=== PATIENT | male | born 1955 | race Caucasian/White ===

== ENCOUNTER → 2018-01-03 | Outpatient (CLI) | payer OTHER ==
[2018-01-02 10:35] VITALS: BMI 33.2
[2018-01-03 12:14] VITALS: BP 128/71; PULSE 76; RESP 16
--- NOTE | 2018-01-03 16:23 | P.PAINCN ---
History of Present Illness - Reason for Consult Consult date: 01/03/18 - History of Present Illness This is a 62 years old male with a chronic history of severe low back pain with radiation to lower extremity bilaterally, more severe on the dorsal left side, patient had lumbar fusion surgery at L4 5 and L5-S1 done in 2010, and he did well until recently when he started having severe low back pain with radiation to the hip area bilaterally more severe towards the left side and towards the left and groin the pain is very intense , and interfere with the quality of life intensity of the pain 8/10 and increases with any activity to a 10 over 10 , is getting prescription for his pain medication from his spinal primary care and he denies any side effects of the medication but he reported the current medication is not helping to control his pain, he denies any fever or night sweats. Denies any change in the bowel movement or urination Past Medical History Past Medical History: COPD, GERD/Reflux, Hyperlipidemia, Sleep Apnea/CPAP/BIPAP Additional Past Medical History / Comment(s): Mustafa Parkinson White Syndrome, arthritis left hip ,chronic back pain,"disc in back pinching on nerves above prior spinal fusion",steroids November 2017,hx 3rd degree kelley 1970s History of Any Multi-Drug Resistant Organisms: None Reported Additional Past Surgical History / Comment(s): deviated septum repair,spinal fusion,"skin grafts to reena arms rt side above hips" Past Anesthesia/Blood Transfusion Reactions: No Reported Reaction Smoking Status: Current every day smoker - Past Family History Mother Family Medical History: No Reported History Medications and Allergies Home Medications Medication Instructions Recorded Confirmed Type Atorvastatin Calcium [Lipitor] 40 mg PO DAILY 01/02/18 01/03/18 History Cholecalciferol (Vitamin D3) 2,000 unit PO DAILY 01/02/18 01/03/18 History [Vitamin D3] Cyclobenzaprine [Flexeril] 10 mg PO BID PRN 01/02/18 01/03/18 History Hydrocodone/Acetaminophen [[place] 1 tab PO Q6HR PRN 01/02/18 01/03/18 History 7.5-325] Metoprolol Succinate (ER) [Toprol 25 mg PO DAILY 01/02/18 01/03/18 History Xl] Omeprazole 20 mg PO DAILY 01/02/18 01/03/18 History Tamsulosin HCl [Flomax] 0.4 mg PO BID 01/02/18 01/03/18 History lamoTRIgine [LaMICtal] 100 mg PO BID 01/02/18 01/03/18 History risperiDONE [RisperDAL] 1 mg PO DAILY 01/02/18 01/03/18 History Allergies Allergy/AdvReac Type Severity Reaction Status Date / Time No Known Allergies Allergy Verified 01/03/18 11:57 Physical Exam Vitals: Vital Signs Pulse Resp BP 01/03/18 12:01 76 16 128/71 Social history : smoker , NO ETOH , NO Illegal drugs use . Review of Systems : 1- Constitutional : no chills , no fever , no night sweats , 2- Ears : no ear discharge , no change in hearing 3-Nose, Mouth ,Throat ; no bleeding gums, no sore throat , no epistaxis , 4-Cardiovascular : Denies chest pain, , no orthopnea , no palpitation 5-Respiratory : Denies cough , no dyspnea , no hemoptysis 6-Gastrointestinal :, no change in bowel habits , no coffee- ground emesis . 7-Genitourinary : No hematuria , no discharge , no incontinence, 8-Musculoskeletal : No gait dysfunction , report low back pain , 9- Neurological : no ataxia , no tremor , no sezure , 10-Psychatric , no suicidal ideation no hallucination 11- Endocrine : no cold intolerence , no polyuria , no polydypsia , 12-Hematologic : no easy bleeding , no easy brusing , 13-Allergic / immunology : no angioedema , no wheezing ,no allergic rhinitis 14-Integumentary : no brttle nails , no change hair / nails , no foot/leg ulcers . Physical Examinations : 1-Constitutional : Cooperative , not in acute distress . 2-HEENT : nech ; supple , no Lymphadenopathy , no Thyromegaly , :eyes , no icterus, no photophobia . ENT : , normal oropharynx , no Thrush 3- Respiratory : Chest clear to auscultations Bilaterally , no wheezing . 4- Cardiovascular : regular rate and rhythem , S1 , S2 , no S3 , no S4. 5- Gastrointestinal: abdomen soft no tenderness , no organomegally . 6- Genitourinary : Defferred . 7-Integumentary : No cellulitis , no ulcers , normal skin turgor , no cyanotic . 8- neurologic : Cranial nerve II to XII intact , no focal neurological deffecit 9-psychatric : alert , oriented X 3 , appropriate affect , intact judgment and insight . 10-Lymphatic : no Lymphadenopathy. 11- musculoskeltal: abnormal gait Lumber spine moter stegnth lower extremities ,thigh and legs 5/5 Right side , 5/5 Left side deep tendon reflexes : normal Knee Jerk , normal ankle Jerk positive lumber facet Loading Test Range of motion of the lumbar spine Flexion 30 degrees, extension 10 degrees strait leg raising test , positive at degree Fabere test positive RT and positive LT . Sever tenderness over the Sacroiliac joint on the R and L sides Results Comments: Computed tomography scan of the lumbar spine done 11/24/2017 L2-3 lumbar facet arthropathy with ligamentum flavum thickening and spinal canal stenosis L3 4 facet arthropathy and postsurgical changes and spinal stenosis L4 5 postsurgical changes and foraminal stenosis Assessment and Plan Plan: Assessment and plan= chronic low back pain secondary to postlaminectomy pain syndrome, lumbar spinal stenosis, and lumbar facet arthropathy Patient will be good candidate to have caudal epidural steroid injection with lysis of epidural adhesions, and if patient continued to have pain after that, regardless of the injection and we will do diagnostic medial branch block and possible radiofrequency of the medial branch if he had a positive result, currently getting prescription refills from his primary care, he denies any side effects and he should continue the same management , Time with Patient: Greater than 30 PQRS Measure Charge Sheet Measure #130: Documentation of Current Meds in Medical Chart: Patient's medications documented in chart Measure #226: Tobacco Use: Screen & Cessation Intervention: Pt screened for tobacco use AND intervention given Measure #111: Pneumonia Vaccination: Pneumococcal vaccine NOT administered or previously given Measure #47: Advance Care Plan: Advance care planning discussed & documented, pt chose/unable to give Measure #412: Opioid Treatment Agreement: No documentation of signed opioid treatment agreement Measure #408: Opioid Therapy Follow-up Evaluation: Patient had NO f/u eval minimum every 3 months during opioid therapy Measure #317: Preventitive Care & Scrn High Bld Press & F/U: Normal blood pressure, f/u not required Measure #128: Body Mass Index (BMI) Screening & Follow-up: BMI documented ABOVE normal parameters - f/u documented Measure #131: Pain Assessment & Follow-up: Pain positive & plan documented, Follow-up scheduled Measure #431: Unhealthy Alcohol Use Preventative Care & Scrn: Patient not identified as an unhealthy alcohol user PQRS Narrative: Smoking Status Current every day smoker Do You Want the Pneumonia No Vaccine AT THIS TIME? Blood Pressure 128/71 Pain Intensity [Bilateral 7 Lower Back] Scale Used Numeric (1 - 10) Hx Alcohol Use (MH) Yes: 2 q night Home Medications: Ambulatory Orders Atorvastatin Calcium [Lipitor] 40 mg PO DAILY 01/02/18 Cholecalciferol (Vitamin D3) [Vitamin D3] 2,000 unit PO DAILY 01/02/18 Cyclobenzaprine [Flexeril] 10 mg PO BID PRN 01/02/18 Hydrocodone/Acetaminophen [[place] 7.5-325] 1 tab PO Q6HR PRN 01/02/18 Metoprolol Succinate (ER) [Toprol Xl] 25 mg PO DAILY 01/02/18 Omeprazole 20 mg PO DAILY 01/02/18 Tamsulosin HCl [Flomax] 0.4 mg PO BID 01/02/18 lamoTRIgine [LaMICtal] 100 mg PO BID 01/02/18 risperiDONE [RisperDAL] 1 mg PO DAILY 01/02/18
== END | disposition home or self-care (01) ==
LOC: PNWHC3 11:21
PROVIDERS: ATTEND Specialist
DX: G89.29 Other chronic pain (principal); M54.5 Low back pain; M48.061 Spinal stenosis, lumbar region without neurogenic claudication; M96.1 Postlaminectomy syndrome, not elsewhere classified; M46.86 Other specified inflammatory spondylopathies, lumbar region; F17.200 Nicotine dependence, unspecified, uncomplicated; K21.9 Gastro-esophageal reflux disease without esophagitis; E78.5 Hyperlipidemia, unspecified; G47.30 Sleep apnea, unspecified; Z99.89 Dependence on other enabling machines and devices; Z87.828 Personal history of other (healed) physical injury and trauma; Z98.1 Arthrodesis status; Z79.891 Long term (current) use of opiate analgesic
CPT/HCPCS: 99211

== ENCOUNTER 2018-01-24 07:38 | Day surgery (SDC) | payer OTHER ==
[2018-01-18 08:27] VITALS: BMI 33.2
[~2018-01-24 07:38] MED LIST: LACTATED RINGERS 1,000 ML IV SCH
[2018-01-24 08:48] VITALS: TEMP 97.8
[2018-01-24] MEDS ORDERED: LIDOCAINE 1% 20 ML VIAL (10MG/ML) FOR IV START INTRADERMA ONE (09:02)
--- NOTE | 2018-01-24 09:39 | P.GSHP ---
History of Present Illness H&P Date: 01/24/18 62-year-old male presenting for caudal epidural with lysis of adhesions. Patient has a history of a lumbar fusion with residual left leg weakness and radicular pain in the left leg along the L4 and L5 distribution. Patient is on no blood thinners, does not complain of any bowel or bladder incontinence. ROS: Negative except as mentioned in HPI Vitals: Reviewed and stable Physical exam Gen: Alert and oriented 3 no acute distress Respiratory: Nonlabored, no wheezing Cardio: Regular rate and rhythm, no peripheral edema Muscular skeletal: Tender to palpation lumbar spine Straight leg raise positive on the left at 45 Surgical incision scar intact Assessment/plan: 1. Lumbar post laminotomy syndrome 2. Lumbar radiculopathy Plan: 1. Caudal epidural with lysis of adhesions 2. Return to clinic in 4 weeks Past Medical History Past Medical History: COPD, GERD/Reflux, Hyperlipidemia, Sleep Apnea/CPAP/BIPAP Additional Past Medical History / Comment(s): Mustafa Parkinson White Syndrome, arthritis left hip ,chronic back pain,"disc in back pinching on nerves above prior spinal fusion",steroids November 2017,hx 3rd degree kelley 1970s History of Any Multi-Drug Resistant Organisms: None Reported Additional Past Surgical History / Comment(s): deviated septum repair,spinal fusion,"skin grafts to reena arms rt side above hips" Past Anesthesia/Blood Transfusion Reactions: No Reported Reaction Smoking Status: Current every day smoker - Past Family History Mother Family Medical History: No Reported History Medications and Allergies Home Medications Medication Instructions Recorded Confirmed Type Atorvastatin Calcium [Lipitor] 40 mg PO DAILY 01/02/18 01/18/18 History Cholecalciferol (Vitamin D3) 2,000 unit PO DAILY 01/02/18 01/18/18 History [Vitamin D3] Cyclobenzaprine [Flexeril] 10 mg PO BID PRN 01/02/18 01/18/18 History Hydrocodone/Acetaminophen [[place] 1 tab PO Q6HR PRN 01/02/18 01/18/18 History 7.5-325] Metoprolol Succinate (ER) [Toprol 25 mg PO DAILY 01/02/18 01/18/18 History Xl] Omeprazole 20 mg PO DAILY 01/02/18 01/18/18 History Tamsulosin HCl [Flomax] 0.4 mg PO BID 01/02/18 01/18/18 History lamoTRIgine [LaMICtal] 100 mg PO BID 01/02/18 01/18/18 History risperiDONE [RisperDAL] 1 mg PO DAILY 01/02/18 01/18/18 History Allergies Allergy/AdvReac Type Severity Reaction Status Date / Time No Known Allergies Allergy Verified 01/24/18 08:44 Surgical - Exam Vital Signs Temp Pulse Resp BP Pulse Ox 97.8 F 77 16 119/72 98 01/24/18 08:46 01/24/18 08:46 01/24/18 08:46 01/24/18 08:46 01/24/18 08:46
--- NOTE | 2018-01-24 10:08 | P.PCN ---
Date of Procedure: 01/24/18 Description of Procedure: PREOP DIAGNOSIS: Lumbar postlaminectomy syndrome POSTOP DIAGNOSIS: Lumbar postlaminectomy syndrome PROCEDURE: Caudal epidural steroid injection with epidurolysis and epidurogram under fluoroscopic guidance ANESTHESIA: Local with 1% lidocaine 3 ml ; IV conscious sedation with Versed 2mg and fentanyl 100 g PROCEDURE INDICATION: The patient with post-laminectomy syndrome with low back pain and radiculopathy radiating left leg, with left leg weakness along the L4 and L5 nerve roots, here for a caudal epidural steroid injection with epidurolysis. PROCEDURE DESCRIPTION: The patient was seen and identified in the preoperative area. Risks, benefits, complications, and alternatives were discussed with the patient. The patient agreed to proceed with the procedure and signed the consent. IV was started, and vital signs were stable. Patient was taken to the OR and time out was completed. The patient was placed in the prone position on procedure table and a pillow was placed under the abdomen to reduce lumbar lordosis. The lumbosacral area was prepped and draped in the usual sterile fashion. Vital signs were closely monitored during the procedure. lateral view and the anterior-posterior plates of the sacrum were identified with infiltration of the area overlying the sacral hiatus with 1% lidocaine .A 17 gauge RK epidural needle was used to advance through the sacral hiatus into the caudal epidural space. Omnipaque 180 dye. 2cc was injected and the position of the needle was verified to be in the midline. A Racz catheter was introduced into the epidural space and was advanced towards the L5-S1 interspace under direct fluoroscopic guidance. Multiple passes were made with the catheter for lysis of epidural adhesions. Kenalog 80 mg with 0.5 ML 0.5% ropivacaine and 5 ml of preservative free normal saline was injected slowly. Additional spread was seen to L4 under fluoroscopy. The needle and the catheter were withdrawn intact. EPIDUROGRAM: Omnipaque 180 mg dye 2 ml was injected with spread of the dye into the caudal epidural space and with spread cutoff at L4-L5 prior to epidurolysis. Unable to pass catheter beyond superior endplate of L5 vertebral body on the left. Post epidurolysis dye for ml was injected and spread was seen to the upper limits of L4-L5. Very little dye was seen spreading above the L4 endplate. COMPLICATIONS: None. DISPOSITION / PLANS: The patient was placed in a supine position and transferred to the recovery area in a stable condition for observation and was discharged from the recovery room after meeting discharge criteria. Home discharge instructions given to the patient by the staff. The patient was reexamined prior to discharge. The patient will schedule a follow up in the clinic in 2-4 weeks.
[2018-01-24 10:15] VITALS: RESP 18
--- NOTE | 2018-01-24 10:16 | FL ---
EXAMINATION TYPE: FL guided pain mgmt statistic DATE OF EXAM: 01/24/2018 CLINICAL HISTORY: Low back pain. TECHNIQUE: Fluoroscopy. COMPARISON: None. FINDINGS: Fluoroscopic guidance was provided during pain relief procedure performed by Dr. Gurvinder eubanks of 1 minute 55 seconds of fluoroscopic time was utilized during the procedure and two spot images are acquired. Images acquired shows needle localization at level of lumbosacral junction, postsurgi nolvia change L4-S1 level is noted. IMPRESSION: As Above.
[2018-01-24 10:22] VITALS: BP 132/86; PULSE 66
== END 2018-01-24 10:42 | disposition home or self-care (01) ==
LOC: ORPAIN 07:38
PROVIDERS: ATTEND Anesthesiology
DX: G96.12 Meningeal adhesions (cerebral) (spinal) (principal); G89.29 Other chronic pain; M96.1 Postlaminectomy syndrome, not elsewhere classified; Z98.1 Arthrodesis status; J44.9 Chronic obstructive pulmonary disease, unspecified; K21.9 Gastro-esophageal reflux disease without esophagitis; E78.5 Hyperlipidemia, unspecified; G47.30 Sleep apnea, unspecified; Z99.89 Dependence on other enabling machines and devices; I45.6 Pre-excitation syndrome; M16.12 Unilateral primary osteoarthritis, left hip; F17.200 Nicotine dependence, unspecified, uncomplicated; Z79.899 Other long term (current) drug therapy
CPT/HCPCS: 62264; J2250; J3301; J3010; Q9966; C1894; 62323; 99152

== ENCOUNTER → 2018-02-19 | Outpatient (CLI) | payer OTHER ==
[2018-02-19 13:23] VITALS: BP 155/73; PULSE 86; RESP 16; TEMP 97.8
--- NOTE | 2018-02-19 13:55 | P.PAINPG ---
Subjective Progress Note Date: 02/19/18 This is follow-up visit for this patient with a history of severe and chronic low back pain secondary to lumbar postlaminectomy pain syndrome, lumbar facet arthropathy, We have done an interventional pain procedure caudal Epidural steroid injections with lysis of epidural adhesionsx1 , he had significant improvement in his low back pain, and is complaining of left hip and groin pain The patient currently on [facility] [facility] prescription for his primary care Patient denies any side effect of the medication , patient denies any excessive drowsiness or sleepiness, patient denies any suicidal ideation, Patient reported that the current medication is helping to control the pain and improve the activity of daily livings, Patient denies any motor or sensory deficit, denies any change in the bowel movement or urination, patient denies any fever or night sweats. Objective - Vital Signs Vital signs: Vital Signs Temp 97.8 F 02/19/18 13:20 Pulse 86 02/19/18 13:20 Resp 16 02/19/18 13:20 BP 155/73 02/19/18 13:20 Pulse Ox 98 02/19/18 13:20 Intake & Output 02/18/18 02/19/18 02/19/18 18:59 06:59 18:59 Weight 111.13 kg - Exam Physical Examinations : 1-Constitutiona : Cooperative , not in acute distress . 2-HEENT : nech ; supple , no Lymphadenopathy , normal thyroid size . eyes : no ptosis , no icterus , no photophobia . ENT : normal of hearing , normal oropharynx , no Thrush . 3- Respiratory : Chest clear to auscultations Bilaterally , no wheezing , no Rhonchi . 4- Cardiovascular : regular rate and rhythem , S1 , S2 , no S3 , no S4. 5- Gastrointestinal : abdomen soft no tenderness , bowel sounds , no organomegally . 6- Genitourinary : Defferred . 7- neurologic : Cranial nerve II to XII intact , no focal neurological deffecit . 8-psychatric : alert , oriented X 3 , appropriate affect , intact judgment and insight . 9-Lymphatic : no Lymphadenopathy . 10- musculoskeltal : Lumber spine moter stegnth lower extremities ,thigh and legs 5/5 Right side , 5/5 Left side deep tendon reflexes : normal Knee Jerk , normal ankle Jerk positive lumber facet Loading Test Range of motion of the lumbar spine Flexion 30 degrees, extension 10 degrees strait leg raising test , positive at 60 degree Fabere test positive RT and positive LT . moderate tenderness over the Sacroiliac joint on the L sides left Hip abduction associated with severe pain Assessment and Plan Plan: Assessment and plan= chronic low back pain secondary to lumbar postlaminectomy pain syndrome , lumbar spondylosis with lumbar facet arthropathy . Left hip arthralgia Patient had a good result after caudal epidural steroid injection with lysis of epidural adhesions, he could benefit from repeat the injection If patient continued to have pain after a lumbar epidural steroid injection and we will consider doing left hip steroid injection Time with Patient: Less than 30 PQRS Measure Charge Sheet Measure #130: Documentation of Current Meds in Medical Chart: Patient's medications documented in chart Measure #226: Tobacco Use: Screen & Cessation Intervention: Pt screened for tobacco use AND intervention given Measure #111: Pneumonia Vaccination: Pneumococcal vaccine administered or previously received Measure #47: Advance Care Plan: Advance care planning discussed & documented, pt chose/unable to give Measure #412: Opioid Treatment Agreement: No documentation of signed opioid treatment agreement Measure #408: Opioid Therapy Follow-up Evaluation: Patient had NO f/u eval minimum every 3 months during opioid therapy Measure #317: Preventitive Care & Scrn High Bld Press & F/U: Pre-hypertensive or hypertensive BP documented, pt will f/u with PCP Measure #128: Body Mass Index (BMI) Screening & Follow-up: BMI documented ABOVE normal parameters - f/u documented Measure #131: Pain Assessment & Follow-up: Pain positive & plan documented, Follow-up scheduled Measure #431: Unhealthy Alcohol Use Preventative Care & Scrn: Patient not identified as an unhealthy alcohol user PQRS Narrative: Smoking Status Current every day smoker Do You Want the Pneumonia Vaccine Up to Date Vaccine AT THIS TIME? Blood Pressure 155/73 Pain Intensity [Lower 5 Posterior Back] Scale Used Numeric (1 - 10) Hx Alcohol Use (MH) Yes: 2 q night Home Medications: Ambulatory Orders Atorvastatin Calcium [Lipitor] 40 mg PO DAILY 01/02/18 Cholecalciferol (Vitamin D3) [Vitamin D3] 2,000 unit PO DAILY 01/02/18 Cyclobenzaprine [Flexeril] 10 mg PO BID PRN 01/02/18 Hydrocodone/Acetaminophen [[place] 7.5-325] 1 tab PO Q6HR PRN 01/02/18 Metoprolol Succinate (ER) [Toprol Xl] 25 mg PO DAILY 01/02/18 Omeprazole 20 mg PO DAILY 01/02/18 Tamsulosin HCl [Flomax] 0.4 mg PO BID 01/02/18 lamoTRIgine [LaMICtal] 100 mg PO BID 01/02/18 risperiDONE [RisperDAL] 1 mg PO DAILY 01/02/18 Controlled Substance Measures - Controlled Substance Measures Is patient prescribed a controlled substance at discharge?: No When asked, does pt state using other controlled substances?: No If prescribed controlled substance>3 days was MAPS reviewed?: No If Rx opioid, was Start Talking consent form obtained?: No If opioid is for acute pain is fill amount 7 days or less?: No Was information provided regarding opioid addiction?: No
== END | disposition home or self-care (01) ==
LOC: PNWHC3 12:49
PROVIDERS: ATTEND Specialist
DX: G89.29 Other chronic pain (principal); M54.5 Low back pain; M96.1 Postlaminectomy syndrome, not elsewhere classified; M47.816 Spondylosis without myelopathy or radiculopathy, lumbar region; M46.86 Other specified inflammatory spondylopathies, lumbar region; F17.200 Nicotine dependence, unspecified, uncomplicated; Z79.891 Long term (current) use of opiate analgesic
CPT/HCPCS: 99211

== ENCOUNTER 2018-03-07 09:04 | Day surgery (SDC) | payer OTHER ==
[2018-03-01 14:18] VITALS: BMI 30.5
[2018-03-07 11:11] VITALS: TEMP 98.3
[2018-03-07] MEDS ORDERED: LIDOCAINE 1% 20 ML VIAL (10MG/ML) FOR IV START INTRADERMA ONE (11:13)
--- NOTE | 2018-03-07 11:37 | P.PCN ---
Date of Procedure: 03/07/18 Procedure(s) Performed: PREOPERATIVE DIAGNOSIS: Lumbar post laminectomy syndrome. POSTOPERATIVE DIAGNOSIS: Lumbar post laminectomy syndrome. PROCEDURE: 1. Caudal epidural steroid injection under fluoroscopic guidance. 2. Caudal epidurogra ANESTHESIA: Local with 1% lidocaine 5ml for subcutaneous infiltrations ,and IV versed 2mg ,and fentanyl 100 mcg EBL: None. PROCEDURE INDICATION: The patient with neuropathic pain radiating distally returns for caudal epidural steroid injection. PROCEDURE DESCRIPTION: The patient was seen and identified in the preoperative area. Risks, benefits, complications, and alternatives were discussed with the patient. The patient agreed to proceed with the procedure and signed the consent. IV was started, and vital signs were stable. Patient was taken to the OR and time out was completed. The patient was placed in the prone position on procedure table and a pillow was placed under the abdomen to reduce lumbar lordosis. The lumbosacral area was prepped and draped in the usual sterile fashion. Critical pause was taken. Vital signs were closely monitored during the procedure. Using lateral fluoroscopy the anterior-posterior plates of the sacrum were identified and the skin and deeper tissues corresponding into sacrococcygeal ligament were anesthetized using approximately 3 mL of 1% lidocaine. Then under fluoroscopy, a 3-1/2-inch 20-gauge Tuohy epidural needle was guided through the sacrococcygeal ligament, and into the epidural space. After negative aspiration , a 2 mL of omnipaque-180 contrast dye was injected with excellent epidurogram. Again after negative aspiration for CSF, blood, and with no paresthesias, Depo-Medrol 80mg, 2ml of 1% preservative free Lidocaine with 6 ml of preservative free normal saline(total of 10ml)solution was injected with washout of epidurogram. Needle was withdrawn intact. Skin was cleansed, and bandage was applied. COMPLICATIONS: None DISPOSITION / PLANS: The patient was placed in a supine position and transferred to the recovery area in a stable condition for observation and was discharged from the recovery room after meeting discharge criteria. Home discharge instructions given to the patient by the staff. The patient was reexamined prior to discharge. The patient will schedule a follow up in the clinic in 2-4 weeks.
[2018-03-07] MEDS ORDERED: IV FLUID CONTINUATION 1,000 ML IV ONE ×2 (11:53)
--- NOTE | 2018-03-07 11:53 | FL ---
EXAMINATION TYPE: FL guided pain mgmt statistic DATE OF EXAM: 03/07/2018 CLINICAL HISTORY: Low back and sacral pain. TECHNIQUE: Fluoroscopy. COMPARISON: None. FINDINGS: Fluoroscopic guidance was provided during pain relief procedure performed by Dr. Fong . A total of 3 seconds of fluoroscopic time was utilized during the procedure and two spot images ar e acquired. Images acquired shows needle localization at level of sacrum from posterior inferior bonny caldwell. IMPRESSION: As Above.
[2018-03-07 11:56] VITALS: PULSE 69
[2018-03-07 12:25] VITALS: BP 124/75; RESP 20
== END 2018-03-07 12:31 | disposition home or self-care (01) ==
LOC: ORPAIN 09:04
PROVIDERS: ATTEND Specialist
DX: M96.1 Postlaminectomy syndrome, not elsewhere classified (principal); I10 Essential (primary) hypertension; E78.5 Hyperlipidemia, unspecified
CPT/HCPCS: 62323; J2250; J1030; J3010; Q9966

== ENCOUNTER → 2018-03-21 | Day surgery (SDC) | payer OTHER ==
[2018-03-19 10:19] VITALS: BMI 33.2
[~2018-03-21] MED LIST changes: +IV FLUID CONTINUATION 1,000 ML IV ONE; +LIDOCAINE 1% 20 ML VIAL (10MG/ML) FOR IV START INTRADERMA ONE
[2018-03-21 07:22] VITALS: RESP 18; TEMP 97.9
--- NOTE | 2018-03-21 07:42 | P.PCN ---
Date of Procedure: 03/21/18 Surgeon: Martina David Pathology: none sent Condition: stable Disposition: PACU Description of Procedure: PREOPERATIVE DIAGNOSIS: Lumbar post laminectomy syndrome. POSTOPERATIVE DIAGNOSIS: Lumbar post laminectomy syndrome. PROCEDURE: 1. Caudal epidural steroid injection under fluoroscopic guidance. 2. Caudal epidurogra ANESTHESIA: Local with 1% lidocaine 5ml for subcutaneous infiltrations ,and IV moderate conscious sedation with versed 2mg ,and fentanyl 100 mcg EBL: None. PROCEDURE INDICATION: The patient with neuropathic pain radiating distally returns for caudal epidural steroid injection. PROCEDURE DESCRIPTION: The patient was seen and identified in the preoperative area. Risks, benefits, complications, and alternatives were discussed with the patient. The patient agreed to proceed with the procedure and signed the consent. IV was started, and vital signs were stable. Patient was taken to the OR and time out was completed. The patient was placed in the prone position on procedure table and a pillow was placed under the abdomen to reduce lumbar lordosis. The lumbosacral area was prepped and draped in the usual sterile fashion. Critical pause was taken. Vital signs were closely monitored during the procedure. Using lateral fluoroscopy the anterior-posterior plates of the sacrum were identified and the skin and deeper tissues corresponding into sacrococcygeal ligament were anesthetized using approximately 3 mL of 1% lidocaine. Then under fluoroscopy, a 3-1/2-inch 20-gauge Tuohy epidural needle was guided through the sacrococcygeal ligament, and into the epidural space. After negative aspiration , a 2 mL of omnipaque-180 contrast dye was injected with excellent epidurogram. Again after negative aspiration for CSF, blood, and with no paresthesias, Depo-Medrol 40mg, 2ml of 1% preservative free Lidocaine with 6 ml of preservative free normal saline(total of 10ml)solution was injected with washout of epidurogram. Needle was withdrawn intact. Skin was cleansed, and bandage was applied. COMPLICATIONS: None DISPOSITION / PLANS: The patient was placed in a supine position and transferred to the recovery area in a stable condition for observation and was discharged from the recovery room after meeting discharge criteria. Home discharge instructions given to the patient by the staff. The patient was reexamined prior to discharge. The patient will schedule a follow up in the clinic in 2-4 weeks.
--- NOTE | 2018-03-21 07:54 | FL ---
Fluoroscopy INDICATION: Pain FINDINGS: Fluoroscopy time: 13 seconds. Images obtained: 2. IMPRESSIONS: 1. Documentation of fluoroscopy.
[2018-03-21 07:55] VITALS: PULSE 69
[2018-03-21 08:15] VITALS: BP 130/73
== END ==
LOC: ORPAIN 06:07
PROVIDERS: ATTEND Anesthesiology
DX: M96.1 Postlaminectomy syndrome, not elsewhere classified (principal); E66.9 Obesity, unspecified; Z68.33 Body mass index [BMI] 33.0-33.9, adult
CPT/HCPCS: 62323; J2250; J1030; J3010; Q9966

== ENCOUNTER 2018-10-08 12:39 | Inpatient (IN) | payer OTHER ==
[2018-10-08] MEDS ORDERED: ALBUTEROL NEBULIZED 2.5 MG/3 ML INHALATION STA (12:52)
[2018-10-08] MEDS ORDERED: IPRATROPIUM 0.5 MG/2.5 ML NEBU INHALATION STA (12:52)
[2018-10-08] MEDS ORDERED: SODIUM CHLORIDE 0.9% 1,000 ML IV STA (12:52)
[2018-10-08 13:22] LABS: Basophils % (A) 0 %; Eosinophils # (A) 0.2 k/uL (0-0.7); Eosinophils % (A) 3 %; HCT 36.1 % (39.0-53.0); HGB 11.9 gm/dL (13.0-17.5); Lymphocytes # (A) 1.2 k/uL (1.0-4.8); Lymphocytes % (A) 18 %; MCH 32.1 pg (25.0-35.0); MCV 97.4 fL (80.0-100.0); Mean Platelet Volume 8.5; Monocytes # (A) 0.4 k/uL (0-1.0); Monocytes % (A) 5 %; Neutrophils # (A) 4.7 k/uL (1.3-7.7); Neutrophils % (A) 72 %; Platelet Count 199 k/uL (150-450); RBC 3.71 m/uL (4.30-5.90); RDW 13.5 % (11.5-15.5); WBC 6.6 k/uL (3.8-10.6)
[2018-10-08 13:37] LABS: ALT 12 U/L (21-72); AST 17 U/L (17-59); Alkaline Phosphatase 55 U/L (38-126); Anion Gap 9 mmol/L; Blood Urea Nitrogen 10 mg/dL (9-20); Calcium 9.5 mg/dL (8.4-10.2); Carbon Dioxide 23 mmol/L (22-30); Chloride 106 mmol/L (98-107); Glucose 122 mg/dL (74-99); Magnesium 1.7 mg/dL (1.6-2.3); Potassium 3.9 mmol/L (3.5-5.1); Sodium 138 mmol/L (137-145); Total Bilirubin 0.7 mg/dL (0.2-1.3); Total Protein 6.5 g/dL (6.3-8.2)
[2018-10-08 13:42] LABS: INR 0.9 (<1.2); Partial Thromboplastin Time 26.1 sec (22.0-30.0); Prothrombin Time 9.6 sec (9.0-12.0)
--- NOTE | 2018-10-08 13:54 | XR ---
EXAMINATION TYPE: XR chest 2V DATE OF EXAM: 10/08/2018 COMPARISON: 03/01/2011 HISTORY: Shortness of breath TECHNIQUE: Frontal and lateral views of the chest are obtained. FINDINGS: Scattered senescent parenchymal changes noted. Hyperinflation compatible with COPD. No evidence for infiltrate. No evidence for atelectasis. Right-sided pleural effusion and pleural par enchymal opacity. Heart size is stable. Mediastinal structures are stable and grossly unremarkable. No evidence for hilar prominence. Degenerative changes dorsal spine. IMPRESSION: 1. Right-sided pleural effusion and pleural parenchymal opacity.
--- NOTE | 2018-10-08 13:54 | ED ---
SOB HPI - General Chief Complaint: Shortness of Breath Stated Complaint: Sob/abn ekg Time Seen by Provider: 10/08/18 12:52 Source: patient, RN notes reviewed, old records reviewed Mode of arrival: ambulatory Limitations: no limitations - History of Present Illness Initial Comments: This is a 63-year-old male the ER for evaluation. Patient sent in by family doctor for abnormal EKG chest pain shortness of breath. Patient has history of COPD WPW and high cholesterol. No recent cardiac evaluation. No fevers, does have cough and congestion. No travel history or sick contacts MD Complaint: shortness of breath, cough -: days(s) Radiation: other (No current pain) Severity: mild Severity scale (1-10): 3 Quality: aching Consistency: constant Improves With: nothing Worsens With: nothing Known History Of: COPD Context: recent URI Associated Symptoms: chest pain, cough Treatments Prior to Arrival: none - Related Data Home Medications Medication Instructions Recorded Confirmed Atorvastatin Calcium [Lipitor] 40 mg PO DAILY 01/02/18 10/08/18 Cyclobenzaprine [Flexeril] 10 mg PO BID PRN 01/02/18 10/08/18 Hydrocodone/Acetaminophen [[place] 1 tab PO Q6HR PRN 01/02/18 10/08/18 7.5-325] Metoprolol Succinate (ER) [Toprol 25 mg PO DAILY 01/02/18 10/08/18 Xl] Omeprazole 20 mg PO DAILY 01/02/18 10/08/18 Tamsulosin HCl [Flomax] 0.8 mg PO DAILY 01/02/18 10/08/18 lamoTRIgine [LaMICtal] 100 mg PO BID 01/02/18 10/08/18 risperiDONE [RisperDAL] 1 mg PO DAILY 01/02/18 10/08/18 Albuterol Inhaler [Ventolin Hfa 2 puff INHALATION RT-Q6H PRN 10/08/18 10/08/18 Inhaler] Budesonide/Formoterol Fumarate 2 puff INHALATION RT-BID 10/08/18 10/08/18 [Symbicort 160-4.5 Mcg Inhaler] Fenofibrate Nanocrystallized 145 mg PO DAILY 10/08/18 10/08/18 [Fenofibrate] Naproxen Sodium 550 mg PO Q12H 10/08/18 10/08/18 Allergies Allergy/AdvReac Type Severity Reaction Status Date / Time No Known Allergies Allergy Verified 10/08/18 14:01 Review of Systems ROS Statement: Those systems with pertinent positive or pertinent negative responses have been documented in the HPI. ROS Other: All systems not noted in ROS Statement are negative. Past Medical History Past Medical History: COPD, GERD/Reflux, Hyperlipidemia, Sleep Apnea/CPAP/BIPAP Additional Past Medical History / Comment(s): Mustafa Parkinson White Sy ndrome,arthritis left hip ,chronic back pain,"disc in back pinching on nerves above prior spinal fusion",steroids November 2017,hx 3rd degree kelley 1970s History of Any Multi-Drug Resistant Organisms: None Reported Additional Past Surgical History / Comment(s): deviated septum repair,spinal fusion,"skin grafts to reena arms rt side above hips", PA[facility] Past Anesthesia/Blood Transfusion Reactions: No Reported Reaction Past Psychological History: Anxiety Smoking Status: Current every day smoker Past Alcohol Use History: Daily Past Drug Use History: Marijuana - Past Family History Mother Family Medical History: No Reported History General Exam Limitations: no limitations General appearance: alert, in no apparent distress Head exam: Present: atraumatic, normocephalic, normal inspection Eye exam: Present: normal appearance, PERRL, EOMI. Absent: scleral icterus, conjunctival injection, periorbital swelling ENT exam: Present: normal exam, mucous membranes moist Neck exam: Present: normal inspection. Absent: tenderness, meningismus, lymphadenopathy Respiratory exam: Present: respiratory distress, wheezes, decreased breath sounds, prolonged expiratory. Absent: rales, rhonchi, stridor Cardiovascular Exam: Present: regular rate, normal rhythm, normal heart sounds. Absent: systolic murmur, diastolic murmur, rubs, gallop, clicks GI/Abdominal exam: Present: soft, normal bowel sounds. Absent: distended, tenderness, guarding, rebound, rigid Extremities exam: Present: normal inspection, full ROM, normal capillary refill. Absent: tenderness, pedal edema, joint swelling, calf tenderness Back exam: Present: normal inspection Neurological exam: Present: alert, oriented X3, CN II-XII intact Psychiatric exam: Present: normal affect, normal mood Skin exam: Present: warm, dry, intact, normal color. Absent: rash Course Vital Signs 10/08/18 10/08/18 10/08/18 12:44 13:12 13:23 Temperature 98.5 F Pulse Rate 70 66 69 Respiratory 20 18 Rate Blood Pressure 122/58 137/89 O2 Sat by Pulse 99 100 Oximetry 10/08/18 10/08/18 10/08/18 13:40 13:56 15:02 Temperature Pulse Rate 68 79 73 Respiratory 18 18 Rate Blood Pressure 115/68 116/73 O2 Sat by Pulse 100 100 Oximetry - Reevaluation(s) Reevaluation #1: 10/08/18 15:37 Medical record reviewed including outpatient x-ray and EKG Reevaluation #2: 10/08/18 15:37 Patient is no acute distress no chest pain Medical Decision Making - Medical Decision Making 60 female the ER with shortness of breath mainly worse at night, patient does have findings of pneumonia pleural effusion as well as new diagnosis of PE. Patient will be admitted for high-dose heparin breathing treatments and IV antibiotics - Lab Data Result diagrams: 10/08/18 13:05 10/08/18 13:05 Lab Results 10/08/18 10/08/18 10/08/18 Range/Units 13:05 13:05 13:05 WBC 6.6 (3.8-10.6) k/uL RBC 3.71 L (4.30-5.90) m/uL Hgb 11.9 L (13.0-17.5) gm/dL Hct 36.1 L (39.0-53.0) % MCV 97.4 (80.0-100.0) fL MCH 32.1 (25.0-35.0) pg MCHC 33.0 (31.0-37.0) g/dL RDW 13.5 (11.5-15.5) % Plt Count 199 (150-450) k/uL Neutrophils % 72 % Lymphocytes % 18 % Monocytes % 5 % Eosinophils % 3 % Basophils % 0 % Neutrophils # 4.7 (1.3-7.7) k/uL Lymphocytes # 1.2 (1.0-4.8) k/uL Monocytes # 0.4 (0-1.0) k/uL Eosinophils # 0.2 (0-0.7) k/uL Basophils # 0.0 (0-0.2) k/uL PT 9.6 (9.0-12.0) sec INR 0.9 (<1.2) APTT 26.1 (22.0-30.0) sec D-Dimer 0.69 H (<0.60) mg/L FEU Sodium 138 (137-145) mmol/L Potassium 3.9 (3.5-5.1) mmol/L Chloride 106 (98-107) mmol/L Carbon Dioxide 23 (22-30) mmol/L Anion Gap 9 mmol/L BUN 10 (9-20) mg/dL Creatinine 0.80 (0.66-1.25) mg/dL Est GFR (CKD-EPI)AfAm >90 (>60 ml/min/1.73 sqM) Est GFR (CKD-EPI)NonAf >90 (>60 ml/min/1.73 sqM) Glucose 122 H (74-99) mg/dL Calcium 9.5 (8.4-10.2) mg/dL Magnesium 1.7 (1.6-2.3) mg/dL Total Bilirubin 0.7 (0.2-1.3) mg/dL AST 17 (17-59) U/L ALT 12 L (21-72) U/L Alkaline Phosphatase 55 (38-126) U/L Troponin I (0.000-0.034) ng/mL NT-Pro-B Natriuret Pep pg/mL Total Protein 6.5 (6.3-8.2) g/dL Albumin 4.0 (3.5-5.0) g/dL 10/08/18 10/08/18 Range/Units 13:05 13:05 WBC (3.8-10.6) k/uL RBC (4.30-5.90) m/uL Hgb (13.0-17.5) gm/dL Hct (39.0-53.0) % MCV (80.0-100.0) fL MCH (25.0-35.0) pg MCHC (31.0-37.0) g/dL RDW (11.5-15.5) % Plt Count (150-450) k/uL Neutrophils % % Lymphocytes % % Monocytes % % Eosinophils % % Basophils % % Neutrophils # (1.3-7.7) k/uL Lymphocytes # (1.0-4.8) k/uL Monocytes # (0-1.0) k/uL Eosinophils # (0-0.7) k/uL Basophils # (0-0.2) k/uL PT (9.0-12.0) sec INR (<1.2) APTT (22.0-30.0) sec D-Dimer (<0.60) mg/L FEU Sodium (137-145) mmol/L Potassium (3.5-5.1) mmol/L Chloride (98-107) mmol/L Carbon Dioxide (22-30) mmol/L Anion Gap mmol/L BUN (9-20) mg/dL Creatinine (0.66-1.25) mg/dL Est GFR (CKD-EPI)AfAm (>60 ml/min/1.73 sqM) Est GFR (CKD-EPI)NonAf (>60 ml/min/1.73 sqM) Glucose (74-99) mg/dL Calcium (8.4-10.2) mg/dL Magnesium (1.6-2.3) mg/dL Total Bilirubin (0.2-1.3) mg/dL AST (17-59) U/L ALT (21-72) U/L Alkaline Phosphatase (38-126) U/L Troponin I <0.012 (0.000-0.034) ng/mL NT-Pro-B Natriuret Pep 1690 pg/mL Total Protein (6.3-8.2) g/dL Albumin (3.5-5.0) g/dL - EKG Data -: EKG Interpreted by Me (EKG shows sinus rhythm rate of 72, UT 134, QRS 100, QTc 477) - Radiology Data Radiology results: report reviewed (Chest x-ray shows pleural effusion CTA chest show positive PE), image reviewed Critical Care Time Critical Care Time: Yes Total Critical Care Time: 31 Disposition Clinical Impression: Acute exacerbation of chronic obstructive airways disease, Community acquired pneumonia, Acute pulmonary embolism Disposition: HOME SELF-CARE Condition: Fair Is patient prescribed a controlled substance at d/c from ED?: No Referrals: Bandar Steiner MD [Primary Care Provider] - 1-2 days
[2018-10-08 14:02] LABS: D-Dimer 0.69 mg/L FEU (<0.60)
--- NOTE | 2018-10-08 15:15 | CT ---
EXAMINATION TYPE: CT angio chest DATE OF EXAM: 10/08/2018 COMPARISON: None HISTORY: 63-year-old male pain and Shortness of breath TECHNIQUE: Contiguous axial scanning of the chest performed with IV Contrast, patient injected with 1 00 mL of Isovue 370. Coronal/sagittal MIP reconstructions performed. CT DLP: 617 mGycm Automated exposure control for dose reduction was used. FINDINGS: Heart upper limits of normal in size without pericardial effusion. Extensive coronary vessel calcific ations are present. No flattening of the interventricular septum reflux of contrast into the hepatic veins. Aorta normal caliber with a line configuration to the aortic arch. Scattered nonenlarged mediastinal lymph nodes are present. Prominent right hilar lymph node measuring 1.6 cm short axis. There is mild centrilobular emphysema with prominent bibasilar atelectasis. There is trace right pleu ral effusion also demonstrated with more focal patchy right basilar density. Large caliber to the main right and the pulmonary arteries that 3.1 and 2.9 cm, respectively, suggest ing underlying pulmonary arterial hypertension. Other satisfactory opacification of the pulmonary artery system, there is mild respiratory motion art ifacts causing some limitation in assessment. Anterior segmental right upper lobe branch pulmonary embolus, refer to axial image 72. Segmental and more distal arterial branches of the left lower lobe are very limited due to motion. Radius seems to be occlusion of the left brachiocephalic vein. The left-sided injection seems to find its way to the central circulation via extensive left chest wall collaterals entering the SVC via th e azygos vein and collaterals dumping into the right brachiocephalic vein. Tiny hernia. Visualized upper abdomen shows no gross abnormality. Bones: Bridging anterior endplate spondylosis Left lower lobe branches are very limited in assessment . IMPRESSION: 1. SOME RESPIRATORY MOTION CAUSING LIMITATION. EXAM IS POSITIVE FOR RIGHT UPPER LOBE SEGMENTAL BRANCH PULMONARY EMBOLUS. LIMITED ASSESSMENT ESPECIALLY OF THE LEFT LOWER LOBE SEGMENTAL AND MORE DISTAL AR TERIAL BRANCHES. 2. TRACE RIGHT EFFUSION WITH PATCHY RIGHT BASILAR OPACITY WHICH MAY REPRESENT PNEUMONIA. THREE-MONTH FOLLOW-UP RECOMMENDED TO ENSURE CLEARANCE SOME MORE NODULAR AREAS OF DENSITY ARE ALSO PRESENT. PRO MINENT 1.6 CM RIGHT HILAR LYMPH NODE IS PROBABLY REACTIVE AND SHOULD ALSO BE REASSESSED ON THE FOLLOW -UP. 3. PULMONARY ARTERIAL HYPERTENSION. 4. THERE SEEMS TO BE OCCLUSION OF THE LEFT BRACHIOCEPHALIC VEIN. THE LEFT-SIDED CONTRAST INJECTION EN TERS THE CENTRAL CIRCULATION VIA PROMINENT LEFT-SIDED CHEST WALL COLLATERALS. Critical findings relayed to Dr. Alexander in the ER at 3:12 PM.
[2018-10-08] MEDS ORDERED: NITROGLYCERIN SL TABS 0.4 MG TAB SUBLINGUAL PRN (15:20)
[2018-10-08] MEDS ORDERED: PNEUMONIA PROTOCOL UTILIZED 1 EACH MISC PO PRN (15:20)
[2018-10-08] MEDS ORDERED: ASPIRIN 81 MG PO STA (15:30)
[2018-10-08] MEDS ORDERED: AZITHROMYCIN 500 MG in SODIUM CHLORIDE 0.9% 250 ML IVPB STA (15:30)
[2018-10-08] MEDS ORDERED: HEPARIN SODIUM,PORCINE 10,000 UNIT/ML 1 ML VIAL IV ONE (15:50)
[2018-10-08] MEDS ORDERED: HEPARIN SODIUM,PORCINE 5,000 UNIT/ML 1 ML VIAL IV PRN (15:50)
[2018-10-08] MEDS: SODIUM CHLORIDE 0.9% 1,000 ML IV SCH (15:58)
[2018-10-08 16:12] VITALS: BMI 34.7
[2018-10-08] MEDS: HEPARIN SOD,PORK IN 0.45% NACL 25,000 UNIT in 0.45% NACL 1 250ML.BAG IV SCH (16:22)
[2018-10-08] MEDS: IPRATROPIUM-ALBUTEROL 3 ML NEB INHALATION SCH ×2 (16:29→20:16)
[2018-10-08] MEDS ORDERED: METOPROLOL TARTRATE 25 MG TAB PO STA (17:43)
[2018-10-08] MEDS ORDERED: CYCLOBENZAPRINE 10 MG TAB PO PRN (18:00)
[2018-10-08] MEDS: HYDROcodone/APAP 7.5-325MG 1 EACH TAB PO PRN (18:22)
[2018-10-08] MEDS: SYMBICORT 160-4.5 MCG INHALER INHALATION SCH (20:17)
[2018-10-08] MEDS: lamoTRIgine 100 MG TAB PO SCH (20:51)
[2018-10-09] MEDS: HEPARIN SOD,PORK IN 0.45% NACL 25,000 UNIT in 0.45% NACL 1 250ML.BAG IV SCH ×2 (04:39→17:21)
[2018-10-09] MEDS: SODIUM CHLORIDE 0.9% 1,000 ML IV SCH (04:39)
[2018-10-09] MEDS: PANTOPRAZOLE 40 MG TABLET PO SCH (06:18)
[2018-10-09 06:29] LABS: Cholesterol 102 mg/dL (<200); HDL Cholesterol 65 mg/dL (40-60); LDL Cholesterol,Calculated 18 mg/dL (0-99); Triglycerides 94 mg/dL (<150)
--- NOTE | 2018-10-09 07:05 | ECHOF ---
Referral Reason:pe MEASUREMENTS -------- HEIGHT: 182.9 cm WEIGHT: 116.1 kg BP: 116/73 RVIDd: 3.7 cm (< 3.3) IVSd: 1.5 cm (0.6 - 1.1) LVIDd: 4.8 cm (3.9 - 5.3) LVPWd: 1.4 cm (0.6 - 1.1) IVSs: 1.7 cm LVIDs: 3.7 cm LVPWs: 1.5 cm LA Diam: 4.4 cm (2.7 - 3.8) LAESV Index (A-L): 45.14 ml/m Ao Diam: 3.6 cm (2.0 - 3.7) AV Cusp: 2.6 cm (1.5 - 2.6) MV EXCURSION: 12.148 mm (> 18.000) MV EF SLOPE: 103 mm/s (70 - 150) EPSS: 1.0 cm MV E Omar: 1.26 m/s MV DecT: 148 ms MV A Omar: 0.53 m/s MV E/A Ratio: 2.37 RAP: 5.00 mmHg RVSP: 41.31 mmHg FINDINGS -------- Resting tachycardia (HR>100bpm). This was a technically difficult study with suboptimal views. The left ventricular size is normal. There is moderate concentric left ventricular hypertrophy. O verall left ventricular systolic function is normal with, an EF between 55 - 60 %. The right ventricle is mildly enlarged. LA is severely dilated >40 ml/m2 The right atrium is normal in size. 5.0mg OF Lumason UTLIZED: 2 OR MORE WALL SEGMENTS NOT VISUALIZED. Lipomatous hypertrophy of atrial septum. There is mild aortic valve sclerosis. Mild mitral annular calcification present. Fccp-ka-atjwoygy mitral regurgitation is present. Mild tricuspid regurgitation present. There is mild pulmonary hypertension. The right ventricular systolic pressure, as measured by Doppler, is 41.31mmHg. The pulmonic valve was not well visualized. The aortic root size is normal. Normal inferior vena cava with normal inspiratory collapse consistent with estimated right atrial pre ssure of 5 mmHg. There is no pericardial effusion. CONCLUSIONS -------- 1. Resting tachycardia (HR>100bpm). 2. This was a technically difficult study with suboptimal views. 3. The left ventricular size is normal. 4. There is moderate concentric left ventricular hypertrophy. 5. Overall left ventricular systolic function is normal with, an EF between 55 - 60 %. 6. The right ventricle is mildly enlarged. 7. LA is severely dilated >40 ml/m2 8. The right atrium is normal in size. 9. 5.0mg OF Lumason UTLIZED: 2 OR MORE WALL SEGMENTS NOT VISUALIZED. 10. Lipomatous hypertrophy of atrial septum. 11. There is mild aortic valve sclerosis. 12. Mild mitral annular calcification present. 13. Btta-me-julentod mitral regurgitation is present. 14. Mild tricuspid regurgitation present. 15. There is mild pulmonary hypertension. 16. The right ventricular systolic pressure, as measured by Doppler, is 41.31mmHg. 17. The pulmonic valve was not well visualized. 18. The aortic root size is normal. 19. Normal inferior vena cava with normal inspiratory collapse consistent with estimated right atrial pressure of 5 mmHg. 20. There is no pericardial effusion. COMPRESSION MOLDING MACHINE TENDER: Dafne Norwood RDCS
[2018-10-09] MEDS: ATORVASTATIN 40 MG TAB PO SCH (08:09)
[2018-10-09] MEDS: TAMSULOSIN 0.4 MG CAP.ER.24H PO SCH (08:09)
[2018-10-09] MEDS: ASPIRIN 325 MG TAB PO SCH (08:09)
[2018-10-09] MEDS: lamoTRIgine 100 MG TAB PO SCH ×2 (08:09→20:12)
[2018-10-09] MEDS: risperiDONE 1 MG TAB PO SCH (08:09)
[2018-10-09] MEDS: METOPROLOL SUCCINATE (ER) 25 MG TAB.ER.24H PO SCH (08:09)
[2018-10-09] MEDS: FENOFIBRATE 160 MG TAB PO SCH (08:10)
[2018-10-09 08:11] LABS: Basophils % (A) 0 %; Eosinophils # (A) 0.2 k/uL (0-0.7); Eosinophils % (A) 2 %; HCT 34.6 % (39.0-53.0); HGB 11.2 gm/dL (13.0-17.5); Lymphocytes # (A) 0.9 k/uL (1.0-4.8); Lymphocytes % (A) 10 %; MCH 31.4 pg (25.0-35.0); MCHC 32.3 g/dL (31.0-37.0); MCV 97.3 fL (80.0-100.0); Mean Platelet Volume 9.2; Monocytes # (A) 0.3 k/uL (0-1.0); Monocytes % (A) 4 %; Neutrophils # (A) 7.1 k/uL (1.3-7.7); Neutrophils % (A) 82 %; Platelet Count 187 k/uL (150-450); RBC 3.56 m/uL (4.30-5.90); WBC 8.6 k/uL (3.8-10.6)
[2018-10-09] MEDS: HYDROcodone/APAP 7.5-325MG 1 EACH TAB PO PRN ×2 (08:12→18:15)
--- NOTE | 2018-10-09 08:31 | XR ---
EXAMINATION TYPE: XR chest 2V DATE OF EXAM: 10/09/2018 COMPARISON: 10/08/2018 HISTORY: Pneumonia or a follow-up exam. Shortness of breath. TECHNIQUE: Frontal and lateral views of the chest are obtained. FINDINGS: There is redemonstration of a small layering right pleural effusion and increasing conflue nce of the right basilar opacity. New left-sided subsegmental atelectasis is seen. Pulmonary hyperinf lation suggests underlying COPD. Mild multilevel degenerative changes of the spine. Cardia mediastina l silhouette is mildly enlarged. IMPRESSION: Persistent small right pleural effusion and increasing right basilar airspace disease in keeping with this patient's history of pneumonia. New left basilar subsegmental atelectasis.
[2018-10-09] MEDS: IPRATROPIUM-ALBUTEROL 3 ML NEB INHALATION SCH ×4 (08:33→19:25)
[2018-10-09] MEDS: SYMBICORT 160-4.5 MCG INHALER INHALATION SCH ×2 (08:33→19:25)
[2018-10-09] MEDS ORDERED: AZITHROMYCIN 500 MG TAB PO SCH (09:00)
--- NOTE | 2018-10-09 11:41 | CONS ---
MILES Cody is a 63-year-old gentleman with history of COPD, hypertension, and dyslipidemia who presented to hospital complaining of sudden worsening of his baseline shortness of breath. It came on at rest associated with mild to moderate respiratory distress. There were no clear-cut relieving or exacerbating factors. There was no associated chest pain. He came to the ER, had a CT scan of the chest that was positive for pulmonary embolism and is admitted to hospital with the same. At the time of my evaluation this morning, he appears comfortable at rest and is free of significant symptoms. EKG showed sinus rhythm with PACs. An echocardiogram showed normal LV systolic function. Chest x-ray showed possible infiltrative pneumonia. PAST MEDICAL HISTORY: Significant for hypertension, dyslipidemia, COPD. CURRENT MEDICATIONS: Include Flomax, Lamictal, Risperdal, omeprazole, Toprol, [place], fenofibrate, Flexeril, Symbicort, Lipitor. ALLERGIES: There are no known drug allergies. FAMILY HISTORY: Negative for premature coronary artery disease. SOCIAL HISTORY: Significant for smoking. There is no history of EtOH abuse or drug abuse. REVIEW OF SYSTEMS: HEENT: Unremarkable. CARDIAC: As described above. RESPIRATORY: As described above. GI: Negative. GENITOURINARY: Negative. ALLERGY/IMMUNOLOGY: Negative. SKIN: Negative. MUSCULOSKELETAL: Significant for arthritis. PSYCHOSOCIAL: Negative. DERM: Negative. CONSTITUTIONAL: Negative. ONCOLOGICAL: Negative. Rest of the system review is not relevant. PHYSICAL EXAM: Patient is comfortable at rest. Vital signs are stable. There is no jugular venous distention. Carotid upstroke is normal. There is no bruit. Chest exam reveals good air entry bilaterally. Heart exam reveals first and second heart sounds. No gallop. No murmur. No rub. Abdomen is soft, nontender. Exam of extremities did not reveal any edema. Peripheral pulses are felt. ASSESSMENT: 1. Shortness of breath secondary to pulmonary embolism. 2. COPD. 3. History of WPW syndrome. PLAN: 1. Patient is on IV heparin. Will switch him to Xarelto, if he is covered, probably home over the next 48 hours. 2. He has history of WPW syndrome, but does not have any palpitations. He has always been on beta blockers, which he is going to continue. MMODL / IJN: [id number] /
[2018-10-09] MEDS ORDERED: FUROSEMIDE 10 MG/ML 4 ML VIAL IV STA (14:19)
--- NOTE | 2018-10-09 14:27 | P.CNPUL ---
History of Present Illness Consult date: 10/09/18 Requesting physician: Luis Antonio Woo Reason for consult: dyspnea, pulmonary embolism Chief complaint: Acute dyspnea, pulmonary embolism, chest tightness History of present illness: This is 63-year-old white male patient of Dr. Steiner with history of COPD, GERD/reflux, hyperlipidemia, sleep apnea on CPAP, Lwyfk-Xpzazfvdn-Oxzxr syndrome, chronic back pain, anxiety, current every day smoker, who has been experiencing chest tightness, and shortness of breath over the course of a few weeks. Recently the shortness of breath and the chest tightness have increased, and patient is also having some wheezing. No hemoptysis. His cough is dry, at times she is able to bring up some small amount of clear phlegm. Denies any fever or chills, denies any recent illness. No nausea, vomiting. No headaches. Chest x-ray is completed and showed right-sided pleural effusion and pleural parenchymal opacity. Lab work was negative for any leukocytosis, white blood cell count was 6.6, hemoglobin of 11.9, d-dimer was mildly elevated to 0.69, electrolytes and renal profile were within normal limits, troponins were negative 3, BNP was 1690. CT angios chest was completed and showed right upper lobe segmental branch pulmonary, trace right pleural effusion with patchy right basilar opacity likely representing atelectasis, less likely pulmonary infiltrate. Patient was started on heparin drip per weight-based protocol. Echocardiogram was completed, and showed EF between 55 and 60%, to moderate declan ral regurgitation, mild pulmonary hypertension with right-sided pressures of 41 mmHg, and normal IVC with normal inspiratory collapse. EKG showed normal sinus rhythm with PACs. The skull exam reveals diffuse wheezing consistent with acute exacerbation of COPD Review of Systems All systems: negative Constitutional: Denies chills, Denies fever Eyes: denies blurred vision, denies pain Ears, nose, mouth and throat: Denies headache, Denies sore throat Cardiovascular: Denies chest pain, Denies shortness of breath Respiratory: Reports congestion, Reports cough with sputum, Reports dyspnea, Reports wheezing, Denies cough Gastrointestinal: Denies abdominal pain, Denies diarrhea, Denies nausea, Denies vomiting Musculoskeletal: Denies myalgias Integumentary: Denies pruritus, Denies rash Neurological: Denies numbness, Denies weakness Psychiatric: Denies anxiety, Denies depression Endocrine: Denies fatigue, Denies weight change Past Medical History Past Medical History: Asthma, COPD, GERD/Reflux, Hyperlipidemia, Sleep Apnea/CPAP/BIPAP Additional Past Medical History / Comment(s): Mustafa Parkinson White Syndrome, b ronchitis, DDD, spinal stenosis, chronic low back pain with L leg involvement- pain and numbness, 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 History of Any Multi-Drug Resistant Organisms: None Reported Past Surgical History: Back Surgery Additional Past Surgical History / Comment(s): deviated septum repair, spinal fusion, "skin grafts to reena arms and above bilateral hips", pain clinic procedures, colonoscopy. Past Anesthesia/Blood Transfusion Reactions: No Reported Reaction Smoking Status: Current every day smoker - Past Family History Mother Family Medical History: Diabetes Mellitus, Hypertension Father History Unknown: Yes Additional Family Medical History / Comment(s): Father left when pt was 2 yrs old. Medications and Allergies Home Medications Medication Instructions Recorded Confirmed Type Atorvastatin Calcium [Lipitor] 40 mg PO DAILY 01/02/18 10/08/18 History Cyclobenzaprine [Flexeril] 10 mg PO BID PRN 01/02/18 10/08/18 History Hydrocodone/Acetaminophen [[place] 1 tab PO Q6HR PRN 01/02/18 10/08/18 History 7.5-325] Metoprolol Succinate (ER) [Toprol 25 mg PO DAILY 01/02/18 10/08/18 History Xl] Omeprazole 20 mg PO DAILY 01/02/18 10/08/18 History Tamsulosin HCl [Flomax] 0.8 mg PO DAILY 01/02/18 10/08/18 History lamoTRIgine [LaMICtal] 100 mg PO BID 01/02/18 10/08/18 History risperiDONE [RisperDAL] 1 mg PO DAILY 01/02/18 10/08/18 History Albuterol Inhaler [Ventolin Hfa 2 puff INHALATION RT-Q6H PRN 10/08/18 10/08/18 History Inhaler] Budesonide/Formoterol Fumarate 2 puff INHALATION RT-BID 10/08/18 10/08/18 History [Symbicort 160-4.5 Mcg Inhaler] Fenofibrate Nanocrystallized 145 mg PO DAILY 10/08/18 10/08/18 History [Fenofibrate] Naproxen Sodium 550 mg PO Q12H 10/08/18 10/08/18 History Allergies Allergy/AdvReac Type Severity Reaction Status Date / Time No Known Allergies Allergy Verified 10/08/18 14:01 Physical Exam Vitals: Vital Signs Temp Pulse Pulse Resp BP BP Pulse Ox 10/09/18 12:15 72 10/09/18 12:03 76 10/09/18 11:01 98.1 F 72 18 113/69 96 10/09/18 08:48 72 10/09/18 08:34 72 10/09/18 08:00 98.1 F 81 18 114/67 97 10/09/18 04:01 18 95 10/09/18 04:00 97.5 F L 72 18 127/68 88 L 10/08/18 23:55 67 18 10/08/18 23:53 98.4 F 67 18 97/50 96 10/08/18 20:38 70 10/08/18 20:17 70 97 10/08/18 20:00 98.7 F 64 18 129/69 98 10/08/18 17:53 124 H 10/08/18 17:15 98.6 F 124 H 20 133/79 98 10/08/18 16:36 76 10/08/18 16:29 80 18 141/76 97 10/08/18 15:02 73 18 116/73 100 Intake and Output 10/08/18 10/09/18 10/09/18 22:59 06:59 14:59 Intake Total 1522 434.431 480 Output Total 200 475 500 Balance 1322 -40.569 -20 Intake: IV 300 160 Azithromycin 500 mg In 250 Sodium Chloride 0.9% 250 ml @ 250 mls/hr IVPB ONCE STA Rx#:[id number] cefTRIAXone 1 gm In 50 160 Sodium Chloride 0.9% 50 ml @ 100 mls/hr IVPB ONCE STA Rx#:[id number] Amount of Fluid Infused ( 1000 ml) Intake, IV Titration 274.431 Amount Heparin Sod,Pork in 0.45% 274.431 NaCl 25,000 unit In 0.45 % NaCl 1 250ml.bag @ 18 UNITS/KG/HR 20.902 mls/hr IV .[id number] KIRILL Rx#: [id number] Oral 222 480 Output: Urine 200 475 500 Other: Voiding Method Urinal Urinal Weight 114.4 kg GENERAL EXAM: Alert, pleasant, 63-year-old white male comfortable in no apparent distress. HEAD: Normocephalic/atraumatic. EYES: Normal reaction of pupils, equal size. Conjunctiva pink, sclera white. NOSE: Clear with pink turbinates. THROAT: No erythema or exudates. NECK: No masses, no JVD, no thyroid enlargement, no adenopathy. CHEST: No chest wall deformity. Symmetrical expansion. LUNGS: Equal air entry with diffuse wheezes CVS: Regular rate and rhythm, normal S1 and S2, no gallops, no murmurs, no rubs ABDOMEN: Soft, nontender. No hepatosplenomegaly, normal bowel sounds, no guarding or rigidity. EXTREMITIES: No clubbing, no edema, no cyanosis, 2+ pulses and upper and lower extremities. MUSCULOSKELETAL: Muscle strength and tone normal. SPINE: No scoliosis or deformity SKIN: No rashes CENTRAL NERVOUS SYSTEM: Alert and oriented -3. No focal deficits, tone is normal in all 4 extremities. PSYCHIATRIC: Alert and oriented -3. Appropriate affect. Intact judgment and insight. Results - Laboratory Findings CBC and BMP: 10/09/18 05:52 10/08/18 13:05 PT/INR, D-dimer PT 9.6 sec (9.0-12.0) 10/08/18 13:05 INR 0.9 (<1.2) 10/08/18 13:05 D-Dimer 0.69 mg/L FEU (<0.60) H 10/08/18 13:05 Abnormal lab findings: Abnormal Labs 10/08/18 10/08/18 10/08/18 13:05 13:05 13:05 RBC 3.71 L Hgb 11.9 L Hct 36.1 L Lymphocytes # APTT D-Dimer 0.69 H Glucose 122 H ALT 12 L HDL Cholesterol 10/08/18 10/09/18 10/09/18 22:11 05:52 05:52 RBC 3.56 L Hgb 11.2 L Hct 34.6 L Lymphocytes # 0.9 L APTT 87.1 H D-Dimer Glucose ALT HDL Cholesterol 65 H 10/09/18 10/09/18 05:52 12:09 RBC Hgb Hct Lymphocytes # APTT 44.2 H 61.6 H D-Dimer Glucose ALT HDL Cholesterol - Diagnostic Findings Chest x-ray: report reviewed, image reviewed CT scan - chest: report reviewed, image reviewed Additional studies: EKG reviewed, echocardiogram results reviewed Assessment and Plan Plan: Assessment: #1. Acute dyspnea, multifactorial, related to acute exacerbation of COPD, and acute community acquired pneumonia in the right lower lobe #2. Acute pulmonary embolism in the right upper lobe branch #3. Chronic obstructive pulmonary disease, not on oxygen at baseline #4. Chronic nicotine dependence, patient has smoked for 35 years pack a day #5. Hypertension, dyslipidemia #6. History of WPW syndrome #7. GERD/reflux #8. Obstructive sleep apnea #9. Chronic pain syndrome #10. Anxiety Plan: We'll continue with current antibiotic coverage, Rocephin and Zithromax, continue with IV steroids, nebulized bronchodilators. He has been approved for Xarelto, anticipate switching him over to oral anticoagulation. Continue monitoring fever pattern, obtain sputum for culture. We will continue to follow and make further recommendations I performed a history & physical examination of the patient and discussed their management with my nurse practitioner, Jane Crook. I reviewed the nurse practitioner's note and agree with the documented findings and plan of care. Lung sounds are positive for diffuse wheezes throughout the lung barrow. The findings and the impression was discussed with the patient. I attest to the documentation by the nurse practitioner. Time with Patient: Greater than 30
--- NOTE | 2018-10-09 15:29 | HP ---
HISTORY AND PHYSICAL DATE OF ADMISSION: 10/09/2018 DATE OF SERVICE: 10/09/2018 PRESENTING COMPLAINT: Chest tightness. HISTORY OF PRESENTING COMPLAINT: This is a pleasant 63-year-old patient of Dr. Bandar Steiner. Chronic stable medical conditions include COPD, GERD, hyperlipidemia, obstructive sleep apnea, does not use a CPAP, WPW syndrome and spinal stenosis. The patient for about 2 weeks has been noticing increasing chest tightness, and he finds also finally lays down he gets more short of breath and has to wake up and walk around with some time before the breathing gets better. He has not noticed any edema, no cough, swelling. No sputum production. No fever. No chills. Orthopnea symptoms being there for about 2 weeks. Patient presented to the ER. CT scan did show a pulmonary embolism. The patient is started on IV heparin and admitted for the same. Cardiology was also consulted. The patient denies any prior ischemic heart disease. REVIEW OF SYSTEM: CONSTITUTIONAL: Tired. HEENT: None. RESPIRATORY: As above. Occasionally wheezing. CARDIOVASCULAR: As above. GASTROINTESTINAL: Heartburn. GENITOURINARY: None. MUSCULOSKELETAL: Arthritic pain in joints, especially lower back. DERMATOLOGICAL: None. HEMATOLOGIC: None. LYMPHATIC: None. PSYCHIATRY: None. NEUROLOGICAL: None. PAST MEDICAL HISTORY: COPD, GERD, hyperlipidemia, obstructive sleep apnea, does not use CPAP, WPW syndrome, DJD, spinal stenosis, chronic low back pain with left leg involvement pain and numbness, third-degree kelley. PAST SURGICAL HISTORY: Back surgery, DNS repair, spinal fusion, skin graft bilateral arms and bilateral hips, pain clinic procedures. PSYCH HISTORY: Anxiety. SOCIAL HISTORY: . Drinks 2 beers a day. Smokes 1/2 a pack a day, close to 28 years. Patient has [employer] marijuana card, uses occasionally. FAMILY HISTORY: Diabetes, hypertension. Father left when he was 2 years old. HOME MEDICATIONS: 1. Risperdal 1 mg p.o. daily. 2. Lamictal 100 mg p.o. b.i.d. 3. Flomax 0.8 mg p.o. daily. 4. Omeprazole 20 mg p.o. daily. 5. Naproxen 550 mg p.o. q.12. 6. Toprol-XL 25 mg a day. 7. [place] 7.5 one tablet q.6 p.r.n. 8. Tricor 145 mg a day. 9. Flexeril 10 mg b.i.d. p.r.n. 10.Symbicort 160/4.5 two puffs b.i.d. 11.Lipitor 40 mg p.o. daily. 12.Ventolin HFA 2 puffs q.6 p.r.n. ALLERGIES: None. PHYSICAL EXAMINATION: Vital signs on presentation, temperature 98.5, pulse 72, respiration 20, blood pressure 122/58, pulse 99% on room air. GENERAL APPEARANCE: Well built, BMI 34.2. Sitting up a bit, tired-appearing. EYES: Pupils equal, conjunctivae are normal. HEENT: External appearance of nose normal, oral cavity normal. NECK: JVD raised. Mass not palpable. RESPIRATORY: Effort increased. LUNGS: Diminished breath sounds. CARDIOVASCULAR: First and second sounds are normal. No edema. ABDOMEN: Soft, nontender. Liver and spleen not palpable. LYMPHATICS: No lymph node palpable. PSYCHIATRY: Alert and oriented x3. Mood and affect normal. NEUROLOGICAL: Pupils equal. Cranial nerves grossly intact. Power and sensation grossly intact. INVESTIGATIONS: White count 6.6, hemoglobin 11.9, potassium 3.9, BUN and creatinine is normal. Troponin negative. ProBNP 1690, LDL 18. EKG tracing personally reviewed by me, shows normal sinus rhythm. Chest x-ray film personally reviewed by me shows cardiomegaly, venous prominence, fluid in the fissure. Chest CTA shows mild centrilobular emphysema, trace right pleural effusion, large caliber to the main right pulmonary artery, anterior segment right upper lobe branch pulmonary embolism. ASSESSMENT: 1. Acute pulmonary embolism. 2. Acute congestive heart failure from diastolic dysfunction, ejection fraction 55%- 60% from diastolic dysfunction. 3. Hypertensive heart disease. 4. Chronic obstructive pulmonary disease in a current smoker. 5. Gastroesophageal reflux disease. 6. Hyperlipidemia. 7. Obstructive sleep apnea, does not use CPAP machine. 8. Obesity; body mass index of 34.2. 9. Chronic spinal stenosis. 10.WPW syndrome. 11.IV heparin monitoring. PLAN: Patient is on IV heparin. Will start the patient on Xarelto 50 mg twice a day starting this evening. Patient has good coverage, checked with lock up worker. Will give one dose of IV Solu-Medrol and put the patient on prednisone for the COPD and bronchodilators. Will also give the patient a dose of IV Lasix and repeat a BNP tomorrow morning. Care was discussed with the patient. Questions were answered. Cardiology, Dr. Reis was consulted. Smoking cessation counseling: This was done with the patient. More than 3 minutes was spent on this aspect of the case. The patient will be given a nicotine patch. MMANATOLYL / IJN: [id number] /
[2018-10-09] MEDS ORDERED: methylPREDNISolone SOD SUCCI 125 MG/2 ML VIAL IV SCH (16:00)
[2018-10-09] MEDS: NICOTINE 14MG/24HR PATCH TRANSDERM SCH (16:14)
[2018-10-09] MEDS: RIVAROXABAN 15 MG TAB PO SCH (16:14)
[2018-10-09] MEDS ORDERED: DEXTROSE 5% IN WATER 250 ML with AMIODARONE 300 MG IV ONE (19:32)
[2018-10-09] MEDS: predniSONE 20 MG TAB PO SCH (20:12)
[2018-10-09] MEDS ORDERED: AMIODARONE 360 MG in DEXTROSE 5% IN WATER 200 ML IV ONE ×2 (21:30)
[2018-10-10] MEDS: SODIUM CHLORIDE 0.9% 1,000 ML IV SCH (01:52)
[2018-10-10] MEDS: AMIODARONE 300 MG in DEXTROSE 5% IN WATER 250 ML IV SCH ×4 (03:35→17:14)
[2018-10-10] MEDS: PANTOPRAZOLE 40 MG TABLET PO SCH (06:17)
[2018-10-10] MEDS: RIVAROXABAN 15 MG TAB PO SCH ×2 (06:17→17:19)
[2018-10-10 07:11] LABS: Basophils % (A) 0 %; Eosinophils % (A) 0 %; HCT 35.9 % (39.0-53.0); HGB 11.2 gm/dL (13.0-17.5); Lymphocytes # (A) 0.4 k/uL (1.0-4.8); Lymphocytes % (A) 8 %; MCH 30.8 pg (25.0-35.0); MCHC 31.2 g/dL (31.0-37.0); MCV 98.9 fL (80.0-100.0); Mean Platelet Volume 8.6; Monocytes # (A) 0.1 k/uL (0-1.0); Monocytes % (A) 3 %; Neutrophils # (A) 4.5 k/uL (1.3-7.7); Neutrophils % (A) 88 %; Platelet Count 195 k/uL (150-450); RBC 3.63 m/uL (4.30-5.90); RDW 13.4 % (11.5-15.5); WBC 5.1 k/uL (3.8-10.6)
[2018-10-10 07:22] LABS: Anion Gap 8 mmol/L; Blood Urea Nitrogen 10 mg/dL (9-20); Calcium 9.6 mg/dL (8.4-10.2); Carbon Dioxide 26 mmol/L (22-30); Chloride 105 mmol/L (98-107); Glucose 159 mg/dL (74-99); Potassium 4.2 mmol/L (3.5-5.1); Sodium 139 mmol/L (137-145)
[2018-10-10] MEDS: risperiDONE 1 MG TAB PO SCH (07:53)
[2018-10-10] MEDS: lamoTRIgine 100 MG TAB PO SCH ×2 (07:54→19:58)
[2018-10-10] MEDS: METOPROLOL SUCCINATE (ER) 25 MG TAB.ER.24H PO SCH (07:54)
[2018-10-10] MEDS: HYDROcodone/APAP 7.5-325MG 1 EACH TAB PO PRN ×2 (07:54→17:19)
[2018-10-10] MEDS: FENOFIBRATE 160 MG TAB PO SCH (07:55)
[2018-10-10] MEDS: ATORVASTATIN 40 MG TAB PO SCH (07:55)
[2018-10-10] MEDS: TAMSULOSIN 0.4 MG CAP.ER.24H PO SCH (07:55)
[2018-10-10] MEDS: ASPIRIN 325 MG TAB PO SCH (07:55)
[2018-10-10] MEDS: NICOTINE 14MG/24HR PATCH TRANSDERM SCH (07:56)
[2018-10-10] MEDS: SYMBICORT 160-4.5 MCG INHALER INHALATION SCH ×2 (08:32→20:45)
[2018-10-10] MEDS: IPRATROPIUM-ALBUTEROL 3 ML NEB INHALATION SCH ×4 (08:32→20:45)
--- NOTE | 2018-10-10 13:04 | P.PN ---
Subjective Progress Note Date: 10/10/18 This is a 63-year-old gentleman with known history of COPD, hypertension, hyperlipidemia, who presented to the hospital mainly with symptoms of shortness of breath. He had a CAT scan in the emergency room which was positive for pulmonary embolism and he was admitted with the same. Last evening patient went into atrial fibrillation with a rapid ventricular response, this was new for the patient. He denies ever having any arrhythmia prior. The patient already had been initiated on Xarelto for PE protocol. He was also started on an amiodarone drip last evening. The time of my examination this morning, patient's breathing is overall stable. He continues to be in atrial fibrillation his heart rate is in the 120 to 130 range. An echocardiogram with Doppler study was performed which revealed an ejection fraction of 55-60%. Mild to moderate mitral regurgitation, RVSP 41. No pericardial effusion. Blood pressure 114/74, heart rate 120, 95% on room air. White blood cell count 5.1, hemoglobin 11.2, platelet count 195. Sodium 139, potassium 4.2, BUN 10 and creatinine 0.6. BNP level 3340. Objective - Vital Signs Vital signs: Vital Signs Temp 97.7 F 10/10/18 07:59 Pulse 76 10/10/18 12:08 Resp 16 10/10/18 12:00 BP 114/74 10/10/18 12:00 Pulse Ox 95 10/10/18 12:00 Intake & Output 10/09/18 10/10/18 10/10/18 18:59 06:59 18:59 Intake Total 720 220 Output Total 500 1375 Balance 220 -1375 220 Weight 112.4 kg Intake: Oral 720 220 Output: Urine 500 1375 Other: Voiding Method Urinal Urinal # Voids 1 - Exam PHYSICAL EXAMINATION: GENERAL: 63-year-old gentleman in no acute distress at the time of my examination HEENT: Head is atraumatic, normocephalic. Pupils equal, round. Sclera anicteric. Conjunctiva are clear. Mucous membranes of the mouth are moist. Neck is supple. There is no elevated jugular venous pressure. No carotid bruit is heard. HEART EXAMINATION: Heart S1 and S2 irregularly irregular a systolic murmur is heard CHEST EXAMINATION: Lungs are clear to auscultation and precussion. No chest wall tenderness is noted on palpation or with deep breathing. ABDOMEN: Soft, nontender. Bowel sounds are heard. No organomegaly noted. EXTREMITIES: 2+ peripheral pulses with no evidence of peripheral edema and no calf tenderness noted. NEUROLOGIC patient is awake, alert and oriented 3 . . - Labs CBC & Chem 7: 10/10/18 06:30 10/10/18 06:30 Labs: Abnormal Lab Results - Last 24 Hours (Table) 10/10/18 10/10/18 Range/Units 06:30 06:30 RBC 3.63 L (4.30-5.90) m/uL Hgb 11.2 L (13.0-17.5) gm/dL Hct 35.9 L (39.0-53.0) % Lymphocytes # 0.4 L (1.0-4.8) k/uL Glucose 159 H (74-99) mg/dL Microbiology - Last 24 Hours (Table) 10/09/18 12:17 Gram Stain - Preliminary Sputum 10/08/18 15:40 Blood Culture - Preliminary Blood No Growth after 24 hours Assessment and Plan Plan: Assessment and plan #1 acute dyspnea, evidence of acute pulmonary embolism in the right upper lobe branch. #2 exacerbation of COPD and acute community-acquired pneumonia #3 chronic nicotine dependence #4 hypertension #5 history of WPW #6 GERD #7 obstructive sleep apnea Plan Patient has been initiated on IV amiodarone and we will also increase his dose of beta berlin for more optimal heart rate control. He is currently on Xarelto for PE protocol. We will obtain a bilateral venous duplex study to rule out the possibility of DVT. Further recommendations to follow.
--- NOTE | 2018-10-10 14:35 | US ---
EXAMINATION TYPE: US venous doppler duplex LE BI DATE OF EXAM: 10/10/2018 1:33 PM COMPARISON: None CLINICAL HISTORY: 63-year-old male r/o DVT. PE; pneumonia SIDE PERFORMED: Bilateral TECHNIQUE: The lower extremity deep venous system is examined utilizing real time linear array sonog fred with graded compression, doppler sonography and color-flow sonography. FINDINGS: VESSELS IMAGED: Common Femoral Vein Deep Femoral Vein Greater Saphenous Vein * Femoral Vein Popliteal Vein Small Saphenous Vein * Proximal Calf Veins Posterior tibial veins (* superficial vessels) Right Leg: Negative for DVT Left Leg: Negative for DVT IMPRESSION: No evidence for DVT within the bilateral lower extremities.
--- NOTE | 2018-10-10 14:49 | P.PN ---
Subjective Progress Note Date: 10/10/18 Principal diagnosis: Acute dyspnea, pulmonary embolism, chest tightness This is 63-year-old white male patient of Dr. Steiner with history of COPD, GERD/reflux, hyperlipidemia, sleep apnea on CPAP, Ujzvl-Npycstssx-Qppcm syndrome, chronic back pain, anxiety, current every day smoker, who has been experiencing chest tightness, and shortness of breath over the course of a few weeks. Recently the shortness of breath and the chest tightness have increased, and patient is also having some wheezing. No hemoptysis. His cough is dry, at times she is able to bring up some small amount of clear phlegm. Denies any fever or chills, denies any recent illness. No nausea, vomiting. No headaches. Chest x-ray is completed and showed right-sided pleural effusion and pleural parenchymal opacity. Lab work was negative for any leukocytosis, white blood cell count was 6.6, hemoglobin of 11.9, d-dimer was mildly elevated to 0.69, electrolytes and renal profile were within normal limits, troponins were negative 3, BNP was 1690. CT angios chest was completed and showed right upper lobe segmental branch pulmonary, trace right pleural effusion with patchy right basilar opacity likely representing atelectasis, less likely pulmonary infiltrate. Patient was started on heparin drip per weight-based protocol. Echocardiogram was completed, and showed EF between 55 and 60%, to moderate mitral regurgitation, mild pulmonary hypertension with right-sided pressures of 41 mmHg, and normal IVC with normal inspiratory collapse. EKG showed normal sinus rhythm with PACs. The skull exam reveals diffuse wheezing consistent with acute exacerbation of COPD On 10/10/2018 patient seen in follow-up on selective care unit, apparently patient went into A. fib RVR last night, was started on amiodarone drip which is currently infusing at a rate of 0.5 mg per hour. He has been started on oral Xarelto, heparin drip has been discontinued, on today's exam patient remains in A. fib with a rate of 113-114 BPM, no complaints of chest discomfort, he is on room air, with a pulse ox of 95%, hemodynamically patient is stable, lung sounds are diminished, with bibasilar crackles. His labs have been reviewed, showed white blood cell count of 5.1, hemoglobin of 11.2, electrolytes and renal prof ile were within normal limits, proBNP came back elevated at 3340, troponins were negative 3. Ultrasounds of the lower extremities were negative for DVT. Objective - Vital Signs Vital signs: Vital Signs Temp 97.7 F 10/10/18 07:59 Pulse 76 10/10/18 12:08 Resp 16 10/10/18 12:00 BP 114/74 10/10/18 12:00 Pulse Ox 95 10/10/18 12:00 Intake & Output 10/09/18 10/10/18 10/10/18 18:59 06:59 18:59 Intake Total 720 580 Output Total 500 1375 Balance 220 -1375 580 Weight 112.4 kg Intake: Oral 720 580 Output: Urine 500 1375 Other: Voiding Method Urinal Urinal # Voids 1 3 - Exam GENERAL EXAM: Alert, pleasant, 63-year-old white male comfortable in no apparent distress. HEAD: Normocephalic/atraumatic. EYES: Normal reaction of pupils, equal size. Conjunctiva pink, sclera white. NOSE: Clear with pink turbinates. THROAT: No erythema or exudates. NECK: No masses, no JVD, no thyroid enlargement, no adenopathy. CHEST: No chest wall deformity. Symmetrical expansion. LUNGS: Equal air entry with diffuse wheezes CVS: Irregular rate and rhythm, normal S1 and S2, no gallops, no murmurs, no rubs ABDOMEN: Soft, nontender. No hepatosplenomegaly, normal bowel sounds, no guarding or rigidity. EXTREMITIES: No clubbing, no edema, no cyanosis, 2+ pulses and upper and lower extremities. MUSCULOSKELETAL: Muscle strength and tone normal. SPINE: No scoliosis or deformity SKIN: No rashes CENTRAL NERVOUS SYSTEM: Alert and oriented -3. No focal deficits, tone is normal in all 4 extremities. PSYCHIATRIC: Alert and oriented -3. Appropriate affect. Intact judgment and insight. - Labs CBC & Chem 7: 10/10/18 06:30 10/10/18 06:30 Labs: Abnormal Lab Results - Last 24 Hours (Table) 10/10/18 10/10/18 Range/Units 06:30 06:30 RBC 3.63 L (4.30-5.90) m/uL Hgb 11.2 L (13.0-17.5) gm/dL Hct 35.9 L (39.0-53.0) % Lymphocytes # 0.4 L (1.0-4.8) k/uL Glucose 159 H (74-99) mg/dL Microbiology - Last 24 Hours (Table) 10/09/18 12:17 Gram Stain - Preliminary Sputum 10/08/18 15:40 Blood Culture - Preliminary Blood No Growth after 24 hours Assessment and Plan Plan: Assessment: #1. Acute dyspnea, multifactorial, related to acute exacerbation of COPD, and acute community acquired pneumonia in the right lower lobe #2. Acute pulmonary embolism in the right upper lobe branch #3. Chronic obstructive pulmonary disease, not on oxygen at baseline #4. Chronic nicotine dependence, patient has smoked for 35 years pack a day #5. Hypertension, dyslipidemia #6. History of WPW syndrome #7. GERD/reflux #8. Obstructive sleep apnea #9. Chronic pain syndrome #10. Anxiety #11. New-onset A. fib RVR #12. Elevated proBNP suggesting exacerbation of congestive heart failure, an echocardiogram showed preserved left ventricular systolic function, with an EF of 55-60% Plan: Continue current antibiotic coverage, will await the results of the final cultures, blood culture showed no growth so far, no fever or chills, patient has been switched to oral anticoagulation, remains on amiodarone drip for new onset A. fib RVR. No complaints of chest pain. We'll continue to follow I performed a history & physical examination of the patient and discussed their management with my nurse practitioner, Jane Crook. I reviewed the nurse pra ctitioner's note and agree with the documented findings and plan of care. Lung sounds are positive for diffuse wheezes throughout the lung barrow. The findings and the impression was discussed with the patient. I attest to the documentation by the nurse practitioner. Time with Patient: Less than 30
[2018-10-10] MEDS: predniSONE 20 MG TAB PO SCH (19:58)
--- NOTE | 2018-10-10 22:50 | PN ---
PROGRESS NOTE DATE OF SERVICE: October 10, 2018 PRESENTING COMPLAINT: Short of breath. INTERVAL HISTORY: Patient presented with acute pulmonary embolism, congestive heart failure exacerbation and also has got a uncontrolled atrial fibrillation. The patient is put on amiodarone by Cardiology. Feels a bit tired. Sitting up. REVIEW OF SYSTEMS: Done for constitutional, cardiovascular, GI, pulmonary; relevant findings as above. CURRENT MEDICATIONS: Reviewed that include DuoNeb, Xarelto Toprol-XL. PHYSICAL EXAMINATION: VITAL SIGNS: Temperature 97.7, pulse 121, respirations 16, blood pressure 127/79, pulse ox 92 percent on room air. GENERAL APPEARANCE: Sitting up, awake, tired. EYES: Pupils equal. Conjunctivae normal. NECK: JVD not raised. Mass not palpable. RESPIRATORY: Effort increased. LUNGS: Diminished breath sounds. CARDIOVASCULAR: Heart sounds irregular. No edema. ABDOMEN: Soft, nontender. Liver and spleen not palpable. PSYCHIATRY: Alert and oriented x3. Mood and affect normal. INVESTIGATIONS: White count 5.1, hemoglobin 11.2 potassium 4.2. BUN and creatinine is normal. ProBNP 3340. ASSESSMENT: 1. Acute pulmonary embolism, now on Xarelto. 2. Acute congestive heart failure exacerbation from diastolic dysfunction. Ejection fraction 55-60 percent from diastolic dysfunction from underlying hypertensive heart disease. 3. Chronic obstructive pulmonary disease in a current smoker. 4. Gastroesophageal reflux disease. 5. Hyperlipidemia. 6. Obstructive sleep apnea does not use CPAP machine. 7. Obesity; BMI 34.2. 8. Chronic spinal stenosis. 9. syndrome. 10.Atrial fibrillation, rate controlled. PLAN: Continue current medication and treatment plan. Care was discussed with the patient. Follow with Pulmonary and Cardiology. MMODL / IJN: [id number] /
[2018-10-11] MEDS: SODIUM CHLORIDE 0.9% 1,000 ML IV SCH (01:16)
[2018-10-11] MEDS: PANTOPRAZOLE 40 MG TABLET PO SCH (06:36)
[2018-10-11] MEDS: RIVAROXABAN 15 MG TAB PO SCH ×2 (06:36→16:55)
[2018-10-11] MEDS: SYMBICORT 160-4.5 MCG INHALER INHALATION SCH ×2 (07:31→19:11)
[2018-10-11] MEDS: IPRATROPIUM-ALBUTEROL 3 ML NEB INHALATION SCH ×4 (07:31→19:11)
[2018-10-11] MEDS: HYDROcodone/APAP 7.5-325MG 1 EACH TAB PO PRN ×2 (07:58→20:38)
[2018-10-11] MEDS: lamoTRIgine 100 MG TAB PO SCH ×2 (07:59→20:38)
[2018-10-11] MEDS: METOPROLOL SUCCINATE (ER) 25 MG TAB.ER.24H PO SCH (07:59)
[2018-10-11] MEDS: FENOFIBRATE 160 MG TAB PO SCH (07:59)
[2018-10-11] MEDS: risperiDONE 1 MG TAB PO SCH (07:59)
[2018-10-11] MEDS: TAMSULOSIN 0.4 MG CAP.ER.24H PO SCH (07:59)
[2018-10-11] MEDS: ATORVASTATIN 40 MG TAB PO SCH (07:59)
[2018-10-11] MEDS: ASPIRIN 325 MG TAB PO SCH (07:59)
[2018-10-11] MEDS: NICOTINE 14MG/24HR PATCH TRANSDERM SCH (08:00)
[2018-10-11 08:45] LABS: Basophils % (A) 0 %; Eosinophils % (A) 0 %; HCT 35.9 % (39.0-53.0); HGB 11.9 gm/dL (13.0-17.5); Lymphocytes # (A) 0.5 k/uL (1.0-4.8); Lymphocytes % (A) 7 %; MCH 32.3 pg (25.0-35.0); MCHC 33.3 g/dL (31.0-37.0); MCV 97.2 fL (80.0-100.0); Mean Platelet Volume 8.7; Monocytes # (A) 0.2 k/uL (0-1.0); Monocytes % (A) 2 %; Neutrophils # (A) 6.9 k/uL (1.3-7.7); Neutrophils % (A) 90 %; Platelet Count 240 k/uL (150-450); RBC 3.69 m/uL (4.30-5.90); RDW 13.9 % (11.5-15.5); WBC 7.7 k/uL (3.8-10.6)
[2018-10-11 08:58] LABS: Anion Gap 8 mmol/L; Blood Urea Nitrogen 13 mg/dL (9-20); Calcium 9.9 mg/dL (8.4-10.2); Carbon Dioxide 24 mmol/L (22-30); Chloride 107 mmol/L (98-107); Glucose 132 mg/dL (74-99); Potassium 4.6 mmol/L (3.5-5.1); Sodium 139 mmol/L (137-145)
[2018-10-11] MEDS: AMIODARONE 200 MG TAB PO SCH ×2 (13:34→20:37)
[2018-10-11] MEDS: DILTIAZEM ORAL 30 MG TAB PO SCH ×2 (13:34→20:38)
--- NOTE | 2018-10-11 13:56 | PN ---
PROGRESS NOTE Escobar is a 63-year-old gentleman who is admitted to hospital with pulmonary embolism and developed atrial fibrillation. He is currently on amiodarone and Toprol. This morning, he still remains in AFib with poorly controlled ventricular rate. He is on Xarelto. On exam, heart rate is elevated. Blood pressure is 122/80, respiratory rate is 18. Chest exam reveals good air entry bilaterally. Heart exam reveals first and second heart sounds. No gallop. Abdomen is soft. Exam of extremities did not reveal any edema. Peripheral pulses are felt. ASSESSMENT: 1. Atrial fibrillation with poorly controlled ventricular rate. 2. Pulmonary embolism. PLAN: I will add Cardizem for better rate control. MMODL / IJN: [id number] /
--- NOTE | 2018-10-11 14:16 | P.PN ---
Subjective Progress Note Date: 10/11/18 Principal diagnosis: Acute dyspnea, pulmonary embolism, chest tightness This is 63-year-old white male patient of Dr. Steiner with history of COPD, GERD/reflux, hyperlipidemia, sleep apnea on CPAP, Kpeqa-Wvwxvirmn-Amyyg syndrome, chronic back pain, anxiety, current every day smoker, who has been experiencing chest tightness, and shortness of breath over the course of a few weeks. Recently the shortness of breath and the chest tightness have increased, and patient is also having some wheezing. No hemoptysis. His cough is dry, at times she is able to bring up some small amount of clear phlegm. Denies any fever or chills, denies any recent illness. No nausea, vomiting. No headaches. Chest x-ray is completed and showed right-sided pleural effusion and pleural parenchymal opacity. Lab work was negative for any leukocytosis, white blood cell count was 6.6, hemoglobin of 11.9, d-dimer was mildly elevated to 0.69, electrolytes and renal profile were within normal limits, troponins were negative 3, BNP was 1690. CT angios chest was completed and showed right upper lobe segmental branch pulmonary, trace right pleural effusion with patchy right basilar opacity likely representing atelectasis, less likely pulmonary infiltrate. Patient was started on heparin drip per weight-based protocol. Echocardiogram was completed, and showed EF between 55 and 60%, to moderate mitral regurgitation, mild pulmonary hypertension with right-sided pressures of 41 mmHg, and normal IVC with normal inspiratory collapse. EKG showed normal sinus rhythm with PACs. The skull exam reveals diffuse wheezing consistent with acute exacerbation of COPD On 10/10/2018 patient seen in follow-up on selective care unit, apparently patient went into A. fib RVR last night, was started on amiodarone drip which is currently infusing at a rate of 0.5 mg per hour. He has been started on oral Xarelto, heparin drip has been discontinued, on today's exam patient remains in A. fib with a rate of 113-114 BPM, no complaints of chest discomfort, he is on room air, with a pulse ox of 95%, hemodynamically patient is stable, lung sounds are diminished, with bibasilar crackles. His labs have been reviewed, showed white blood cell count of 5.1, hemoglobin of 11.2, electrolytes and renal prof ile were within normal limits, proBNP came back elevated at 3340, troponins were negative 3. Ultrasounds of the lower extremities were negative for DVT. On 10/11/2018 patient seen in follow-up on selective care unit. He sitting up in the chair, in no acute distress, he remains in A. fib, in the rate is still tachycardic, amiodarone drip has been discontinued, and patient has been transitioned to oral amiodarone, and oral Cardizem was added for rate control, patient is also on oral Toprol. He denies any dyspnea, denies any chest pain, he is on room air and his pulse ox the 100%, no fever or chills. No cough or congestion, his today's labs have been reviewed, and a relatively unremarkable. Sputum blood culture showed no growth. Patient has been transitioned to oral anticoagulation in the form of Xarelto Objective - Vital Signs Vital signs: Vital Signs Temp 98.2 F 10/11/18 08:00 Pulse 112 H 10/11/18 12:00 Resp 16 10/11/18 11:55 BP 122/84 10/11/18 11:55 Pulse Ox 100 10/11/18 11:55 Intake & Output 10/10/18 10/11/18 10/11/18 18:59 06:59 18:59 Intake Total 1060 720 Balance 1060 720 Weight 111.8 kg Intake: Oral 1060 720 Other: Voiding Method Urinal Urinal Urinal # Voids 3 2 - Exam GENERAL EXAM: Alert, pleasant, 63-year-old white male comfortable in no apparent distress. HEAD: Normocephalic/atraumatic. EYES: Normal reaction of pupils, equal size. Conjunctiva pink, sclera white. NOSE: Clear with pink turbinates. THROAT: No erythema or exudates. NECK: No masses, no JVD, no thyroid enlargement, no adenopathy. CHEST: No chest wall deformity. Symmetrical expansion. LUNGS: Equal air entry with minimal wheezes CVS: Irregular rate and rhythm, normal S1 and S2, no gallops, no murmurs, no rubs ABDOMEN: Soft, nontender. No hepatosplenomegaly, normal bowel sounds, no guarding or rigidity. EXTREMITIES: No clubbing, no edema, no cyanosis, 2+ pulses and upper and lower extremities. MUSCULOSKELETAL: Muscle strength and tone normal. SPINE: No scoliosis or deformity SKIN: No rashes CENTRAL NERVOUS SYSTEM: Alert and oriented -3. No focal deficits, tone is normal in all 4 extremities. PSYCHIATRIC: Alert and oriented -3. Appropriate affect. Intact judgment and insight. - Labs CBC & Chem 7: 10/11/18 07:55 10/11/18 07:55 Labs: Abnormal Lab Results - Last 24 Hours (Table) 10/11/18 10/11/18 Range/Units 07:55 07:55 RBC 3.69 L (4.30-5.90) m/uL Hgb 11.9 L (13.0-17.5) gm/dL Hct 35.9 L (39.0-53.0) % Lymphocytes # 0.5 L (1.0-4.8) k/uL Creatinine 0.65 L (0.66-1.25) mg/dL Glucose 132 H (74-99) mg/dL Microbiology - Last 24 Hours (Table) 10/09/18 12:17 Gram Stain - Final Sputum Sputum Culture - Final 10/08/18 15:40 Blood Culture - Preliminary Blood No Growth after 48 hours Assessment and Plan Plan: Assessment: #1. Acute dyspnea, multifactorial, related to acute exacerbation of COPD, and acute community acquired pneumonia in the right lower lobe #2. Acute pulmonary embolism in the right upper lobe branch #3. Chronic obstructive pulmonary disease, not on oxygen at baseline #4. Chronic nicotine dependence, patient has smoked for 35 years pack a day #5. Hypertension, dyslipidemia #6. History of WPW syndrome #7. GERD/reflux #8. Obstructive sleep apnea #9. Chronic pain syndrome #10. Anxiety #11. New-onset A. fib RVR #12. Elevated proBNP suggesting exacerbation of congestive heart failure, an echocardiogram showed preserved left ventricular systolic function, with an EF of 55-60% Plan: Continue current medical treatment, patient is on oral anticoagulation, cardiology is managing the rate control, patient remains in A. fib, he denies any worsening dyspnea, he is maintaining good oxygenation on room air, denies any chest pain. Patient is stable for discharge home today if he is cleared by cardiology I performed a history & physical examination of the patient and discussed their management with my nurse practitioner, Jane Crook. I reviewed the nurse practitioner's note and agree with the documented findings and plan of care. Lung sounds are positive for diffuse wheezes throughout the lung barrow. The findings and the impression was discussed with the patient. I attest to the documentation by the nurse practitioner. Time with Patient: Less than 30
[2018-10-11] MEDS: predniSONE 20 MG TAB PO SCH (20:38)
[2018-10-12] MEDS: PANTOPRAZOLE 40 MG TABLET PO SCH (06:35)
[2018-10-12] MEDS: RIVAROXABAN 15 MG TAB PO SCH ×2 (06:35→15:43)
[2018-10-12] MEDS: SYMBICORT 160-4.5 MCG INHALER INHALATION SCH (07:09)
[2018-10-12] MEDS: IPRATROPIUM-ALBUTEROL 3 ML NEB INHALATION SCH ×3 (07:09→15:09)
[2018-10-12 07:13] LABS: Anion Gap 8 mmol/L; Blood Urea Nitrogen 15 mg/dL (9-20); Carbon Dioxide 26 mmol/L (22-30); Chloride 106 mmol/L (98-107); Glucose 124 mg/dL (74-99); Potassium 4.9 mmol/L (3.5-5.1); Sodium 140 mmol/L (137-145)
--- NOTE | 2018-10-12 07:19 | PN ---
PROGRESS NOTE DATE OF SERVICE: October 11, 2018. PRESENTING COMPLAINT: Short of breath. INTERVAL HISTORY: Patient presented with acute pulmonary embolism, congestive heart failure exacerbation and uncontrolled atrial fibrillation. The patient was switched from IV amiodarone to p.o. amiodarone. Cardiology is further adjusting his oral medications. Heart rate is still running a bit on the higher side. Overall feeling better. REVIEW OF SYSTEMS: Done for constitutional, cardiovascular, GI, pulmonary, relevant findings as above. CURRENT MEDICATIONS: Reviewed that include Xarelto, Toprol-XL 25 mg and Cardizem 30 mg t.i.d. EXAMINATION: Temperature 98.2, pulse 130, respiration 16, blood pressure 133/76, pulse ox good. GENERAL APPEARANCE: Sitting up on a chair, awake. EYES: Pupils equal. Conjunctivae normal. NECK: JVD not raised. Mass not palpable. RESPIRATORY: Effort increased. LUNGS: Decreased breath sounds. CARDIOVASCULAR: Heart sounds irregular. No edema. ABDOMEN: Soft, nontender. Liver and spleen not palpable. PSYCHIATRY: Alert and oriented x3. Mood and affect normal. INVESTIGATIONS: White count 7.7, hemoglobin 11.9, potassium 4.6. ASSESSMENT: 1. Acute pulmonary embolism on Xarelto. 2. Acute congestive heart failure exacerbation from diastolic dysfunction, EF 55-60 percent from diastolic dysfunction and underlying hypertensive heart disease. 3. Chronic obstructive pulmonary disease in a current smoker. 4. Gastroesophageal reflux disease. 5. Hyperlipidemia. 6. Obstructive sleep apnea does not use CPAP machine. 7. Obesity; BMI 34.2. 8. Chronic spinal stenosis. 9. Persistent atrial fibrillation, rate uncontrolled. PLAN: Continue current medication and treatment plan. Cardizem has been added today. Lets see how he does with that. Care was discussed with the patient. MMODL / IJN: [id number] /
[2018-10-12 07:48] LABS: Basophils % (A) 0 %; Eosinophils % (A) 0 %; HCT 36.8 % (39.0-53.0); HGB 11.8 gm/dL (13.0-17.5); Lymphocytes # (A) 0.6 k/uL (1.0-4.8); Lymphocytes % (A) 11 %; MCHC 32.1 g/dL (31.0-37.0); MCV 96.6 fL (80.0-100.0); Mean Platelet Volume 8.9; Monocytes # (A) 0.2 k/uL (0-1.0); Monocytes % (A) 3 %; Neutrophils # (A) 4.9 k/uL (1.3-7.7); Neutrophils % (A) 84 %; Platelet Count 256 k/uL (150-450); RDW 13.6 % (11.5-15.5); WBC 5.8 k/uL (3.8-10.6)
[2018-10-12] MEDS: FENOFIBRATE 160 MG TAB PO SCH (08:50)
[2018-10-12] MEDS: lamoTRIgine 100 MG TAB PO SCH (08:50)
[2018-10-12] MEDS: TAMSULOSIN 0.4 MG CAP.ER.24H PO SCH (08:50)
[2018-10-12] MEDS: METOPROLOL SUCCINATE (ER) 25 MG TAB.ER.24H PO SCH (08:51)
[2018-10-12] MEDS: HYDROcodone/APAP 7.5-325MG 1 EACH TAB PO PRN (08:51)
[2018-10-12] MEDS: ASPIRIN 325 MG TAB PO SCH (08:51)
[2018-10-12] MEDS: DILTIAZEM ORAL 30 MG TAB PO SCH ×2 (08:51→15:42)
[2018-10-12] MEDS: risperiDONE 1 MG TAB PO SCH (08:52)
[2018-10-12] MEDS: SODIUM CHLORIDE 0.9% 1,000 ML IV SCH (08:52)
[2018-10-12] MEDS: AMIODARONE 200 MG TAB PO SCH (08:52)
[2018-10-12] MEDS: ATORVASTATIN 40 MG TAB PO SCH (08:52)
[2018-10-12] MEDS: NICOTINE 14MG/24HR PATCH TRANSDERM SCH (08:53)
--- NOTE | 2018-10-12 12:52 | P.PN ---
Subjective Progress Note Date: 10/12/18 This is a 63-year-old gentleman with known history of COPD, hypertension, hyperlipidemia, who presented to the hospital mainly with symptoms of shortness of breath. He had a CAT scan in the emergency room which was positive for pulmonary embolism and he was admitted with the same. Last evening patient went into atrial fibrillation with a rapid ventricular response, this was new for the patient. He denies ever having any arrhythmia prior. The patient already had been initiated on Xarelto for PE protocol. He was also started on an amiodarone drip last evening. The time of my examination this morning, patient's breathing is overall stable. He continues to be in atrial fibrillation his heart rate is in the 120 to 130 range. An echocardiogram with Doppler study was performed which revealed an ejection fraction of 55-60%. Mild to moderate mitral regurgitation, RVSP 41. No pericardial effusion. Blood pressure 114/74, heart rate 120, 95% on room air. White blood cell count 5.1, hemoglobin 11.2, platelet count 195. Sodium 139, potassium 4.2, BUN 10 and creatinine 0.6. BNP level 3340. 10/12/2018 Patient seen and examined this morning, doing well, denies any shortness of breath, no chest discomfort. He may be able to be discharged home today. Further workup as an outpatient regarding possible coagulopathy issues. We will make him a follow-up appointment to see Dr. Damon post discharge. Objective - Vital Signs Vital signs: Vital Signs Temp 97.9 F 10/12/18 04:54 Pulse 108 H 10/12/18 11:01 Resp 18 10/12/18 04:54 BP 118/61 10/12/18 04:54 Pulse Ox 95 10/12/18 04:54 Intake & Output 10/11/18 10/12/18 10/12/18 18:59 06:59 18:59 Intake Total 1320 240 360 Balance 1320 240 360 Weight 111 kg Intake: Oral 1320 240 360 Other: Voiding Method Urinal # Voids 3 1 # Bowel Movements 2 - Exam PHYSICAL EXAMINATION: GENERAL: 63-year-old gentleman in no acute distress at the time of my examination HEENT: Head is atraumatic, normocephalic. Pupils equal, round. Sclera anicteric. Conjunctiva are clear. Mucous membranes of the mouth are moist. Neck is supple. There is no elevated jugular venous pressure. No carotid bruit is heard. HEART EXAMINATION: Heart S1 and S2 irregularly irregular a systolic murmur is heard CHEST EXAMINATION: Lungs are clear to auscultation and precussion. No chest wall tenderness is noted on palpation or with deep breathing. ABDOMEN: Soft, nontender. Bowel sounds are heard. No organomegaly noted. EXTREMITIES: 2+ peripheral pulses with no evidence of peripheral edema and no calf tenderness noted. NEUROLOGIC patient is awake, alert and oriented 3 . . - Labs CBC & Chem 7: 10/12/18 06:26 10/12/18 06:26 Labs: Abnormal Lab Results - Last 24 Hours (Table) 10/12/18 10/12/18 Range/Units 06:26 06:26 RBC 3.80 L (4.30-5.90) m/uL Hgb 11.8 L (13.0-17.5) gm/dL Hct 36.8 L (39.0-53.0) % Lymphocytes # 0.6 L (1.0-4.8) k/uL Glucose 124 H (74-99) mg/dL Microbiology - Last 24 Hours (Table) 10/08/18 15:40 Blood Culture - Preliminary Blood No Growth after 72 hours 10/09/18 12:17 Gram Stain - Final Sputum Sputum Culture - Final Assessment and Plan Plan: Assessment and plan #1 acute dyspnea, evidence of acute pulmonary embolism in the right upper lobe branch. #2 exacerbation of COPD and acute community-acquired pneumonia #3 chronic nicotine dependence #4 hypertension #5 history of WPW #6 GERD #7 obstructive sleep apnea #8 paroxysmal atrial fibrillation Plan patient may be able to be discharged from cardiology's perspective. We'll decrease amiodarone to 200 mg 3 times a day, discontinue the aspirin, continue anticoagulation with xarelto.follow-up appointment with Dr. Damon in the office post discharge. Coagulopathy workup as an outpatient. DNP note has been reviewed, I agree with a documented findings and plan of care. Patient was seen and examined.
--- NOTE | 2018-10-12 12:55 | P.PN ---
Subjective Progress Note Date: 10/12/18 Principal diagnosis: Acute dyspnea, pulmonary embolism, chest tightness This is 63-year-old white male patient of Dr. Steiner with history of COPD, GERD/reflux, hyperlipidemia, sleep apnea on CPAP, Rrfuy-Zesjxnmme-Myorr syndrome, chronic back pain, anxiety, current every day smoker, who has been experiencing chest tightness, and shortness of breath over the course of a few weeks. Recently the shortness of breath and the chest tightness have increased, and patient is also having some wheezing. No hemoptysis. His cough is dry, at times she is able to bring up some small amount of clear phlegm. Denies any fever or chills, denies any recent illness. No nausea, vomiting. No headaches. Chest x-ray is completed and showed right-sided pleural effusion and pleural parenchymal opacity. Lab work was negative for any leukocytosis, white blood cell count was 6.6, hemoglobin of 11.9, d-dimer was mildly elevated to 0.69, electrolytes and renal profile were within normal limits, troponins were negative 3, BNP was 1690. CT angios chest was completed and showed right upper lobe segmental branch pulmonary, trace right pleural effusion with patchy right basilar opacity likely representing atelectasis, less likely pulmonary infiltrate. Patient was started on heparin drip per weight-based protocol. Echocardiogram was completed, and showed EF between 55 and 60%, to moderate mitral regurgitation, mild pulmonary hypertension with right-sided pressures of 41 mmHg, and normal IVC with normal inspiratory collapse. EKG showed normal sinus rhythm with PACs. The skull exam reveals diffuse wheezing consistent with acute exacerbation of COPD On 10/10/2018 patient seen in follow-up on selective care unit, apparently patient went into A. fib RVR last night, was started on amiodarone drip which is currently infusing at a rate of 0.5 mg per hour. He has been started on oral Xarelto, heparin drip has been discontinued, on today's exam patient remains in A. fib with a rate of 113-114 BPM, no complaints of chest discomfort, he is on room air, with a pulse ox of 95%, hemodynamically patient is stable, lung sounds are diminished, with bibasilar crackles. His labs have been reviewed, showed white blood cell count of 5.1, hemoglobin of 11.2, electrolytes and renal pro file were within normal limits, proBNP came back elevated at 3340, troponins were negative 3. Ultrasounds of the lower extremities were negative for DVT. On 10/11/2018 patient seen in follow-up on selective care unit. He sitting up in the chair, in no acute distress, he remains in A. fib, in the rate is still tachycardic, amiodarone drip has been discontinued, and patient has been transitioned to oral amiodarone, and oral Cardizem was added for rate control, patient is also on oral Toprol. He denies any dyspnea, denies any chest pain, he is on room air and his pulse ox the 100%, no fever or chills. No cough or congestion, his today's labs have been reviewed, and a relatively unremarkable. Sputum blood culture showed no growth. Patient has been transitioned to oral anticoagulation in the form of Xarelto The patient is seen today 10/12/2017 in follow-up on the selective care unit. He is currently sitting up in a chair at the bedside. Awake and alert in no acute distress. No worsening shortness of breath, cough or congestion. No chest pain or palpitations. He is maintaining O2 saturation in the mid 90s on room air. Sputum and blood cultures reveal no growth. White count 5.8. Hemoglobin 11.8. Creatinine 0.69. Remains on amiodarone 400 mg twice a day. Transitioned to Xarelto. NicoDerm patch in place. Objective - Vital Signs Vital signs: Vital Signs Temp 97.9 F 10/12/18 04:54 Pulse 108 H 10/12/18 11:01 Resp 18 10/12/18 04:54 BP 118/61 10/12/18 04:54 Pulse Ox 95 10/12/18 04:54 Intake & Output 10/11/18 10/12/18 10/12/18 18:59 06:59 18:59 Intake Total 1320 240 360 Balance 1320 240 360 Weight 111 kg Intake: Oral 1320 240 360 Other: Voiding Method Urinal # Voids 3 1 # Bowel Movements 2 - Exam GENERAL EXAM: Alert, pleasant, 63-year-old male comfortable in no apparent distress. On room air. HEAD: Normocephalic/atraumatic. EYES: Normal reaction of pupils, equal size. Conjunctiva pink, sclera white. NOSE: Clear with pink turbinates. THROAT: No erythema or exudates. NECK: No masses, no JVD, no thyroid enlargement, no adenopathy. CHEST: No chest wall deformity. Symmetrical expansion. LUNGS: Equal air entry with minimal wheezes CVS: Irregular rate and rhythm, normal S1 and S2, no gallops, no murmurs, no rubs ABDOMEN: Soft, nontender. No hepatosplenomegaly, normal bowel sounds, no guarding or rigidity. EXTREMITIES: No clubbing, no edema, no cyanosis, 2+ pulses and upper and lower extremities. MUSCULOSKELETAL: Muscle strength and tone normal. SPINE: No scoliosis or deformity SKIN: No rashes CENTRAL NERVOUS SYSTEM: No focal deficits, tone is normal in all 4 extremities. PSYCHIATRIC: Alert and oriented -3. Appropriate affect. Intact judgment and insight. - Labs CBC & Chem 7: 10/12/18 06:26 10/12/18 06:26 Labs: Abnormal Lab Results - Last 24 Hours (Table) 10/12/18 10/12/18 Range/Units 06:26 06:26 RBC 3.80 L (4.30-5.90) m/uL Hgb 11.8 L (13.0-17.5) gm/dL Hct 36.8 L (39.0-53.0) % Lymphocytes # 0.6 L (1.0-4.8) k/uL Glucose 124 H (74-99) mg/dL Microbiology - Last 24 Hours (Table) 10/08/18 15:40 Blood Culture - Preliminary Blood No Growth after 72 hours 10/09/18 12:17 Gram Stain - Final Sputum Sputum Culture - Final Assessment and Plan Assessment: Assessment: #1. Acute dyspnea, multifactorial, related to acute exacerbation of COPD, and acute community acquired pneumonia in the right lower lobe #2. Acute pulmonary embolism in the right upper lobe branch #3. Chronic obstructive pulmonary disease, not on oxygen at baseline #4. Chronic nicotine dependence, patient has smoked for 35 years pack a day #5. Hypertension, dyslipidemia #6. History of WPW syndrome #7. GERD/reflux #8. Obstructive sleep apnea #9. Chronic pain syndrome #10. Anxiety #11. New-onset A. fib RVR #12. Elevated proBNP suggesting exacerbation of congestive heart failure, an e chocardiogram showed preserved left ventricular systolic function, with an EF of 55-60% Plan: The patient is seen and evaluated by Dr. Villeda. He is stable from the pulmonary standpoint and could be discharged home. He is educated regarding the importance of complete smoking cessation. Continue Symbicort and albuterol. Continue prednisone taper. He could follow-up in our office in 1-2 weeks' time. He is encouraged to call sooner with any recurrence of symptoms or other questions or concerns. I, the cosigning physician, performed a history & physical examination of the patient. Lungs sounds are clear. Maintaining good O2 saturations in the 90s on room air. I discussed the assessment and plan of care with my nurse practitioner, Chayo Dick. I attest to the above note as dictated by her.
[2018-10-12 13:24] VITALS: TEMP 97.5
[2018-10-12 13:38] VITALS: BP 120/87; RESP 18
[2018-10-12 15:19] VITALS: PULSE 112
--- NOTE | 2018-10-13 00:03 | DS ---
DISCHARGE SUMMARY DATE OF ADMISSION: 10/09/2018 DATE OF DISCHARGE: 10/12/2018. FINAL DIAGNOSES: 1. Acute pulmonary embolism. 2. Acute congestive heart failure exacerbation from diastolic dysfunction. Ejection fraction 55-60 percent and from underlying hypertensive heart disease. 3. Chronic obstructive pulmonary disease in a current smoker. 4. Gastroesophageal reflux disease. 5. Hyperlipidemia. 6. Obstructive sleep apnea, does not use CPAP. 7. Obesity; BMI 34.2. 8. Chronic spinal stenosis. 9. Persistent atrial fibrillation, POA, uncontrolled. 10.Hypertensive heart disease. HOSPITAL COURSE: This patient was short of breath, found to have acute pulmonary embolism, started on IV heparin and then switched over to Xarelto. Also found to have CHF exacerbation. EF came back 50-60 percent. Patient also had atrial fibrillation. Medications were adjusted by Cardiology. The patient is doing much better today. Heart rate is hovering around 120, okay by Cardiology. CONSULTATION: Dr. Villeda from Pulmonary, Dr. Reis from Cardiology, 2D echocardiogram showed EF of 50- 60 percent. Venous Dopplers were negative for PE. PHYSICAL EXAMINATION: Temperature 97.5, heart rate 110, respirations 19, blood pressure 114/65, pulse 97% on room air. Lungs decreased breath sounds. CARDIOVASCULAR: Heart sounds irregular. INVESTIGATIONS: Hemoglobin 11.8 and potassium 4.9. DISCHARGE MEDICATIONS: 1. Lipitor 40 mg p.o. daily. 2. Flexeril 10 mg p.o. t.i.d. p.r.n. 3. [place] 7.5 one tablet q.6 p.r.n. 4. Toprol-XL 25 mg p.o. daily. 5. Omeprazole 20 mg p.o. daily. 6. Flomax 0.8 mg p.o. daily. 7. Lamictal 100 mg p.o. b.i.d. 8. Risperdal 1 mg p.o. daily. 9. Ventolin 2 puffs q.6 p.r.n. 10.Symbicort 160/4.5, 2 puffs b.i.d. 11.Tricor 145 mg p.o. daily. 12.Cordarone 4 mg taper. 13.Aspirin 81 mg p.o. daily. 14.Cardizem 30 mg p.o. q.i.d. 15.Atrovent HFA 2 puffs q.i.d. 16.Nicotine patch 14. 17.Xarelto 50 mg b.i.d. for 21 days, then 20 mg a day. 18.Prednisone taper. FOLLOW DR: Dr. Mckeon in 1 week, follow up with Dr. Villeda in 1 week. Follow up with Dr. Steiner on 10/15/2018. Copy to Dr. Steiner. MMANATOLYL / IJN: [id number] /
== END 2018-10-12 16:20 | disposition home or self-care (01) | DRG 175 ==
LOC: EC 12:39 → 3SCARD 15:20 → INTOOBSV 15:20 → OBSVTOIN 10-09 08:57
PROVIDERS: ADMIT Hospitalist; ATTEND Hospitalist
DX: I26.99 Other pulmonary embolism without acute cor pulmonale (principal); I50.33 Acute on chronic diastolic (congestive) heart failure; J18.9 Pneumonia, unspecified organism; I48.1 Persistent atrial fibrillation; J44.0 Chronic obstructive pulmonary disease with (acute) lower respiratory infection; J44.1 Chronic obstructive pulmonary disease with (acute) exacerbation; E66.9 Obesity, unspecified; E78.00 Pure hypercholesterolemia, unspecified; E78.5 Hyperlipidemia, unspecified; F17.210 Nicotine dependence, cigarettes, uncomplicated; F41.9 Anxiety disorder, unspecified; G47.33 Obstructive sleep apnea (adult) (pediatric); G89.4 Chronic pain syndrome; I11.0 Hypertensive heart disease with heart failure; I27.20 Pulmonary hypertension, unspecified; I34.0 Nonrheumatic mitral (valve) insufficiency; I45.6 Pre-excitation syndrome; I48.0 Paroxysmal atrial fibrillation; K21.9 Gastro-esophageal reflux disease without esophagitis; M16.12 Unilateral primary osteoarthritis, left hip; M48.00 Spinal stenosis, site unspecified; Z68.34 Body mass index [BMI] 34.0-34.9, adult; Z79.51 Long term (current) use of inhaled steroids; Z79.899 Other long term (current) drug therapy; Z82.49 Family history of ischemic heart disease and other diseases of the circulatory system; Z83.3 Family history of diabetes mellitus; Z98.1 Arthrodesis status; I49.1 Atrial premature depolarization
CPT/HCPCS: 36415; 71046; 71275; 80048; 80053; 80061; 83735; 83880; 84484; 85025; 85379; 85610; 85730; 87040; 87070; 87205; 93005; 93306; 93970; 94640; 94644; 96361; 96365; 96368; 96374; 99291

== ENCOUNTER → 2018-12-12 | Outpatient (CLI) | payer OTHER | END | disposition home or self-care (01) | LOC: LABWHC1 09:52 | PROVIDERS: ATTEND Internal Medicine Cardiovascular Disease | DX: I48.0 Paroxysmal atrial fibrillation (principal) | CPT/HCPCS: 36415; 84443; 84450; 84460 ==

== ENCOUNTER → 2019-02-14 | Outpatient (CLI) | payer OTHER ==
[2019-02-14 08:42] LABS: Basophils # (A) 0.1 k/uL (0-0.2); Basophils % (A) 1 %; Eosinophils # (A) 0.2 k/uL (0-0.7); Eosinophils % (A) 3 %; HCT 40.9 % (39.0-53.0); HGB 13.2 gm/dL (13.0-17.5); Lymphocytes # (A) 1.4 k/uL (1.0-4.8); Lymphocytes % (A) 24 %; MCH 33.7 pg (25.0-35.0); MCHC 32.3 g/dL (31.0-37.0); MCV 104.3 fL (80.0-100.0); Macrocytosis Slight; Mean Platelet Volume 8.5; Monocytes # (A) 0.4 k/uL (0-1.0); Monocytes % (A) 6 %; Neutrophils # (A) 3.6 k/uL (1.3-7.7); Neutrophils % (A) 64 %; Platelet Count 213 k/uL (150-450); RBC 3.92 m/uL (4.30-5.90); RDW 13.3 % (11.5-15.5); WBC 5.7 k/uL (3.8-10.6)
[2019-02-14 09:16] LABS: ALT 11 U/L (21-72); AST 18 U/L (17-59); African American GFR (CKD) >90 (>60 ml/min/1.73 sqM); Alkaline Phosphatase 42 U/L (38-126); Anion Gap 8 mmol/L; Blood Urea Nitrogen 9 mg/dL (9-20); Calcium 9.6 mg/dL (8.4-10.2); Carbon Dioxide 29 mmol/L (22-30); Chloride 105 mmol/L (98-107); Cholesterol 137 mg/dL (<200); Glucose 102 mg/dL (74-99); HDL Cholesterol 94 mg/dL (40-60); LDL Cholesterol,Calculated 21 mg/dL (0-99); Potassium 4.1 mmol/L (3.5-5.1); Sodium 142 mmol/L (137-145); Total Bilirubin 0.4 mg/dL (0.2-1.3); Total Protein 6.5 g/dL (6.3-8.2); Triglycerides 108 mg/dL (<150)
== END | disposition home or self-care (01) ==
LOC: LAB 08:07
PROVIDERS: ATTEND Internal Medicine
DX: Z13.6 Encounter for screening for cardiovascular disorders (principal); R42 Dizziness and giddiness; E55.9 Vitamin D deficiency, unspecified; Z12.5 Encounter for screening for malignant neoplasm of prostate
CPT/HCPCS: 80053; 80061; 82306; 84153; 85025

== ENCOUNTER → 2020-01-15 | Outpatient (CLI) | payer BC ==
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
== END | disposition home or self-care (01) ==
LOC: SLEEP 11:31
PROVIDERS: ATTEND Internal Medicine
DX: G47.33 Obstructive sleep apnea (adult) (pediatric) (principal); J44.9 Chronic obstructive pulmonary disease, unspecified; I48.91 Unspecified atrial fibrillation; E78.5 Hyperlipidemia, unspecified; F41.9 Anxiety disorder, unspecified; Z86.711 Personal history of pulmonary embolism; Z98.890 Other specified postprocedural states; R41.3 Other amnesia; Z87.898 Personal history of other specified conditions
CPT/HCPCS: 99211

== ENCOUNTER 2020-03-05 11:09 | Observation (INO) | payer BC ==
[2020-03-05] MEDS ORDERED: ASPIRIN 81 MG PO STA (11:35)
[2020-03-05] MEDS ORDERED: NITROGLYCERIN OINT 1 INCH/GM PACKET TOPICAL STA (11:35)
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
[2020-03-05 11:48] LABS: Basophils # (A) 0.1 k/uL (0-0.2); Basophils % (A) 1 %; Eosinophils # (A) 0.2 k/uL (0-0.7); Eosinophils % (A) 3 %; HCT 40.4 % (39.0-53.0); HGB 12.7 gm/dL (13.0-17.5); Lymphocytes # (A) 1.3 k/uL (1.0-4.8); Lymphocytes % (A) 14 %; MCH 32.9 pg (25.0-35.0); MCHC 31.5 g/dL (31.0-37.0); MCV 104.2 fL (80.0-100.0); Macrocytosis Slight; Mean Platelet Volume 8.3; Monocytes # (A) 0.5 k/uL (0-1.0); Monocytes % (A) 5 %; Neutrophils # (A) 6.7 k/uL (1.3-7.7); Neutrophils % (A) 75 %; Platelet Count 265 k/uL (150-450); RBC 3.88 m/uL (4.30-5.90); RDW 13.5 % (11.5-15.5); WBC 8.9 k/uL (3.8-10.6)
[2020-03-05 12:00] LABS: ALT 39 U/L (4-49); AST 95 U/L (17-59); African American GFR (CKD) >90 (>60 ml/min/1.73 sqM); Alkaline Phosphatase 166 U/L (38-126); Anion Gap 10 mmol/L; Blood Urea Nitrogen 3 mg/dL (9-20); Calcium 8.3 mg/dL (8.4-10.2); Carbon Dioxide 25 mmol/L (22-30); Chloride 102 mmol/L (98-107); Glucose 138 mg/dL (74-99); Magnesium 1.7 mg/dL (1.6-2.3); Non-African American GFR(CKD) >90 (>60 ml/min/1.73 sqM); Potassium 4.3 mmol/L (3.5-5.1); Sodium 137 mmol/L (137-145); Total Bilirubin 0.4 mg/dL (0.2-1.3); Total Protein 5.8 g/dL (6.3-8.2)
--- NOTE | 2020-03-05 12:12 | XR ---
EXAMINATION TYPE: XR chest 2V DATE OF EXAM: 03/05/2020 COMPARISON: Chest CT December 10, 2018. Two-view chest x-ray October 09, 2018. HISTORY: Chest pain and shortness of breath. TECHNIQUE: Frontal and lateral views of the chest are obtained. FINDINGS: There is chronic parenchymal changes bilaterally without suspicious new focal air space op acity, pleural effusion, or pneumothorax seen. The cardiac silhouette size remains enlarged. Bridgin g osteophytes in the thoracic spine are redemonstrated. IMPRESSION: Chronic changes and cardiomegaly without acute pulmonary process.
[2020-03-05 12:19] LABS: Partial Thromboplastin Time 29.6 sec (22.0-30.0); Prothrombin Time 10.3 sec (9.0-12.0)
[2020-03-05] MEDS ORDERED: DILTIAZEM 125 MG in SODIUM CHLORIDE 0.9% 100 ML IV SCH (12:30)
[2020-03-05] MEDS ORDERED: NITROGLYCERIN SL TABS 0.4 MG TAB SUBLINGUAL PRN (12:37)
[2020-03-05] MEDS ORDERED: CYCLOBENZAPRINE 10 MG TAB PO PRN (12:45)
[2020-03-05] MEDS: IPRATROPIUM-ALBUTEROL 3 ML NEB INHALATION SCH ×4 (13:26→20:29)
[2020-03-05] MEDS: HYDROcodone/APAP 7.5-325MG 1 EACH TAB PO PRN ×2 (14:17→20:54)
[2020-03-05] MEDS: RIVAROXABAN 15 MG TAB PO SCH (18:10)
[2020-03-05] MEDS: NITROGLYCERIN OINT 1 INCH/GM PACKET TOPICAL SCH (18:11)
[2020-03-05] MEDS ORDERED: LACTULOSE 20 GM/30 ML CUP PO PRN (19:01)
[2020-03-05] MEDS ORDERED: MAGNESIUM HYDROXIDE 2,400 MG/10 ML CUP PO PRN (19:01)
[2020-03-05] MEDS ORDERED: ONDANSETRON 4 MG/2 ML VIAL IVP PRN (19:01)
[2020-03-05] MEDS ORDERED: TEMAZEPAM 15 MG CAP PO PRN (19:01)
[2020-03-05] MEDS ORDERED: ALPRAZolam 0.25 MG TAB PO PRN (19:01)
[2020-03-05] MEDS ORDERED: CALCIUM CARBONATE 500 MG CHEWABLE PO PRN (19:01)
[2020-03-05] MEDS ORDERED: MAG HYDROX/AL HYDROX/SIMETH 30 ML CUP PO PRN (19:01)
[2020-03-05] MEDS ORDERED: NALOXONE 0.4 MG/ML 1 ML VIAL IV PRN (19:01)
[2020-03-05] MEDS ORDERED: MELATONIN 3 MG TABLET PO PRN (19:01)
[2020-03-05] MEDS ORDERED: ACETAMINOPHEN TAB 325 MG TAB PO PRN (19:01)
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
[2020-03-05] MEDS ORDERED: BUDESONIDE 1 MG/2 ML NEBU INHALATION SCH (20:00)
[2020-03-05 20:10] VITALS: RESP 18
[2020-03-05] MEDS: SYMBICORT 160-4.5 MCG INHALER INHALATION SCH (20:30)
[2020-03-05 20:42] LABS: Glucose,Whole Blood 121 mg/dL (75-99)
[2020-03-05] MEDS: INSULIN ASPART (NovoLOG) 100 UNIT/ML VIAL SQ SCH (20:47)
[2020-03-05] MEDS: methylPREDNISolone SOD SUCCI 40 MG/ML 1 ML VIAL IV SCH (20:48)
[2020-03-05] MEDS: lamoTRIgine 100 MG TAB PO SCH (20:48)
[2020-03-06] MEDS: NITROGLYCERIN OINT 1 INCH/GM PACKET TOPICAL SCH ×2 (00:03→05:15)
[2020-03-06] MEDS: methylPREDNISolone SOD SUCCI 40 MG/ML 1 ML VIAL IV SCH ×2 (05:15→12:27)
[2020-03-06 06:29] LABS: Glucose,Whole Blood 167 mg/dL (75-99)
[2020-03-06] MEDS: PANTOPRAZOLE 40 MG TABLET PO SCH (06:45)
[2020-03-06] MEDS: RIVAROXABAN 15 MG TAB PO SCH (06:45)
[2020-03-06] MEDS: risperiDONE 1 MG TAB PO SCH (08:04)
[2020-03-06] MEDS: ASPIRIN 81 MG PO SCH (08:04)
[2020-03-06] MEDS: INSULIN ASPART (NovoLOG) 100 UNIT/ML VIAL SQ SCH ×4 (08:05→20:35)
[2020-03-06] MEDS: ATORVASTATIN 40 MG TAB PO SCH (08:05)
[2020-03-06] MEDS: lamoTRIgine 100 MG TAB PO SCH ×2 (08:05→20:35)
[2020-03-06] MEDS: METOPROLOL SUCCINATE (ER) 25 MG TAB.ER.24H PO SCH (08:05)
[2020-03-06] MEDS: HYDROcodone/APAP 7.5-325MG 1 EACH TAB PO PRN ×3 (08:05→20:35)
[2020-03-06] MEDS: FENOFIBRATE 160 MG TAB PO SCH (08:05)
[2020-03-06] MEDS: IPRATROPIUM-ALBUTEROL 3 ML NEB INHALATION SCH ×4 (08:08→19:27)
[2020-03-06] MEDS: SYMBICORT 160-4.5 MCG INHALER INHALATION SCH ×2 (08:08→19:27)
[2020-03-06 08:35] LABS: African American GFR (CKD) >90 (>60 ml/min/1.73 sqM); Anion Gap 5 mmol/L; Blood Urea Nitrogen 4 mg/dL (9-20); Calcium 8.5 mg/dL (8.4-10.2); Carbon Dioxide 26 mmol/L (22-30); Chloride 105 mmol/L (98-107); Cholesterol 104 mg/dL (<200); Glucose 164 mg/dL (74-99); HDL Cholesterol 76 mg/dL (40-60); LDL Cholesterol,Calculated 15 mg/dL (0-99); Non-African American GFR(CKD) >90 (>60 ml/min/1.73 sqM); Potassium 4.6 mmol/L (3.5-5.1); Sodium 136 mmol/L (137-145); Triglycerides 65 mg/dL (<150)
[2020-03-06] MEDS ORDERED: AMIODARONE 200 MG TAB PO SCH (09:00)
[2020-03-06] MEDS ORDERED: ASPIRIN 325 MG TAB PO SCH (09:00)
[2020-03-06 11:42] LABS: Glucose,Whole Blood 187 mg/dL (75-99)
--- NOTE | 2020-03-06 11:54 | P.CRDCN ---
History of Present Illness History of present illness: HISTORY OF PRESENTING ILLNESS This is a pleasant 64-year-old male past medical history significant for paroxysmal atrial fibrillation on long-term anticoagulation, history of Cgdip-Kokbxwcyi-Iscbw syndrome, COPD, obstructive sleep apnea, gout, former nicotine dependence and daily alcohol intake. He follows in the office with after tomorrow. We have been asked to see in consultation for chest pain. He went to the office yesterday for routine scheduled echocardiogram and was found to be in A. fib with rapid ventricular rates fluctuating between 90 and 150. He was sent to the emergency department for further evaluation. EKG on arrival revealed A. fib with heart rate of [address] abnormalities noted. The patient was also complaining of a tight sensation in his chest. He was initiated on IV Cardizem infusion. This morning he was found to have converted spontaneously to sinus mechanism. He is seen and examined sitting up on the edge of the bed in no acute distress. He states since converting to sinus mechanism his chest discomfort has resolved. He denies shortness of breath, dizziness or palpitations. Chest x-ray is negative for an acute cardiopulmonary process. Laboratory data reviewed, WBC 8.9, hemoglobin 12.7, platelets 265, sodium 137, potassium 4.3, creatinine 0.54, magnesium 1.7, cardiac enzymes negative 3, NT proBNP 343. Lipid panel reveals an LDL of 15 and HDL 76. Current daily cardiac medications include amiodarone although the dose is unclear, Toprol 25 mg twice a day, Xarelto 20 mg daily, atorvastatin 40 mg daily and aspirin 81 mg daily. Most recent echocardiogram obtained in 2019 reveals preserved LV systolic function with ejection fraction 55-60%, mild to moderate MR, mild TR and mild pulmonary hypertension with an RVSP of 41 mmHg. REVIEW OF SYSTEMS At the time of my exam: CONSTITUTIONAL: Denies fever or chills. CARDIOVASCULAR: Denies chest pain, shortness of breath, orthopnea, PND or palpitations. RESPIRATORY: Denies cough. GASTROINTESTINAL: Denies abdominal pain, diarrhea, constipation, nausea or vomiting. MUSCULOSKELETAL: Denies myalgias. NEUROLOGIC: Denies numbness, tingling or weakness. ENDOCRINE: Denies fatigue, weight change, polydipsia or polyurina. GENITOURINARY: Denies burning, hematuria or urgency with micturation. HEMATOLOGIC: Denies history of anemia or bleeding. PHYSICAL EXAMINATION Blood pressure 123/64 heart rate 80 afebrile and maintaining oxygen saturation on room air. CONSTITUTIONAL: No apparent distress. HEENT: Head is normocephalic. Pupils are equal, round. Sclerae anicteric. Mucous membranes of the mouth are moist. No JVD. No carotid bruit. CHEST EXAMINATION: Lungs are clear to auscultation. No chest wall tenderness is noted on palpation or with deep breathing. HEART EXAMINATION: Regular rate and rhythm. S1, S2 heard. Systolic ejection murmur at the left sternal border, no gallops or rub. ABDOMEN: Soft, nontender. Positive bowel sounds. EXTREMITIES: 2+ peripheral pulses, 1+ bilateral lower extremity pitting edema and no calf tenderness. NEUROLOGIC EXAMINATION: Patient is awake, alert and oriented x3. ASSESSMENT Paroxysmal atrial fibrillation with rapid ventricular rates on admission converted to sinus mechanism this morning Chest pain, an acute coronary event has been ruled out COPD History of Parkinson White Hypertension Dyslipidemia Daily alcohol intake PLAN An acute coronary event has been ruled out. Chest discomfort associated with being in A. fib. Atypical for angina. Discontinue Cardizem infusion. Resume Toprol, Xarelto and amiodarone as previously ordered. Obtain 2-D echocardiogram and Doppler study to assess cardiac structure and fun ction. Initiate small dose of oral Lasix secondary to lower extremity edema. Thank you kindly for this consultation. Nurse Practitioner note has been reviewed, I agree with a documented findings and plan of care. Patient was seen and examined. Past Medical History Past Medical History: Asthma, COPD, GERD/Reflux, Hyperlipidemia, Sleep Apnea/CPAP/BIPAP Additional Past Medical History / Comment(s): Mustafa Parkinson White Syndrome, bronchitis, DDD, spinal stenosis, chronic low back pain with L leg involvement- pain and numbness, 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 History of Any Multi-Drug Resistant Organisms: None Reported Past Surgical History: Back Surgery Additional Past Surgical History / Comment(s): deviated septum repair, spinal fusion, "skin grafts to reena arms and above bilateral hips", pain clinic procedures, colonoscopy. Past Anesthesia/Blood Transfusion Reactions: No Reported Reaction Past Psychological History: Anxiety Additional Psychological History / Comment(s): Pt resides with his spouse. He uses no assistive device. He drives. Smoking Status: Former smoker Past Alcohol Use History: Daily Additional Past Alcohol Use History / Comment(s): started smoking at age 35, 0.5ppd. Pt drinks 2 beers a day. Past Drug Use History: Marijuana Additional Drug Use History / Comment(s): Has [place] Marijuana card-uses occasionally - Past Family History Mother Family Medical History: Diabetes Mellitus, Hypertension Father History Unknown: Yes Additional Family Medical History / Comment(s): Father left when pt was 2 yrs old. Medications and Allergies Home Medications Medication Instructions Recorded Confirmed Type Atorvastatin Calcium [Lipitor] 40 mg PO HS 01/02/18 03/05/20 History Cyclobenzaprine [Flexeril] 10 mg PO BID PRN 01/02/18 03/05/20 History Hydrocodone/Acetaminophen [[place] 1 tab PO 5XD PRN 01/02/18 03/05/20 History 7.5-325] Metoprolol Succinate (ER) [Toprol 25 mg PO BID 01/02/18 03/05/20 History XL] lamoTRIgine [LaMICtal] 100 mg PO BID 01/02/18 03/05/20 History risperiDONE [RisperDAL] 1 mg PO HS 01/02/18 03/05/20 History Budesonide/Formoterol Fumarate 2 puff INHALATION RT-BID 10/08/18 03/05/20 History [Symbicort 160-4.5 Mcg Inhaler] Aspirin 81 mg PO DAILY #1 chewable 10/12/18 03/05/20 Rx Albuterol Inhaler [Ventolin Hfa 1 - 2 puff INHALATION RT-QID PRN 03/05/20 03/05/20 History Inhaler] Amiodarone [Cordarone] See Taper PO DIRECTED 03/05/20 03/05/20 History Rivaroxaban [Xarelto] 20 mg PO DAILY 03/05/20 03/05/20 History Allergies Allergy/AdvReac Type Severity Reaction Status Date / Time No Known Allergies Allergy Verified 03/05/20 13:45 Physical Exam Vitals: Vital Signs Temp Pulse Pulse Resp BP BP Pulse Ox 03/06/20 07:48 97.5 F L 81 18 123/64 96 03/06/20 04:12 98.6 F 77 18 125/73 98 03/06/20 02:50 98.0 F 75 18 94/55 97 03/05/20 20:40 82 03/05/20 20:30 77 97 03/05/20 20:07 98.2 F 76 18 114/67 97 03/05/20 17:50 97.6 F 129 H 16 124/86 97 03/05/20 17:06 98.6 F 128 H 18 100/88 97 03/05/20 16:20 128 H 18 100/88 03/05/20 15:50 126 H 18 114/78 03/05/20 15:40 130 H 03/05/20 14:30 126 H 18 117/84 03/05/20 14:10 133 H 18 111/67 03/05/20 13:36 129 H 18 115/66 97 03/05/20 13:35 133 H 03/05/20 13:28 124 H 03/05/20 13:22 122 H 18 108/79 96 03/05/20 12:57 124 H 18 104/71 98 03/05/20 12:45 98.6 F 125 H 18 104/73 97 03/05/20 11:23 125 H 03/05/20 11:14 98.3 F 121 H 18 124/78 98 Intake and Output 03/05/20 03/06/20 03/06/20 22:59 06:59 14:59 Intake Total 360 340 Output Total 300 550 Balance 60 -210 Intake: Oral 360 340 Output: Urine 300 550 Other: # Voids 1 Weight 115.666 kg 115.4 kg Results 03/05/20 11:39 03/06/20 07:33 Cardiac Enzymes 03/05/20 03/05/20 03/05/20 Range/Units 11:39 11:39 14:05 AST 95 H (17-59) U/L Troponin I <0.012 <0.012 (0.000-0.034) ng/mL 03/05/20 Range/Units 17:51 AST (17-59) U/L Troponin I <0.012 (0.000-0.034) ng/mL Coagulation 03/05/20 Range/Units 11:39 PT 10.3 (9.0-12.0) sec APTT 29.6 (22.0-30.0) sec CBC 03/05/20 Range/Units 11:39 WBC 8.9 (3.8-10.6) k/uL RBC 3.88 L (4.30-5.90) m/uL Hgb 12.7 L (13.0-17.5) gm/dL Hct 40.4 (39.0-53.0) % Plt Count 265 (150-450) k/uL Comprehensive Metabolic Panel 03/05/20 Range/Units 11:39 Sodium 137 (137-145) mmol/L Potassium 4.3 (3.5-5.1) mmol/L Chloride 102 (98-107) mmol/L Carbon Dioxide 25 (22-30) mmol/L BUN 3 L (9-20) mg/dL Creatinine 0.54 L (0.66-1.25) mg/dL Glucose 138 H (74-99) mg/dL Calcium 8.3 L (8.4-10.2) mg/dL AST 95 H (17-59) U/L ALT 39 (4-49) U/L Alkaline Phosphatase 166 H (38-126) U/L Total Protein 5.8 L (6.3-8.2) g/dL Albumin 3.0 L (3.5-5.0) g/dL Current Medications Generic Name Dose Route Start Last Admin Trade Name Freq PRN Reason Stop Dose Admin Acetaminophen 650 mg 03/05/20 19:01 Acetaminophen Tab 325 Mg Tab PO Q6HR PRN Mild Pain or Fever > 100.5 Hydrocodone Bitart/Acetaminophen 1 each 03/05/20 12:45 03/05/20 20:54 Hydrocodone/Apap 7.5-325mg 1 Each Tab PO 1 each Q6HR PRN Administration Pain Al Hydroxide/Mg Hydroxide 15 ml 03/05/20 19:01 Mag Hydrox/Al Hydrox/Simeth 30 Ml Cup PO Q6HR PRN Indigestion Albuterol/Ipratropium 3 ml 03/05/20 12:49 03/05/20 20:29 Ipratropium-Albuterol 3 Ml Neb INHALATION 3 ml RT-QID [facility] Administration Alprazolam 0.25 mg 03/05/20 19:01 Alprazolam 0.25 Mg Tab PO Q6HR PRN Anxiety Amiodarone HCl 200 mg 03/06/20 09:00 Amiodarone 200 Mg Tab PO DAILY [facility] Aspirin 81 mg 03/06/20 09:00 Aspirin 81 Mg PO DAILY [facility] Atorvastatin Calcium 40 mg 03/06/20 09:00 Atorvastatin 40 Mg Tab PO DAILY [facility] Budesonide/Formoterol Fumarate 2 puff 03/05/20 20:00 03/05/20 20:30 Symbicort 160-4.5 Mcg Inhaler INHALATION 2 puff RT-BID [facility] Administration Calcium Carbonate/Glycine 1,000 mg 03/05/20 19:01 Calcium Carbonate 500 Mg Chewable PO Q4HR PRN Dyspepsia Cyclobenzaprine HCl 10 mg 03/05/20 12:45 Cyclobenzaprine 10 Mg Tab PO BID PRN Pain Fenofibrate 160 mg 03/06/20 09:00 Fenofibrate 160 Mg Tab PO DAILY [facility] Diltiazem HCl 125 mg/ Sodium 125 mls @ 5 mls/hr 03/05/20 12:30 03/05/20 14:27 Chloride IV 7.5 mg/hr .Q24H [facility] 7.5 mls/hr Infusion 5 MG/HR Insulin Aspart 0 unit 03/05/20 21:00 03/05/20 20:47 Insulin Aspart (Novolog) 100 Unit/Ml Vial SQ Not Given ACHS [facility] Protocol Lactulose 20 gm 03/05/20 19:01 Lactulose 20 Gm/30 Ml Cup PO DAILY PRN Constipation Lamotrigine 100 mg 03/05/20 21:00 03/05/20 20:48 Lamotrigine 100 Mg Tab PO 100 mg BID [facility] Administration Magnesium Hydroxide 2,400 mg 03/05/20 19:01 Magnesium Hydroxide 2,400 Mg/10 Ml Cup PO DAILY PRN Constipation Melatonin 3 mg 03/05/20 19:01 Melatonin 3 Mg Tablet PO HS PRN Insomnia Methylprednisolone Sodium Succinate 40 mg 03/05/20 20:00 03/06/20 05:15 Methylprednisolone Sod Succi 40 Mg/Ml 1 Ml Vial IV 40 mg Q8H [facility] Administration Metoprolol Succinate 25 mg 03/06/20 09:00 Metoprolol Succinate (Er) 25 Mg Tab.Er.24h PO DAILY [facility] Naloxone HCl 0.2 mg 03/05/20 19:01 Naloxone 0.4 Mg/Ml 1 Ml Vial IV Q2M PRN Opioid Reversal Nitroglycerin 0.4 mg 03/05/20 12:37 Nitroglycerin Sl Tabs 0.4 Mg Tab SUBLINGUAL Q5M PRN Chest Pain Ondansetron HCl 4 mg 03/05/20 19:01 Ondansetron 4 Mg/2 Ml Vial IVP Q8HR PRN Nausea And Vomiting Pantoprazole Sodium 40 mg 03/06/20 07:30 03/06/20 06:45 Pantoprazole 40 Mg Tablet PO 40 mg AC-BRKFST [facility] Administration Risperidone 1 mg 03/06/20 09:00 Risperidone 1 Mg Tab PO DAILY [facility] Rivaroxaban 20 mg 03/06/20 07:55 Rivaroxaban 20 Mg Tab PO 03/06/20 07:56 ONCE STA Sodium Chloride 10 ml 03/05/20 21:00 03/05/20 20:45 Sodium Chloride 0.9% Flush 10 Ml Syringe IV Not Given BID [facility] Temazepam 15 mg 03/05/20 19:01 Temazepam 15 Mg Cap PO HS PRN Insomnia Intake and Output 03/05/20 03/06/20 03/06/20 22:59 06:59 14:59 Intake Total 360 340 Output Total 300 550 Balance 60 -210 Intake: Oral 360 340 Output: Urine 300 550 Other: # Voids 1 Weight 115.666 kg 115.4 kg 03/05/20 11:39 03/05/20 11:39
[2020-03-06] MEDS ORDERED: AMIODARONE 200 MG TAB PO STA (11:57)
[2020-03-06] MEDS: FUROSEMIDE 20 MG TAB PO SCH (15:10)
[2020-03-06] MEDS: predniSONE 20 MG TAB PO SCH (15:10)
[2020-03-06 16:45] LABS: Glucose,Whole Blood 167 mg/dL (75-99)
--- NOTE | 2020-03-06 20:01 | P.PN ---
Progress Note - Text Progress Note Date: 03/06/20 Chief Complaint: Not feeling well History of presenting complaint: This is a pleasant [address] Bandar Steiner. Chronic stable medical conditions include pulmonary embolism in 2019, CHF with diastolic dysfunction, COPD, GERD, hyperlipidemia, spinal stenosis, proximal atrial fibrillation. Patient for quite some diet has not been feeling well. Has not been very good but keeping his appointments according the the bedside. Has been feeling dizzy and lightheaded specialist and standing up and rundown. Patient been Dr. Dr. Damon's office was found to be in atrial fibrillation rate uncontrolled in the 120s. He was admitted to the hospital for the same. Patient stopped smoking a year ago. Some wheezing shortness of breath also present. Ex-smoker. Patient's at the bedside. Admitted with atrial fibrillation rapid ventricular rate, COPD exacerbation. Today-patient is converted to sinus rhythm. Breathing is improved. Feeling better. Oral intake getting better. Review of systems: Was done for constitutional, cardiovascular, GI, pulmonary. relevant finding as above Active Medications Acetaminophen (Acetaminophen Tab 325 Mg Tab) 650 mg PO Q6HR PRN PRN Reason: Mild Pain or Fever > 100.5 Hydrocodone Bitart/Acetaminophen (Hydrocodone/Apap 7.5-325mg 1 Each Tab) 1 each PO Q6HR PRN PRN Reason: Pain Last Admin: 03/06/20 15:10 Dose: 1 each Documented by: Al Hydroxide/Mg Hydroxide (Mag Hydrox/Al Hydrox/Simeth 30 Ml Cup) 15 ml PO Q6HR PRN PRN Reason: Indigestion Albuterol/Ipratropium (Ipratropium-Albuterol 3 Ml Neb) 3 ml INHALATION RT-QID [facility] Last Admin: 03/06/20 19:27 Dose: 3 ml Documented by: Alprazolam (Alprazolam 0.25 Mg Tab) 0.25 mg PO Q6HR PRN PRN Reason: Anxiety Amiodarone HCl (Amiodarone 200 Mg Tab) 400 mg PO BID [facility] Aspirin (Aspirin 81 Mg) 81 mg PO DAILY [facility] Last Admin: 03/06/20 08:04 Dose: 81 mg Documented by: Atorvastatin Calcium (Atorvastatin 40 Mg Tab) 40 mg PO DAILY [facility] Last Admin: 03/06/20 08:05 Dose: 40 mg Documented by: Budesonide/Formoterol Fumarate (Symbicort 160-4.5 Mcg Inhaler) 2 puff INHALATION RT-BID [facility] Last Admin: 03/06/20 19:27 Dose: 2 puff Documented by: Calcium Carbonate/Glycine (Calcium Carbonate 500 Mg Chewable) 1,000 mg PO Q4HR PRN PRN Reason: Dyspepsia Cyclobenzaprine HCl (Cyclobenzaprine 10 Mg Tab) 10 mg PO BID PRN PRN Reason: Pain Fenofibrate (Fenofibrate 160 Mg Tab) 160 mg PO DAILY [facility] Last Admin: 03/06/20 08:05 Dose: 160 mg Documented by: Furosemide (Furosemide 20 Mg Tab) 20 mg PO DAILY [facility] Last Admin: 03/06/20 15:10 Dose: 20 mg Documented by: Insulin Aspart (Insulin Aspart (Novolog) 100 Unit/Ml Vial) 0 unit SQ ACHS [facility]; Protocol Last Admin: 03/06/20 16:56 Dose: 3 unit Documented by: Lactulose (Lactulose 20 Gm/30 Ml Cup) 20 gm PO DAILY PRN PRN Reason: Constipation Lamotrigine (Lamotrigine 100 Mg Tab) 100 mg PO BID [facility] Last Admin: 03/06/20 08:05 Dose: 100 mg Documented by: Magnesium Hydroxide (Magnesium Hydroxide 2,400 Mg/10 Ml Cup) 2,400 mg PO DAILY PRN PRN Reason: Constipation Melatonin (Melatonin 3 Mg Tablet) 3 mg PO HS PRN PRN Reason: Insomnia Metoprolol Succinate (Metoprolol Succinate (Er) 25 Mg Tab.Er.24h) 25 mg PO DAILY [facility] Last Admin: 03/06/20 08:05 Dose: 25 mg Documented by: Naloxone HCl (Naloxone 0.4 Mg/Ml 1 Ml Vial) 0.2 mg IV Q2M PRN PRN Reason: Opioid Reversal Nitroglycerin (Nitroglycerin Sl Tabs 0.4 Mg Tab) 0.4 mg SUBLINGUAL Q5M PRN PRN Reason: Chest Pain Ondansetron HCl (Ondansetron 4 Mg/2 Ml Vial) 4 mg IVP Q8HR PRN PRN Reason: Nausea And Vomiting Pantoprazole Sodium (Pantoprazole 40 Mg Tablet) 40 mg PO AC-BRKFST [facility] Last Admin: 03/06/20 06:45 Dose: 40 mg Documented by: Prednisone (Prednisone 20 Mg Tab) 40 mg PO DAILY [facility] Last Admin: 03/06/20 15:10 Dose: 40 mg Documented by: Risperidone (Risperidone 1 Mg Tab) 1 mg PO DAILY [facility] Last Admin: 03/06/20 08:04 Dose: 1 mg Documented by: Rivaroxaban (Rivaroxaban 20 Mg Tab) 20 mg PO HS [facility] Sodium Chloride (Sodium Chloride 0.9% Flush 10 Ml Syringe) 10 ml IV BID [facility] Last Admin: 03/06/20 09:44 Dose: 10 ml Documented by: Temazepam (Temazepam 15 Mg Cap) 15 mg PO HS PRN PRN Reason: Insomnia Physical examination: VITAL SIGNS: 98.1, 83, 18, 115/69, 96% room air GENERAL: Propped up in bed, feeling better EYES: Pupils equal. Conjunctiva normal. NECK: JVD not raised; masses not palpable. HEART: Heart sounds regular; no edema. LUNGS: Respiratory rate increased, improved air entry. ABDOMEN: Soft, nontender, liver spleen not palpable, no masses palpable. PSYCH: Alert and oriented x3; mood and affect anxiousl. MUSCULAR skeletal: Evidence of OA INVESTIGATIONS, reviewed in the clinical context: Potassium 4.6 creatinine 0.53 Accu-Cheks 187, 167 LDL 15 Admitting testing White count 8.9 hemoglobin 12.7 platelets 265 potassium 4.3 bun 3 creatinine 0.5 AST 95 ALT 39 Troponin I 3 negative albumin 3 Atrial flutter fibrillation with some ST segment changes Chest x-ray film personally reviewed by me-cardiomegaly with possibly chronic changes Assessment: -Persistent atrial fibrillation with a rapid ventricular rate, symptomatic-now reverted to sinus rhythm -Acute COPD exacerbation in an [id number] -Chronic pulmonary embolism in 2019 -Chronic congestive heart failure from diastolic dysfunction EF 55-60% -GERD -Hyperlipidemia -Chronic spinal stenosis -Obesity BMI 34.6 Plan: Cardinal drip was discontinued. Patient on amiodarone. We'll switched to by mouth prednisone. Toprol-XL started. 25 mg. Patient encouraged to ambulate.. If doing well that home tomorrow.
[2020-03-06 20:28] LABS: Glucose,Whole Blood 168 mg/dL (75-99)
[2020-03-06] MEDS: AMIODARONE 200 MG TAB PO SCH (20:34)
[2020-03-07 06:21] LABS: Glucose,Whole Blood 148 mg/dL (75-99)
[2020-03-07] MEDS: INSULIN ASPART (NovoLOG) 100 UNIT/ML VIAL SQ SCH (06:52)
[2020-03-07] MEDS: PANTOPRAZOLE 40 MG TABLET PO SCH (06:54)
[2020-03-07] MEDS: predniSONE 20 MG TAB PO SCH (07:29)
[2020-03-07] MEDS: AMIODARONE 200 MG TAB PO SCH (07:29)
[2020-03-07] MEDS: HYDROcodone/APAP 7.5-325MG 1 EACH TAB PO PRN (07:30)
[2020-03-07] MEDS: lamoTRIgine 100 MG TAB PO SCH (07:30)
[2020-03-07] MEDS: ASPIRIN 81 MG PO SCH (07:30)
[2020-03-07] MEDS: ATORVASTATIN 40 MG TAB PO SCH (07:30)
[2020-03-07] MEDS: FUROSEMIDE 20 MG TAB PO SCH (07:30)
[2020-03-07] MEDS: METOPROLOL SUCCINATE (ER) 25 MG TAB.ER.24H PO SCH (07:30)
[2020-03-07] MEDS: FENOFIBRATE 160 MG TAB PO SCH (07:30)
[2020-03-07] MEDS: risperiDONE 1 MG TAB PO SCH (07:30)
[2020-03-07 08:26] VITALS: BP 112/64; TEMP 97.9
[2020-03-07] MEDS: IPRATROPIUM-ALBUTEROL 3 ML NEB INHALATION SCH ×2 (08:55→11:44)
[2020-03-07] MEDS: SYMBICORT 160-4.5 MCG INHALER INHALATION SCH (08:55)
--- NOTE | 2020-03-07 11:49 | P.PN ---
Subjective This is a pleasant 64-year-old male past medical history significant for paroxysmal atrial fibrillation on long-term anticoagulation, history of Aotfq-Jmikytxlb-Ltvbk syndrome, COPD, obstructive sleep apnea, gout, former nicotine dependence and daily alcohol intake. He follows in the office with Dr. Reis. He is seen and examined laying flat resting comfortably in bed in no acute distress. He has no symptoms of chest discomfort, shortness of breath, dizziness or palpitations. He continues to maintain sinus mechanism. Blood pressure 112/64 heart rate 84 afebrile maintaining oxygen saturation on room air. PHYSICAL EXAMINATION CONSTITUTIONAL: No apparent distress. HEENT: Head is normocephalic. Pupils are equal, round. Sclerae anicteric. Mucous membranes of the mouth are moist. No JVD. No carotid bruit. CHEST EXAMINATION: Lungs are clear to auscultation. No chest wall tenderness is noted on palpation or with deep breathing. HEART EXAMINATION: Regular rate and rhythm. S1, S2 heard. Systolic ejection murmur at the left sternal border, no gallops or rub. EXTREMITIES: 2+ peripheral pulses, 1+ bilateral lower extremity pitting edema and no calf tenderness. ASSESSMENT Paroxysmal atrial fibrillation with rapid ventricular rates on admission converted to sinus mechanism this morning Chest pain, an acute coronary event has been ruled out COPD History of Parkinson White Hypertension Dyslipidemia Daily alcohol intake PLAN Stable for discharge from cardiac perspective on current medical regimen. Amiodarone taper discussed with the patient. Follow-up the office with Dr. Reis. Nurse Practitioner note has been reviewed, I agree with a documented findings and plan of care. Patient was seen and examined. Objective - Vital Signs Vital signs: Vital Signs Temp 97.9 F 03/07/20 08:25 Pulse 84 03/07/20 09:10 Resp 18 03/07/20 08:25 BP 112/64 03/07/20 08:25 Pulse Ox 96 03/07/20 08:25 Intake & Output 03/06/20 03/07/20 03/07/20 18:59 06:59 18:59 Intake Total 698 500 Balance 698 500 Weight 115 kg Intake: Oral 698 500 Other: # Voids 2 1 2 - Labs CBC & Chem 7: 03/05/20 11:39 03/06/20 07:33 Labs: Abnormal Lab Results - Last 24 Hours (Table) 03/06/20 03/06/2003/06/20 Range/Units 11:41 16:43 20:27 POC Glucose (mg/dL) 187 H 167 H 168 H (75-99) mg/dL 03/07/20 Range/Units 06:06 POC Glucose (mg/dL) 148 H (75-99) mg/dL
[2020-03-07 11:59] VITALS: PULSE 90
[2020-03-07 12:31] LABS: Glucose,Whole Blood 133 mg/dL (75-99)
--- NOTE | 2020-03-07 20:50 | P.DS ---
Providers Date of admission: 03/05/20 12:44 Expected date of discharge: 03/07/20 Attending physician: Luis Antonio Woo Consults: 03/05/20 12:37 Consult Physician Urgent Consulting Provider: Jalil Reis Consult Reason/Comments: cp Do you want consulting provider notified?: Yes Primary care physician: [facility] Course: Chief Complaint: Not feeling well History of presenting complaint: This is a pleasant [address] Bandar Steiner. Chronic stable medical conditions include pulmonary embolism in 2019, CHF with diastolic dysfunction, COPD, GERD, hyperlipidemia, spinal stenosis, proximal atrial fibrillation. Patient for quite some time has not been feeling well. Has not been very good about keeping his appointments according the the bedside. Has been feeling dizzy and lightheaded especially with standing up . Patient been Dr. Dr. Damon's office was found to be in atrial fibrillation rate uncontrolled in the 120s. He was admitted to the hospital for the same. Patient stopped smoking a year ago. Some wheezing shortness of breath also present. Ex-smoker. Patient's at the bedside. Admitted with atrial fibrillation rapid ventricular rate, COPD exacerbation. Currently she sinus rhythm. Today-remains sinus rhythm. Breathing well. Up and about. Care was discussed the patient. Questions answered. Consultation: Dr. Haile Reis from cardiology Physical examination: VITAL SIGNS: 97.9, 85, 18, 112/64, 96% room air GENERAL: Sitting at the edge of the bed, comfortable EYES: Pupils equal. Conjunctiva normal. NECK: JVD not raised; masses not palpable. HEART: Heart sounds regular; no edema. LUNGS: Respiratory rate normal, improved air entry. ABDOMEN: Soft, nontender, liver spleen not palpable, no masses palpable. PSYCH: Alert and oriented x3; mood and affect anxiousl. MUSCULAR skeletal: Evidence of OA INVESTIGATIONS, reviewed in the clinical context: Potassium 4.6 creatinine 0.53 Accu-Cheks 187, 167 LDL 15 Admitting testing White count 8.9 hemoglobin 12.7 platelets 265 potassium 4.3 bun 3 creatinine 0.5 AST 95 ALT 39 Troponin I 3 negative albumin 3 Atrial flutter fibrillation with some ST segment changes Chest x-ray film personally reviewed by me-cardiomegaly with possibly chronic changes Assessment: -Paroxysmal atrial fibrillation with a rapid ventricular rate, symptomatic-now reverted to sinus rhythm POA -Acute COPD exacerbation in an [id number] -Chronic pulmonary embolism in 2019 -Chronic congestive heart failure from diastolic dysfunction EF 55-60% -GERD -Hyperlipidemia -Chronic spinal stenosis -Obesity BMI 34.6 Disposition: Home Patient Condition at Discharge: Stable Plan - Discharge Summary Discharge Rx Participant: No New Discharge Prescriptions: New Amiodarone [Cordarone] 400 mg PO BID #60 tab Furosemide [Lasix] 20 mg PO DAILY #30 tab Fenofibrate [Lofibra] 160 mg PO DAILY #30 tab Continue Metoprolol Succinate (ER) [Toprol XL] 25 mg PO BID Atorvastatin Calcium [Lipitor] 40 mg PO HS risperiDONE [RisperDAL] 1 mg PO HS Cyclobenzaprine [Flexeril] 10 mg PO BID PRN PRN Reason: Pain lamoTRIgine [LaMICtal] 100 mg PO BID Hydrocodone/Acetaminophen [[place] 7.5-325] 1 tab PO 5XD PRN PRN Reason: Pain Budesonide/Formoterol Fumarate [Symbicort 160-4.5 Mcg Inhaler] 2 puff INHALATION RT-BID Aspirin 81 mg PO DAILY #1 chewable Rivaroxaban [Xarelto] 20 mg PO DAILY Albuterol Inhaler [Ventolin Hfa Inhaler] 1 - 2 puff INHALATION RT-QID PRN PRN Reason: Shortness Of Breath Discontinued Amiodarone [Cordarone] See Taper PO DIRECTED Discharge Medication List Atorvastatin Calcium [Lipitor] 40 mg PO HS 01/02/18 [History] Cyclobenzaprine [Flexeril] 10 mg PO BID PRN 01/02/18 [History] Hydrocodone/Acetaminophen [[place] 7.5-325] 1 tab PO 5XD PRN 01/02/18 [History] Metoprolol Succinate (ER) [Toprol XL] 25 mg PO BID 01/02/18 [History] lamoTRIgine [LaMICtal] 100 mg PO BID 01/02/18 [History] risperiDONE [RisperDAL] 1 mg PO HS 01/02/18 [History] Budesonide/Formoterol Fumarate [Symbicort 160-4.5 Mcg Inhaler] 2 puff INHALATION RT-BID 10/08/18 [History] Aspirin 81 mg PO DAILY #1 chewable 10/12/18 [Rx] Albuterol Inhaler [Ventolin Hfa Inhaler] 1 - 2 puff INHALATION RT-QID PRN 03/05/20 [History] Rivaroxaban [Xarelto] 20 mg PO DAILY 03/05/20 [History] Amiodarone [Cordarone] 400 mg PO BID #60 tab 03/06/20 [Rx] Fenofibrate [Lofibra] 160 mg PO DAILY #30 tab 03/06/20 [Rx] Furosemide [Lasix] 20 mg PO DAILY #30 tab 03/06/20 [Rx] Follow up Appointment(s)/Referral(s): Bandar Steiner MD [Primary Care Provider] - 1-2 days (please call sunday to make f/u appt) Jalil Reis MD [STAFF PHYSICIAN] - 1 Week (please call sunday to make f/u appt) Patient Instructions/Handouts: A-fib (Atrial Fibrillation) (DC) Activity/Diet/Wound Care/Special Instructions: Amiodarone Taper 400 mg BID x3 days; then 200 mg BID x7 days; then 200 mg daily thereafter. Discharge Disposition: HOME SELF-CARE
[2020-03-07] MEDS ORDERED: RIVAROXABAN 20 MG TAB PO SCH (21:00)
== END 2020-03-07 13:18 | disposition home or self-care (01) ==
LOC: EC 11:09 → 3NCARDOBS 12:44 → 3SCARD 15:25
PROVIDERS: ADMIT Hospitalist; ATTEND Hospitalist
DX: I48.19 Other persistent atrial fibrillation (principal); J44.1 Chronic obstructive pulmonary disease with (acute) exacerbation; R07.89 Other chest pain; I11.0 Hypertensive heart disease with heart failure; I50.32 Chronic diastolic (congestive) heart failure; I08.1 Rheumatic disorders of both mitral and tricuspid valves; I27.20 Pulmonary hypertension, unspecified; E78.5 Hyperlipidemia, unspecified; K21.9 Gastro-esophageal reflux disease without esophagitis; F41.9 Anxiety disorder, unspecified; G47.33 Obstructive sleep apnea (adult) (pediatric); Z99.89 Dependence on other enabling machines and devices; M48.00 Spinal stenosis, site unspecified; I45.6 Pre-excitation syndrome; Z68.34 Body mass index [BMI] 34.0-34.9, adult; E66.9 Obesity, unspecified; R60.0 Localized edema; Z79.01 Long term (current) use of anticoagulants; Z79.51 Long term (current) use of inhaled steroids; Z79.82 Long term (current) use of aspirin; Z79.891 Long term (current) use of opiate analgesic; Z79.899 Other long term (current) drug therapy; Z98.1 Arthrodesis status; Z87.891 Personal history of nicotine dependence; Z86.711 Personal history of pulmonary embolism; Z87.828 Personal history of other (healed) physical injury and trauma; Z83.3 Family history of diabetes mellitus; Z82.49 Family history of ischemic heart disease and other diseases of the circulatory system
CPT/HCPCS: 96376 ×2; 96366 ×2; 96375; 93005 ×2; 96365; 99291; 36415; 94640 ×5; 83880; 80061; 80053; 80048; 83735; 84484; 85025; 85610; 85730; 71046; G0378 ×4; J2920 ×2; J7512 ×2

== ENCOUNTER → 2020-04-13 | Outpatient (CLI) | payer BC ==
--- NOTE | 2020-04-13 11:43 | CT ---
EXAMINATION TYPE: CT chest w con DATE OF EXAM: 04/13/2020 COMPARISON: CT chest 12/10/2018, chest x-ray 03/05/2020 HISTORY: Hemoptysis CT DLP: 760.8 mGycm Automated exposure control for dose reduction was used. CONTRAST: CT scan of the chest is performed with IV Contrast, patient injected with 100 mL of Isovue 300. FINDINGS: LUNGS: The abnormal density at the posterior right lung base is again seen and likely represents scar ring, rounded atelectasis, there is some local pleural thickening as on prior, additional scarring in pleural thickening present at the right lung base There is no pleural effusion or pneumothorax seen. The tracheobronchial tree is patent. MEDIASTINUM: There are no greater than 1 cm hilar or mediastinal lymph nodes. No pericardial effusi on is seen. There are coronary artery calcifications. AORTA: Root of the aorta is 4.3 cm OTHER: Small hiatal hernia suspected. IMPRESSION: Stable basilar scarring, pleural thickening, probable rounded atelectasis. Coronary ricardo ry disease. Root of aorta is aneurysmal at 4.3 cm.
== END | disposition home or self-care (01) ==
LOC: RADCTMAIN 08:08
PROVIDERS: ATTEND Internal Medicine
DX: I25.10 Atherosclerotic heart disease of native coronary artery without angina pectoris (principal); I71.2 Thoracic aortic aneurysm, without rupture; R19.8 Other specified symptoms and signs involving the digestive system and abdomen
CPT/HCPCS: 71260; Q9967

== ENCOUNTER → 2020-05-21 | Outpatient (CLI) | payer MEDICARE ==
[2020-05-22 01:34] LABS: Chol/HDL Ratio 1.31; LDL Cholesterol,Calculated 9.8 mg/dL (0.0-131.0); Uric Acid 9.4 mg/dL (3.7-8.7); VLDL Calculation 20.2 mg/dL (5.00-40.00)
[2020-05-22 02:05] LABS: Prostate Specific Antigen 0.3 ng/mL (0.0-4.5)
== END | disposition home or self-care (01) ==
LOC: LABWHC1 13:15
PROVIDERS: ATTEND Internal Medicine
DX: E78.5 Hyperlipidemia, unspecified (principal); E79.0 Hyperuricemia without signs of inflammatory arthritis and tophaceous disease; Z12.5 Encounter for screening for malignant neoplasm of prostate; E55.9 Vitamin D deficiency, unspecified; R41.3 Other amnesia
CPT/HCPCS: 36415; 80061; 82306; 82607; 84153; 84443; 84550

== ENCOUNTER 2020-06-08 10:51 | Day surgery (SDC) | payer MEDICARE ==
[2020-06-07 09:52] VITALS: BMI 33.9
[~2020-06-08 10:51] MED LIST changes: +ALBUTEROL NEB (CONC) 2.5 MG/0.5 ML INHALATION ONE; +ATROPINE SULFATE 0.4 MG/ML 1 ML VIAL IM ONE; -IV FLUID CONTINUATION 1,000 ML IV ONE; +LIDOCAINE 1% (10MG/ML) FOR IV START INTRADERMA PRN; -LIDOCAINE 1% 20 ML VIAL (10MG/ML) FOR IV START INTRADERMA ONE; +LIDOCAINE 2% (PF) 20 MG/ML 5 ML VIAL INHALATION ONE; +LIDOCAINE VISCOUS 300 MG/15 ML CUP MUCOUS MEM ONE; +SODIUM CHLORIDE 0.9% 1,000 ML IV SCH
[2020-06-08] MEDS ORDERED: ONDANSETRON 4 MG/2 ML VIAL ONE (11:24)
[2020-06-08 11:37] VITALS: RESP 16
[2020-06-08] MEDS ORDERED: SUCCINYLCHOLINE CHLORIDE VIAL 200 MG/10 ML VIAL IV ONE (12:59)
[2020-06-08] MEDS ORDERED: PROPOFOL 10 MG/ML 20 ML VIAL IV ONE (12:59)
[2020-06-08 13:59] VITALS: TEMP 97.7
[2020-06-08 14:56] VITALS: BP 122/69; PULSE 63
[2020-06-08 15:15] LABS: Appearance,BF Clear; Color,BF Colorless; Nucleated Cells, Body Fluid 23 /uL; RBC, Body Fluid 11 /uL
[2020-06-08 16:39] LABS: Mononuclear WBC,Body Fluid 88 %; Polynuclear WBC,Body Fluid 12 %; Total Cells Counted,Body Fluid 100
--- NOTE | 2020-06-08 21:16 | PCN ---
PROCEDURE NOTE PULMONARY/CRITICAL CARE PROCEDURE NOTE: PROCEDURE PERFORMED: Bronchoscopy, airway examination, BAL therapeutic lavage. PREOPERATIVE DIAGNOSIS: Hemoptysis. POSTOP DIAGNOSIS: Hemoptysis. Procedure took place in room #1. There was informed consent and universal timeout. Dawood Levine CRNA, and Dr. Cottrell provided general anesthesia. OPERATORS: Dr. Villeda and Jane Crook. DESCRIPTION OF PROCEDURE: After the patient was adequately sedated and anesthetized, the bronchoscope was inserted through the bronchoscope. Adapter connected to the endotracheal tube. The bronchoscope passed easily through the endotracheal tube. The tip of the endotracheal tube was above the tracheal ascencion. There was a 3rd inspection of both lungs. The right upper lobe and its 3 segments, right middle lobe and its 2 segments, right lower lobe and its 5 segments, the left upper lobe proper and its 2 segments, the lingula and its 2 segments and the left lower lobe and its 4 segments were all found to be normal. There was no evidence of any bleeding whatsoever. The mucosa was very mildly erythematous. There was no hyperemia. There was no vascular engorgement. There was no dominant mass or tumor. We did position the bronchoscope into the right middle lobe. We did a BAL. Thirty mL of cloudy fluid was recovered. It will be sent for analysis. There was no immediate complication. The patient tolerated the procedure well and will be recovered. I will talk to the patient's . KYA / YOVANIN: [id number] /
== END 2020-06-08 15:00 | disposition home or self-care (01) ==
LOC: ORWHC2ENDO 10:51
PROVIDERS: ATTEND Internal Medicine Critical Care Medicine
DX: J98.4 Other disorders of lung (principal); R04.2 Hemoptysis; E78.5 Hyperlipidemia, unspecified; I45.6 Pre-excitation syndrome; J44.9 Chronic obstructive pulmonary disease, unspecified; G47.33 Obstructive sleep apnea (adult) (pediatric); M51.9 Unspecified thoracic, thoracolumbar and lumbosacral intervertebral disc disorder; R41.3 Other amnesia; K21.9 Gastro-esophageal reflux disease without esophagitis; Z98.811 Dental restoration status; Z87.09 Personal history of other diseases of the respiratory system; Z79.899 Other long term (current) drug therapy; Z79.01 Long term (current) use of anticoagulants; Z79.891 Long term (current) use of opiate analgesic; Z79.82 Long term (current) use of aspirin; Z79.51 Long term (current) use of inhaled steroids
CPT/HCPCS: 31624; 87798 ×3; 87496; 87498; 87529; 88108; 88305; 89050; 84132; 87252; 87502; 87634; 87070; 87205; 87116; 87102; 87206; J0330; J0461; J2405; J2704

== ENCOUNTER → 2020-07-26 | Outpatient (CLI) | payer MEDICARE ==
[2020-07-26 09:22] VITALS: BP 122/79; PULSE 98; RESP 18; TEMP 97.8
--- NOTE | 2020-07-26 10:02 | P.PN ---
Subjective Progress Note Date: 07/26/20 This is a 64-year-old gentleman with history of chronic axial lower back pain with numbness in the left thigh. Patient had one back surgery previously with lumbar fusion. He used to get caudal epidural steroid injection which helped his pain after the third injection in the series and lasted for about 6 months however his insurance changed and he had difficulty scheduling for follow-up with our clinic since 2018. His pain is on both sides of his spine and goes to the hips. The patient takes Xarelto for history of DVT and atrial fibrillation. Patient denies new-onset weakness, bowel/bladder incontinence, or any other signs or symptoms of cauda equina syndrome. There are no signs of acute intoxication, and no indications of medication diversion or overuse. In addition to above, 13-point review of systems is also negative for chest pain, shortness of breath, changes in vision, changes in hearing, new onset weakness, abdominal pain, diarrhea, extreme fatigue, malaise, fever, skin changes, homicidal or suicidal ideation, or bowel or bladder incontinence. Vital Signs: Reviewed in EMR Gen: AAOx3, NAD HEENT: PERRLA,hearing grossly normal Pulm: resp unlabored Neck: supple, trachea midline Neuro exam of the lower extremities: Straight leg raising test: Negative bilaterally Gage's test: Positive bilaterally but more painful on the right side Range of motion of the lumbar spine: Decreased Facet loading test: Tenderness in the paravertebral musculature: Positive around the sacroiliac joints bilaterally Neuro: CN II-XII grossly intact, Normal muscle strength in the lower extremities bilaterally Decreased but symmetrical knee reflexes and absent ankle because bilaterally Imaging: Reviewed in EMR/chart Assessment: Bilateral sacroiliitis Postlaminectomy pain syndrome Lumbar spondylosis without myelopathy Plan: 1. Explanation: Opioid and psychological risk scores were reviewed. Diagnoses, prognoses, and multiple treatment options including but not limited to physical therapy, interventional therapies, adjuvant medical therapies, narcotic medication therapies, and surgery were discussed with the patient and all questions were answered to the patient's satisfaction. 2. Opioid agreement: Signed with the patient and the patient is warned not to use opioids while driving or before driving and not to combine opioids with benzodiazepines or alcohol. 3. Counseling: The patient was counseled extensively on SMOKING CESSATION, BODY MASS INDEX, EXERCISE. Specifically, the patient was instructed regarding the importance of smoking cessation, obesity, and exercise in the context of both chronic pain and overall health. 4. Procedures: Schedule for bilateral sacroiliac joint steroid injection under fluoroscopic guidance. In the future the patient also may benefit from getting caudal epidural steroid injection with lysis of adhesions. 5. Consultations: None 6. Investigations: None 7. Medications: None 8. Disposition: Return to the above-mentioned procedure as soon as possible 9. Maps were reviewed and were appropriate. Objective - Vital Signs Vital signs: Vital Signs Temp 97.8 F 07/26/20 09:19 Pulse 98 07/26/20 09:19 Resp 18 07/26/20 09:19 BP 122/79 07/26/20 09:19 Pulse Ox 96 07/26/20 09:19
== END | disposition home or self-care (01) ==
LOC: PNWHC3 09:01
PROVIDERS: ATTEND Anesthesiology
DX: M46.1 Sacroiliitis, not elsewhere classified (principal); M96.1 Postlaminectomy syndrome, not elsewhere classified; M47.816 Spondylosis without myelopathy or radiculopathy, lumbar region
CPT/HCPCS: 99211

== ENCOUNTER → 2020-08-12 | Outpatient (CLI) | payer MEDICARE ==
--- NOTE | 2020-08-12 15:43 | CT ---
EXAMINATION TYPE: CT sinus wo con DATE OF EXAM: 08/12/2020 COMPARISON: NONE HISTORY: Chronic sinusitis and dizziness. CT DLP: 597 mGycm. Automated Exposure Control for Dose Reduction was Utilized. Rqak-nu-lysphgtb diffuse cerebral atrophy seen and visualized brain parenchyma. TECHNIQUE: CT scan of the sinuses is performed without contrast, axial images are obtained, coronal r eformatted images are also reviewed. FINDINGS: Mild to moderate lobulated mucosal thickening involving the inferior maxillary sinuses bila terally. Pzcq-km-etmoaadh mucosal thickening involving the anterior left sphenoid sinus. Moderate muc osal thickening involving the ethmoid sinuses bilaterally. Mild to moderate mucosal thickening involv ing the inferior frontal sinuses. No suspicious opacification or air-fluid levels. The ostiomeatal c omplex is occluded bilaterally on the coronal images due to antral mucosal thickening. Nasal septum s lightly deviated to right of midline anteriorly inferiorly. Visualized portion of mastoid air cells show no abnormal opacification. The globes are intact bilate rally. Ifyp-zm-ozjekven diffuse cerebral atrophy seen of the visualized brain parenchyma. IMPRESSION: Moderate chronic paranasal sinus disease as detailed above.
== END | disposition home or self-care (01) ==
LOC: RADCTMAIN 15:03
PROVIDERS: ATTEND Otolaryngology
DX: J32.8 Other chronic sinusitis (principal)
CPT/HCPCS: 70486

== ENCOUNTER → 2021-03-30 | Outpatient (CLI) | payer MEDICARE ==
--- NOTE | 2021-03-30 14:25 | US ---
EXAMINATION TYPE: US thyroid st tissue head/neck DATE OF EXAM: 03/30/2021 COMPARISON: NONE CLINICAL HISTORY: R13.10 dysphagia, unspecified. Patient states having a hard time swallowing. GLAND SIZE: Right Lobe: 4.5 x1.9 x 2.2 cm Overall Parenchyma: homogenous Left Lobe: 3.3 x 1.6 x 1.9 cm Overall Parenchyma: homogeneous Isthmus Thickness: 0.5 cm NODULES RIGHT: # of nodules measured on right: 0 LEFT: # of nodules measured on left: 0 ISTHMUS: # of nodules measured in the isthmus: 0 Bilateral neck scanned, no evidence of lymphadenopathy. No evidence of sizable mass or lesion in reena ateral neck. IMPRESSION: No solid or cystic thyroid nodules 2017 ACR TI-RADS LEVEL: TR-RADS 1 - BENIGN: No FNA *Highest TI-RADS level nodule reported
== END | disposition home or self-care (01) ==
LOC: RADUSWWP 12:02
PROVIDERS: ATTEND Family Medicine
DX: R13.10 Dysphagia, unspecified (principal)
CPT/HCPCS: 76536

== ENCOUNTER → 2021-05-20 | Outpatient (CLI) | payer MEDICARE ==
[~2021-05-20] MED LIST changes: -ALBUTEROL NEB (CONC) 2.5 MG/0.5 ML INHALATION ONE; -ATROPINE SULFATE 0.4 MG/ML 1 ML VIAL IM ONE; -LACTATED RINGERS 1,000 ML IV SCH; -LIDOCAINE 1% (10MG/ML) FOR IV START INTRADERMA PRN; -LIDOCAINE 2% (PF) 20 MG/ML 5 ML VIAL INHALATION ONE; -LIDOCAINE VISCOUS 300 MG/15 ML CUP MUCOUS MEM ONE; -SODIUM CHLORIDE 0.9% 1,000 ML IV SCH; +SODIUM CHLORIDE 0.9% 50 ML IVPB NR; +SODIUM CHLORIDE 0.9% 500 ML 500 ML in EMPTY BAG 1 BAG IV PRN; +SOTROVIMAB (EUA) 500 MG in SODIUM CHLORIDE 0.9% 100 ML IVPB NR
[2021-05-20 14:10] VITALS: RESP 16; TEMP 97.8
[2021-05-20 14:12] VITALS: BP 107/60; PULSE 52
== END ==
LOC: PROCWHC3 12:39
PROVIDERS: ATTEND Family Medicine
DX: U07.1 COVID-19 (principal); E66.9 Obesity, unspecified; F17.200 Nicotine dependence, unspecified, uncomplicated; Z68.29 Body mass index [BMI] 29.0-29.9, adult
CPT/HCPCS: 96360; Q0247; M0247

== ENCOUNTER → 2021-08-19 | Outpatient (CLI) | payer MEDICARE ==
[2021-08-19 18:56] LABS: HCT 37.4 % (39.6-50.0); HGB 12.3 g/dL (13.0-17.0); MCH 35.5 pg (27.0-32.0); MCHC 32.9 g/dL (32.0-37.0); MCV 108.1 fL (80.0-97.0); Mean Platelet Volume 12.4 fL (9.5-12.2); NRBC Per 100 WBC 0 /100 WBCS (0.0-0.0); Platelet Count 247 X 10*3/uL (140-440); RBC 3.46 X 10*6/uL (4.40-5.60); RDW 12.6 % (11.5-14.5); WBC 6.82 X 10*3/uL (4.50-10.00)
[2021-08-19 19:31] LABS: African American GFR (CKD) 106.4 (60.0-200.0); Anion Gap 14.8 mmol/L (10.00-18.00); Blood Urea Nitrogen 9.1 mg/dL (9.0-27.0); Carbon Dioxide 25.7 mmol/L (20.0-27.5); Non-African American GFR(CKD) 91.8 (60.0-200.0); Potassium 4.1 mmol/L (3.5-5.5)
[2021-08-20 13:47] LABS: Coronavirus SARS CoV-2 Not Detected (Not Detected)
== END | disposition home or self-care (01) ==
LOC: LABPAT 13:27
PROVIDERS: ATTEND Internal Medicine Cardiovascular Disease
DX: Z01.812 Encounter for preprocedural laboratory examination (principal); Z20.822 Contact with and (suspected) exposure to COVID-19; I48.11 Longstanding persistent atrial fibrillation
CPT/HCPCS: 80051; 82565; 84520; 85027; U0003; U0005

== ENCOUNTER 2021-08-22 05:40 | Day surgery (SDC) | payer MEDICARE ==
[2021-08-19 09:07] VITALS: BMI 30.5
[2021-08-22] MEDS ORDERED: SODIUM CHLORIDE 0.9% 1,000 ML IV SCH ×2 (06:02→11:45)
[2021-08-22] MEDS ORDERED: LACTATED RINGERS 1,000 ML IV SCH (06:02)
[2021-08-22] MEDS ORDERED: SODIUM CHLORIDE 0.9% 500 ML 500 ML IV ONE ×2 (06:12→08:30)
[2021-08-22 06:58] LABS: African American GFR (CKD) >90 (>60 ml/min/1.73 sqM); Anion Gap 7 mmol/L; Blood Urea Nitrogen 11 mg/dL (9-20); Calcium 8.5 mg/dL (8.4-10.2); Carbon Dioxide 28 mmol/L (22-30); Chloride 98 mmol/L (98-107); Glucose 99 mg/dL (74-99); Non-African American GFR(CKD) 85 (>60 ml/min/1.73 sqM); Sodium 133 mmol/L (137-145)
[2021-08-22 07:00] LABS: Potassium 3.9 mmol/L (3.5-5.1)
[2021-08-22] MEDS ORDERED: LIDOCAINE 1% INJ 10MG/ML (20 ML MDV) ONE (07:20)
[2021-08-22] MEDS ORDERED: PROPOFOL 10 MG/ML 20 ML VIAL IV ONE (07:20)
[2021-08-22] MEDS: BENZOCAINE SPRAY 1 CAN MUCOUS MEM ONE ×2 (07:30→07:41)
[2021-08-22 08:05] VITALS: TEMP 98
--- NOTE | 2021-08-22 11:56 | ECHOT ---
TRANSESOPHAGEAL ECHOCARDIOGRAM TRANSESOPHAGEAL ECHOCARDIOGRAM: INDICATION: Persistent atrial fibrillation. After obtaining informed consent, transesophageal echocardiogram was performed in left lateral position using an Omniplane probe. Local and IV sedation were obtained by the customer relations consultant. Two-D, color Doppler and spectral analysis were performed. FINDINGS: 1. There is no thrombus within the left atrial appendage, left atrium, right atrium, right ventricle or left ventricle. 2. Left atrium appears enlarged. 3. Left ventricle has normal size and systolic function. 4. Mitral valve shows moderate mitral regurgitation. 5. There is mild tricuspid regurgitation. 6. The aortic valve is a 3-leaflet valve. There is no evidence of aortic stenosis or regurgitation. 7. Aortic root measures within normal limits. 8. There is no evidence of gibo-vz-iqyot shunt by color-flow Doppler or gbdmc-hx-cdhf shunt by agitated saline contrast study. 9. Aorta shows mild atherosclerotic changes. CONCLUSIONS: 1. No intracardiac thrombus. 2. Moderate mitral regurgitation. PLAN: Patient will undergo cardioversion. CARDIOVERSION NOTE: After obtaining informed consent, the patient was converted to normal sinus rhythm. Patient was sedated by the customer relations consultant, was adequately anticoagulated with Xarelto, and we ensured that there is no intracardiac thrombus. He converted to normal sinus rhythm following 3 shocks of 120, 150 and 200 joules of synchronized DC current. Patient will be discharged home on amiodarone and Xarelto. KYA / JONA: [id number] /
[2021-08-22 17:50] VITALS: BP 105/58; PULSE 62; RESP 16
== END 2021-08-22 10:21 | disposition home or self-care (01) ==
LOC: CATHCVL 05:40
PROVIDERS: ATTEND Internal Medicine Cardiovascular Disease
DX: I48.19 Other persistent atrial fibrillation (principal); I34.0 Nonrheumatic mitral (valve) insufficiency; J44.9 Chronic obstructive pulmonary disease, unspecified; E78.2 Mixed hyperlipidemia; Z87.891 Personal history of nicotine dependence; Z86.711 Personal history of pulmonary embolism; Z79.01 Long term (current) use of anticoagulants; Z79.899 Other long term (current) drug therapy; Z79.82 Long term (current) use of aspirin; Z79.51 Long term (current) use of inhaled steroids; Z82.49 Family history of ischemic heart disease and other diseases of the circulatory system
CPT/HCPCS: 93312; 93320; 93325; 92960; 80048; J2001; J2704

== ENCOUNTER → 2021-12-29 | Outpatient (CLI) | payer MEDICARE ==
[2021-12-29 18:26] LABS: HCT 37.1 % (39.6-50.0); HGB 12.4 g/dL (13.0-17.0); MCH 34.5 pg (27.0-32.0); MCHC 33.4 g/dL (32.0-37.0); MCV 103.3 fL (80.0-97.0); Mean Platelet Volume 12.2 fL (9.5-12.2); NRBC Per 100 WBC 0 /100 WBCS (0.0-0.0); Platelet Count 192 X 10*3/uL (140-440); RBC 3.59 X 10*6/uL (4.40-5.60); RDW 13.2 % (11.5-14.5); WBC 4.14 X 10*3/uL (4.50-10.00)
[2021-12-29 18:32] LABS: Blood Urea Nitrogen 5.9 mg/dL (9.0-27.0); Non-African American GFR(CKD) 93.1 (60.0-200.0); Potassium 4.3 mmol/L (3.5-5.5)
[2021-12-29 18:33] LABS: African American GFR (CKD) 107.9 (60.0-200.0)
== END | disposition home or self-care (01) ==
LOC: LABPAT 13:53
PROVIDERS: ATTEND Internal Medicine Clinical Cardiac Electrophysiology
DX: Z01.812 Encounter for preprocedural laboratory examination (principal); I48.11 Longstanding persistent atrial fibrillation
CPT/HCPCS: 80051; 82565; 84520; 85027

== ENCOUNTER 2022-01-09 09:05 | Inpatient (IN) | payer MEDICARE ==
[~2022-01-09 09:05] MED LIST changes: +LACTATED RINGERS 1,000 ML IV SCH; +SODIUM CHLORIDE 0.9% 1,000 ML IV SCH; -SODIUM CHLORIDE 0.9% 50 ML IVPB NR; -SODIUM CHLORIDE 0.9% 500 ML 500 ML in EMPTY BAG 1 BAG IV PRN; -SOTROVIMAB (EUA) 500 MG in SODIUM CHLORIDE 0.9% 100 ML IVPB NR
[2022-01-09] MEDS ORDERED: SODIUM CHLORIDE 0.9% 1,000 ML IV ONE (09:53)
[2022-01-09] MEDS ORDERED: MIDAZOLAM 2 MG/2 ML VIAL ONE (11:58)
[2022-01-09] MEDS ORDERED: PHENYLEPHRINE-0.9% NACL SYG 1,000 MCG/10 ML SYRINGE ONE ×2 (11:58→16:28)
[2022-01-09] MEDS ORDERED: ROCURONIUM 10 MG/ML (5 ML VIAL) IV ONE (11:58)
[2022-01-09] MEDS ORDERED: PROPOFOL 10 MG/ML 20 ML VIAL IV ONE (11:58)
[2022-01-09] MEDS ORDERED: CALCIUM CHLORIDE 100 MG/ML 10 ML SYRINGE ONE ×2 (11:58→16:28)
[2022-01-09] MEDS ORDERED: ePHEDrine 50 MG/ML 1 ML VIAL ONE ×2 (11:58→16:28)
[2022-01-09] MEDS ORDERED: SUCCINYLCHOLINE CHLORIDE 200 MG/10 ML VIAL IV ONE (11:58)
[2022-01-09] MEDS ORDERED: SODIUM BICARB 8.4% 50 ML SYR (1 MEQ/ML) ONE ×3 (11:58→16:28)
[2022-01-09] MEDS ORDERED: ALBUMIN HUMAN 5% (25gm) 500 ML VIAL IVPB ONE (11:58)
[2022-01-09] MEDS ORDERED: fentaNYL (PF) 50 MCG/ML 2 ML AMP ONE (11:58)
[2022-01-09] MEDS ORDERED: HEPARIN SODIUM,PORCINE 10,000 UNIT/ML 1 ML VIAL ONE (11:58)
[2022-01-09] MEDS ORDERED: HEPARIN SOD,PORK IN 0.45% NACL 25,000 UNIT in 0.45% NACL 1 250ML.BAG IV ONE (12:10)
[2022-01-09] MEDS ORDERED: LIDOCAINE 1% INJ 10MG/ML (5 ML VIAL-PF) SQ ONE (12:36)
[2022-01-09] MEDS ORDERED: PROTAMINE SULFATE 10 MG/ML 5 ML VIAL IV ONE ×4 (14:15→16:28)
[2022-01-09] MEDS ORDERED: IOPAMIDOL-370 100ML BTL INJ ONE (14:30)
[2022-01-09] MEDS ORDERED: Kcentra PER PHARMACY 1 EACH MISC MISCELLANE PRN (14:43)
[2022-01-09] MEDS ORDERED: HUMAN PROTHROMBIN COMPLX IV STA ×2 (14:48→16:49)
[2022-01-09] MEDS ORDERED: HUMAN PROTHROMBIN COMPLX 500 UNIT/16 ML VIAL IV ONE ×2 (14:48→16:50)
[2022-01-09] MEDS ORDERED: NOREPINEPHRINE 4 MG in SODIUM CHLORIDE 0.9% 250 ML IV SCH (15:29)
[2022-01-09] MEDS ORDERED: CLEVIDIPINE BUTYRATE 25 MG in EMPTY BAG 1 BAG IV SCH (15:29)
[2022-01-09] MEDS ORDERED: CALCIUM CHLORIDE 100 MG/ML 10 ML SYRINGE IVP ONE (15:29)
[2022-01-09] MEDS ORDERED: PHENYLEPHRINE 40 MG in SODIUM CHLORIDE 0.9% 250 ML IV ONE (15:29)
[2022-01-09] MEDS ORDERED: TRANEXAMIC ACID 2,000 MG in SODIUM CHLORIDE 0.9% 80 ML IV ONE ×2 (15:29→16:15)
[2022-01-09] MEDS ORDERED: HEPARIN SODIUM 1,000 UN/ML (10ML VL) IV ONE (15:29)
[2022-01-09] MEDS ORDERED: ALBUMIN HUMAN 25% 50 ML in EMPTY BAG 1 BAG IVPB ONE (15:29)
[2022-01-09] MEDS ORDERED: NITROGLYCERIN-D5W PMX 25 MG/250 ML BTL IV ONE (15:29)
[2022-01-09] MEDS ORDERED: MAGNESIUM SULFATE 16.24 MEQ in EMPTY SYRINGE 1 SYR IV ONE (15:29)
[2022-01-09] MEDS ORDERED: ceFAZolin 1,000 MG in SODIUM CHLORIDE 0.9% IRRIGATIO 1,000 ML IRRIGATION ONE (15:29)
[2022-01-09] MEDS ORDERED: HEPARIN SODIUM,PORCINE 5,000 UNIT in SODIUM CHLORIDE 0.9% 500 ML 500 ML IV ONE (15:29)
[2022-01-09] MEDS ORDERED: PROTAMINE SULFATE 10 MG/ML 25 ML VIAL IV ONE (15:29)
[2022-01-09] MEDS ORDERED: MANNITOL 25% 12.5 GM/50 ML VIAL IV ONE ×2 (15:29)
[2022-01-09] MEDS ORDERED: PHENYLEPHRINE 10 MG/ML VIAL IV ONE (15:29)
[2022-01-09] MEDS ORDERED: PROTAMINE SULFATE 250 MG in EMPTY BAG 1 BAG IV ONE (15:29)
[2022-01-09] MEDS ORDERED: NITROGLYCERIN-D5W PMX 50 MG in DEXTROSE/WATER 1 250ML.BAG IV SCH (15:29)
[2022-01-09] MEDS ORDERED: ALBUMIN HUMAN 5% 500 ML in EMPTY BAG 1 BAG IVPB ONE (15:29)
[2022-01-09] MEDS ORDERED: SODIUM BICARB 8.4% 50 ML SYR (1 MEQ/ML) IV ONE (15:29)
[2022-01-09] MEDS ORDERED: CHLORHEXIDINE GLUCONATE 15 ML CUP MUCOUS MEM ONE (15:29)
[2022-01-09] MEDS ORDERED: CARDIOPLEGIC SOLN (K+ 16 MEQ/L 1,000 ML with SOD BICARB SYR 8.4% (1 MEQ/ML) 20 ML, LIDO... PERFUSION NR ×3 (15:30)
--- NOTE | 2022-01-09 15:59 | P.GSCN ---
History of Present Illness Consult date: 01/09/22 Reason for Consult: Hemorrhage post afib ablation, need for sternotomy, chest exploration Requesting physician: Alejandro Conrad History of present illness: This is a 66-year-old patient consented tomorrow. He is experiencing paroxysmal atrial fibrillation and is symptomatic with dizziness, shortness of breath, fatigue, and occasional chest discomfort. He was recommended to undergo atrial fibrillation ablation today. During the ablation patient was noted to have low CO2, effusion was noted, blood pressure dropped. Patient coded, CPR was initiated and maintained for approximately 1 minute with return of ROSC. P ericardial drain was placed emergently by Dr. Conrad. Emergent consult was called to take patient to the operating room. Dr. Beebe was notified, open- heart team pH and on the way in. So far estimated blood loss approximately 2500 mL, packed red blood cells/platelets/FFP/cryoprecipitate ordered and infusing. Review of Systems Review of systems unavailable at this time Past Medical History Past Medical History: Atrial Fibrillation, Asthma, COPD, GERD/Reflux, Hyperlipidemia, Memory Impairment, Sleep Apnea/CPAP/BIPAP Additional Past Medical History / Comment(s): SEE DR. CONRAD'S H & P. JUDY ON 08/22/21. DDD, spinal stenosis, chronic low back pain with L leg involvement-pain and numbness History of Any Multi-Drug Resistant Organisms: None Reported Past Surgical History: Back Surgery Additional Past Surgical History / Comment(s): Deviated septum repair, spinal fusion, "skin grafts to bilateral arms and above bilateral hips", pain clinic procedures Past Anesthesia/Blood Transfusion Reactions: No Reported Reaction Past Psychological History: Anxiety Additional Psychological History / Comment(s): Pt resides with his spouse. He uses no assistive device. He drives. Smoking Status: Former smoker Past Alcohol Use History: Daily Additional Past Alcohol Use History / Comment(s): Quit smoking 10-08-2018. Started smoking at age 35, 0.5ppd. Pt drinks 2 beers a day. Past Drug Use History: Marijuana Additional Drug Use History / Comment(s): Has [employer] Marijuana card-uses occasionally. - Past Family History Mother Family Medical History: Diabetes Mellitus, Hypertension Father History Unknown: Yes Additional Family Medical History / Comment(s): Father left when pt was 2 yrs old. Medications and Allergies Home Medications Medication Instructions Recorded Confirmed Type Atorvastatin Calcium [Lipitor] 40 mg PO QAM 01/02/18 01/09/22 History Hydrocodone/Acetaminophen [[place] 1 tab PO DIRECTED PRN 01/02/18 01/09/22 History 7.5-325] Metoprolol Succinate (ER) [Toprol 25 mg PO HS 01/02/18 01/09/22 History XL] lamoTRIgine [LaMICtal] 100 mg PO QAM 01/02/18 01/09/22 History risperiDONE [RisperDAL] 1 mg PO QAM 01/02/18 01/09/22 History Budesonide/Formoterol Fumarate 2 puff INHALATION RT-BID 10/08/18 01/09/22 History [Symbicort 160-4.5 Mcg Inhaler] Albuterol Inhaler [Ventolin Hfa 1 - 2 puff INHALATION RT-QID PRN 03/05/20 01/09/22 History Inhaler] Rivaroxaban [Xarelto] 20 mg PO HS 03/05/20 01/09/22 History allopurinoL [Zyloprim] 100 mg PO BID 04/21/20 01/09/22 History Cholecalciferol [Vitamin D3 (25 2,000 unit PO QAM 06/07/20 01/09/22 History Mcg = 1000 Iu)] Omeprazole 20 mg PO QAM 06/07/20 01/09/22 History Aspirin 81 mg PO HS 07/19/20 01/09/22 History Furosemide [Lasix] 20 mg PO QAM 07/19/20 01/09/22 History lamoTRIgine [LaMICtal] 50 mg PO HS 07/19/20 01/09/22 History dilTIAZem HCL [Cardizem LA] 180 mg PO DAILY 01/06/22 01/09/22 History Allergies Allergy/AdvReac Type Severity Reaction Status Date / Time varenicline [From Chantix] AdvReac IRRITABLE/A Verified 01/06/22 11:46 NGER Surgical - Exam Vital Signs Temp Pulse Resp BP Pulse Ox 98.2 F 103 H 16 123/68 97 01/09/22 09:48 01/09/22 09:48 01/09/22 09:48 01/09/22 09:48 01/09/22 09:48 CONSTITUTIONAL: Currently intubated, positioned at bedside, pericardial drain in place RESPIRATORY: Lungs sounds clear to auscultation bilaterally. Respirations even, nonlabored. Currently on room air with oxygen saturation 100%. Strong cough. No chest wall deformities. No clubbing or cyanosis present CARDIOVASCULAR: S1, S2 present. Irregular rate and rhythm, atrial fibrillation on telemetry. present. GASTROINTESTINAL: Abdomen soft, nontender, nondistended without masses or organomegaly noted. GENITOURINARY: Deferred INTEGUMENTARY: Skin is warm and dry NEUROLOGIC: Currently intubated Assessment and Plan Assessment: 1. Cardiac arrest with CPR for 1 minute, with ROSC 2. Acute blood loss with active massive transfusion 3. Atrial fibrillation status post attempted ablation 4. 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 History of COPD, hyperlipidemia, sleep apnea 6. Previous tobacco dependence 7. Daily EtOH use, occasional marijuana use Plan: The patient was seen in the [facility] Switch [facility]r suite. Chart/diagnostics reviewed. The case was discussed in detail with Dr. Beebe. Will continue to drain pericardial space, transfuse blood products. If bleeding does not stop will take patient to the operating room for sternotomy and chest exploration. Discussed with patient's . Prognosis guarded. More recommendations to follow. Thank you for this consult.
[2022-01-09 16:16] LABS: Basophils % (A) 0 %; Eosinophils # (A) 0.1 k/uL (0-0.7); Eosinophils % (A) 1 %; HCT 40.3 % (39.0-53.0); HGB 12.9 gm/dL (13.0-17.5); Hypochromasia Slight; Lymphocytes # (A) 1.7 k/uL (1.0-4.8); Lymphocytes % (A) 25 %; MCH 32.9 pg (25.0-35.0); MCV 102.9 fL (80.0-100.0); Macrocytosis Slight; Mean Platelet Volume 8.9; Monocytes # (A) 0.2 k/uL (0-1.0); Monocytes % (A) 3 %; Neutrophils # (A) 4.7 k/uL (1.3-7.7); Neutrophils % (A) 70 %; Platelet Count 115 k/uL (150-450); RBC 3.91 m/uL (4.30-5.90); RDW 15.2 % (11.5-15.5); WBC 6.8 k/uL (3.8-10.6)
[2022-01-09 16:28] LABS: ALT 7 U/L (4-49); AST 27 U/L (17-59); African American GFR (CKD) >90 (>60 ml/min/1.73 sqM); Alkaline Phosphatase 38 U/L (38-126); Anion Gap 9 mmol/L; Blood Urea Nitrogen 4 mg/dL (9-20); Carbon Dioxide 17 mmol/L (22-30); Chloride 111 mmol/L (98-107); Glucose 315 mg/dL (74-99); Non-African American GFR(CKD) >90 (>60 ml/min/1.73 sqM); Potassium 4.5 mmol/L (3.5-5.1); Sodium 137 mmol/L (137-145); Total Bilirubin 0.3 mg/dL (0.2-1.3); Total Protein 3.9 g/dL (6.3-8.2)
[2022-01-09] MEDS ORDERED: POTASSIUM CHLORIDE OPEN HEART 20 MEQ/50 ML BAG IVPB ONE (16:28)
[2022-01-09] MEDS ORDERED: VECURONIUM 10 MG VIAL IV ONE (16:28)
[2022-01-09] MEDS ORDERED: SODIUM CHLORIDE 0.9% IRRIG 1,000 ML BTL IRRIGATION ONE (16:28)
[2022-01-09] MEDS ORDERED: fentaNYL (PF) 50 MCG/ML 50 ML VIAL ONE (16:28)
[2022-01-09 16:37] LABS: ABG Base Excess -9.7 mmol/L; ABG Glucose Whole Blood 258 mg/dL (75-99); ABG HCO3 16 mmol/L (21-25); ABG Hematocrit 36 % (34.0-46.0); ABG Ionized Calcium 3.9 mg/dL (4.5-5.3); ABG Oxygen Saturation 99.8 % (94-97); ABG PCO2 36 mmHg (35-45); ABG PH 7.27 (7.35-7.45); ABG Potassium Whole Blood 3.5 mmol/L (3.4-4.5); ABG Sodium Whole Blood 139 mmol/L (135-146); ABG TCO2 18 mmol/L (19-24)
[2022-01-09 16:42] LABS: Calcium 6.1 mg/dL (8.4-10.2)
[2022-01-09 17:53] LABS: ABG Base Excess -7.8 mmol/L; ABG Glucose Whole Blood 245 mg/dL (75-99); ABG HCO3 19 mmol/L (21-25); ABG Hematocrit 46 % (34.0-46.0); ABG Ionized Calcium 3.6 mg/dL (4.5-5.3); ABG Oxygen Saturation 99.7 % (94-97); ABG PCO2 43 mmHg (35-45); ABG PH 7.26 (7.35-7.45); ABG Potassium Whole Blood 4.2 mmol/L (3.4-4.5); ABG Sodium Whole Blood 140 mmol/L (135-146); ABG TCO2 20 mmol/L (19-24)
--- NOTE | 2022-01-09 18:27 | P.EPPROC ---
- EP Procedure Note Electrophysiology Procedure Note: PROCEDURE A. fib ablation/pulmonary vein isolation cryoablation DIAGNOSIS Persistent Atrial fibrillation, symptomatic, refractory to therapy RESULT No left atrial appendage mass seen on intracardiac echo Severely dilated left atrium greater than 6 cm with a very large left atrial appendage Very thick upper interatrial septum, echo- refractile tissue, ? Amyloidosis Successful A. fib ablation/pulmonary vein isolation of 4 veins using cryo- ablation Complete entrance block in all 4 veins confirmed including left upper, left lower, right lower, right middle Pericardial tamponade during attempted right superior pulmonary vein catheter placement Successful pericardiocentesis but persistent bleeding, therefore Patient taken to the OR by Dr. Beebe No evidence for phrenic nerve injury Esophageal deflection YES PROCEDURE DETAILS Patient was brought to the EP lab in a fasting state after obtaining written informed consent. Procedure performed under general anesthesia Esophagus was intubated. Esophageal temperature monitoring with circa catheter. Esophageal deflection with an endoscope to avoid hypothermia of the esophagus. After initial muscle relaxant use, muscle relaxants were not given thereafter in order to assess phrenic nerve during procedure. Patient prepped and draped as per protocol Cryo ablation-set up with standard preparation of the cryoablation tools done. Femoral Venous access obtained on the right and left groins and sheaths placed Diagnostic catheters for the high right atrium, phrenic nerve stimulation and pacing, His bundle, coronary sinus placed Intracardiac echo catheter placed. Long sheath placed in the right atrium Left and right transseptal catheterization performed under intracardiac echo guidance. Intravenous heparin with aCT above 300 Later, catheter positioning and balloon positioning in the left atrium and pulmonary veins, under intracardiac echo guidance Diagnostic EP study with coronary sinus pacing and recording Transseptal catheterization performed RA pressure 15/6/11 LA pressure 37/6/16 Transseptal catheterization performed with standard sheath. The cryoablation sheath was then placed with an over the wire exchange without any acute complications. The cryoablation balloon was placed in the office of each pulmonary vein and all 4 pulmonary veins were isolated. IV dye was injected to confirm occlusion. Goal: achieve complete occlusion of the pulmonary vein, achieve -30 degrees C at 30 seconds and achieve -40 degrees C at 60 seconds and a time to effect of less than 60 seconds. If not, the balloon was repositioned to obtain this result After completion of Cryoblation with durations from 180-240 seconds, entrance block was confirmed with the Attain circular catheter in a roving fashion around the antrum of the pulmonary veins Phrenic nerve pacing was performed from the SVC, right innominate vein area and diaphragm voltage was monitored. Diaphragmatic contractions were also monitored manually for strength of contraction. Placement of the achieve catheter in the right superior pulmonary vein and as t he balloon sheath was advanced into the vein, the sheath, catheter in the achieve To swallow to the left atrium Was Repositioned but It Slipped into the Right Atrium Intracardiac Echo Revealed Pericardial Effusion Immediate Urgent pericardiocentesis Performed and Hemopericardium Drained Patient Taken to the OR on Account of Persistent Bleeding into the Pericardium Right femoral artery line placed for hemodynamic monitoring Heparin reversed, Xarelto reversed with Kcentra, packed cells, albumin, platelets and FFP and cryoprecipitate given PROCEDURES PERFORMED Diagnostic EP study CS pacing and recording Left and right transseptal catheterization Catheter the mapping of the tachycardia Intracardiac echocardiography Pulmonary vein isolation with transseptal and comprehensive EPS, [id number] Femoral arterial hemodynamic monitoring Pericardiocentesis
[2022-01-09 18:48] LABS: ABG Base Excess -2.9 mmol/L; ABG Glucose Whole Blood 190 mg/dL (75-99); ABG HCO3 24 mmol/L (21-25); ABG Hematocrit 40 % (34.0-46.0); ABG Ionized Calcium 4.5 mg/dL (4.5-5.3); ABG Oxygen Saturation 99.8 % (94-97); ABG PCO2 50 mmHg (35-45); ABG PH 7.29 (7.35-7.45); ABG PO2 326 mmHg (83-108); ABG Potassium Whole Blood 4.4 mmol/L (3.4-4.5); ABG Sodium Whole Blood 143 mmol/L (135-146); ABG TCO2 26 mmol/L (19-24)
[2022-01-09] MEDS ORDERED: Magnesium Replacement Protocol 1 EACH MISC MISCELLANE PRN (18:54)
[2022-01-09] MEDS ORDERED: Potassium Replacement Protocol 1 EACH MISC MISCELLANE PRN (18:54)
[2022-01-09] MEDS ORDERED: ONDANSETRON 4 MG/2 ML VIAL IVP PRN (18:54)
[2022-01-09] MEDS ORDERED: IPRATROPIUM-ALBUTEROL 3 ML NEB INHALATION PRN (18:54)
[2022-01-09] MEDS: LACTATED RINGERS 1,000 ML IV SCH (19:00)
[2022-01-09 19:03] LABS: ABG PO2 >420 mmHg (83-108)
[2022-01-09 19:04] LABS: ABG PO2 >420 mmHg (83-108)
[2022-01-09 19:04] LABS: ABG Lactic Acid Whole Blood 3.5 mmol/L (0.5-1.6)
[2022-01-09 19:05] LABS: ABG Lactic Acid Whole Blood 3.2 mmol/L (0.5-1.6)
[2022-01-09 19:05] LABS: ABG Lactic Acid Whole Blood 2.9 mmol/L (0.5-1.6)
--- NOTE | 2022-01-09 19:07 | P.OP ---
Date of Procedure: 01/09/22 Preoperative Diagnosis: Iatrogenic right atrial perforation with exsanguinating hemorrhage, atrial fibrillation Postoperative Diagnosis: Same Procedure(s) Performed: Sternal exploration with control of right atrial hemorrhage and repair of perforation. Application of 45 mm AtriCure clip the base of left atrial appendage. Ligation of left innominate vein. Implants: 45 mm AtriCure clip Anesthesia: GETA Surgeon: Artie Beebe Sales Representative Uniforms #1: [place] Estimated Blood Loss (ml): 7,000 IV fluids (ml): 10,000 Urine output (ml): 500 Pathology: none sent Condition: critical Disposition: ICU Indications for Procedure: 66-year-old male who was undergoing a elective left and right sided atrial ablation developed acute And not and cardiac arrest during the procedure. Pericardial drain was placed in the cath lab nurse and aspirated and the patient was resuscitated. Ongoing drainage from the pericardial drain was evident and cardiac surgery was consulted urgently. Cardiac surgical call team was called in and the OR was set up and the patient was brought directly to the operating room. Operative Findings: There was diffuse coagulopathic hemorrhage from patient being on Ellik was. Pericardium contained a large amount of fresh blood. Perforation was identified in the roof of the right atrium beneath the aorta adjacent to the pulmonary artery and the left atrial roof. During retraction for exposure, there was a tear in the innominate vein which was ligated and oversewn. Description of Procedure: Patient was brought emergently to the operating room. Ongoing pericardial drainage was occurring. The patient at draining more than 4 L from the pericardial drain. He received multiple units of blood transfusion as well as KCentra. As soon as the OR was available the patient was brought directly to the operating room from the cath lab nurse and placed on the operating table. Gen. anesthesia was induced and the patient was intubated. The anterior chest was sterilely prepped and draped. Midline sternotomy was performed. Diffuse bleeding was noted. Once the sternum was divided sternal retractor was placed. Pericardium was opened in the midline and the heart was exposed. There was ongoing bleeding. The hole in the right atrium was identified behind the aortic root adjacent to the pulmonary artery and the roof of the left atrium. Direct pressure was applied with a tonsil sponge. We placed circumferential pericardial sutures in order to obtain better exposure. In opening the sternal retractor somewhat more additional bleeding developed in the region of the innominate vein. The innominate vein had torn from the retraction. It was ligated distally and controlled proximally with pledgeted 5-0 Prolene suture. Continuous compression of the right atrial perforation had been performed with the tonsil sponge. Once we resuscitated the patient from the acute blood loss from the great vein tear, we addressed the perforation in the right atrium. This was repaired with multiple pledgeted 3-0 Prolene sutures. Once good hemostasis was obtained, tacocel patches were placed on both the innominate vein tear and the sutured repaired right atrium. Good hemostasis was now noted. Tube mediastinal chest tubes were placed. Some fibrillar packing was placed under the aorta. Good hemostasis was again noted. The chest was irrigated with antibiotic solution. 45 mm AtriCure was placed at the base of the left atrial appendage. Pericardium was tacked shut loosely and the sternum closed with 8 sternal wires. Fascia was closed with 0 Ethibond, subcutaneous and subcuticular layers with layers of Vicryl suture. Dry sterile dressings were applied and the patient was transferred to ICU in stable hemodynamic condition. Total blood loss was 7000 mL. There was in addition to the 4000 mL loss prior to arriving in the operating room. The patient received 3500 mL of Cell Saver as well as 4 units of packed red blood cells, 2 units of fresh frozen plasma and 1 dose of KCentra.
[2022-01-09 19:19] LABS: Glucose,Whole Blood 177 mg/dL (70-110)
[2022-01-09 19:40] LABS: Anisocytosis Slight; Basophils % (A) 0 %; Eosinophils % (A) 0 %; HCT 40.7 % (39.0-53.0); HGB 13.9 gm/dL (13.0-17.5); Lymphocytes # (A) 1.1 k/uL (1.0-4.8); Lymphocytes % (A) 11 %; MCH 32.8 pg (25.0-35.0); MCHC 34.1 g/dL (31.0-37.0); Macrocytosis Slight; Mean Platelet Volume 9.5; Monocytes # (A) 0.6 k/uL (0-1.0); Monocytes % (A) 6 %; Neutrophils # (A) 8.8 k/uL (1.3-7.7); Neutrophils % (A) 82 %; RBC 4.23 m/uL (4.30-5.90); RDW 17.4 % (11.5-15.5); WBC 10.7 k/uL (3.8-10.6)
[2022-01-09 19:45] LABS: MCV 96.4 fL (80.0-100.0)
[2022-01-09 19:54] LABS: ALT 15 U/L (4-49); AST 65 U/L (17-59); African American GFR (CKD) >90 (>60 ml/min/1.73 sqM); Albumin 1.6 g/dL (3.5-5.0); Alkaline Phosphatase 35 U/L (38-126); Anion Gap 4 mmol/L; Blood Urea Nitrogen 6 mg/dL (9-20); Calcium 7.4 mg/dL (8.4-10.2); Carbon Dioxide 24 mmol/L (22-30); Chloride 113 mmol/L (98-107); Glucose 182 mg/dL (74-99); Magnesium 1.1 mg/dL (1.6-2.3); Non-African American GFR(CKD) >90 (>60 ml/min/1.73 sqM); Potassium 4.3 mmol/L (3.5-5.1); Sodium 141 mmol/L (137-145); Total Bilirubin 1.2 mg/dL (0.2-1.3); Total Protein 3.1 g/dL (6.3-8.2)
[2022-01-09 19:56] LABS: Platelet Count 78 k/uL (150-450)
[2022-01-09 19:58] LABS: Crenated RBC Present; Poikilocytosis (M) Present
[2022-01-09 19:59] LABS: INR 1.2 (<1.2); Partial Thromboplastin Time 31.7 sec (22.0-30.0); Prothrombin Time 12.9 sec (9.0-12.0)
[2022-01-09 20:09] LABS: ABG Base Excess -2.4 mmol/L; ABG HCO3 24 mmol/L (21-25); ABG Oxygen Saturation 99.6 % (94-97); ABG PCO2 46 mmHg (35-45); ABG PH 7.32 (7.35-7.45); ABG PO2 278 mmHg (83-108); ABG TCO2 25 mmol/L (19-24); Allen Test Performed? Yes
--- NOTE | 2022-01-09 20:12 | P.ANPRN ---
Procedure Note - Anesthesia - Invasive Line Right Arterial Line Time Out Performed: Yes Date of Procedure: 01/09/22 Time of Procedure: 15:10 Location of Patient: EP Preparation: Sterile Prep, Sterile Dressing Arterial Line Location: Brachial Ultrasound Used: Yes Purpose - Visualization and Identification of Vasculature: Yes Needle Guage: 20 Image Stored and Saved: Yes Narrative: Central line placement per sterile protocol utilized. Performed as an emergency procedure. The right brachial artery palpated and appeared to have a intact collateral circulation. Front of the wrist was cleaned with ChloraPrep. It was draped and 2 mL of 1% lidocaine was infiltrated and ability into the front of the wrist. A 20-gauge two and half inch long Arrow arterial catheter was inserted and a bright red blood/back was noticed. It was connected to the pressure monitoring line and the flashback was confirmed. The line was sutured into the skin. Tegaderm dressing was applied. Patient tolerated the procedure very well with no apparent complications. Right Central Line Time Out Performed: Yes Date of Procedure: 01/09/22 Time of Procedure: 15:43 Location of Patient: EP Preparation: Sterile Prep, Sterile Dressing Ultrasound Used: Yes Purpose - Visualization and Identification of Vasculature: Yes Image Stored and Saved: No Narrative: Central line placement per sterile protocol utilized. Performed as an emergency procedure Central line placement per sterile protocol utilized. Right Internal jugular vein cannulated under aseptic precautions. 3cc 1% lidocaine infiltrated initially after cleaning with iodine based prep and draping. Ultrasound used to locate the vein and selginger technique used. 9Fr introduced sheath inserted and after the finding the needle with banquet pilot needle/catheter. The line is dressed with biopatch and tegaderm. Patient tolerated the procedure well. C - JUDY Intraop Pre Bypass JUDY Intraop - Anesthesia Indication: Hemodynamically significant pericardial effusion, cardiac tamponade Date of Procedure: 01/09/22 Pre-operative Diagnosis: Pericardial tamponade due to right atrial tear Post-operative Diagnosis: Repair of a right atrial tear Surgeon: Artie Beebe Left Ventricle: Review of 55-60%. There is a circumferential pericardial effusion of 1-2 cm. No regional wall motion abnormalities Ejection Fraction: Normal Regional Wall Motion Abnormalities: None Left Ventricle Hypertrophy: No R. Ventricle Function: Normal Anatomy: Trileaflet Aortic Stenosis: None Aortic Regurgitation: None Mitral Stenosis: None Mitral Regurgitation: Mild Tricuspid Stenosis: None Tricuspid Regurgitation: Trace L. Atrial Dilation: Yes Aortic Dissection: No Aortic Calcification: None Plural Effusion: None - JUDY Intraop Post Bypass JUDY Intraop Post Bypass Procedure Performed: Right atrial tear repair and ligation of the left atrial appendage Left Ventricle: Pericardial effusion not seen now. Left atrial appendage is seen ligated Ejection Fraction: Normal R. Ventricle Function: Normal Aortic Valve: Unchanged Mitral Valve: Unchanged Tricuspid: Unchanged Pulmonic: Unchanged Aortic Dissection: No
[2022-01-09] MEDS: IPRATROPIUM-ALBUTEROL 3 ML NEB INHALATION SCH ×2 (20:23→23:04)
[2022-01-09] MEDS: SYMBICORT 160-4.5 MCG INHALER INHALATION SCH (20:23)
--- NOTE | 2022-01-09 20:40 | XR ---
EXAMINATION TYPE: XR chest 1V portable DATE OF EXAM: 01/09/2022 8:31 PM COMPARISON: Chest radiographs from 03/05/2020 TECHNIQUE: XR chest 1V portable Frontal view of the chest. CLINICAL INDICATION:Male, 66 years old with history of Post Operative Cardiac Surgery; FINDINGS: Lungs/Pleura: There is no evidence of pleural effusion, focal consolidation, or pneumothorax. Mild b asilar atelectasis present. Pulmonary vascularity: Unremarkable. Heart/mediastinum: Cardiomediastinal silhouette is unremarkable. Left atrial appendage occlusion rojelio ce is present. Musculoskeletal: No acute osseous pathology. Lines/Tubes: Endotracheal tube with distal tip 5.1 cm above the ascencion Nasogastric tube with its distal tip and side-port projecting under the diaphragm. Drainage tubes with tips projecting over the mediastinum. IMPRESSION: Findings and tubes as described above, no evidence for pneumothorax.
[2022-01-09] MEDS ORDERED: METOPROLOL SUCCINATE (ER) 25 MG TAB.ER.24H PO SCH (21:00)
[2022-01-09] MEDS ORDERED: INSULIN REGULAR 100 UNIT in SODIUM CHLORIDE 0.9% 100 ML IV SCH (21:15)
[2022-01-09 21:34] LABS: Glucose,Whole Blood 226 mg/dL (70-110)
[2022-01-09] MEDS: ASPIRIN 81 MG PO SCH (21:43)
[2022-01-09] MEDS: MAGNESIUM SULFATE-D5W PMX 1 GM in DEXTROSE/WATER 1 100ML.BAG IVPB SCH ×2 (21:44→22:39)
[2022-01-09] MEDS: METOPROLOL TARTRATE 25 MG TAB PO SCH (21:54)
[2022-01-09] MEDS: allopurinoL 100 MG TAB PO SCH (21:54)
[2022-01-09] MEDS: lamoTRIgine 25 MG TAB PO SCH (21:54)
--- NOTE | 2022-01-09 22:01 | XR ---
EXAMINATION TYPE: XR chest 1V portable DATE OF EXAM: 01/09/2022 9:53 PM COMPARISON: Chest radiographs from TECHNIQUE: XR chest 1V portable Frontal view of the chest. CLINICAL INDICATION:Male, 66 years old with history of placement, advanced ET tube, pulled back on NG tube; FINDINGS: Lungs/Pleura: There is no evidence of pleural effusion, focal consolidation, or pneumothorax. Mild b asilar atelectasis present. Pulmonary vascularity: Unremarkable. Heart/mediastinum: Cardiomediastinal silhouette is unremarkable. Left atrial appendage occlusion rojelio ce is present. Musculoskeletal: No acute osseous pathology. Lines/Tubes: Endotracheal tube with distal tip 5.1 cm above the ascencion Nasogastric tube with its distal tip and side-port projecting under the diaphragm. Drainage tubes with tips projecting over the mediastinum. IMPRESSION: Nasogastric and endotracheal tubes in appropriate position.
[2022-01-09 22:46] LABS: Glucose,Whole Blood 207 mg/dL (70-110)
[2022-01-09] MEDS: ACETAMINOPHEN IV (For NPO) 1,000 MG in EMPTY BAG 1 BAG IVPB SCH (23:12)
[2022-01-10 00:10] LABS: Glucose,Whole Blood 161 mg/dL (70-110)
[2022-01-10] MEDS: MAGNESIUM SULFATE-D5W PMX 1 GM in DEXTROSE/WATER 1 100ML.BAG IVPB SCH ×3 (00:24→09:31)
[2022-01-10 00:28] LABS: Anisocytosis Slight; Basophils % (A) 0 %; Eosinophils # (A) 0.1 k/uL (0-0.7); Eosinophils % (A) 1 %; HCT 46.6 % (39.0-53.0); Lymphocytes # (A) 0.8 k/uL (1.0-4.8); Lymphocytes % (A) 5 %; MCH 30.4 pg (25.0-35.0); MCHC 32.1 g/dL (31.0-37.0); MCV 94.6 fL (80.0-100.0); Monocytes # (A) 0.7 k/uL (0-1.0); Monocytes % (A) 4 %; Neutrophils # (A) 13.2 k/uL (1.3-7.7); Neutrophils % (A) 90 %; RBC 4.92 m/uL (4.30-5.90); RDW 17.6 % (11.5-15.5); WBC 14.8 k/uL (3.8-10.6)
[2022-01-10 00:31] LABS: Platelet Count 92 k/uL (150-450)
[2022-01-10] MEDS: amLODIPine 5 MG TAB PO SCH ×2 (00:40→20:59)
[2022-01-10] MEDS: SODIUM CHLORIDE 0.9% 250 ML IV SCH ×4 (00:45→03:05)
[2022-01-10 01:09] LABS: Glucose,Whole Blood 134 mg/dL (70-110)
[2022-01-10 02:05] LABS: Glucose,Whole Blood 128 mg/dL (70-110)
[2022-01-10 02:27] LABS: Anisocytosis Slight; Basophils % (A) 0 %; Eosinophils # (A) 0.1 k/uL (0-0.7); Eosinophils % (A) 0 %; HCT 42.9 % (39.0-53.0); Lymphocytes # (A) 0.5 k/uL (1.0-4.8); Lymphocytes % (A) 4 %; MCH 30.8 pg (25.0-35.0); MCHC 32.6 g/dL (31.0-37.0); MCV 94.4 fL (80.0-100.0); Macrocytosis Slight; Mean Platelet Volume 10.4; Monocytes # (A) 1.2 k/uL (0-1.0); Monocytes % (A) 8 %; Neutrophils # (A) 12.4 k/uL (1.3-7.7); Neutrophils % (A) 87 %; RBC 4.55 m/uL (4.30-5.90); RDW 17.8 % (11.5-15.5); WBC 14.3 k/uL (3.8-10.6)
[2022-01-10 02:29] LABS: Platelet Count 90 k/uL (150-450)
[2022-01-10 03:13] LABS: Glucose,Whole Blood 106 mg/dL (70-110)
[2022-01-10] MEDS ORDERED: SODIUM CHLORIDE 0.9% 500 ML 500 ML IV ONE (03:41)
[2022-01-10 04:19] LABS: Glucose,Whole Blood 130 mg/dL (70-110)
[2022-01-10] MEDS ORDERED: ALBUMIN HUMAN 5% 500 ML in EMPTY BAG 1 BAG IVPB ONE ×5 (05:00)
[2022-01-10] MEDS ORDERED: ALBUMIN HUMAN 25% 50 ML in EMPTY BAG 1 BAG IVPB ONE (05:00)
[2022-01-10 05:14] LABS: Glucose,Whole Blood 151 mg/dL (70-110)
[2022-01-10 05:27] LABS: Anisocytosis Slight; Basophils % (A) 0 %; Eosinophils # (A) 0.1 k/uL (0-0.7); Eosinophils % (A) 0 %; HCT 38.8 % (39.0-53.0); Lymphocytes # (A) 0.5 k/uL (1.0-4.8); Lymphocytes % (A) 4 %; MCH 31.6 pg (25.0-35.0); MCHC 33.4 g/dL (31.0-37.0); MCV 94.6 fL (80.0-100.0); Macrocytosis Slight; Mean Platelet Volume 10.8; Monocytes # (A) 0.6 k/uL (0-1.0); Monocytes % (A) 5 %; Neutrophils # (A) 10.5 k/uL (1.3-7.7); Neutrophils % (A) 89 %; RBC 4.11 m/uL (4.30-5.90); RDW 17.8 % (11.5-15.5); WBC 11.7 k/uL (3.8-10.6)
[2022-01-10 05:36] LABS: Platelet Count 84 k/uL (150-450)
[2022-01-10 05:38] LABS: Ionized Calcium 5.1 mg/dL (4.5-5.3)
[2022-01-10] MEDS: ACETAMINOPHEN IV (For NPO) 1,000 MG in EMPTY BAG 1 BAG IVPB SCH (05:42)
[2022-01-10 05:45] LABS: ALT 13 U/L (4-49); AST 50 U/L (17-59); African American GFR (CKD) >90 (>60 ml/min/1.73 sqM); Albumin 1.7 g/dL (3.5-5.0); Alkaline Phosphatase 39 U/L (38-126); Anion Gap 3 mmol/L; Blood Urea Nitrogen 10 mg/dL (9-20); Calcium 7.5 mg/dL (8.4-10.2); Carbon Dioxide 21 mmol/L (22-30); Chloride 115 mmol/L (98-107); Glucose 145 mg/dL (74-99); Magnesium 1.6 mg/dL (1.6-2.3); Non-African American GFR(CKD) >90 (>60 ml/min/1.73 sqM); Potassium 3.6 mmol/L (3.5-5.1); Sodium 139 mmol/L (137-145); Total Bilirubin 0.6 mg/dL (0.2-1.3); Total Protein 3.4 g/dL (6.3-8.2)
[2022-01-10 06:11] LABS: Glucose,Whole Blood 160 mg/dL (70-110)
[2022-01-10 06:17] LABS: ABG Base Excess -4.4 mmol/L; ABG HCO3 20 mmol/L (21-25); ABG Oxygen Saturation 99.1 % (94-97); ABG PCO2 33 mmHg (35-45); ABG PO2 130 mmHg (83-108); ABG TCO2 21 mmol/L (19-24)
[2022-01-10 06:20] LABS: Allen Test Performed? No
[2022-01-10] MEDS ORDERED: Potassium Replacement Protocol 1 EACH MISC MISCELLANE PRN (06:45)
[2022-01-10] MEDS: DEXMEDETOMIDINE/0.9% NACL(PMX) 400 MCG in EMPTY BAG 1 BAG IV SCH (06:46)
[2022-01-10] MEDS: IPRATROPIUM-ALBUTEROL 3 ML NEB INHALATION SCH ×4 (06:59→20:49)
[2022-01-10] MEDS: SYMBICORT 160-4.5 MCG INHALER INHALATION SCH ×2 (06:59→21:07)
[2022-01-10 07:05] LABS: Glucose,Whole Blood 142 mg/dL (70-110)
--- NOTE | 2022-01-10 07:08 | XR ---
EXAMINATION TYPE: XR chest 1V portable DATE OF EXAM: 01/10/2022 COMPARISON: 01/09/2022 HISTORY: Shortness of breath TECHNIQUE: Single frontal view of the chest is obtained. FINDINGS: ET, NG tube and mediastinal drains stable. Postsurgical changes seen with hypertrophic odalis nge of the spine. Bilateral infiltrate and small effusion. Biapical pleural thickening. Mild intersti tial prominence. IMPRESSION: Bilateral infiltrate and small effusion. Suspect a small less than 5% left apical pneumo thorax
[2022-01-10] MEDS: POTASSIUM CHLORIDE 10 MEQ in WATER FOR INJECTION 1 100ML.BAG IVPB SCH ×2 (07:13→09:29)
--- NOTE | 2022-01-10 08:44 | P.PN ---
Subjective Progress Note Date: 01/10/22 Principal diagnosis: Atrial fibrillation, iatrogenic right atrial perforation with exsanguinating hemorrhage. Previous medical history of symptomatic atrial fibrillation, previous tobacco dependence with COPD, hyperlipidemia, obstructive sleep apnea with home CPAP use, daily beer drinker, occasional marijuana use POD #1 sternal exploration with control of right atrial hemorrhage and repair of perforation, application of 45 mm AtriCure clip at the base of the left atrial appendage, ligation of the left innominate vein The patient was seen and examined this morning in the intensive care unit lying in bed. Was recently extubated. Currently in sinus rhythm to sinus tach with heart rate in the high 90s to low 100s. Blood pressure stable on no inotropes or pressors. Patient has received a total of 10 units packed red blood cells, 3 units FFP, 2 packs of platelets, and 2 doses cryoprecipitate. Lab work and x- ray reviewed this morning. Mediastinal chest tube remains in place, 145 mL serosanguineous drainage overnight, 400 mL since return from our last evening. No other new concerns. Objective - Vital Signs Vital signs: Vital Signs Temp 97.5 F L 01/10/22 04:00 Pulse 105 H 01/10/22 07:12 Resp 15 01/10/22 07:00 BP 134/84 01/10/22 07:00 Pulse Ox 100 01/10/22 07:00 FiO2 50 01/10/22 07:00 Intake & Output 01/09/22 01/10/22 01/10/22 18:59 06:59 18:59 Intake Total 5028 2792.605 139.042 Output Total 6515 760 90 Balance -1487 2032.605 49.042 Weight 99.9 kg 106.5 kg Intake: IV 876 2373 133 0.9 NS 330 30 ACETAMINOPHEN IV (For NPO 200 ) 1,000 mg In Empty Bag 1 bag @ 400 mls/hr IVPB Q6HR [facility] Rx#:[id number] Lactated Ringers 1,000 ml 660 100 @ 100 mls/hr IV .Q10H [facility] Rx#:[id number] Magnesium Sulfate-D5w Pmx 300 1 gm In Dextrose/Water 1 100ml.bag @ 100 mls/hr IVPB Q1H [facility] Rx#: [id number] Sodium Chloride 0.9% 250 250 ml @ 999 mls/hr IV .Q16M [facility] Rx#:[id number] Sodium Chloride 0.9% 500 500 ml 500 ml @ 999 mls/hr IV .Q31M [facility] Rx#:[id number] ceFAZolin 2 gm In Sodium 100 Chloride 0.9% 50 ml @ 100 mls/hr IVPB ONCE [facility] Rx# :[id number] pressure bag 33 3 Intake, IV Titration 90.605 6.042 Amount Dexmedetomidine/0.9% NaCl 3.239 (Pmx) 400 mcg In Empty Bag 1 bag @ 0.2 MCG/KG/HR 5.325 mls/hr IV .[id number] [facility] Rx#:[id number] Insulin Regular 100 unit 19.476 2.803 In Sodium Chloride 0.9% 100 ml @ Per Protocol IV .Q0M [facility] Rx#:[id number] propofoL 1,000 mg In 71.129 Empty Bag 1 bag @ Titrate IV .Q0M [facility] Rx#: [id number] Blood Product 4152 329 Ffp 24 Cpd Unit 294 [id number] Ffp 24 Pher Acda Unit 209 [id number] Ffp 24 Pher Acda Cnt1 218 Unit [id number] Platelet Pheresis Pas 329 Psoralen Unit [id number] Platelet Pheresis Pas 274 Psoralen Unit [id number] Pooled Cryoprecipitate 89 Unit [id number] Pooled Cryoprecipitate 94 Unit [id number] Rc As-1 Unit 310 [id number] Rc As-1 Unit 310 [id number] Rc As-1 Unit 310 [id number] Rc As-1 Unit 310 [id number] Rc As-1 Unit 310 [id number] Rc As-1 Unit 310 [id number] Rc Pheresis 2 As3 Unit 281 [id number] Rc Pheresis 2 As3 Unit 278 [id number] Rc Pheresis As-3 Unit 280 [id number] Rc Pheresis As-3 Unit 275 [id number] Output: Chest Tube Drainage 270 30 Chest Tube Mediastinal 270 30 Urine 300 490 60 Estimated Blood Loss 6215 Other: Voiding Method Indwelling Catheter ABP, PAP, CO, CI - Last Documented Arterial Blood Pressure 135/85 - Exam CONSTITUTIONAL: Appears comfortable, cooperative, no acute distress RESPIRATORY: Lungs sounds diminished bilaterally. Respirations even, nonlabored. Currently on 2 L nasal cannula with oxygen saturation 100%. Strong cough. CARDIOVASCULAR: S1, S2 present. Regular rate and rhythm, sinus rhythm to sinus tach on telemetry. Sternum stable. Palpable peripheral pulses bilaterally. Trace generalized edema present, periorbital edema present. No calf pain or tenderness noted. Antiembolism stockings, SCDs present. GASTROINTESTINAL: Abdomen soft, nontender, nondistended. Hypoactive bowel sounds present 4 quadrants. GENITOURINARY: Jaimes present draining clear, yellow urine. Output overnight 15-30 mL per hour INTEGUMENTARY: Skin is warm and dry. Anterior chest incision well approximated and covered with dry intact dressing NEUROLOGIC: Cranial nerves II through XII intact MUSKULOSKELETAL: Able to move all extremities, strength equal bilaterally PSYCHIATRIC: Alert and oriented to person place and time, appropriate affect, intact judgment and insight INVASIVE LINES AND TUBES: Mediastinal chest tubes present and connected to wall suction, no air leaks present, 145 mL serosanguineous drainage overnight, 400 mL since surgery. Right internal jugular Cordis, right femoral arterial line, bilateral femoral sheaths all present - Allied health notes Allied health notes reviewed: nursing - Labs CBC & Chem 7: 01/10/22 05:10 01/10/22 05:10 Labs: Abnormal Lab Results - Last 24 Hours (Table) 01/09/22 01/09/22 01/09/22 Range/Units 15:02 15:27 16:03 WBC (3.8-10.6) k/uL RBC 3.91 L (4.30-5.90) m/uL Hgb 12.9 L (13.0-17.5) gm/dL Hct (39.0-53.0) % MCV 102.9 H (80.0-100.0) fL RDW (11.5-15.5) % Plt Count 115 L (150-450) k/uL Neutrophils # (1.3-7.7) k/uL Lymphocytes # (1.0-4.8) k/uL Monocytes # (0-1.0) k/uL PT (9.0-12.0) sec INR (<1.2) APTT (22.0-30.0) sec ABG pH (7.35-7.45) ABG pCO2 (35-45) mmHg ABG pO2 (83-108) mmHg ABG HCO3 (21-25) mmol/L ABG Total CO2 (19-24) mmol/L ABG O2 Saturation (94-97) % ABG Ionized Calcium (4.5-5.3) mg/dL ABG Glucose (75-99) mg/dL ABG Lactic Acid (0.5-1.6) mmol/L Hemoglobin (13.0-17.5) gm/dL Chloride (98-107) mmol/L Carbon Dioxide (22-30) mmol/L BUN (9-20) mg/dL Creatinine (0.66-1.25) mg/dL Glucose (74-99) mg/dL POC Glucose (mg/dL) (70-110) mg/dL Calcium (8.4-10.2) mg/dL Magnesium (1.6-2.3) mg/dL AST (17-59) U/L Alkaline Phosphatase (38-126) U/L Total Protein (6.3-8.2) g/dL Albumin (3.5-5.0) g/dL Arterial Blood Glucose (75-99) mg/dL Crossmatch See Detail See Detail 01/09/22 01/09/22 01/09/22 Range/Units 16:03 16:39 17:55 WBC (3.8-10.6) k/uL RBC (4.30-5.90) m/uL Hgb (13.0-17.5) gm/dL Hct (39.0-53.0) % MCV (80.0-100.0) fL RDW (11.5-15.5) % Plt Count (150-450) k/uL Neutrophils # (1.3-7.7) k/uL Lymphocytes # (1.0-4.8) k/uL Monocytes # (0-1.0) k/uL PT (9.0-12.0) sec INR (<1.2) APTT (22.0-30.0) sec ABG pH 7.27 L 7.26 L (7.35-7.45) ABG pCO2 (35-45) mmHg ABG pO2 >420 H >420 H (83-108) mmHg ABG HCO3 16 L 19 L (21-25) mmol/L ABG Total CO2 18 L (19-24) mmol/L ABG O2 Saturation 99.8 H 99.7 H (94-97) % ABG Ionized Calcium 3.9 L 3.6 L (4.5-5.3) mg/dL ABG Glucose 258 H 245 H (75-99) mg/dL ABG Lactic Acid 3.5 H* 3.2 H* (0.5-1.6) mmol/L Hemoglobin 11.6 L (13.0-17.5) gm/dL Chloride 111 H (98-107) mmol/L Carbon Dioxide 17 L (22-30) mmol/L BUN 4 L (9-20) mg/dL Creatinine 0.49 L (0.66-1.25) mg/dL Glucose 315 H (74-99) mg/dL POC Glucose (mg/dL) (70-110) mg/dL Calcium 6.1 L* (8.4-10.2) mg/dL Magnesium (1.6-2.3) mg/dL AST (17-59) U/L Alkaline Phosphatase (38-126) U/L Total Protein 3.9 L (6.3-8.2) g/dL Albumin 2.0 L (3.5-5.0) g/dL Arterial Blood Glucose 258 H 245 H (75-99) mg/dL Crossmatch 01/09/22 01/09/22 01/09/22 Range/Units 18:50 18:54 19:16 WBC (3.8-10.6) k/uL RBC (4.30-5.90) m/uL Hgb (13.0-17.5) gm/dL Hct (39.0-53.0) % MCV (80.0-100.0) fL RDW (11.5-15.5) % Plt Count (150-450) k/uL Neutrophils # (1.3-7.7) k/uL Lymphocytes # (1.0-4.8) k/uL Monocytes # (0-1.0) k/uL PT (9.0-12.0) sec INR (<1.2) APTT (22.0-30.0) sec ABG pH 7.29 L (7.35-7.45) ABG pCO2 50 H (35-45) mmHg ABG pO2 326 H (83-108) mmHg ABG HCO3 (21-25) mmol/L ABG Total CO2 26 H (19-24) mmol/L ABG O2 Saturation 99.8 H (94-97) % ABG Ionized Calcium (4.5-5.3) mg/dL ABG Glucose 190 H (75-99) mg/dL ABG Lactic Acid 2.9 H* (0.5-1.6) mmol/L Hemoglobin (13.0-17.5) gm/dL Chloride 113 H (98-107) mmol/L Carbon Dioxide (22-30) mmol/L BUN 6 L (9-20) mg/dL Creatinine 0.48 L (0.66-1.25) mg/dL Glucose 182 H (74-99) mg/dL POC Glucose (mg/dL) 177 H (70-110) mg/dL Calcium 7.4 L (8.4-10.2) mg/dL Magnesium 1.1 L (1.6-2.3) mg/dL AST 65 H (17-59) U/L Alkaline Phosphatase 35 L (38-126) U/L Total Protein 3.1 L (6.3-8.2) g/dL Albumin 1.6 L (3.5-5.0) g/dL Arterial Blood Glucose 190 H (75-99) mg/dL Crossmatch 01/09/22 01/09/22 01/09/22 Range/Units 19:31 19:31 20:04 WBC 10.7 H (3.8-10.6) k/uL RBC 4.23 L (4.30-5.90) m/uL Hgb (13.0-17.5) gm/dL Hct (39.0-53.0) % MCV (80.0-100.0) fL RDW 17.4 H (11.5-15.5) % Plt Count 78 L (150-450) k/uL Neutrophils # 8.8 H (1.3-7.7) k/uL Lymphocytes # (1.0-4.8) k/uL Monocytes # (0-1.0) k/uL PT 12.9 H (9.0-12.0) sec INR 1.2 H (<1.2) APTT 31.7 H (22.0-30.0) sec ABG pH 7.32 L (7.35-7.45) ABG pCO2 46 H (35-45) mmHg ABG pO2 278 H (83-108) mmHg ABG HCO3 (21-25) mmol/L ABG Total CO2 25 H (19-24) mmol/L ABG O2 Saturation 99.6 H (94-97) % ABG Ionized Calcium (4.5-5.3) mg/dL ABG Glucose (75-99) mg/dL ABG Lactic Acid (0.5-1.6) mmol/L Hemoglobin (13.0-17.5) gm/dL Chloride (98-107) mmol/L Carbon Dioxide (22-30) mmol/L BUN (9-20) mg/dL Creatinine (0.66-1.25) mg/dL Glucose (74-99) mg/dL POC Glucose (mg/dL) (70-110) mg/dL Calcium (8.4-10.2) mg/dL Magnesium (1.6-2.3) mg/dL AST (17-59) U/L Alkaline Phosphatase (38-126) U/L Total Protein (6.3-8.2) g/dL Albumin (3.5-5.0) g/dL Arterial Blood Glucose (75-99) mg/dL Crossmatch 01/09/22 01/09/22 01/10/22 Range/Units 21:32 22:44 00:05 WBC 14.8 H (3.8-10.6) k/uL RBC (4.30-5.90) m/uL Hgb (13.0-17.5) gm/dL Hct (39.0-53.0) % MCV (80.0-100.0) fL RDW 17.6 H (11.5-15.5) % Plt Count 92 L (150-450) k/uL Neutrophils # 13.2 H (1.3-7.7) k/uL Lymphocytes # 0.8 L (1.0-4.8) k/uL Monocytes # (0-1.0) k/uL PT (9.0-12.0) sec INR (<1.2) APTT (22.0-30.0) sec ABG pH (7.35-7.45) ABG pCO2 (35-45) mmHg ABG pO2 (83-108) mmHg ABG HCO3 (21-25) mmol/L ABG Total CO2 (19-24) mmol/L ABG O2 Saturation (94-97) % ABG Ionized Calcium (4.5-5.3) mg/dL ABG Glucose (75-99) mg/dL ABG Lactic Acid (0.5-1.6) mmol/L Hemoglobin (13.0-17.5) gm/dL Chloride (98-107) mmol/L Carbon Dioxide (22-30) mmol/L BUN (9-20) mg/dL Creatinine (0.66-1.25) mg/dL Glucose (74-99) mg/dL POC Glucose (mg/dL) 226 H 207 H (70-110) mg/dL Calcium (8.4-10.2) mg/dL Magnesium (1.6-2.3) mg/dL AST (17-59) U/L Alkaline Phosphatase (38-126) U/L Total Protein (6.3-8.2) g/dL Albumin (3.5-5.0) g/dL Arterial Blood Glucose (75-99) mg/dL Crossmatch 01/10/22 01/10/22 01/10/22 Range/Units 00:08 01:08 02:03 WBC (3.8-10.6) k/uL RBC (4.30-5.90) m/uL Hgb (13.0-17.5) gm/dL Hct (39.0-53.0) % MCV (80.0-100.0) fL RDW (11.5-15.5) % Plt Count (150-450) k/uL Neutrophils # (1.3-7.7) k/uL Lymphocytes # (1.0-4.8) k/uL Monocytes # (0-1.0) k/uL PT (9.0-12.0) sec INR (<1.2) APTT (22.0-30.0) sec ABG pH (7.35-7.45) ABG pCO2 (35-45) mmHg ABG pO2 (83-108) mmHg ABG HCO3 (21-25) mmol/L ABG Total CO2 (19-24) mmol/L ABG O2 Saturation (94-97) % ABG Ionized Calcium (4.5-5.3) mg/dL ABG Glucose (75-99) mg/dL ABG Lactic Acid (0.5-1.6) mmol/L Hemoglobin (13.0-17.5) gm/dL Chloride (98-107) mmol/L Carbon Dioxide (22-30) mmol/L BUN (9-20) mg/dL Creatinine (0.66-1.25) mg/dL Glucose (74-99) mg/dL POC Glucose (mg/dL) 161 H 134 H 128 H (70-110) mg/dL Calcium (8.4-10.2) mg/dL Magnesium (1.6-2.3) mg/dL AST (17-59) U/L Alkaline Phosphatase (38-126) U/L Total Protein (6.3-8.2) g/dL Albumin (3.5-5.0) g/dL Arterial Blood Glucose (75-99) mg/dL Crossmatch 01/10/22 01/10/22 01/10/22 Range/Units 02:05 04:17 05:10 WBC 14.3 H 11.7 H (3.8-10.6) k/uL RBC 4.11 L (4.30-5.90) m/uL Hgb (13.0-17.5) gm/dL Hct 38.8 L (39.0-53.0) % MCV (80.0-100.0) fL RDW 17.8 H 17.8 H (11.5-15.5) % Plt Count 90 L 84 L (150-450) k/uL Neutrophils # 12.4 H 10.5 H (1.3-7.7) k/uL Lymphocytes # 0.5 L 0.5 L (1.0-4.8) k/uL Monocytes # 1.2 H (0-1.0) k/uL PT (9.0-12.0) sec INR (<1.2) APTT (22.0-30.0) sec ABG pH (7.35-7.45) ABG pCO2 (35-45) mmHg ABG pO2 (83-108) mmHg ABG HCO3 (21-25) mmol/L ABG Total CO2 (19-24) mmol/L ABG O2 Saturation (94-97) % ABG Ionized Calcium (4.5-5.3) mg/dL ABG Glucose (75-99) mg/dL ABG Lactic Acid (0.5-1.6) mmol/L Hemoglobin (13.0-17.5) gm/dL Chloride (98-107) mmol/L Carbon Dioxide (22-30) mmol/L BUN (9-20) mg/dL Creatinine (0.66-1.25) mg/dL Glucose (74-99) mg/dL POC Glucose (mg/dL) 130 H (70-110) mg/dL Calcium (8.4-10.2) mg/dL Magnesium (1.6-2.3) mg/dL AST (17-59) U/L Alkaline Phosphatase (38-126) U/L Total Protein (6.3-8.2) g/dL Albumin (3.5-5.0) g/dL Arterial Blood Glucose (75-99) mg/dL Crossmatch 01/10/22 01/10/22 01/10/22 Range/Units 05:10 05:13 06:02 WBC (3.8-10.6) k/uL RBC (4.30-5.90) m/uL Hgb (13.0-17.5) gm/dL Hct (39.0-53.0) % MCV (80.0-100.0) fL RDW (11.5-15.5) % Plt Count (150-450) k/uL Neutrophils # (1.3-7.7) k/uL Lymphocytes # (1.0-4.8) k/uL Monocytes # (0-1.0) k/uL PT (9.0-12.0) sec INR (<1.2) APTT (22.0-30.0) sec ABG pH (7.35-7.45) ABG pCO2 33 L (35-45) mmHg ABG pO2 130 H (83-108) mmHg ABG HCO3 20 L (21-25) mmol/L ABG Total CO2 (19-24) mmol/L ABG O2 Saturation 99.1 H (94-97) % ABG Ionized Calcium (4.5-5.3) mg/dL ABG Glucose (75-99) mg/dL ABG Lactic Acid (0.5-1.6) mmol/L Hemoglobin (13.0-17.5) gm/dL Chloride 115 H (98-107) mmol/L Carbon Dioxide 21 L (22-30) mmol/L BUN (9-20) mg/dL Creatinine (0.66-1.25) mg/dL Glucose 145 H (74-99) mg/dL POC Glucose (mg/dL) 151 H (70-110) mg/dL Calcium 7.5 L (8.4-10.2) mg/dL Magnesium (1.6-2.3) mg/dL AST (17-59) U/L Alkaline Phosphatase (38-126) U/L Total Protein 3.4 L (6.3-8.2) g/dL Albumin 1.7 L (3.5-5.0) g/dL Arterial Blood Glucose (75-99) mg/dL Crossmatch 01/10/22 01/10/22 Range/Units 06:10 07:03 WBC (3.8-10.6) k/uL RBC (4.30-5.90) m/uL Hgb (13.0-17.5) gm/dL Hct (39.0-53.0) % MCV (80.0-100.0) fL RDW (11.5-15.5) % Plt Count (150-450) k/uL Neutrophils # (1.3-7.7) k/uL Lymphocytes # (1.0-4.8) k/uL Monocytes # (0-1.0) k/uL PT (9.0-12.0) sec INR (<1.2) APTT (22.0-30.0) sec ABG pH (7.35-7.45) ABG pCO2 (35-45) mmHg ABG pO2 (83-108) mmHg ABG HCO3 (21-25) mmol/L ABG Total CO2 (19-24) mmol/L ABG O2 Saturation (94-97) % ABG Ionized Calcium (4.5-5.3) mg/dL ABG Glucose (75-99) mg/dL ABG Lactic Acid (0.5-1.6) mmol/L Hemoglobin (13.0-17.5) gm/dL Chloride (98-107) mmol/L Carbon Dioxide (22-30) mmol/L BUN (9-20) mg/dL Creatinine (0.66-1.25) mg/dL Glucose (74-99) mg/dL POC Glucose (mg/dL) 160 H 142 H (70-110) mg/dL Calcium (8.4-10.2) mg/dL Magnesium (1.6-2.3) mg/dL AST (17-59) U/L Alkaline Phosphatase (38-126) U/L Total Protein (6.3-8.2) g/dL Albumin (3.5-5.0) g/dL Arterial Blood Glucose (75-99) mg/dL Crossmatch - Imaging and Cardiology Chest x-ray: report reviewed, image reviewed Assessment and Plan Assessment: 1. Iatrogenic right atrial perforation with exsanguinating hemorrhage, status post sternal exploration with control of right atrial hemorrhage and repair of perforation 2. Cardiac arrest with CPR for 1 minute, with ROSC 3. Atrial fibrillation status post attempted ablation, status post application of 45 mm AtriCure clip at the base of the left atrial appendage 4. 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 History of COPD, hyperlipidemia, sleep apnea 6. Previous tobacco dependence 7. Daily EtOH use, occasional marijuana use Plan: 1. Will continue mediastinal chest tubes for another 24 hours. Monitor d rainage 2. Wean O2 as tolerated. Encourage incentive spirometry is 10 times every hour while awake 3. Heart hugger to be placed on patient, he should wear it for approximately 1 month. Sternal precautions: avoid lifting/point/pushing anything heavier than 10 pounds for 3 months 4. Increase activity as tolerated, out of bed when able. PT/OT consulted to teach patient how to get in and out of bed, chair with sternal precautions 5. No oral anticoagulation until chest tubes removed 6. Will monitor daily labs and x-rays 7. Medical management of other comorbidities per primary care service 8. More recommendations to follow
[2022-01-10 08:59] LABS: Glucose,Whole Blood 146 mg/dL (70-110)
[2022-01-10] MEDS ORDERED: DILTIAZEM CD 180 MG CAP.ER.24H PO SCH (09:00)
[2022-01-10] MEDS ORDERED: MAGNESIUM HYDROXIDE 2,400 MG/10 ML CUP PO PRN (09:00)
[2022-01-10] MEDS ORDERED: bisacodyL 10 MG SUPP RECTAL PRN (09:00)
[2022-01-10] MEDS: ATORVASTATIN 40 MG TAB PO SCH (09:53)
[2022-01-10] MEDS: PANTOPRAZOLE 40 MG TABLET PO SCH (09:53)
[2022-01-10 09:54] LABS: Glucose,Whole Blood 119 mg/dL (70-110)
[2022-01-10] MEDS: allopurinoL 100 MG TAB PO SCH ×2 (09:55→20:57)
[2022-01-10] MEDS: lamoTRIgine 100 MG TAB PO SCH (09:56)
[2022-01-10] MEDS: METOPROLOL TARTRATE 25 MG TAB PO SCH ×2 (09:56→20:57)
[2022-01-10] MEDS: risperiDONE 1 MG TAB PO SCH (10:07)
[2022-01-10] MEDS: LACTATED RINGERS 1,000 ML IV SCH ×2 (10:10→22:30)
[2022-01-10 11:06] LABS: Glucose,Whole Blood 146 mg/dL (70-110)
[2022-01-10] MEDS: HYDROcodone/APAP 5-325MG 1 EACH TAB PO PRN ×3 (11:12→20:57)
--- NOTE | 2022-01-10 11:25 | CONS ---
CONSULTATION DATE OF SERVICE: 01/09/22 I met with this patient for 45 minutes during this consultation. I have seen, examined, and agree with the midlevel's findings. MMESME / YOVANIN: [id number] / -01
[2022-01-10] MEDS ORDERED: HYDROcodone/APAP 5-325MG 1 EACH TAB PO PRN (12:00)
--- NOTE | 2022-01-10 12:02 | P.CNPUL ---
History of Present Illness Consult date: 01/10/22 Requesting physician: Artie Beebe Reason for consult: other (ICU management and ventilator management) Chief complaint: Status post sternal exploration and control of right atrial hemorrhage History of present illness: This is a 66-year-old white male who underwent elective left and the right sided atrial ablation yesterday by Dr. Crocker. Patient developed acute cardiac arrest during the procedure, pericardial drain was placed in the general laborer, patient was resuscitated, he continued to have ongoing drainage from the pericardial drain, stat cardiothoracic surgery consultation was done, patient was taken to the OR, underwent sternal exploration, control of right atrial hemorrhage and repair of perforation. Ligation of left innominate vein. Postoperatively, patient was sent to the ICU on mechanical ventilation, I was notified about the patient as soon as he arrived to the ICU. I reviewed his chest x-ray, and recommended adjustment of his endotracheal tube, his ventilator settings where adjusted overnight, and early this morning the patient was awakened, sedation was discontinued, placed on Precedex for agitation, and I recommended extubation early this morning. Patient is now extubated, on nasal cannula, not in distress. The patient himself is a poor historian, he doesn't remember what happened over the last 24 hours. Patient is in sinus rhythm, blood pressure is stable, he is not requiring any inotropes or any pressors. Apparently he received a total of 10 units of packed RBCs yesterday, and 3 units of fresh frozen plasma, 2 units of platelets, and 2 doses of cryoprecipitate. Chest x-ray today showed minimal atelectasis, his mediastinal chest tube remains in place, he had 145 mL of serosanguineous drainage overnight. Review of Systems Unable to get an adequate review of systems, patient is a bit sleepy, he is on Precedex, he was just on propofol earlier. Past Medical History Past Medical History: Atrial Fibrillation, Asthma, COPD, GERD/Reflux, Hyperlipidemia, Memory Impairment, Sleep Apnea/CPAP/BIPAP Additional Past Medical History / Comment(s): SEE DR[facility] ON 08/22/21. DDD, spinal stenosis, chronic low back pain with L leg involvement-pain and numbness History of Any Multi-Drug Resistant Organisms: None Reported Past Surgical History: Back Surgery Additional Past Surgical History / Comment(s): Deviated septum repair, spinal fusion, "skin grafts to bilateral arms and above bilateral hips", pain clinic procedures Past Anesthesia/Blood Transfusion Reactions: No Reported Reaction Past Psychological History: Anxiety Additional Psychological History / Comment(s): Pt resides with his spouse. He uses no assistive device. He drives. Smoking Status: Former smoker Past Alcohol Use History: Daily Additional Past Alcohol Use History / Comment(s): Quit smoking 10-08-2018. Started smoking at age 35, 0.5ppd. Pt drinks 2 beers a day. Past Drug Use History: Marijuana Additional Drug Use History / Comment(s): Has [employer]-uses occasionally. - Past Family History Mother Family Medical History: Diabetes Mellitus, Hypertension Father History Unknown: Yes Additional Family Medical History / Comment(s): Father left when pt was 2 yrs old. Medications and Allergies Home Medications Medication Instructions Recorded Confirmed Type Atorvastatin Calcium [Lipitor] 40 mg PO QAM 01/02/18 01/09/22 History Hydrocodone/Acetaminophen [[place] 1 tab PO DIRECTED PRN 01/02/18 01/09/22 History 7.5-325] Metoprolol Succinate (ER) [Toprol 25 mg PO HS 01/02/18 01/09/22 History XL] lamoTRIgine [LaMICtal] 100 mg PO QAM 01/02/18 01/09/22 History risperiDONE [RisperDAL] 1 mg PO QAM 01/02/18 01/09/22 History Budesonide/Formoterol Fumarate 2 puff INHALATION RT-BID 10/08/18 01/09/22 History [Symbicort 160-4.5 Mcg Inhaler] Albuterol Inhaler [Ventolin Hfa 1 - 2 puff INHALATION RT-QID PRN 03/05/20 01/09/22 History Inhaler] Rivaroxaban [Xarelto] 20 mg PO HS 03/05/20 01/09/22 History allopurinoL [Zyloprim] 100 mg PO BID 04/21/20 01/09/22 History Cholecalciferol [Vitamin D3 (25 2,000 unit PO QAM 06/07/20 01/09/22 History Mcg = 1000 Iu)] Omeprazole 20 mg PO QAM 06/07/20 01/09/22 History Aspirin 81 mg PO HS 07/19/20 01/09/22 History Furosemide [Lasix] 20 mg PO QAM 07/19/20 01/09/22 History lamoTRIgine [LaMICtal] 50 mg PO HS 07/19/20 01/09/22 History dilTIAZem HCL [Cardizem LA] 180 mg PO DAILY 01/06/22 01/09/22 History Allergies Allergy/AdvReac Type Severity Reaction Status Date / Time varenicline [From Chantix] AdvReac IRRITABLE/A Verified 01/06/22 11:46 NGER Physical Exam Vitals: Vital Signs Temp Pulse Resp BP Pulse Ox FiO2 01/10/22 11:25 95 01/10/22 11:17 94 01/10/22 10:30 86 19 108/74 97 01/10/22 10:00 92 15 115/72 98 01/10/22 09:30 89 12 104/69 99 01/10/22 09:00 93 11 L 103/73 99 01/10/22 08:30 94 11 L 110/73 98 01/10/22 08:00 98.8 F 92 10 L 138/91 97 01/10/22 07:30 98 12 131/82 99 01/10/22 07:12 105 H 01/10/22 07:00 105 H 15 134/84 100 50 01/10/22 06:59 104 H 01/10/22 06:30 100 19 122/81 100 01/10/22 06:00 96 15 122/81 100 01/10/22 05:30 93 12 115/82 99 01/10/22 05:00 96 17 123/88 95 01/10/22 04:30 94 19 90/65 95 01/10/22 04:00 97.5 F L 84 15 97/73 99 50 01/10/22 03:30 92 18 101/87 100 01/10/22 03:16 95 01/10/22 03:04 95 01/10/22 03:00 98 16 107/79 100 50 01/10/22 02:30 100 20 94/66 97 01/10/22 02:00 94 20 87/63 100 01/10/22 01:30 92 19 93/82 100 01/10/22 01:00 98 20 100/76 99 01/10/22 00:45 113 H 39 H 86/70 100 01/10/22 00:30 111 H 24 89/74 100 01/10/22 00:15 113 H 26 H 102/79 100 01/10/22 00:00 97.9 F 118 H 27 H 113/90 100 50 01/09/22 23:45 98.0 F 112 H 25 H 95/73 99 01/09/22 23:30 106 H 33 H 96/75 95 01/09/22 23:27 101 H 01/09/22 23:15 114 H 14 85/66 100 01/09/22 23:14 113 H 01/09/22 23:08 50 01/09/22 23:00 118 H 27 H 109/80 99 50 01/09/22 22:45 116 H 31 H 110/85 99 01/09/22 22:30 115 H 19 98/80 100 01/09/22 22:15 105 H 27 H 84/61 98 01/09/22 22:00 113 H 22 98 01/09/22 21:45 114 H 17 98 01/09/22 21:30 113 H 12 98 01/09/22 21:15 114 H 19 98 01/09/22 21:00 111 H 23 98 01/09/22 20:45 96.1 F L 114 H 21 98 50 01/09/22 20:39 50 01/09/22 20:35 112 H 01/09/22 20:30 108 H 20 100 60 01/09/22 20:28 60 01/09/22 20:25 108 H 01/09/22 20:15 109 H 12 100 01/09/22 20:00 93 12 100 100 01/09/22 19:45 83 12 100 01/09/22 19:30 86 12 100 100 01/09/22 19:25 100 Intake and Output 01/09/22 01/10/22 01/10/22 22:59 06:59 14:59 Intake Total 4823.267 2122.338 625.325 Output Total 6930 345 250 Balance -2106.733 1777.338 375.325 Intake: IV 335 2039 616 0.9 NS 90 240 60 ACETAMINOPHEN IV (For NPO 200 ) 1,000 mg In Empty Bag 1 bag @ 400 mls/hr IVPB Q6HR [facility] Rx#:[id number] Lactated Ringers 1,000 ml 135 525 300 @ 100 mls/hr IV .Q10H [facility] Rx#:[id number] Magnesium Sulfate-D5w Pmx 100 200 100 1 gm In Dextrose/Water 1 100ml.bag @ 100 mls/hr IVPB Q1H [facility] Rx#: [id number] Potassium Chloride 10 meq 100 In Water For Injection 1 100ml.bag @ 100 mls/hr IVPB Q1H [facility] Rx#: [id number] Sodium Chloride 0.9% 250 250 ml @ 999 mls/hr IV .Q16M [facility] Rx#:[id number] Sodium Chloride 0.9% 500 500 ml 500 ml @ 999 mls/hr IV .Q31M [facility] Rx#:[id number] ceFAZolin 2 gm In Sodium 100 50 Chloride 0.9% 50 ml @ 100 mls/hr IVPB ONCE [facility] Rx# :[id number] pressure bag 9 24 6 Intake, IV Titration 7.267 83.338 9.325 Amount Dexmedetomidine/0.9% NaCl 3.239 (Pmx) 400 mcg In Empty Bag 1 bag @ 0.2 MCG/KG/HR 5.325 mls/hr IV .[id number] [facility] Rx#:[id number] Insulin Regular 100 unit 6.767 12.709 6.086 In Sodium Chloride 0.9% 100 ml @ Per Protocol IV .Q0M [facility] Rx#:[id number] propofoL 1,000 mg In 0.5 70.629 Empty Bag 1 bag @ Titrate IV .Q0M [facility] Rx#: [id number] Blood Product 4481 Ffp 24 Cpd Unit 294 [id number] Ffp 24 Pher Acda Unit 209 [id number] Ffp 24 Pher Acda Cnt1 218 Unit [id number] Platelet Pheresis Pas 329 Psoralen Unit [id number] Platelet Pheresis Pas 274 Psoralen Unit [id number] Pooled Cryoprecipitate 89 Unit [id number] Pooled Cryoprecipitate 94 Unit [id number] Rc As-1 Unit 310 [id number] Rc As-1 Unit 310 [id number] Rc As-1 Unit 310 [id number] Rc As-1 Unit 310 [id number] Rc As-1 Unit 310 [id number] Rc As-1 Unit 310 [id number] Rc Pheresis 2 As3 Unit 281 [id number] Rc Pheresis 2 As3 Unit 278 [id number] Rc Pheresis As-3 Unit 280 [id number] Rc Pheresis As-3 Unit 275 [id number] Output: Chest Tube Drainage 125 145 90 Chest Tube Mediastinal 125 145 90 Urine 590 200 160 Estimated Blood Loss 6215 Other: Voiding Method Indwelling Catheter Indwelling Catheter Indwelling Catheter Weight 106.5 kg ABP, PAP, CO, CI - Last 8 Hours Arterial Blood Pressure 115/66 Arterial Blood Pressure 148/87 Arterial Blood Pressure 135/85 Arterial Blood Pressure 130/82 Arterial Blood Pressure 122/78 Arterial Blood Pressure 120/82 Arterial Blood Pressure 131/78 Arterial Blood Pressure 95/68 Arterial Blood Pressure 96/70 CONSTITUTIONAL: Revealed a 66-year-old white male on nasal cannula, in no distress, sleepy, and slow HEAD: Evidence of facial edema noted. Periorbital edema is noted. Right IJ central line is noted RESPIRATORY: Symmetrical chest expansion, diminished process at the bases no crackles or rhonchi or wheezes. CARDIOVASCULAR: Distant S1 and S2, no S3 gallop. No murmur. GASTROINTESTINAL: Soft nontender no megaly no rebound no guarding. INTEGUMENTARY: Skin is warm, no rashes. NEUROLOGIC: Patient is a bit sleepy, arousable, follows simple instructions, no gross focal neurologic deficit. MUSKULOSKELETAL: No deformities and no limitation in range of motion. PSYCHIATRIC: Arousable, oriented 3, but rather slow Results - Laboratory Findings CBC and BMP: 01/10/22 05:10 01/10/22 05:10 ABG ABG pH 7.40 (7.35-7.45) 01/10/22 06:02 ABG pCO2 33 mmHg (35-45) L 01/10/22 06:02 ABG pO2 130 mmHg (83-108) H 01/10/22 06:02 ABG O2 Saturation 99.1 % (94-97) H 01/10/22 06:02 PT/INR, D-dimer PT 12.9 sec (9.0-12.0) H 01/09/22 19:31 INR 1.2 (<1.2) H 01/09/22 19:31 Abnormal lab findings: Abnormal Labs 01/09/22 01/09/22 01/09/22 15:02 15:27 16:03 WBC RBC 3.91 L Hgb 12.9 L Hct MCV 102.9 H RDW Plt Count 115 L Neutrophils # Lymphocytes # Monocytes # PT INR APTT ABG pH ABG pCO2 ABG pO2 ABG HCO3 ABG Total CO2 ABG O2 Saturation ABG Ionized Calcium ABG Glucose ABG Lactic Acid Hemoglobin Chloride Carbon Dioxide BUN Creatinine Glucose POC Glucose (mg/dL) Calcium Magnesium AST Alkaline Phosphatase Total Protein Albumin Arterial Blood Glucose Crossmatch See Detail See Detail 01/09/22 01/09/22 01/09/22 16:03 16:39 17:55 WBC RBC Hgb Hct MCV RDW Plt Count Neutrophils # Lymphocytes # Monocytes # PT INR APTT ABG pH 7.27 L 7.26 L ABG pCO2 ABG pO2 >420 H >420 H ABG HCO3 16 L 19 L ABG Total CO2 18 L ABG O2 Saturation 99.8 H 99.7 H ABG Ionized Calcium 3.9 L 3.6 L ABG Glucose 258 H 245 H ABG Lactic Acid 3.5 H* 3.2 H* Hemoglobin 11.6 L Chloride 111 H Carbon Dioxide 17 L BUN 4 L Creatinine 0.49 L Glucose 315 H POC Glucose (mg/dL) Calcium 6.1 L* Magnesium AST Alkaline Phosphatase Total Protein 3.9 L Albumin 2.0 L Arterial Blood Glucose 258 H 245 H Crossmatch 01/09/22 01/09/22 01/09/22 18:50 18:54 19:16 WBC RBC Hgb Hct MCV RDW Plt Count Neutrophils # Lymphocytes # Monocytes # PT INR APTT ABG pH 7.29 L ABG pCO2 50 H ABG pO2 326 H ABG HCO3 ABG Total CO2 26 H ABG O2 Saturation 99.8 H ABG Ionized Calcium ABG Glucose 190 H ABG Lactic Acid 2.9 H* Hemoglobin Chloride 113 H Carbon Dioxide BUN 6 L Creatinine 0.48 L Glucose 182 H POC Glucose (mg/dL) 177 H Calcium 7.4 L Magnesium 1.1 L AST 65 H Alkaline Phosphatase 35 L Total Protein 3.1 L Albumin 1.6 L Arterial Blood Glucose 190 H Crossmatch 01/09/22 01/09/22 01/09/22 19:31 19:31 20:04 WBC 10.7 H RBC 4.23 L Hgb Hct MCV RDW 17.4 H Plt Count 78 L Neutrophils # 8.8 H Lymphocytes # Monocytes # PT 12.9 H INR 1.2 H APTT 31.7 H ABG pH 7.32 L ABG pCO2 46 H ABG pO2 278 H ABG HCO3 ABG Total CO2 25 H ABG O2 Saturation 99.6 H ABG Ionized Calcium ABG Glucose ABG Lactic Acid Hemoglobin Chloride Carbon Dioxide BUN Creatinine Glucose POC Glucose (mg/dL) Calcium Magnesium AST Alkaline Phosphatase Total Protein Albumin Arterial Blood Glucose Crossmatch 01/09/22 01/09/22 01/10/22 21:32 22:44 00:05 WBC 14.8 H RBC Hgb Hct MCV RDW 17.6 H Plt Count 92 L Neutrophils # 13.2 H Lymphocytes # 0.8 L Monocytes # PT INR APTT ABG pH ABG pCO2 ABG pO2 ABG HCO3 ABG Total CO2 ABG O2 Saturation ABG Ionized Calcium ABG Glucose ABG Lactic Acid Hemoglobin Chloride Carbon Dioxide BUN Creatinine Glucose POC Glucose (mg/dL) 226 H 207 H Calcium Magnesium AST Alkaline Phosphatase Total Protein Albumin Arterial Blood Glucose Crossmatch 01/10/22 01/10/22 01/10/22 00:08 01:08 02:03 WBC RBC Hgb Hct MCV RDW Plt Count Neutrophils # Lymphocytes # Monocytes # PT INR APTT ABG pH ABG pCO2 ABG pO2 ABG HCO3 ABG Total CO2 ABG O2 Saturation ABG Ionized Calcium ABG Glucose ABG Lactic Acid Hemoglobin Chloride Carbon Dioxide BUN Creatinine Glucose POC Glucose (mg/dL) 161 H 134 H 128 H Calcium Magnesium AST Alkaline Phosphatase Total Protein Albumin Arterial Blood Glucose Crossmatch 01/10/22 01/10/22 01/10/22 02:05 04:17 05:10 WBC 14.3 H 11.7 H RBC 4.11 L Hgb Hct 38.8 L MCV RDW 17.8 H 17.8 H Plt Count 90 L 84 L Neutrophils # 12.4 H 10.5 H Lymphocytes # 0.5 L 0.5 L Monocytes # 1.2 H PT INR APTT ABG pH ABG pCO2 ABG pO2 ABG HCO3 ABG Total CO2 ABG O2 Saturation ABG Ionized Calcium ABG Glucose ABG Lactic Acid Hemoglobin Chloride Carbon Dioxide BUN Creatinine Glucose POC Glucose (mg/dL) 130 H Calcium Magnesium AST Alkaline Phosphatase Total Protein Albumin Arterial Blood Glucose Crossmatch 01/10/22 01/10/22 01/10/22 05:10 05:13 06:02 WBC RBC Hgb Hct MCV RDW Plt Count Neutrophils # Lymphocytes # Monocytes # PT INR APTT ABG pH ABG pCO2 33 L ABG pO2 130 H ABG HCO3 20 L ABG Total CO2 ABG O2 Saturation 99.1 H ABG Ionized Calcium ABG Glucose ABG Lactic Acid Hemoglobin Chloride 115 H Carbon Dioxide 21 L BUN Creatinine Glucose 145 H POC Glucose (mg/dL) 151 H Calcium 7.5 L Magnesium AST Alkaline Phosphatase Total Protein 3.4 L Albumin 1.7 L Arterial Blood Glucose Crossmatch 01/10/22 01/10/22 01/10/22 06:10 07:03 08:57 WBC RBC Hgb Hct MCV RDW Plt Count Neutrophils # Lymphocytes # Monocytes # PT INR APTT ABG pH ABG pCO2 ABG pO2 ABG HCO3 ABG Total CO2 ABG O2 Saturation ABG Ionized Calcium ABG Glucose ABG Lactic Acid Hemoglobin Chloride Carbon Dioxide BUN Creatinine Glucose POC Glucose (mg/dL) 160 H 142 H 146 H Calcium Magnesium AST Alkaline Phosphatase Total Protein Albumin Arterial Blood Glucose Crossmatch 01/10/22 01/10/22 09:52 11:04 WBC RBC Hgb Hct MCV RDW Plt Count Neutrophils # Lymphocytes # Monocytes # PT INR APTT ABG pH ABG pCO2 ABG pO2 ABG HCO3 ABG Total CO2 ABG O2 Saturation ABG Ionized Calcium ABG Glucose ABG Lactic Acid Hemoglobin Chloride Carbon Dioxide BUN Creatinine Glucose POC Glucose (mg/dL) 119 H 146 H Calcium Magnesium AST Alkaline Phosphatase Total Protein Albumin Arterial Blood Glucose Crossmatch - Diagnostic Findings Chest x-ray: image reviewed (By basilar atelectasis, and small effusions noted) Assessment and Plan Assessment: Impression: Iatrogenic right atrial perforation, status post sternal exploration with control of right atrial hemorrhage and repair of perforation. And ligation of innominate vein. Cardiac arrest with CPR for 1 minute secondary to above. Chronic atrial fibrillation status post ablation/attempted ablation History of deep vein thromboses and pulmonary embolism, normally on Xarelto. History of underlying COPD Ex-smoker History of obstructive sleep apnea syndrome. Recommendation: Continue incentive spirometry. Patient was extubated to nasal cannula uneventfully this morning. Taper and possibly discontinue Precedex today. Early ambulation. We will continue to monitor and follow while in the ICU. Time with Patient: Greater than 30
[2022-01-10 12:23] LABS: Glucose,Whole Blood 145 mg/dL (70-110)
[2022-01-10 13:14] LABS: Glucose,Whole Blood 150 mg/dL (70-110)
[2022-01-10] MEDS: CHOLECALCIFEROL 25 MCG (1000 IU) TABLET PO SCH (13:21)
[2022-01-10 14:09] LABS: Glucose,Whole Blood 163 mg/dL (70-110)
[2022-01-10] MEDS ORDERED: INSULIN REGULAR 100 UNIT in SODIUM CHLORIDE 0.9% 100 ML IV SCH (15:29)
[2022-01-10 15:58] LABS: Glucose,Whole Blood 104 mg/dL (70-110)
[2022-01-10 17:03] LABS: Glucose,Whole Blood 81 mg/dL (70-110)
[2022-01-10 18:08] LABS: Glucose,Whole Blood 178 mg/dL (70-110)
--- NOTE | 2022-01-10 18:34 | P.PN ---
Subjective I saw the patient this morning He had been extubated by the family got there around 7:30 AM His vitals are stable he was alert and oriented and stated that he was hungry and thirsty He had venous sheaths in both groins, total of 3 These venous sheaths were removed and closed with Vascade device He had femoral arterial sheath that was also closed with a Vascade device. 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 The last several/achieved catheter was entered with tip of the cryo balloon and therefore the tip was protected However because the cath was swung out, the body of the catheter may have caused the puncture on account of abrupt pressure application on the roof Explained that the pericardiocentesis and evacuation the pericardium was performed expeditiously Subsequently the patient was taken to the operating room where Dr. Beebe sutured the puncture/opening in the left atrial roof, somewhat posterior located It is quite likely that over the next 24-48 hours his chest tubes will come out Thereafter we will start anticoagulation once again I will start him on ELIQUIS 2.5 mg twice daily initially and then subsequently to full dose of 5 mg twice daily I will get him a one-month supply from the hospital Next month, he can go back to xarelto He does have a history of DVT and therefore he has the sequential compressions on his legs and has been up in a chair for most of the day His vitals are stable in fact his blood pressure is within normal range and therefore I asked the nurse to hold amlodipine unless his blood pressure reached 140/90 mmHg He has sinus tachycardia at this time 105 beats a minute, we have not seen in atrial fibrillation Beta blockers will continue We will also switch him to an insulin sliding scale tonight His labs are reviewed with the nurses His medications are reviewed with the nurses Objective - Vital Signs Vital signs: Vital Signs Temp 98.2 F 01/10/22 16:00 Pulse 103 H 01/10/22 17:30 Resp 21 01/10/22 17:30 BP 118/76 01/10/22 17:30 Pulse Ox 97 01/10/22 17:30 FiO2 50 01/10/22 07:00 Intake & Output 01/09/22 01/10/22 01/10/22 18:59 06:59 18:59 Intake Total 5028 2792.605 3908.091 Output Total 6515 760 825 Balance -1487 2032.605 3083.091 Weight 99.9 kg 106.5 kg Intake: IV 876 2373 1516 0.9 NS 330 60 ACETAMINOPHEN IV (For NPO 200 ) 1,000 mg In Empty Bag 1 bag @ 400 mls/hr IVPB Q6HR [facility] Rx#:[id number] Lactated Ringers 1,000 ml 660 1100 @ 100 mls/hr IV .Q10H [facility] Rx#:[id number] Magnesium Sulfate-D5w Pmx 300 100 1 gm In Dextrose/Water 1 100ml.bag @ 100 mls/hr IVPB Q1H [facility] Rx#: [id number] Potassium Chloride 10 meq 100 In Water For Injection 1 100ml.bag @ 100 mls/hr IVPB Q1H [facility] Rx#: [id number] Sodium Chloride 0.9% 250 250 ml @ 999 mls/hr IV .Q16M [facility] Rx#:[id number] Sodium Chloride 0.9% 500 500 ml 500 ml @ 999 mls/hr IV .Q31M [facility] Rx#:[id number] ceFAZolin 2 gm In Sodium 100 150 Chloride 0.9% 50 ml @ 100 mls/hr IVPB ONCE [facility] Rx# :[id number] pressure bag 33 6 Intake, IV Titration 90.605 92.091 Amount Dexmedetomidine/0.9% NaCl 71.755 (Pmx) 400 mcg In Empty Bag 1 bag @ 0.2 MCG/KG/HR 5.325 mls/hr IV .[id number] [facility] Rx#:[id number] Insulin Regular 100 unit 19.476 20.336 In Sodium Chloride 0.9% 100 ml @ Per Protocol IV .Q0M [facility] Rx#:[id number] propofoL 1,000 mg In 71.129 Empty Bag 1 bag @ Titrate IV .Q0M [facility] Rx#: [id number] Oral 2300 Blood Product 4152 329 Ffp 24 Cpd Unit 294 [id number] Ffp 24 Pher Acda Unit 209 [id number] Ffp 24 Pher Acda Cnt1 218 Unit [id number] Platelet Pheresis Pas 329 Psoralen Unit [id number] Platelet Pheresis Pas 274 Psoralen Unit [id number] Pooled Cryoprecipitate 89 Unit [id number] Pooled Cryoprecipitate 94 Unit [id number] Rc As-1 Unit 310 [id number] Rc As-1 Unit 310 [id number] Rc As-1 Unit 310 [id number] Rc As-1 Unit 310 [id number] Rc As-1 Unit 310 [id number] Rc As-1 Unit 310 [id number] Rc Pheresis 2 As3 Unit 281 [id number] Rc Pheresis 2 As3 Unit 278 [id number] Rc Pheresis As-3 Unit 280 [id number] Rc Pheresis As-3 Unit 275 [id number] Output: Chest Tube Drainage 270 270 Chest Tube Mediastinal 270 270 Urine 300 490 555 Estimated Blood Loss 6215 Other: Voiding Method Indwelling Catheter Indwelling Catheter ABP, PAP, CO, CI - Last Documented Arterial Blood Pressure 115/66 - Labs CBC & Chem 7: 01/10/22 05:10 01/10/22 05:10 Labs: Abnormal Lab Results - Last 24 Hours (Table) 01/09/22 01/09/22 01/09/22 Range/Units 15:02 15:27 16:39 WBC (3.8-10.6) k/uL RBC (4.30-5.90) m/uL Hct (39.0-53.0) % RDW (11.5-15.5) % Plt Count (150-450) k/uL Neutrophils # (1.3-7.7) k/uL Lymphocytes # (1.0-4.8) k/uL Monocytes # (0-1.0) k/uL PT (9.0-12.0) sec INR (<1.2) APTT (22.0-30.0) sec ABG pH 7.27 L (7.35-7.45) ABG pCO2 (35-45) mmHg ABG pO2 >420 H (83-108) mmHg ABG HCO3 16 L (21-25) mmol/L ABG Total CO2 18 L (19-24) mmol/L ABG O2 Saturation 99.8 H (94-97) % ABG Ionized Calcium 3.9 L (4.5-5.3) mg/dL ABG Glucose 258 H (75-99) mg/dL ABG Lactic Acid 3.5 H* (0.5-1.6) mmol/L Hemoglobin 11.6 L (13.0-17.5) gm/dL Chloride (98-107) mmol/L Carbon Dioxide (22-30) mmol/L BUN (9-20) mg/dL Creatinine (0.66-1.25) mg/dL Glucose (74-99) mg/dL POC Glucose (mg/dL) (70-110) mg/dL Calcium (8.4-10.2) mg/dL Magnesium (1.6-2.3) mg/dL AST (17-59) U/L Alkaline Phosphatase (38-126) U/L Total Protein (6.3-8.2) g/dL Albumin (3.5-5.0) g/dL Arterial Blood Glucose 258 H (75-99) mg/dL Crossmatch See Detail See Detail 01/09/22 01/09/22 01/09/22 Range/Units 17:55 18:50 18:54 WBC (3.8-10.6) k/uL RBC (4.30-5.90) m/uL Hct (39.0-53.0) % RDW (11.5-15.5) % Plt Count (150-450) k/uL Neutrophils # (1.3-7.7) k/uL Lymphocytes # (1.0-4.8) k/uL Monocytes # (0-1.0) k/uL PT (9.0-12.0) sec INR (<1.2) APTT (22.0-30.0) sec ABG pH 7.26 L 7.29 L (7.35-7.45) ABG pCO2 50 H (35-45) mmHg ABG pO2 >420 H 326 H (83-108) mmHg ABG HCO3 19 L (21-25) mmol/L ABG Total CO2 26 H (19-24) mmol/L ABG O2 Saturation 99.7 H 99.8 H (94-97) % ABG Ionized Calcium 3.6 L (4.5-5.3) mg/dL ABG Glucose 245 H 190 H (75-99) mg/dL ABG Lactic Acid 3.2 H* 2.9 H* (0.5-1.6) mmol/L Hemoglobin (13.0-17.5) gm/dL Chloride 113 H (98-107) mmol/L Carbon Dioxide (22-30) mmol/L BUN 6 L (9-20) mg/dL Creatinine 0.48 L (0.66-1.25) mg/dL Glucose 182 H (74-99) mg/dL POC Glucose (mg/dL) (70-110) mg/dL Calcium 7.4 L (8.4-10.2) mg/dL Magnesium 1.1 L (1.6-2.3) mg/dL AST 65 H (17-59) U/L Alkaline Phosphatase 35 L (38-126) U/L Total Protein 3.1 L (6.3-8.2) g/dL Albumin 1.6 L (3.5-5.0) g/dL Arterial Blood Glucose 245 H 190 H (75-99) mg/dL Crossmatch 01/09/22 01/09/22 01/09/22 Range/Units 19:16 19:31 19:31 WBC 10.7 H (3.8-10.6) k/uL RBC 4.23 L (4.30-5.90) m/uL Hct (39.0-53.0) % RDW 17.4 H (11.5-15.5) % Plt Count 78 L (150-450) k/uL Neutrophils # 8.8 H (1.3-7.7) k/uL Lymphocytes # (1.0-4.8) k/uL Monocytes # (0-1.0) k/uL PT 12.9 H (9.0-12.0) sec INR 1.2 H (<1.2) APTT 31.7 H (22.0-30.0) sec ABG pH (7.35-7.45) ABG pCO2 (35-45) mmHg ABG pO2 (83-108) mmHg ABG HCO3 (21-25) mmol/L ABG Total CO2 (19-24) mmol/L ABG O2 Saturation (94-97) % ABG Ionized Calcium (4.5-5.3) mg/dL ABG Glucose (75-99) mg/dL ABG Lactic Acid (0.5-1.6) mmol/L Hemoglobin (13.0-17.5) gm/dL Chloride (98-107) mmol/L Carbon Dioxide (22-30) mmol/L BUN (9-20) mg/dL Creatinine (0.66-1.25) mg/dL Glucose (74-99) mg/dL POC Glucose (mg/dL) 177 H (70-110) mg/dL Calcium (8.4-10.2) mg/dL Magnesium (1.6-2.3) mg/dL AST (17-59) U/L Alkaline Phosphatase (38-126) U/L Total Protein (6.3-8.2) g/dL Albumin (3.5-5.0) g/dL Arterial Blood Glucose (75-99) mg/dL Crossmatch 01/09/22 01/09/22 01/09/22 Range/Units 20:04 21:32 22:44 WBC (3.8-10.6) k/uL RBC (4.30-5.90) m/uL Hct (39.0-53.0) % RDW (11.5-15.5) % Plt Count (150-450) k/uL Neutrophils # (1.3-7.7) k/uL Lymphocytes # (1.0-4.8) k/uL Monocytes # (0-1.0) k/uL PT (9.0-12.0) sec INR (<1.2) APTT (22.0-30.0) sec ABG pH 7.32 L (7.35-7.45) ABG pCO2 46 H (35-45) mmHg ABG pO2 278 H (83-108) mmHg ABG HCO3 (21-25) mmol/L ABG Total CO2 25 H (19-24) mmol/L ABG O2 Saturation 99.6 H (94-97) % ABG Ionized Calcium (4.5-5.3) mg/dL ABG Glucose (75-99) mg/dL ABG Lactic Acid (0.5-1.6) mmol/L Hemoglobin (13.0-17.5) gm/dL Chloride (98-107) mmol/L Carbon Dioxide (22-30) mmol/L BUN (9-20) mg/dL Creatinine (0.66-1.25) mg/dL Glucose (74-99) mg/dL POC Glucose (mg/dL) 226 H 207 H (70-110) mg/dL Calcium (8.4-10.2) mg/dL Magnesium (1.6-2.3) mg/dL AST (17-59) U/L Alkaline Phosphatase (38-126) U/L Total Protein (6.3-8.2) g/dL Albumin (3.5-5.0) g/dL Arterial Blood Glucose (75-99) mg/dL Crossmatch 01/10/22 01/10/22 01/10/22 Range/Units 00:05 00:08 01:08 WBC 14.8 H (3.8-10.6) k/uL RBC (4.30-5.90) m/uL Hct (39.0-53.0) % RDW 17.6 H (11.5-15.5) % Plt Count 92 L (150-450) k/uL Neutrophils # 13.2 H (1.3-7.7) k/uL Lymphocytes # 0.8 L (1.0-4.8) k/uL Monocytes # (0-1.0) k/uL PT (9.0-12.0) sec INR (<1.2) APTT (22.0-30.0) sec ABG pH (7.35-7.45) ABG pCO2 (35-45) mmHg ABG pO2 (83-108) mmHg ABG HCO3 (21-25) mmol/L ABG Total CO2 (19-24) mmol/L ABG O2 Saturation (94-97) % ABG Ionized Calcium (4.5-5.3) mg/dL ABG Glucose (75-99) mg/dL ABG Lactic Acid (0.5-1.6) mmol/L Hemoglobin (13.0-17.5) gm/dL Chloride (98-107) mmol/L Carbon Dioxide (22-30) mmol/L BUN (9-20) mg/dL Creatinine (0.66-1.25) mg/dL Glucose (74-99) mg/dL POC Glucose (mg/dL) 161 H 134 H (70-110) mg/dL Calcium (8.4-10.2) mg/dL Magnesium (1.6-2.3) mg/dL AST (17-59) U/L Alkaline Phosphatase (38-126) U/L Total Protein (6.3-8.2) g/dL Albumin (3.5-5.0) g/dL Arterial Blood Glucose (75-99) mg/dL Crossmatch 01/10/22 01/10/22 01/10/22 Range/Units 02:03 02:05 04:17 WBC 14.3 H (3.8-10.6) k/uL RBC (4.30-5.90) m/uL Hct (39.0-53.0) % RDW 17.8 H (11.5-15.5) % Plt Count 90 L (150-450) k/uL Neutrophils # 12.4 H (1.3-7.7) k/uL Lymphocytes # 0.5 L (1.0-4.8) k/uL Monocytes # 1.2 H (0-1.0) k/uL PT (9.0-12.0) sec INR (<1.2) APTT (22.0-30.0) sec ABG pH (7.35-7.45) ABG pCO2 (35-45) mmHg ABG pO2 (83-108) mmHg ABG HCO3 (21-25) mmol/L ABG Total CO2 (19-24) mmol/L ABG O2 Saturation (94-97) % ABG Ionized Calcium (4.5-5.3) mg/dL ABG Glucose (75-99) mg/dL ABG Lactic Acid (0.5-1.6) mmol/L Hemoglobin (13.0-17.5) gm/dL Chloride (98-107) mmol/L Carbon Dioxide (22-30) mmol/L BUN (9-20) mg/dL Creatinine (0.66-1.25) mg/dL Glucose (74-99) mg/dL POC Glucose (mg/dL) 128 H 130 H (70-110) mg/dL Calcium (8.4-10.2) mg/dL Magnesium (1.6-2.3) mg/dL AST (17-59) U/L Alkaline Phosphatase (38-126) U/L Total Protein (6.3-8.2) g/dL Albumin (3.5-5.0) g/dL Arterial Blood Glucose (75-99) mg/dL Crossmatch 01/10/22 01/10/22 01/10/22 Range/Units 05:10 05:10 05:13 WBC 11.7 H (3.8-10.6) k/uL RBC 4.11 L (4.30-5.90) m/uL Hct 38.8 L (39.0-53.0) % RDW 17.8 H (11.5-15.5) % Plt Count 84 L (150-450) k/uL Neutrophils # 10.5 H (1.3-7.7) k/uL Lymphocytes # 0.5 L (1.0-4.8) k/uL Monocytes # (0-1.0) k/uL PT (9.0-12.0) sec INR (<1.2) APTT (22.0-30.0) sec ABG pH (7.35-7.45) ABG pCO2 (35-45) mmHg ABG pO2 (83-108) mmHg ABG HCO3 (21-25) mmol/L ABG Total CO2 (19-24) mmol/L ABG O2 Saturation (94-97) % ABG Ionized Calcium (4.5-5.3) mg/dL ABG Glucose (75-99) mg/dL ABG Lactic Acid (0.5-1.6) mmol/L Hemoglobin (13.0-17.5) gm/dL Chloride 115 H (98-107) mmol/L Carbon Dioxide 21 L (22-30) mmol/L BUN (9-20) mg/dL Creatinine (0.66-1.25) mg/dL Glucose 145 H (74-99) mg/dL POC Glucose (mg/dL) 151 H (70-110) mg/dL Calcium 7.5 L (8.4-10.2) mg/dL Magnesium (1.6-2.3) mg/dL AST (17-59) U/L Alkaline Phosphatase (38-126) U/L Total Protein 3.4 L (6.3-8.2) g/dL Albumin 1.7 L (3.5-5.0) g/dL Arterial Blood Glucose (75-99) mg/dL Crossmatch 01/10/22 01/10/22 01/10/22 Range/Units 06:02 06:10 07:03 WBC (3.8-10.6) k/uL RBC (4.30-5.90) m/uL Hct (39.0-53.0) % RDW (11.5-15.5) % Plt Count (150-450) k/uL Neutrophils # (1.3-7.7) k/uL Lymphocytes # (1.0-4.8) k/uL Monocytes # (0-1.0) k/uL PT (9.0-12.0) sec INR (<1.2) APTT (22.0-30.0) sec ABG pH (7.35-7.45) ABG pCO2 33 L (35-45) mmHg ABG pO2 130 H (83-108) mmHg ABG HCO3 20 L (21-25) mmol/L ABG Total CO2 (19-24) mmol/L ABG O2 Saturation 99.1 H (94-97) % ABG Ionized Calcium (4.5-5.3) mg/dL ABG Glucose (75-99) mg/dL ABG Lactic Acid (0.5-1.6) mmol/L Hemoglobin (13.0-17.5) gm/dL Chloride (98-107) mmol/L Carbon Dioxide (22-30) mmol/L BUN (9-20) mg/dL Creatinine (0.66-1.25) mg/dL Glucose (74-99) mg/dL POC Glucose (mg/dL) 160 H 142 H (70-110) mg/dL Calcium (8.4-10.2) mg/dL Magnesium (1.6-2.3) mg/dL AST (17-59) U/L Alkaline Phosphatase (38-126) U/L Total Protein (6.3-8.2) g/dL Albumin (3.5-5.0) g/dL Arterial Blood Glucose (75-99) mg/dL Crossmatch 01/10/22 01/10/22 01/10/22 Range/Units 08:57 09:52 11:04 WBC (3.8-10.6) k/uL RBC (4.30-5.90) m/uL Hct (39.0-53.0) % RDW (11.5-15.5) % Plt Count (150-450) k/uL Neutrophils # (1.3-7.7) k/uL Lymphocytes # (1.0-4.8) k/uL Monocytes # (0-1.0) k/uL PT (9.0-12.0) sec INR (<1.2) APTT (22.0-30.0) sec ABG pH (7.35-7.45) ABG pCO2 (35-45) mmHg ABG pO2 (83-108) mmHg ABG HCO3 (21-25) mmol/L ABG Total CO2 (19-24) mmol/L ABG O2 Saturation (94-97) % ABG Ionized Calcium (4.5-5.3) mg/dL ABG Glucose (75-99) mg/dL ABG Lactic Acid (0.5-1.6) mmol/L Hemoglobin (13.0-17.5) gm/dL Chloride (98-107) mmol/L Carbon Dioxide (22-30) mmol/L BUN (9-20) mg/dL Creatinine (0.66-1.25) mg/dL Glucose (74-99) mg/dL POC Glucose (mg/dL) 146 H 119 H 146 H (70-110) mg/dL Calcium (8.4-10.2) mg/dL Magnesium (1.6-2.3) mg/dL AST (17-59) U/L Alkaline Phosphatase (38-126) U/L Total Protein (6.3-8.2) g/dL Albumin (3.5-5.0) g/dL Arterial Blood Glucose (75-99) mg/dL Crossmatch 01/10/22 01/10/22 01/10/22 Range/Units 12:21 13:12 14:07 WBC (3.8-10.6) k/uL RBC (4.30-5.90) m/uL Hct (39.0-53.0) % RDW (11.5-15.5) % Plt Count (150-450) k/uL Neutrophils # (1.3-7.7) k/uL Lymphocytes # (1.0-4.8) k/uL Monocytes # (0-1.0) k/uL PT (9.0-12.0) sec INR (<1.2) APTT (22.0-30.0) sec ABG pH (7.35-7.45) ABG pCO2 (35-45) mmHg ABG pO2 (83-108) mmHg ABG HCO3 (21-25) mmol/L ABG Total CO2 (19-24) mmol/L ABG O2 Saturation (94-97) % ABG Ionized Calcium (4.5-5.3) mg/dL ABG Glucose (75-99) mg/dL ABG Lactic Acid (0.5-1.6) mmol/L Hemoglobin (13.0-17.5) gm/dL Chloride (98-107) mmol/L Carbon Dioxide (22-30) mmol/L BUN (9-20) mg/dL Creatinine (0.66-1.25) mg/dL Glucose (74-99) mg/dL POC Glucose (mg/dL) 145 H 150 H 163 H (70-110) mg/dL Calcium (8.4-10.2) mg/dL Magnesium (1.6-2.3) mg/dL AST (17-59) U/L Alkaline Phosphatase (38-126) U/L Total Protein (6.3-8.2) g/dL Albumin (3.5-5.0) g/dL Arterial Blood Glucose (75-99) mg/dL Crossmatch 01/10/22 Range/Units 18:07 WBC (3.8-10.6) k/uL RBC (4.30-5.90) m/uL Hct (39.0-53.0) % RDW (11.5-15.5) % Plt Count (150-450) k/uL Neutrophils # (1.3-7.7) k/uL Lymphocytes # (1.0-4.8) k/uL Monocytes # (0-1.0) k/uL PT (9.0-12.0) sec INR (<1.2) APTT (22.0-30.0) sec ABG pH (7.35-7.45) ABG pCO2 (35-45) mmHg ABG pO2 (83-108) mmHg ABG HCO3 (21-25) mmol/L ABG Total CO2 (19-24) mmol/L ABG O2 Saturation (94-97) % ABG Ionized Calcium (4.5-5.3) mg/dL ABG Glucose (75-99) mg/dL ABG Lactic Acid (0.5-1.6) mmol/L Hemoglobin (13.0-17.5) gm/dL Chloride (98-107) mmol/L Carbon Dioxide (22-30) mmol/L BUN (9-20) mg/dL Creatinine (0.66-1.25) mg/dL Glucose (74-99) mg/dL POC Glucose (mg/dL) 178 H (70-110) mg/dL Calcium (8.4-10.2) mg/dL Magnesium (1.6-2.3) mg/dL AST (17-59) U/L Alkaline Phosphatase (38-126) U/L Total Protein (6.3-8.2) g/dL Albumin (3.5-5.0) g/dL Arterial Blood Glucose (75-99) mg/dL Crossmatch
[2022-01-10 20:46] LABS: Glucose,Whole Blood 123 mg/dL (70-110)
[2022-01-10] MEDS: lamoTRIgine 25 MG TAB PO SCH (20:56)
[2022-01-10] MEDS: SENNOSIDES-DOCUSATE SODIUM 1 EACH TAB PO SCH (20:57)
[2022-01-10] MEDS: INSULIN ASPART (NovoLOG) 100 UNIT/ML VIAL SQ SCH (20:59)
[2022-01-10] MEDS: ASPIRIN 81 MG PO SCH (21:05)
[2022-01-11] MEDS: DEXMEDETOMIDINE/0.9% NACL(PMX) 400 MCG in EMPTY BAG 1 BAG IV SCH (00:31)
[2022-01-11 01:02] LABS: Glucose,Whole Blood 99 mg/dL (70-110)
[2022-01-11] MEDS: INSULIN ASPART (NovoLOG) 100 UNIT/ML VIAL SQ SCH ×5 (01:02→20:18)
[2022-01-11] MEDS: HYDROcodone/APAP 5-325MG 1 EACH TAB PO PRN ×4 (01:05→19:12)
[2022-01-11 07:00] LABS: Glucose,Whole Blood 118 mg/dL (70-110)
[2022-01-11] MEDS: LACTATED RINGERS 1,000 ML IV SCH (07:06)
[2022-01-11 07:28] LABS: Anisocytosis Slight; Basophils % (A) 0 %; Eosinophils # (A) 0.1 k/uL (0-0.7); Eosinophils % (A) 1 %; HCT 30.9 % (39.0-53.0); HGB 10.2 gm/dL (13.0-17.5); Lymphocytes # (A) 1.1 k/uL (1.0-4.8); Lymphocytes % (A) 11 %; MCH 32.1 pg (25.0-35.0); MCV 97.5 fL (80.0-100.0); Macrocytosis Slight; Mean Platelet Volume 9.9; Monocytes # (A) 0.4 k/uL (0-1.0); Monocytes % (A) 4 %; Neutrophils # (A) 8.3 k/uL (1.3-7.7); Neutrophils % (A) 83 %; RBC 3.17 m/uL (4.30-5.90); RDW 18.9 % (11.5-15.5); WBC 10.1 k/uL (3.8-10.6)
[2022-01-11 07:35] LABS: Platelet Count 89 k/uL (150-450)
[2022-01-11 07:55] LABS: ALT 13 U/L (4-49); AST 38 U/L (17-59); African American GFR (CKD) >90 (>60 ml/min/1.73 sqM); Albumin 2.1 g/dL (3.5-5.0); Alkaline Phosphatase 50 U/L (38-126); Anion Gap 4 mmol/L; Blood Urea Nitrogen 7 mg/dL (9-20); Calcium 7.8 mg/dL (8.4-10.2); Carbon Dioxide 23 mmol/L (22-30); Chloride 107 mmol/L (98-107); Glucose 114 mg/dL (74-99); Magnesium 1.7 mg/dL (1.6-2.3); Non-African American GFR(CKD) >90 (>60 ml/min/1.73 sqM); Potassium 3.8 mmol/L (3.5-5.1); Sodium 134 mmol/L (137-145); Total Bilirubin 0.5 mg/dL (0.2-1.3)
--- NOTE | 2022-01-11 08:17 | P.PN ---
Subjective Patient is sitting comfortably in the chair He complains of soreness in the chest He did not get a good nights sleep On examination his vitals are stable blood pressure is normal Therefore amlodipine was held per my instructions history Heart rates are in the 90s On examination breath sounds are reduced bilaterally heart sounds are soft Pulse rate 96 Respiratory rate 20 Blood pressure 111/67 mmHg Impression Pulmonary vein isolation with successful ablation solution of the left superior and left inferior right inferior right middle pulmonary veins Pericardial tamponade during catheter placement within the right superior pulmonary vein Very thick intra-atrial septum, likely amyloidosis. This is extremely thickened portion eyes above the fossa ovalis close to the right superior pulmonary vein Successful pericardial drainage, percutaneous Subsequently patient went to the OR for closure of the puncture Doing well postoperatively CBC today shows hemoglobin of 10.2 Previously the hemoglobin was around 13 which most likely represented hemoconcentration He was treated with IV fluids Sodium 134 potassium 3.8 creatinine 0.54 Normal liver function tests Magnesium 1.7 ionized calcium 5.0 Suggest DC Jaimes catheter Increase metoprolol to 50 mg twice daily Discontinue amlodipine Chest tube removal per CT surgery Follow-up 2-D echo Objective - Vital Signs Vital signs: Vital Signs Temp 98.2 F 01/11/22 04:00 Pulse 96 01/11/22 07:00 Resp 21 01/11/22 07:00 BP 111/67 01/11/22 07:00 Pulse Ox 97 01/11/22 07:00 FiO2 50 01/10/22 07:00 Intake & Output 01/10/22 01/11/22 01/11/22 18:59 06:59 18:59 Intake Total 3928.091 1600 30 Output Total 860 630 15 Balance 3068.091 970 15 Weight 106.5 kg 112.9 kg Intake: IV 1536 350 30 0.9 NS 60 Lactated Ringers 1,000 ml 1120 350 30 @ 100 mls/hr IV .Q10H [facility] Rx#:[id number] Magnesium Sulfate-D5w Pmx 100 1 gm In Dextrose/Water 1 100ml.bag @ 100 mls/hr IVPB Q1H [facility] Rx#: [id number] Potassium Chloride 10 meq 100 In Water For Injection 1 100ml.bag @ 100 mls/hr IVPB Q1H [facility] Rx#: [id number] ceFAZolin 2 gm In Sodium 150 Chloride 0.9% 50 ml @ 100 mls/hr IVPB ONCE ONE Rx# :[id number] pressure bag 6 Intake, IV Titration 92.091 Amount Dexmedetomidine/0.9% NaCl 71.755 (Pmx) 400 mcg In Empty Bag 1 bag @ 0.2 MCG/KG/HR 5.325 mls/hr IV .[id number] [facility] Rx#:[id number] Insulin Regular 100 unit 20.336 In Sodium Chloride 0.9% 100 ml @ Per Protocol IV .Q0M [facility] Rx#:[id number] Oral 2300 1250 Output: Chest Tube Drainage 270 260 Chest Tube Mediastinal 270 260 Urine 590 370 15 Other: Voiding Method Indwelling Catheter Indwelling Catheter ABP, PAP, CO, CI - Last Documented Arterial Blood Pressure 115/66 - Labs CBC & Chem 7: 01/11/22 07:07 01/11/22 07:07 Labs: Abnormal Lab Results - Last 24 Hours (Table) 01/09/22 01/09/22 01/10/22 Range/Units 15:02 15:27 08:57 RBC (4.30-5.90) m/uL Hgb (13.0-17.5) gm/dL Hct (39.0-53.0) % RDW (11.5-15.5) % Plt Count (150-450) k/uL Neutrophils # (1.3-7.7) k/uL Sodium (137-145) mmol/L BUN (9-20) mg/dL Creatinine (0.66-1.25) mg/dL Glucose (74-99) mg/dL POC Glucose (mg/dL) 146 H (70-110) mg/dL Calcium (8.4-10.2) mg/dL Total Protein (6.3-8.2) g/dL Albumin (3.5-5.0) g/dL Crossmatch See Detail See Detail 01/10/22 01/10/22 01/10/22 Range/Units 09:52 11:04 12:21 RBC (4.30-5.90) m/uL Hgb (13.0-17.5) gm/dL Hct (39.0-53.0) % RDW (11.5-15.5) % Plt Count (150-450) k/uL Neutrophils # (1.3-7.7) k/uL Sodium (137-145) mmol/L BUN (9-20) mg/dL Creatinine (0.66-1.25) mg/dL Glucose (74-99) mg/dL POC Glucose (mg/dL) 119 H 146 H 145 H (70-110) mg/dL Calcium (8.4-10.2) mg/dL Total Protein (6.3-8.2) g/dL Albumin (3.5-5.0) g/dL Crossmatch 01/10/22 01/10/22 01/10/22 Range/Units 13:12 14:07 18:07 RBC (4.30-5.90) m/uL Hgb (13.0-17.5) gm/dL Hct (39.0-53.0) % RDW (11.5-15.5) % Plt Count (150-450) k/uL Neutrophils # (1.3-7.7) k/uL Sodium (137-145) mmol/L BUN (9-20) mg/dL Creatinine (0.66-1.25) mg/dL Glucose (74-99) mg/dL POC Glucose (mg/dL) 150 H 163 H 178 H (70-110) mg/dL Calcium (8.4-10.2) mg/dL Total Protein (6.3-8.2) g/dL Albumin (3.5-5.0) g/dL Crossmatch 01/10/22 01/11/22 01/11/22 Range/Units 20:45 06:59 07:07 RBC 3.17 L (4.30-5.90) m/uL Hgb 10.2 L (13.0-17.5) gm/dL Hct 30.9 L (39.0-53.0) % RDW 18.9 H (11.5-15.5) % Plt Count 89 L (150-450) k/uL Neutrophils # 8.3 H (1.3-7.7) k/uL Sodium (137-145) mmol/L BUN (9-20) mg/dL Creatinine (0.66-1.25) mg/dL Glucose (74-99) mg/dL POC Glucose (mg/dL) 123 H 118 H (70-110) mg/dL Calcium (8.4-10.2) mg/dL Total Protein (6.3-8.2) g/dL Albumin (3.5-5.0) g/dL Crossmatch 01/11/22 Range/Units 07:07 RBC (4.30-5.90) m/uL Hgb (13.0-17.5) gm/dL Hct (39.0-53.0) % RDW (11.5-15.5) % Plt Count (150-450) k/uL Neutrophils # (1.3-7.7) k/uL Sodium 134 L (137-145) mmol/L BUN 7 L (9-20) mg/dL Creatinine 0.54 L (0.66-1.25) mg/dL Glucose 114 H (74-99) mg/dL POC Glucose (mg/dL) (70-110) mg/dL Calcium 7.8 L (8.4-10.2) mg/dL Total Protein 4.0 L (6.3-8.2) g/dL Albumin 2.1 L (3.5-5.0) g/dL Crossmatch
[2022-01-11] MEDS: IPRATROPIUM-ALBUTEROL 3 ML NEB INHALATION SCH ×4 (08:20→21:15)
[2022-01-11] MEDS: SYMBICORT 160-4.5 MCG INHALER INHALATION SCH ×2 (08:20→21:15)
--- NOTE | 2022-01-11 08:46 | P.PN ---
Subjective Progress Note Date: 01/11/22 Principal diagnosis: Atrial fibrillation, iatrogenic right atrial perforation with exsanguinating hemorrhage. Previous medical history of symptomatic atrial fibrillation, previous tobacco dependence with COPD, hyperlipidemia, obstructive sleep apnea with home CPAP use, daily beer drinker, occasional marijuana use POD #2 sternal exploration with control of right atrial hemorrhage and repair of perforation, application of 45 mm AtriCure clip at the base of the left atrial appendage, ligation of the left innominate vein The patient was seen and examined this morning in the intensive care unit sitting up in a recliner. Remains in sinus rhythm, hemodynamically stable. Lab work and x-ray reviewed this morning. Mediastinal chest tube remains in place, 160 mL serosanguineous drainage overnight, 500 mL in the last 24 hours. No other new concerns. Objective - Vital Signs Vital signs: Vital Signs Temp 98.2 F 01/11/22 04:00 Pulse 95 01/11/22 08:32 Resp 21 01/11/22 07:00 BP 111/67 01/11/22 07:00 Pulse Ox 97 01/11/22 07:00 FiO2 50 01/10/22 07:00 Intake & Output 01/10/22 01/11/22 01/11/22 18:59 06:59 18:59 Intake Total 3928.091 1600 30 Output Total 860 630 15 Balance 3068.091 970 15 Weight 106.5 kg 112.9 kg Intake: IV 1536 350 30 0.9 NS 60 Lactated Ringers 1,000 ml 1120 350 30 @ 100 mls/hr IV .Q10H [facility] Rx#:[id number] Magnesium Sulfate-D5w Pmx 100 1 gm In Dextrose/Water 1 100ml.bag @ 100 mls/hr IVPB Q1H [facility] Rx#: [id number] Potassium Chloride 10 meq 100 In Water For Injection 1 100ml.bag @ 100 mls/hr IVPB Q1H [facility] Rx#: [id number] ceFAZolin 2 gm In Sodium 150 Chloride 0.9% 50 ml @ 100 mls/hr IVPB ONCE ONE Rx# :[id number] pressure bag 6 Intake, IV Titration 92.091 Amount Dexmedetomidine/0.9% NaCl 71.755 (Pmx) 400 mcg In Empty Bag 1 bag @ 0.2 MCG/KG/HR 5.325 mls/hr IV .[id number] [facility] Rx#:[id number] Insulin Regular 100 unit 20.336 In Sodium Chloride 0.9% 100 ml @ Per Protocol IV .Q0M [facility] Rx#:[id number] Oral 2300 1250 Output: Chest Tube Drainage 270 260 Chest Tube Mediastinal 270 260 Urine 590 370 15 Other: Voiding Method Indwelling Catheter Indwelling Catheter ABP, PAP, CO, CI - Last Documented Arterial Blood Pressure 115/66 - Exam CONSTITUTIONAL: Appears comfortable, cooperative, no acute distress RESPIRATORY: Lungs sounds diminished bilaterally. Respirations even, nonlabored. Currently on room air with oxygen saturation 97%. Strong cough. CARDIOVASCULAR: S1, S2 present. Regular rate and rhythm, sinus rhythm to sinus tach on telemetry. Sternum stable. Palpable peripheral pulses bilaterally. Trace generalized edema present, periorbital edema present but decreased from yesterday. No calf pain or tenderness noted. Antiembolism stockings, SCDs present. GASTROINTESTINAL: Abdomen soft, nontender, nondistended. Active bowel sounds present 4 quadrants. GENITOURINARY: Quintanilla present draining clear, yellow urine. Output overnight 20-40 mL per hour INTEGUMENTARY: Skin is warm and dry. Anterior chest incision well approximated and covered with dry intact dressing NEUROLOGIC: Cranial nerves II through XII intact MUSKULOSKELETAL: Able to move all extremities, strength equal bilaterally PSYCHIATRIC: Alert and oriented to person place and time, appropriate affect, intact judgment and insight INVASIVE LINES AND TUBES: Mediastinal chest tubes present and connected to wall suction, no air leaks present, 160 mL serosanguineous drainage overnight, 500 mL drainage in the last 24 hours. Right internal jugular Cordis present - Allied health notes Allied health notes reviewed: nursing - Labs CBC & Chem 7: 01/11/22 07:07 01/11/22 07:07 Labs: Abnormal Lab Results - Last 24 Hours (Table) 01/09/22 01/09/22 01/10/22 Range/Units 15:02 15:27 08:57 RBC (4.30-5.90) m/uL Hgb (13.0-17.5) gm/dL Hct (39.0-53.0) % RDW (11.5-15.5) % Plt Count (150-450) k/uL Neutrophils # (1.3-7.7) k/uL Sodium (137-145) mmol/L BUN (9-20) mg/dL Creatinine (0.66-1.25) mg/dL Glucose (74-99) mg/dL POC Glucose (mg/dL) 146 H (70-110) mg/dL Calcium (8.4-10.2) mg/dL Total Protein (6.3-8.2) g/dL Albumin (3.5-5.0) g/dL Crossmatch See Detail See Detail 01/10/22 01/10/22 01/10/22 Range/Units 09:52 11:04 12:21 RBC (4.30-5.90) m/uL Hgb (13.0-17.5) gm/dL Hct (39.0-53.0) % RDW (11.5-15.5) % Plt Count (150-450) k/uL Neutrophils # (1.3-7.7) k/uL Sodium (137-145) mmol/L BUN (9-20) mg/dL Creatinine (0.66-1.25) mg/dL Glucose (74-99) mg/dL POC Glucose (mg/dL) 119 H 146 H 145 H (70-110) mg/dL Calcium (8.4-10.2) mg/dL Total Protein (6.3-8.2) g/dL Albumin (3.5-5.0) g/dL Crossmatch 01/10/22 01/10/22 01/10/22 Range/Units 13:12 14:07 18:07 RBC (4.30-5.90) m/uL Hgb (13.0-17.5) gm/dL Hct (39.0-53.0) % RDW (11.5-15.5) % Plt Count (150-450) k/uL Neutrophils # (1.3-7.7) k/uL Sodium (137-145) mmol/L BUN (9-20) mg/dL Creatinine (0.66-1.25) mg/dL Glucose (74-99) mg/dL POC Glucose (mg/dL) 150 H 163 H 178 H (70-110) mg/dL Calcium (8.4-10.2) mg/dL Total Protein (6.3-8.2) g/dL Albumin (3.5-5.0) g/dL Crossmatch 01/10/22 01/11/22 01/11/22 Range/Units 20:45 06:59 07:07 RBC 3.17 L (4.30-5.90) m/uL Hgb 10.2 L (13.0-17.5) gm/dL Hct 30.9 L (39.0-53.0) % RDW 18.9 H (11.5-15.5) % Plt Count 89 L (150-450) k/uL Neutrophils # 8.3 H (1.3-7.7) k/uL Sodium (137-145) mmol/L BUN (9-20) mg/dL Creatinine (0.66-1.25) mg/dL Glucose (74-99) mg/dL POC Glucose (mg/dL) 123 H 118 H (70-110) mg/dL Calcium (8.4-10.2) mg/dL Total Protein (6.3-8.2) g/dL Albumin (3.5-5.0) g/dL Crossmatch 01/11/22 Range/Units 07:07 RBC (4.30-5.90) m/uL Hgb (13.0-17.5) gm/dL Hct (39.0-53.0) % RDW (11.5-15.5) % Plt Count (150-450) k/uL Neutrophils # (1.3-7.7) k/uL Sodium 134 L (137-145) mmol/L BUN 7 L (9-20) mg/dL Creatinine 0.54 L (0.66-1.25) mg/dL Glucose 114 H (74-99) mg/dL POC Glucose (mg/dL) (70-110) mg/dL Calcium 7.8 L (8.4-10.2) mg/dL Total Protein 4.0 L (6.3-8.2) g/dL Albumin 2.1 L (3.5-5.0) g/dL Crossmatch - Imaging and Cardiology Chest x-ray: image reviewed Assessment and Plan Assessment: 1. Iatrogenic right atrial perforation with exsanguinating hemorrhage, status post sternal exploration with control of right atrial hemorrhage and repair of perforation 2. Cardiac arrest with CPR for 1 minute, with ROSC 3. Atrial fibrillation status post attempted ablation, status post application of 45 mm AtriCure clip at the base of the left atrial appendage 4. 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 History of COPD, hyperlipidemia, sleep apnea 6. Previous tobacco dependence 7. Daily EtOH use, occasional marijuana use Plan: 1. Will continue mediastinal chest tubes for another 24 hours, place to water seal. Monitor drainage 2. Encourage incentive spirometry is 10 times every hour while awake 3. Sternal precautions: avoid lifting/point/pushing anything heavier than 10 pounds for 3 months, heart hugger to be worn for 1 month 4. Increase activity as tolerated, out of bed when able. PT/OT consulted to teach patient how to get in and out of bed, chair with sternal precautions 5. No oral anticoagulation until chest tubes removed 6. Will monitor daily labs and x-rays 7. Medical management of other comorbidities per primary care service 8. OK to DC quintanilla from our standpoint 9. OK to transfer out of ICU from our standpoint 10. More recommendations to follow
[2022-01-11] MEDS: CHOLECALCIFEROL 25 MCG (1000 IU) TABLET PO SCH (09:30)
[2022-01-11] MEDS: ATORVASTATIN 40 MG TAB PO SCH (09:30)
[2022-01-11] MEDS: lamoTRIgine 100 MG TAB PO SCH (09:31)
[2022-01-11] MEDS: METOPROLOL TARTRATE 50 MG TAB PO SCH ×2 (09:31→20:19)
[2022-01-11] MEDS: allopurinoL 100 MG TAB PO SCH ×2 (09:31→20:19)
[2022-01-11] MEDS: PANTOPRAZOLE 40 MG TABLET PO SCH (09:32)
[2022-01-11] MEDS: risperiDONE 1 MG TAB PO SCH (09:33)
[2022-01-11 12:02] LABS: Glucose,Whole Blood 110 mg/dL (70-110)
--- NOTE | 2022-01-11 12:43 | CA ---
Transthoracic Echo Report Name: Escobar Martinez Age: 66 Gender: M : 1955 Exam Date: 01/11/2022 10:33 Exam Location: [facility] Ht (in): 71 Wt (lb): 248 Ordering Physician: Alejandro Conrad MD ([id number]) Attending/Referring Phys: Sheather Diamante Ray RDCS Procedure CPT: Indications: pericardial effusion Cardiac Hx: Ablasion, open heart to fix hole. Technical Quality: Very technically difficult study Contrast 1: Total Dose (mL): Contrast 2: Total Dose (mL): MEASUREMENTS (Male / Female) Normal Values FINDINGS Left Ventricle Unable to visualize for pericardial effusion due to open heart bandages and poor images. Right Ventricle Right Atrium Left Atrium Mitral Valve Aortic Valve Tricuspid Valve Pulmonic Valve Pericardium Unable to visualize Aorta CONCLUSIONS Limited views difficult study Grossly no significant pericardial effusion Previewed by: Dr. Yohan Waite MD (Electronically Signed) Final Date: 11 January 2022 12:43
[2022-01-11] MEDS: MAGNESIUM SULFATE-D5W PMX 1 GM in DEXTROSE/WATER 1 100ML.BAG IVPB SCH ×4 (13:13→18:38)
[2022-01-11] MEDS: POTASSIUM CHLORIDE ER 20 MEQ TAB.ER PO SCH ×2 (13:13→13:27)
--- NOTE | 2022-01-11 14:15 | XR ---
EXAMINATION TYPE: XR chest 1V portable DATE OF EXAM: 01/11/2022 COMPARISON: 01/10/2022 INDICATION: Postcardiac surgery TECHNIQUE: Single frontal view of the chest is obtained. FINDINGS: The heart size is borderline in size. The pulmonary vasculature is normal. Bibasilar infiltrates are present. Small right pleural effusion is likely present. Small left pleural effusion is not excluded. Endotracheal tube and nasogastric tube within. Mediastinal tube remains present. IMPRESSION: 1. Postsurgical changes from cardiac surgery. 2. Bibasilar infiltrates with small pleural effusions may be developing.
--- NOTE | 2022-01-11 14:27 | P.PN ---
Subjective Progress Note Date: 01/11/22 Principal diagnosis: Status post sternal exploration and control of right atrial hemorrhage This is a 66-year-old white male who underwent elective left and the right sided atrial ablation yesterday by Dr. Crocker. Patient developed acute cardiac arrest during the procedure, pericardial drain was placed in the cardiac cath lab manager, patient was resuscitated, he continued to have ongoing drainage from the pericardial drain, stat cardiothoracic surgery consultation was done, patient was taken to the OR, underwent sternal exploration, control of right atrial hemorrhage and repair of perforation. Ligation of left innominate vein. Postoperatively, patient was sent to the ICU on mechanical ventilation, I was notified about the patient as soon as he arrived to the ICU. I reviewed his chest x-ray, and recommended adjustment of his endotracheal tube, his ventilator settings where adjusted overnight, and early this morning the patient was awakened, sedation was discontinued, placed on Precedex for agitation, and I recommended extubation early this morning. Patient is now extubated, on nasal cannula, not in distress. The patient himself is a poor historian, he doesn't remember what happened over the last 24 hours. Patient is in sinus rhythm, blood pressure is stable, he is not requiring any inotropes or any pressors. Apparently he received a total of 10 units of packed RBCs yesterday, and 3 units of fresh frozen plasma, 2 units of platelets, and 2 doses of cryoprecipitate. Chest x-ray today showed minimal atelectasis, his mediastinal chest tube remains in place, he had 145 mL of serosanguineous drainage overnight. Patient was reevaluated today on 01/11/22, postoperative day #2. patient remains in the ICU, he is on room air, not in any distress, patient is definitely more awake today, seems to be in no distress. Continues to have significant serosanguineous output from his mediastinal chest tube. Patient is doing well with incentive spirometry about 2000 and mild. No major issues overnight, and did not require any further blood transfusion. He is hemodynamically stable. Chest x-ray showed basically basilar atelectasis, small pleural effusions and postsurgical changes. Hemoglobin today is 10.2 electrolytes are normal renal profile is normal Objective - Vital Signs Vital signs: Vital Signs Temp 98.2 F 01/11/22 08:00 Pulse 85 01/11/22 11:30 Resp 27 H 01/11/22 11:30 BP 99/68 01/11/22 11:30 Pulse Ox 98 01/11/22 11:30 FiO2 50 01/10/22 07:00 Intake & Output 01/10/22 01/11/22 01/11/22 18:59 06:59 18:59 Intake Total 3928.091 1600 1072 Output Total 860 630 155 Balance 3068.091 970 917 Weight 106.5 kg 112.9 kg 112.9 kg Intake: IV 1536 350 310 0.9 NS 60 Lactated Ringers 1,000 ml 1120 350 210 @ 100 mls/hr IV .Q10H [facility] Rx#:[id number] Magnesium Sulfate-D5w Pmx 100 100 1 gm In Dextrose/Water 1 100ml.bag @ 100 mls/hr IVPB Q1H [facility] Rx#: [id number] Potassium Chloride 10 meq 100 In Water For Injection 1 100ml.bag @ 100 mls/hr IVPB Q1H [facility] Rx#: [id number] ceFAZolin 2 gm In Sodium 150 Chloride 0.9% 50 ml @ 100 mls/hr IVPB ONCE ONE Rx# :[id number] pressure bag 6 Intake, IV Titration 92.091 Amount Dexmedetomidine/0.9% NaCl 71.755 (Pmx) 400 mcg In Empty Bag 1 bag @ 0.2 MCG/KG/HR 5.325 mls/hr IV .[id number] [facility] Rx#:[id number] Insulin Regular 100 unit 20.336 In Sodium Chloride 0.9% 100 ml @ Per Protocol IV .Q0M [facility] Rx#:[id number] Oral 2300 1250 762 Output: Chest Tube Drainage 270 260 80 Chest Tube Mediastinal 270 260 80 Urine 590 370 75 Other: Voiding Method Indwelling Catheter Indwelling Catheter Urinal ABP, PAP, CO, CI - Last Documented Arterial Blood Pressure 115/66 - Exam Physical Exam: Revealed a 66-year-old white male in no distress Head: Atraumatic normocephalic HEENT:[Neck is supple.] [No neck masses.] [No thyromegaly.] [No JVD.] Right IJ triple-lumen catheter is noted. Chest: [Clear throughout, no crackles, no rhonchi, no wheezes.] Cardiac Exam: [Normal S1 and S2, no S3 gallop, no murmur.] Abdomen: [Soft, nontender, no megaly, no rebound, no guarding, normal bowel sounds.] Extremities: [No clubbing, no edema, no cyanosis.] Neurological Exam: [No focal neurologic deficit.] Alert and oriented 3. Psychiatric: Normal mood, affect and normal mental status examination. Skin: No rashes. - Labs CBC & Chem 7: 01/11/22 07:07 01/11/22 07:07 Labs: Abnormal Lab Results - Last 24 Hours (Table) 01/10/22 01/10/22 01/11/22 Range/Units 18:07 20:45 06:59 RBC (4.30-5.90) m/uL Hgb (13.0-17.5) gm/dL Hct (39.0-53.0) % RDW (11.5-15.5) % Plt Count (150-450) k/uL Neutrophils # (1.3-7.7) k/uL Sodium (137-145) mmol/L BUN (9-20) mg/dL Creatinine (0.66-1.25) mg/dL Glucose (74-99) mg/dL POC Glucose (mg/dL) 178 H 123 H 118 H (70-110) mg/dL Calcium (8.4-10.2) mg/dL Total Protein (6.3-8.2) g/dL Albumin (3.5-5.0) g/dL 01/11/22 01/11/22 Range/Units 07:07 07:07 RBC 3.17 L (4.30-5.90) m/uL Hgb 10.2 L (13.0-17.5) gm/dL Hct 30.9 L (39.0-53.0) % RDW 18.9 H (11.5-15.5) % Plt Count 89 L (150-450) k/uL Neutrophils # 8.3 H (1.3-7.7) k/uL Sodium 134 L (137-145) mmol/L BUN 7 L (9-20) mg/dL Creatinine 0.54 L (0.66-1.25) mg/dL Glucose 114 H (74-99) mg/dL POC Glucose (mg/dL) (70-110) mg/dL Calcium 7.8 L (8.4-10.2) mg/dL Total Protein 4.0 L (6.3-8.2) g/dL Albumin 2.1 L (3.5-5.0) g/dL Assessment and Plan Assessment: Impression:Iatrogenic right atrial perforation, status post sternal exploration with control of right atrial hemorrhage and repair of perforation. And ligation of innominate vein. Postoperative day #2 Cardiac arrest with CPR for 1 minute secondary to above. Chronic atrial fibrillation status post ablation/attempted ablation History of deep vein thromboses and pulmonary embolism, normally on Xarelto. History of underlying COPD Ex-smoker History of obstructive sleep apnea syndrome. Recommendation: Continue incentive spirometry. Ambulate. Continue to monitor in the ICU for the next 24 hours. We'll continue to follow. Time with Patient: Less than 30
[2022-01-11 16:41] LABS: Glucose,Whole Blood 93 mg/dL (70-110)
[2022-01-11] MEDS: POTASSIUM BICARBONATE/CIT AC 20 MEQ TABLET.EFF NG-TUBE SCH ×2 (16:41→18:45)
[2022-01-11] MEDS: HYDROmorphone 1 MG/ML 1 ML SYRINGE IVP PRN ×2 (16:42→23:09)
[2022-01-11 20:17] LABS: Glucose,Whole Blood 102 mg/dL (70-110)
[2022-01-11] MEDS: SENNOSIDES-DOCUSATE SODIUM 1 EACH TAB PO SCH (20:19)
[2022-01-11] MEDS: lamoTRIgine 25 MG TAB PO SCH (20:19)
[2022-01-11] MEDS: ASPIRIN 81 MG PO SCH (20:19)
[2022-01-12 02:33] LABS: Glucose,Whole Blood 69 mg/dL (70-110)
[2022-01-12 02:51] LABS: Glucose,Whole Blood 89 mg/dL (70-110)
[2022-01-12] MEDS: INSULIN ASPART (NovoLOG) 100 UNIT/ML VIAL SQ SCH ×5 (04:08→20:12)
[2022-01-12] MEDS: HYDROmorphone 0.5 MG/0.5 ML SYRINGE IVP PRN ×4 (05:32→23:55)
[2022-01-12 05:58] LABS: Glucose,Whole Blood 108 mg/dL (70-110)
[2022-01-12 06:41] LABS: ALT 9 U/L (4-49); African American GFR (CKD) >90 (>60 ml/min/1.73 sqM); Anion Gap 6 mmol/L; Blood Urea Nitrogen 7 mg/dL (9-20); Calcium 7.9 mg/dL (8.4-10.2); Carbon Dioxide 22 mmol/L (22-30); Chloride 103 mmol/L (98-107); Glucose 101 mg/dL (74-99); Non-African American GFR(CKD) >90 (>60 ml/min/1.73 sqM); Sodium 131 mmol/L (137-145); Total Bilirubin 0.5 mg/dL (0.2-1.3)
[2022-01-12 06:47] LABS: AST 34 U/L (17-59); Albumin 2.1 g/dL (3.5-5.0); Alkaline Phosphatase 49 U/L (38-126); Potassium 4.5 mmol/L (3.5-5.1); Total Protein 4.3 g/dL (6.3-8.2)
[2022-01-12 06:48] LABS: Anisocytosis Slight; Basophils % (A) 0 %; Eosinophils # (A) 0.1 k/uL (0-0.7); Eosinophils % (A) 2 %; HCT 29.8 % (39.0-53.0); HGB 9.8 gm/dL (13.0-17.5); Hypochromasia Slight; Lymphocytes # (A) 0.7 k/uL (1.0-4.8); Lymphocytes % (A) 8 %; MCH 32.5 pg (25.0-35.0); MCHC 32.8 g/dL (31.0-37.0); MCV 99.1 fL (80.0-100.0); Macrocytosis Slight; Mean Platelet Volume 12.4; Monocytes # (A) 0.4 k/uL (0-1.0); Monocytes % (A) 5 %; Neutrophils # (A) 6.5 k/uL (1.3-7.7); Neutrophils % (A) 83 %; Platelet Count 62 k/uL (150-450); RDW 17.8 % (11.5-15.5); WBC 7.8 k/uL (3.8-10.6)
[2022-01-12] MEDS: IPRATROPIUM-ALBUTEROL 3 ML NEB INHALATION SCH ×4 (07:18→20:42)
[2022-01-12] MEDS: SYMBICORT 160-4.5 MCG INHALER INHALATION SCH ×2 (07:18→20:42)
[2022-01-12] MEDS: ATORVASTATIN 40 MG TAB PO SCH (08:24)
[2022-01-12] MEDS: PANTOPRAZOLE 40 MG TABLET PO SCH (08:24)
[2022-01-12] MEDS: METOPROLOL TARTRATE 50 MG TAB PO SCH ×2 (08:24→20:18)
[2022-01-12] MEDS: lamoTRIgine 100 MG TAB PO SCH (08:24)
[2022-01-12] MEDS: risperiDONE 1 MG TAB PO SCH (08:24)
[2022-01-12] MEDS: CHOLECALCIFEROL 25 MCG (1000 IU) TABLET PO SCH (08:25)
[2022-01-12] MEDS: allopurinoL 100 MG TAB PO SCH ×2 (08:25→20:18)
--- NOTE | 2022-01-12 08:25 | P.PN ---
Subjective Progress Note Date: 01/12/22 Principal diagnosis: Atrial fibrillation, iatrogenic right atrial perforation with exsanguinating hemorrhage. Previous medical history of symptomatic atrial fibrillation, previous tobacco dependence with COPD, hyperlipidemia, obstructive sleep apnea with home CPAP use, daily beer drinker, occasional marijuana use POD #3 sternal exploration with control of right atrial hemorrhage and repair of perforation, application of 45 mm AtriCure clip at the base of the left atrial appendage, ligation of the left innominate vein The patient was seen and examined this morning in the intensive care unit sitting up in a recliner in no acute distress. Remains in sinus rhythm, hemody namically stable. Lab work reviewed this morning. Mediastinal chest tube remains in place to water seal, 30 mL serosanguineous drainage overnight, 250 mL in the last 24 hours. No other new concerns. Objective - Vital Signs Vital signs: Vital Signs Temp 98.0 F 01/12/22 04:00 Pulse 93 01/12/22 07:00 Resp 14 01/12/22 07:00 BP 110/67 01/12/22 07:00 Pulse Ox 96 01/12/22 07:00 FiO2 50 01/10/22 07:00 Intake & Output 01/11/22 01/12/22 01/12/22 18:59 06:59 18:59 Intake Total 1762 240 Output Total 285 420 0 Balance 1477 -180 0 Weight 112.9 kg 114 kg Intake: IV 460 0 Lactated Ringers 1,000 ml 360 0 @ 100 mls/hr IV .Q10H [facility] Rx#:[id number] Magnesium Sulfate-D5w Pmx 100 1 gm In Dextrose/Water 1 100ml.bag @ 100 mls/hr IVPB Q1H [facility] Rx#: [id number] Oral 1302 240 Output: Chest Tube Drainage 100 70 Chest Tube Mediastinal 100 70 Urine 185 350 0 Other: Voiding Method Urinal Urinal ABP, PAP, CO, CI - Last Documented Arterial Blood Pressure 115/66 - Exam CONSTITUTIONAL: Appears comfortable, cooperative, no acute distress RESPIRATORY: Lungs sounds diminished bilaterally. Respirations even, nonlabored. Currently on room air with oxygen saturation 98%. Strong cough. Able to achieve 1750 mL on incentive spirometry CARDIOVASCULAR: S1, S2 present. Regular rate and rhythm, sinus rhythm on telemetry. Sternum stable. Palpable peripheral pulses bilaterally. Trace generalized edema present, periorbital edema decreased from yesterday. No calf pain or tenderness noted. Antiembolism stockings, SCDs present. GASTROINTESTINAL: Abdomen soft, nontender, nondistended. Active bowel sounds present 4 quadrants. GENITOURINARY: Jaimes discontinued, continues to void INTEGUMENTARY: Skin is warm and dry. Anterior chest incision well approximated and covered with dry intact dressing NEUROLOGIC: Cranial nerves II through XII intact MUSKULOSKELETAL: Able to move all extremities, strength equal bilaterally PSYCHIATRIC: Alert and oriented to person place and time, appropriate affect, intact judgment and insight INVASIVE LINES AND TUBES: Mediastinal chest tubes present to water seal, no air leaks present, 30 mL serosanguineous drainage overnight, 250 mL drainage in the last 24 hours. - Allied health notes Allied health notes reviewed: nursing - Labs CBC & Chem 7: 01/12/22 05:24 01/12/22 05:24 Labs: Abnormal Lab Results - Last 24 Hours (Table) 01/12/22 01/12/22 01/12/22 Range/Units 02:31 05:24 05:24 RBC 3.00 L (4.30-5.90) m/uL Hgb 9.8 L (13.0-17.5) gm/dL Hct 29.8 L (39.0-53.0) % RDW 17.8 H (11.5-15.5) % Plt Count 62 L (150-450) k/uL Lymphocytes # 0.7 L (1.0-4.8) k/uL Sodium 131 L (137-145) mmol/L BUN 7 L (9-20) mg/dL Creatinine 0.47 L (0.66-1.25) mg/dL Glucose 101 H (74-99) mg/dL POC Glucose (mg/dL) 69 L (70-110) mg/dL Calcium 7.9 L (8.4-10.2) mg/dL Total Protein 4.3 L (6.3-8.2) g/dL Albumin 2.1 L (3.5-5.0) g/dL - Imaging and Cardiology Chest x-ray: pending Assessment and Plan Assessment: 1. Iatrogenic right atrial perforation with exsanguinating hemorrhage, status post sternal exploration with control of right atrial hemorrhage and repair of perforation 2. Cardiac arrest with CPR for 1 minute, with ROSC 3. Atrial fibrillation status post attempted ablation, status post application of 45 mm AtriCure clip at the base of the left atrial appendage 4. 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 History of COPD, hyperlipidemia, sleep apnea 6. Previous tobacco dependence 7. Daily EtOH use, occasional marijuana use Plan: 1. Will discontinue mediastinal chest tube 2. Encourage incentive spirometry is 10 times every hour while awake 3. Sternal precautions: avoid lifting/point/pushing anything heavier than 10 pounds for 3 months, heart hugger to be worn for 1 month 4. Increase activity as tolerated, out of bed when able. PT/OT consulted to teach patient how to get in and out of bed, chair with sternal precautions 5. No oral anticoagulation until chest tubes removed 6. Will monitor daily labs and x-rays 7. Medical management of other comorbidities per primary care service 8. OK to transfer out of ICU from our standpoint 9. More recommendations to follow
[2022-01-12] MEDS: HYDROcodone/APAP 5-325MG 1 EACH TAB PO PRN ×2 (08:46→16:24)
--- NOTE | 2022-01-12 11:11 | XR ---
EXAMINATION TYPE: XR chest 1V portable DATE OF EXAM: 01/12/2022 Comparison: 01/11/2022 Clinical History: 66-year-old male post sternotomy Findings: Median sternotomy wires are present. Mediastinal drain. Continued small pleural effusions with bibasi lar and retrocardiac opacities. No appreciable pneumothorax. Heart remains mildly enlarged. Impression: Stable exam with mild cardiomegaly and small pleural effusions with adjacent atelectasis.
[2022-01-12 11:23] LABS: Glucose,Whole Blood 87 mg/dL (70-110)
--- NOTE | 2022-01-12 12:10 | P.PN ---
Subjective Progress Note Date: 01/12/22 Principal diagnosis: Status post sternal exploration and control of right atrial hemorrhage This is a 66-year-old white male who underwent elective left and the right sided atrial ablation yesterday by Dr. Crocker. Patient developed acute cardiac arrest during the procedure, pericardial drain was placed in the public works laborer, patient was resuscitated, he continued to have ongoing drainage from the pericardial drain, stat cardiothoracic surgery consultation was done, patient was taken to the OR, underwent sternal exploration, control of right atrial hemorrhage and repair of perforation. Ligation of left innominate vein. Postoperatively, patient was sent to the ICU on mechanical ventilation, I was notified about the patient as soon as he arrived to the ICU. I reviewed his chest x-ray, and recommended adjustment of his endotracheal tube, his ventilator settings where adjusted overnight, and early this morning the patient was awakened, sedation was discontinued, placed on Precedex for agitation, and I recommended extubation early this morning. Patient is now extubated, on nasal cannula, not in distress. The patient himself is a poor historian, he doesn't remember what happened over the last 24 hours. Patient is in sinus rhythm, blood pressure is stable, he is not requiring any inotropes or any pressors. Apparently he received a total of 10 units of packed RBCs yesterday, and 3 units of fresh frozen plasma, 2 units of platelets, and 2 doses of cryoprecipitate. Chest x-ray today showed minimal atelectasis, his mediastinal chest tube remains in place, he had 145 mL of serosanguineous drainage overnight. Patient was reevaluated today on 01/11/22, postoperative day #2. patient remains in the ICU, he is on room air, not in any distress, patient is definitely more awake today, seems to be in no distress. Continues to have significant serosanguineous output from his mediastinal chest tube. Patient is doing well with incentive spirometry about 2000 and mild. No major issues overnight, and did not require any further blood transfusion. He is hemodynamically stable. Chest x-ray showed basically basilar atelectasis, small pleural effusions and postsurgical changes. Hemoglobin today is 10.2 electrolytes are normal renal profile is normal Reevaluated today on 01/12/22, patient is now postoperative day #3. Patient is doing well, relatively asymptomatic, remains on room air, not in any distress, patient is sitting in a recliner he is in sinus rhythm, hemodynamically stable, his mediastinal chest tube remains in place to waterseal. To 50 ML of serosanguineous fluid in the last 24 hours. Patient is in sinus rhythm. CBC is relatively normal hemoglobin is 9.8 lites are normal renal profile is normal chest x-ray is showing minimal atelectasis Objective - Vital Signs Vital signs: Vital Signs Temp 97.9 F 01/12/22 08:00 Pulse 84 01/12/22 11:18 Resp 16 01/12/22 10:00 BP 92/72 01/12/22 10:00 Pulse Ox 96 01/12/22 10:00 FiO2 50 01/10/22 07:00 Intake & Output 01/11/22 01/12/22 01/12/22 18:59 06:59 18:59 Intake Total 1762 240 200 Output Total 285 420 20 Balance 1477 -180 180 Weight 112.9 kg 114 kg Intake: IV 460 0 Lactated Ringers 1,000 ml 360 0 @ 100 mls/hr IV .Q10H [facility] Rx#:[id number] Magnesium Sulfate-D5w Pmx 100 1 gm In Dextrose/Water 1 100ml.bag @ 100 mls/hr IVPB Q1H [facility] Rx#: [id number] Oral 1302 240 200 Output: Chest Tube Drainage 100 70 20 Chest Tube Mediastinal 100 70 20 Urine 185 350 0 Other: Voiding Method Urinal Urinal Urinal ABP, PAP, CO, CI - Last Documented Arterial Blood Pressure 115/66 - Exam Physical Exam: Revealed a 66-year-old white male in no distress Head: Atraumatic normocephalic HEENT:[Neck is supple.] [No neck masses.] [No thyromegaly.] [No JVD.] Chest: [Clear throughout, no crackles, no rhonchi, no wheezes.] Cardiac Exam: [Normal S1 and S2, no S3 gallop, no murmur.] Abdomen: [Soft, nontender, no megaly, no rebound, no guarding, normal bowel sounds.] Extremities: [No clubbing, no edema, no cyanosis.] Neurological Exam: [No focal neurologic deficit.] Alert and oriented 3. Psychiatric: Normal mood, affect and normal mental status examination. Skin: No rashes. - Labs CBC & Chem 7: 01/12/22 05:24 01/12/22 05:24 Labs: Abnormal Lab Results - Last 24 Hours (Table) 01/12/22 01/12/22 01/12/22 Range/Units 02:31 05:24 05:24 RBC 3.00 L (4.30-5.90) m/uL Hgb 9.8 L (13.0-17.5) gm/dL Hct 29.8 L (39.0-53.0) % RDW 17.8 H (11.5-15.5) % Plt Count 62 L (150-450) k/uL Lymphocytes # 0.7 L (1.0-4.8) k/uL Sodium 131 L (137-145) mmol/L BUN 7 L (9-20) mg/dL Creatinine 0.47 L (0.66-1.25) mg/dL Glucose 101 H (74-99) mg/dL POC Glucose (mg/dL) 69 L (70-110) mg/dL Calcium 7.9 L (8.4-10.2) mg/dL Total Protein 4.3 L (6.3-8.2) g/dL Albumin 2.1 L (3.5-5.0) g/dL Assessment and Plan Assessment: Impression: Iatrogenic right atrial perforation, status post sternal exploration with control of right atrial hemorrhage and repair of perforation. And ligation of innominate vein. Postoperative day #3 Cardiac arrest with CPR for 1 minute secondary to above. Chronic atrial fibrillation status post ablation/attempted ablation History of deep vein thromboses and pulmonary embolism, normally on Xarelto. History of underlying COPD Ex-smoker History of obstructive sleep apnea syndrome. Recommendation: Continue incentive spirometry. Ambulate. Resume home meds. We'll continue to follow. Time with Patient: Less than 30
--- NOTE | 2022-01-12 12:59 | P.PN ---
Subjective Patient is doing well from a cardiac standpoint. He is sitting in a chair comfortably Chest tubes are out Heart sounds S1 and S2 are soft and normal irregular He maintains sinus rhythm Breath sounds are reduced but no rhonchi no crackles He has no respiratory distress 106/67 mmHg pulse rate in the 80s Impression A. fib ablation Pericardial temperature Successful percutaneous followed by open drainage 2-D echo does not show any pericardial effusion Hemoglobin 9.8 Sodium 131 potassium 4.5 Creatinine normal Plan Continue metoprolol We will start Xarelto tomorrow Pain service consulted Discharge planning Objective - Vital Signs Vital signs: Vital Signs Temp 98 F 01/12/22 12:00 Pulse 79 01/12/22 12:00 Resp 20 01/12/22 12:00 BP 106/67 01/12/22 12:00 Pulse Ox 96 01/12/22 12:00 FiO2 50 01/10/22 07:00 Intake & Output 01/11/22 01/12/22 01/12/22 18:59 06:59 18:59 Intake Total 1762 240 200 Output Total 285 420 20 Balance 1477 -180 180 Weight 112.9 kg 114 kg Intake: IV 460 0 Lactated Ringers 1,000 ml 360 0 @ 100 mls/hr IV .Q10H [facility] Rx#:[id number] Magnesium Sulfate-D5w Pmx 100 1 gm In Dextrose/Water 1 100ml.bag @ 100 mls/hr IVPB Q1H [facility] Rx#: [id number] Oral 1302 240 200 Output: Chest Tube Drainage 100 70 20 Chest Tube Mediastinal 100 70 20 Urine 185 350 0 Other: Voiding Method Urinal Urinal Urinal ABP, PAP, CO, CI - Last Documented Arterial Blood Pressure 115/66 - Labs CBC & Chem 7: 01/12/22 05:24 01/12/22 05:24 Labs: Abnormal Lab Results - Last 24 Hours (Table) 01/12/22 01/12/22 01/12/22 Range/Units 02:31 05:24 05:24 RBC 3.00 L (4.30-5.90) m/uL Hgb 9.8 L (13.0-17.5) gm/dL Hct 29.8 L (39.0-53.0) % RDW 17.8 H (11.5-15.5) % Plt Count 62 L (150-450) k/uL Lymphocytes # 0.7 L (1.0-4.8) k/uL Sodium 131 L (137-145) mmol/L BUN 7 L (9-20) mg/dL Creatinine 0.47 L (0.66-1.25) mg/dL Glucose 101 H (74-99) mg/dL POC Glucose (mg/dL) 69 L (70-110) mg/dL Calcium 7.9 L (8.4-10.2) mg/dL Total Protein 4.3 L (6.3-8.2) g/dL Albumin 2.1 L (3.5-5.0) g/dL
[2022-01-12] MEDS ORDERED: SODIUM BICARB 8.4% 50 ML SYR (1 MEQ/ML) ONE (16:28)
[2022-01-12] MEDS ORDERED: PHENYLEPHRINE-0.9% NACL SYG 1,000 MCG/10 ML SYRINGE ONE (16:28)
[2022-01-12] MEDS ORDERED: PROTAMINE SULFATE 10 MG/ML 5 ML VIAL IV ONE (16:28)
[2022-01-12] MEDS ORDERED: ePHEDrine 50 MG/ML 1 ML VIAL ONE (16:28)
[2022-01-12] MEDS ORDERED: CALCIUM CHLORIDE 100 MG/ML 10 ML SYRINGE ONE (16:28)
[2022-01-12] MEDS ORDERED: VECURONIUM 10 MG VIAL IV ONE (16:28)
[2022-01-12] MEDS ORDERED: POTASSIUM CHLORIDE OPEN HEART 20 MEQ/50 ML BAG IVPB ONE (16:28)
[2022-01-12] MEDS ORDERED: fentaNYL (PF) 50 MCG/ML 50 ML VIAL ONE (16:28)
[2022-01-12 16:48] LABS: Glucose,Whole Blood 79 mg/dL (70-110)
[2022-01-12] MEDS: MAGNESIUM SULFATE-D5W PMX 1 GM in DEXTROSE/WATER 1 100ML.BAG IVPB SCH (19:48)
[2022-01-12] MEDS: ASPIRIN 81 MG PO SCH (20:17)
[2022-01-12] MEDS: SENNOSIDES-DOCUSATE SODIUM 1 EACH TAB PO SCH (20:18)
[2022-01-12] MEDS: lamoTRIgine 25 MG TAB PO SCH (20:18)
[2022-01-12 20:35] LABS: Glucose,Whole Blood 138 mg/dL (70-110)
[2022-01-13 02:09] LABS: Glucose,Whole Blood 105 mg/dL (70-110)
[2022-01-13] MEDS: INSULIN ASPART (NovoLOG) 100 UNIT/ML VIAL SQ SCH ×5 (05:30→22:44)
[2022-01-13 06:06] LABS: Glucose,Whole Blood 93 mg/dL (70-110)
[2022-01-13] MEDS: HYDROmorphone 0.5 MG/0.5 ML SYRINGE IVP PRN ×2 (06:21→13:25)
[2022-01-13 06:25] LABS: Anisocytosis Slight; HGB 8.7 gm/dL (13.0-17.5); MCH 32.3 pg (25.0-35.0); MCHC 33.2 g/dL (31.0-37.0); MCV 97.2 fL (80.0-100.0); Macrocytosis Slight; Mean Platelet Volume 9.9; RBC 2.68 m/uL (4.30-5.90); RDW 17.9 % (11.5-15.5); WBC 6.6 k/uL (3.8-10.6)
[2022-01-13 06:30] LABS: Platelet Count 95 k/uL (150-450)
--- NOTE | 2022-01-13 07:22 | XR ---
EXAMINATION TYPE: XR chest 1V portable DATE OF EXAM: 01/13/2022 COMPARISON: 01/12/2022 INDICATION: Poststernotomy TECHNIQUE: Single frontal view of the chest is obtained. FINDINGS: The heart size is probably prominent. The pulmonary vasculature is normal. Minimal right pleural effusion is present. IMPRESSION: 1. Small right pleural effusion.
[2022-01-13] MEDS: PANTOPRAZOLE 40 MG TABLET PO SCH (08:20)
[2022-01-13] MEDS: METOPROLOL TARTRATE 50 MG TAB PO SCH ×2 (08:20→20:42)
[2022-01-13] MEDS: risperiDONE 1 MG TAB PO SCH (08:21)
[2022-01-13] MEDS: CHOLECALCIFEROL 25 MCG (1000 IU) TABLET PO SCH (08:21)
[2022-01-13] MEDS: ATORVASTATIN 40 MG TAB PO SCH (08:21)
[2022-01-13] MEDS: allopurinoL 100 MG TAB PO SCH ×2 (08:21→20:43)
[2022-01-13] MEDS: lamoTRIgine 100 MG TAB PO SCH (08:21)
[2022-01-13] MEDS: HYDROcodone/APAP 5-325MG 1 EACH TAB PO PRN (08:25)
[2022-01-13] MEDS: FUROSEMIDE 20 MG TAB PO SCH (08:28)
[2022-01-13] MEDS: SYMBICORT 160-4.5 MCG INHALER INHALATION SCH ×2 (08:59→20:14)
[2022-01-13] MEDS: IPRATROPIUM-ALBUTEROL 3 ML NEB INHALATION SCH ×4 (08:59→20:14)
[2022-01-13] MEDS ORDERED: RIVAROXABAN 20 MG TAB PO SCH ×2 (09:00→21:00)
[2022-01-13] MEDS ORDERED: FUROSEMIDE 20 MG TAB PO SCH (09:00)
--- NOTE | 2022-01-13 10:19 | P.PN ---
Subjective Progress Note Date: 01/13/22 Principal diagnosis: Atrial fibrillation, iatrogenic right atrial perforation with exsanguinating hemorrhage. Past medical history significant for symptomatic atrial fibrillation, history of Rock Parkinson White syndrome, previous tobacco dependence with COPD, hyperlipidemia, obstructive sleep apnea with home CPAP use, chronic back pain, obesity with a BMI of 34.1 kg/m, daily beer drinker, and occasional marijuana use. POD #4 sternal exploration with control of right atrial hemorrhage and repair of perforation, application of 45 mm AtriCure clip at the base of the left atrial appendage, ligation of the left innominate vein. The patient and seen and examined in follow-up today 01/13/2022 at his bedside on the cardiac stepdown unit. Currently he is sitting up to the bedside chair, is awake, alert, oriented 3 and is in no acute distress. Denies any complaints of shortness of breath or surgical type pain although is complaining of some lower back pain which he states is chronic. He remains hemodynamically stable and is currently on no inotropic pressor support. Oxygen saturation are 97% on room air and he is achieving around 2000 mL on his incentive spirometry with encouragement. Mediastinal chest tubes were removed yesterday without incident. Remote telemetry showing normal sinus tachycardia heart rate 101 BPM. He has been afebrile the last 24 hours. Laboratory results this morning show a WBC count of 6.6, hemoglobin 8.7, hematocrit 26.0 and platelets 95. Objective - Vital Signs Vital signs: Vital Signs Temp 98.4 F 01/13/22 08:10 Pulse 72 01/13/22 09:12 Resp 16 01/13/22 08:10 BP 97/69 01/13/22 08:10 Pulse Ox 98 01/13/22 08:10 FiO2 50 01/10/22 07:00 Intake & Output 01/12/22 01/13/22 01/13/22 18:59 06:59 18:59 Intake Total 1038 Output Total 595 650 Balance 443 -650 Intake: Oral 1038 Output: Chest Tube Drainage 20 Chest Tube Mediastinal 20 Urine 575 650 Other: Voiding Method Urinal Urinal ABP, PAP, CO, CI - Last Documented Arterial Blood Pressure 115/66 - Exam CONSTITUTIONAL: Sitting up to the bedside chair on the cardiac stepdown unit. Appears comfortable, cooperative, no acute distress. RESPIRATORY: Lungs sounds essentially clear throughout. Respirations are symmetrical and nonlabored. Currently on room air with oxygen saturation 97%. Strong cough. Able to achieve 2000 mL on his incentive spirometry. CARDIOVASCULAR: S1, S2 present. Regular rate and rhythm, sinus rhythm on telemetry. Sternum stable. Palpable peripheral pulses bilaterally. Trace generalized edema present, No calf pain or tenderness noted. Antiembolism stockings, SCDs present to his bilateral lower extremities. GASTROINTESTINAL: Abdomen soft, nontender, nondistended. Active bowel sounds present 4 quadrants. Tolerating diet. Passing flatus. GENITOURINARY: Continues to void. 650 mL of urine output in the last 8 hours. INTEGUMENTARY: Skin is warm and dry. Midline sternal incision is well approximated and covered with dry intact dressing. No redness or drainage. NEUROLOGIC: Cranial nerves II through XII intact. No focal deficits. MUSKULOSKELETAL: Able to move all extremities, strength equal bilaterally. PSYCHIATRIC: Alert and oriented to person place and time, appropriate affect, intact judgment and insight. - Allied health notes Allied health notes reviewed: nursing - Labs CBC & Chem 7: 01/13/22 05:54 01/12/22 05:24 Labs: Abnormal Lab Results - Last 24 Hours (Table) 01/12/22 01/13/22 Range/Units 20:08 05:54 RBC 2.68 L (4.30-5.90) m/uL Hgb 8.7 L (13.0-17.5) gm/dL Hct 26.0 L (39.0-53.0) % RDW 17.9 H (11.5-15.5) % Plt Count 95 L D (150-450) k/uL POC Glucose (mg/dL) 138 H (70-110) mg/dL - Imaging and Cardiology Chest x-ray: report reviewed, image reviewed Assessment and Plan Assessment: 1. Iatrogenic right atrial perforation with exsanguinating hemorrhage, status post sternal exploration with control of right atrial hemorrhage and repair of perforation 2. Cardiac arrest with CPR for 1 minute, with ROSC 3. Atrial fibrillation status post attempted ablation, status post application of 45 mm AtriCure clip at the base of the left atrial appendage 4. History of DVT/PE on Xarelto 5. History of COPD, hyperlipidemia, sleep apnea 6. Previous tobacco dependence 7. Daily EtOH use, occasional marijuana use 8. History of open sigmoid syndrome 9. Chronic back pain Plan: 1. Postoperative cardiac surgery discharge instructions reviewed with the patient. Questions were answered. 2. Encourage incentive spirometry use 10 times every hour while awake. 3. Sternal precautions: avoid lifting/point/pushing anything heavier than 10 pounds for 3 months, heart hugger to be worn for 1 month except for when showering. 4. Increase activity as tolerated, out of bed when able. PT/OT following to teach patient how to get in and out of bed, chair with sternal precautions. 5. Home dose of Xarelto has been restarted by cardiology. 6. Will monitor daily labs and chest x-rays. 7. Medical management of other comorbidities per primary care service. 8. OK to be discharged home per the cardiothoracic surgery standpoint when okay with primary care and other consultants. 9. We will continue to follow the patient on an as-needed basis, please feel free to call for any further questions from the surgical standpoint. Time with Patient: Greater than 30
[2022-01-13 11:14] VITALS: BMI 34.0
[2022-01-13 11:51] LABS: Glucose,Whole Blood 106 mg/dL (70-110)
--- NOTE | 2022-01-13 12:38 | P.DS ---
Providers Date of admission: 01/09/22 16:03 Attending physician: Alejandro Conrad Consults: 01/09/22 15:29 Consult to Anesthesia Routine Consulting Provider: Anesthesia,Services Consult Reason/Comments: Cardiac Surgery Pre-Op 01/09/22 18:54 Consult Physician Routine Consulting Provider: Antonio Salcedo Consult Reason/Comments: Nurse Staff Industrial Consult: post cardiac surgery Do you want consulting provider notified?: Yes Consult Physician Routine Consulting Provider: Artie Beebe Consult Reason/Comments: post surgery Do you want consulting provider notified?: Already Contacted 01/12/22 12:54 Consult Physician Routine Consulting Provider: Juju Fong Consult Reason/Comments: pain management at home Do you want consulting provider notified?: Already Contacted Primary care physician: Ethan Rehman [facility] Course: This is a 66-year-old male with a past medical history of recurrent symptomatic paroxysmal atrial fibrillation with RVR, history DVT and pulmonary embolism 2019 on Xarelto, dilated left atrium former nicotine dependence, COPD, hyperlipidemia, obstructive sleep apnea,. He follows with Dr. Reis regularly. He presented to the hospital for a planned atrial fibrillation ablation on 01/09/2022. During the procedure, right atrial perforation occurred, pericardail effusion was noted, patient's blood pressure dropped and patient coded, CPR was initiated and maintained for 1 minute and ROSC was achieved. Pericardial drain was placed. Emergent CT surgery consult was made. Patient was taken to OR by Dr. Beebe. Patient underwent sternal exploration with control of right atrial hemorrhage and repair of perforation, application of 45 mm AtriCure clip at the base of the left atrial appendage, ligation of the left innominate vein. (See full procedure notes for details). Patient was transferred to ICU postoperatively. Patient was extubated on 01/10/2022. Chest tubes were removed 01/12/2022, patient was stabilized and transferred out of the ICU. Patient seen and examined at bedside today on 3 [facility] cardiac stepdown unit. He is seen at the bedside chair, awake, alert, oriented 3, no acute distress. Denies any shortness of breath. He has some lower back pain which is chronic for him. His vital signs are stable. He is maintaining sinus mechanism. Hemoglobin is stable. PHYSICAL EXAMINATION: Blood pressure 97/60, heart rate 97, afebrile, saturations 90% on room air GENERAL: In no acute distress. NECK: Supple without JVD LUNGS: Breath sounds clear to auscultation bilaterally. Respiration equal and unlabored. No wheezes, rales or rhonchi. HEART: Regular rate and rhythm without murmurs, rubs or gallops. S1 and S2 heard. SKIN: Midline sternal incision is well approximated and covered with dry intact dressing. EXTREMITIES: Normal range of motion, trace bilateral lower extremity edema. No clubbing or cyanosis. Peripheral pulses intact. LAB DATA: WBC 6.6, hemoglobin 8.7, platelets 95. FINAL IMPRESSION: Pulmonary vein isolation with successful ablation solution of the left superior and left inferior right inferior right middle pulmonary veins Pericardial tamponade during catheter placement within the right superior pulmonary vein Status post sternal exploration with control of right atrial hemorrhage and repair of perforation Cardiac arrest with 1 minute of CPR, ROSC History of DVT/PE on Xarelto History of COPD, hyperlipidemia, sleep apnea Previous tobacco dependence Chronic back pain Plan: PLAN: Patient may be able to be discharged home today. We will resume Xarelto and Lasix today. Continue beta ber[place], aspirin, and statin. We will make him a follow-up appointment with Dr. Reis. Nurse practitioner note has been reviewed by physician. Signing provider agrees with the documented findings, assessment, and plan of care. Plan - Discharge Summary Discharge Rx Participant: Yes New Discharge Prescriptions: New Metoprolol Tartrate [Lopressor] 50 mg PO BID #120 tab Continue Atorvastatin Calcium [Lipitor] 40 mg PO QAM risperiDONE [RisperDAL] 1 mg PO QAM lamoTRIgine [LaMICtal] 100 mg PO QAM Hydrocodone/Acetaminophen [Katy 7.5-325] 1 tab PO DIRECTED PRN PRN Reason: Pain Budesonide/Formoterol Fumarate [Symbicort 160-4.5 Mcg Inhaler] 2 puff INHALATION RT-BID Rivaroxaban [Xarelto] 20 mg PO HS Albuterol Inhaler [Ventolin Hfa Inhaler] 1 - 2 puff INHALATION RT-QID PRN PRN Reason: Shortness Of Breath allopurinoL [Zyloprim] 100 mg PO BID Cholecalciferol [Vitamin D3 (25 Mcg = 1000 Iu)] 2,000 unit PO QAM Omeprazole 20 mg PO QAM lamoTRIgine [LaMICtal] 50 mg PO HS Furosemide [Lasix] 20 mg PO QAM Aspirin 81 mg PO HS Discontinued Metoprolol Succinate (ER) [Toprol XL] 25 mg PO HS dilTIAZem HCL [Cardizem LA] 180 mg PO DAILY Discharge Medication List Atorvastatin Calcium [Lipitor] 40 mg PO QAM 01/02/18 [History] Hydrocodone/Acetaminophen [Katy 7.5-325] 1 tab PO DIRECTED PRN 01/02/18 [History] lamoTRIgine [LaMICtal] 100 mg PO QAM 01/02/18 [History] risperiDONE [RisperDAL] 1 mg PO QAM 01/02/18 [History] Budesonide/Formoterol Fumarate [Symbicort 160-4.5 Mcg Inhaler] 2 puff INHALATION RT-BID 10/08/18 [History] Albuterol Inhaler [Ventolin Hfa Inhaler] 1 - 2 puff INHALATION RT-QID PRN 03/05/20 [History] Rivaroxaban [Xarelto] 20 mg PO HS 03/05/20 [History] allopurinoL [Zyloprim] 100 mg PO BID 04/21/20 [History] Cholecalciferol [Vitamin D3 (25 Mcg = 1000 Iu)] 2,000 unit PO QAM 06/07/20 [History] Omeprazole 20 mg PO QAM 06/07/20 [History] Aspirin 81 mg PO HS 07/19/20 [History] Furosemide [Lasix] 20 mg PO QAM 07/19/20 [History] lamoTRIgine [LaMICtal] 50 mg PO HS 07/19/20 [History] Metoprolol Tartrate [Lopressor] 50 mg PO BID #120 tab 01/13/22 [Rx] Follow up Appointment(s)/Referral(s): Artie Beebe MD [STAFF PHYSICIAN] - 4 Weeks Jalil Reis MD [STAFF PHYSICIAN] - 1 Week Activity/Diet/Wound Care/Special Instructions: DISCHARGE INSTRUCTIONS: 1. No driving for 4 weeks, or until physician gives their ok. 2. The patient should sleep in their own bed, no medical bed needed. 3. Stairs are not an issue. If the bedroom is upstairs, it is advised that the patient go up at night and down in the morning for the first week. Go slowly, using handrail and take 1 step at a time. 4. Heart hugger is to be worn 100% of the time until physician discontinues.(except when showering) 5. No lifting, pushing, or pulling more than 10 pounds for 12 weeks. The physician will advise of any restriction changes. 6. The patient is expected to continue the prescribed walking program. 7. Continue pain control per as needed orders. 8. Continue with incentive spirometry and splinting/heart hugger until otherwise directed by the physician. 9. Must shower daily using liquid antibacterial soap 10. Routine sternal incision care. No powders, lotions, ointments on incisions. No dressings are necessary on incisions unless they are draining. Dermabond tape is to remain on sternal incision until surgeon follow-up. 11. Please call surgeon/ENGINEERING PROGRAM MANAGER for temp greater than 101 F or purulent drainage from incisions. Discharge Disposition: HOME SELF-CARE
--- NOTE | 2022-01-13 12:56 | P.PN ---
Subjective Progress Note Date: 01/13/22 Principal diagnosis: Status post sternal exploration and control of right atrial hemorrhage This is a 66-year-old white male who underwent elective left and the right sided atrial ablation yesterday by Dr. Crocker. Patient developed acute cardiac arrest during the procedure, pericardial drain was placed in the labor contract analyst, patient was resuscitated, he continued to have ongoing drainage from the pericardial drain, stat cardiothoracic surgery consultation was done, patient was taken to the OR, underwent sternal exploration, control of right atrial hemorrhage and repair of perforation. Ligation of left innominate vein. Postoperatively, patient was sent to the ICU on mechanical ventilation, I was notified about the patient as soon as he arrived to the ICU. I reviewed his chest x-ray, and recommended adjustment of his endotracheal tube, his ventilator settings where adjusted overnight, and early this morning the patient was awakened, sedation was discontinued, placed on Precedex for agitation, and I recommended extubation early this morning. Patient is now extubated, on nasal cannula, not in distress. The patient himself is a poor historian, he doesn't remember what happened over the last 24 hours. Patient is in sinus rhythm, blood pressure is stable, he is not requiring any inotropes or any pressors. Apparently he received a total of 10 units of packed RBCs yesterday, and 3 units of fresh frozen plasma, 2 units of platelets, and 2 doses of cryoprecipitate. Chest x-ray today showed minimal atelectasis, his mediastinal chest tube remains in place, he had 145 mL of serosanguineous drainage overnight. Patient was reevaluated today on 01/11/22, postoperative day #2. patient remains in the ICU, he is on room air, not in any distress, patient is definitely more awake today, seems to be in no distress. Continues to have significant serosanguineous output from his mediastinal chest tube. Patient is doing well with incentive spirometry about 2000 and mild. No major issues overnight, and did not require any further blood transfusion. He is hemodynamically stable. Chest x-ray showed basically basilar atelectasis, small pleural effusions and postsurgical changes. Hemoglobin today is 10.2 electrolytes are normal renal profile is normal Reevaluated today on 01/12/22, patient is now postoperative day #3. Patient is doing well, relatively asymptomatic, remains on room air, not in any distress, patient is sitting in a recliner he is in sinus rhythm, hemodynamically stable, his mediastinal chest tube remains in place to waterseal. To 50 ML of serosanguineous fluid in the last 24 hours. Patient is in sinus rhythm. CBC is relatively normal hemoglobin is 9.8 lites are normal renal profile is normal chest x-ray is showing minimal atelectasis Reevaluated today on 01/13/22, patient is doing great, relatively asymptomatic, no active pulmonary issues, patient apparently was cleared for discharge by cardiology and by cardiothoracic surgery, and I will clear him also for discharge. No active pulmonary issues as we speak. Objective - Vital Signs Vital signs: Vital Signs Temp 97.9 F 01/13/22 12:20 Pulse 97 01/13/22 12:20 Resp 14 01/13/22 12:20 BP 97/60 01/13/22 12:20 Pulse Ox 98 01/13/22 12:20 FiO2 50 01/10/22 07:00 Intake & Output 01/12/22 01/13/22 01/13/22 18:59 06:59 18:59 Intake Total 1038 Output Total 595 650 Balance 443 -650 Weight 114 kg Intake: Oral 1038 Output: Chest Tube Drainage 20 Chest Tube Mediastinal 20 Urine 575 650 Other: Voiding Method Urinal Urinal ABP, PAP, CO, CI - Last Documented Arterial Blood Pressure 115/66 - Exam Physical Exam: Revealed a 66-year-old white male in no distress Head: Atraumatic normocephalic HEENT:[Neck is supple.] [No neck masses.] [No thyromegaly.] [No JVD.] Chest: [Clear throughout, no crackles, no rhonchi, no wheezes.] Cardiac Exam: [Normal S1 and S2, no S3 gallop, no murmur.] Abdomen: [Soft, nontender, no megaly, no rebound, no guarding, normal bowel sounds.] Extremities: [No clubbing, no edema, no cyanosis.] Neurological Exam: [No focal neurologic deficit.] Alert and oriented 3. Psychiatric: Normal mood, affect and normal mental status examination. Skin: No rashes. - Labs CBC & Chem 7: 01/13/22 05:54 01/12/22 05:24 Labs: Abnormal Lab Results - Last 24 Hours (Table) 01/12/22 01/13/22 Range/Units 20:08 05:54 RBC 2.68 L (4.30-5.90) m/uL Hgb 8.7 L (13.0-17.5) gm/dL Hct 26.0 L (39.0-53.0) % RDW 17.9 H (11.5-15.5) % Plt Count 95 L D (150-450) k/uL POC Glucose (mg/dL) 138 H (70-110) mg/dL Assessment and Plan Assessment: Impression: Iatrogenic right atrial perforation, status post sternal exploration with control of right atrial hemorrhage and repair of perforation. And ligation of innominate vein. Postoperative day #4 Cardiac arrest with CPR for 1 minute secondary to above. Chronic atrial fibrillation status post ablation/attempted ablation History of deep vein thromboses and pulmonary embolism, normally on Xarelto. History of underlying COPD Ex-smoker History of obstructive sleep apnea syndrome. Recommendation: Agree with discharge planning Continue incentive spirometry. Even after discharge. Ambulate. Resume home meds. Time with Patient: Less than 30
--- NOTE | 2022-01-13 14:51 | P.PN ---
Progress Note - Text Progress Note Date: 01/13/22 This 66 years old male with a chronic history of severe low back pain, diagnosed with lumbar degenerative disc disease and lumbar post laminectomy pain syndrome, patient was on opioid treatment at home with Manteno 7.5/325 every 4-6 hours, recently patient was admitted to [facility] and he had interventional cardiac procedure, and postoperative patient was complaining of severe low back pain and chest wall pain, patient was started on Manteno 5/325 and Dilaudid 0.5 mg when necessary, patient reported that he chest wall improved significantly , after removal of the chest to, and currently most of his pain is in the low back area which is his usual daily pain, for this reason I recommend to discontinue Manteno 5/325 , and we will start patient on his usual daily dose which is Manteno 7.5/325 every 4 hours when necessary, and after discharge patient will follow up with his primary care, Dr. Mccarthy, and patient will follow up with the pain clinic when necessary
[2022-01-13 17:11] LABS: Glucose,Whole Blood 65 mg/dL (70-110)
[2022-01-13 17:11] LABS: Glucose,Whole Blood 73 mg/dL (70-110)
[2022-01-13] MEDS: ASPIRIN 81 MG PO SCH (20:42)
[2022-01-13] MEDS: SENNOSIDES-DOCUSATE SODIUM 1 EACH TAB PO SCH (20:42)
[2022-01-13] MEDS: lamoTRIgine 25 MG TAB PO SCH (20:42)
[2022-01-13] MEDS: HYDROmorphone 1 MG/ML 1 ML SYRINGE IVP PRN (20:45)
[2022-01-13 20:53] LABS: Glucose,Whole Blood 64 mg/dL (70-110)
[2022-01-13 21:14] LABS: Glucose,Whole Blood 82 mg/dL (70-110)
[2022-01-13] MEDS: HYDROcodone/APAP 7.5-325MG 1 EACH TAB PO PRN (23:35)
[2022-01-14] MEDS: HYDROmorphone 0.5 MG/0.5 ML SYRINGE IVP PRN (01:59)
[2022-01-14 02:11] LABS: Glucose,Whole Blood 102 mg/dL (70-110)
[2022-01-14] MEDS: HYDROcodone/APAP 7.5-325MG 1 EACH TAB PO PRN ×2 (04:05→12:24)
[2022-01-14] MEDS: INSULIN ASPART (NovoLOG) 100 UNIT/ML VIAL SQ SCH ×4 (04:06→18:12)
[2022-01-14 06:22] LABS: Glucose,Whole Blood 103 mg/dL (70-110)
[2022-01-14] MEDS: FUROSEMIDE 20 MG TAB PO SCH (08:03)
[2022-01-14] MEDS: ATORVASTATIN 40 MG TAB PO SCH (08:03)
[2022-01-14] MEDS: METOPROLOL TARTRATE 50 MG TAB PO SCH (08:03)
[2022-01-14] MEDS: PANTOPRAZOLE 40 MG TABLET PO SCH (08:03)
[2022-01-14] MEDS: allopurinoL 100 MG TAB PO SCH (08:03)
[2022-01-14] MEDS: HYDROmorphone 1 MG/ML 1 ML SYRINGE IVP PRN ×2 (08:03→14:05)
[2022-01-14] MEDS: CHOLECALCIFEROL 25 MCG (1000 IU) TABLET PO SCH (08:03)
[2022-01-14] MEDS: lamoTRIgine 100 MG TAB PO SCH (08:03)
[2022-01-14] MEDS: SYMBICORT 160-4.5 MCG INHALER INHALATION SCH (08:10)
[2022-01-14] MEDS: IPRATROPIUM-ALBUTEROL 3 ML NEB INHALATION SCH ×3 (08:10→15:37)
[2022-01-14 09:25] VITALS: RESP 18
[2022-01-14 11:45] LABS: Glucose,Whole Blood 119 mg/dL (70-110)
[2022-01-14 14:49] VITALS: TEMP 98
[2022-01-14 16:23] LABS: Glucose,Whole Blood 86 mg/dL (70-110)
[2022-01-14 18:18] VITALS: BP 115/67; PULSE 80
== END 2022-01-14 18:13 | disposition home health service (06) | DRG 907 ==
LOC: CATHEP 09:05 → 2SICU 16:03 → CATHEP 16:03 → 2SICU 18:03 → 3SCARD 01-12 15:31
PROVIDERS: ADMIT Internal Medicine Clinical Cardiac Electrophysiology; ATTEND Internal Medicine Clinical Cardiac Electrophysiology
PROC: 0W9D3ZZ Drainage of Pericardial Cavity, Percutaneous Approach (ICD-10-PCS; 2022-01-09)
PROC: 4A023FZ Measurement of Cardiac Rhythm, Percutaneous Approach (ICD-10-PCS; 2022-01-09)
PROC: 4A0234Z Measurement of Cardiac Electrical Activity, Percutaneous Approach (ICD-10-PCS; 2022-01-09)
PROC: 02K83ZZ Map Conduction Mechanism, Percutaneous Approach (ICD-10-PCS; 2022-01-09)
PROC: B246YZZ Ultrasonography of Right and Left Heart using Other Contrast (ICD-10-PCS; 2022-01-09)
PROC: 30283B1 Transfusion of Nonautologous 4-Factor Prothrombin Complex Concentrate into Vein, Percutaneous Approach (ICD-10-PCS; 2022-01-09)
PROC: 30243K1 Transfusion of Nonautologous Frozen Plasma into Central Vein, Percutaneous Approach (ICD-10-PCS; 2022-01-09)
PROC: 30243N1 Transfusion of Nonautologous Red Blood Cells into Central Vein, Percutaneous Approach (ICD-10-PCS; 2022-01-09)
PROC: 30243R1 Transfusion of Nonautologous Platelets into Central Vein, Percutaneous Approach (ICD-10-PCS; 2022-01-09)
PROC: 302 Administration, Circulatory, Transfusion (ICD-10-PCS; 2022-01-09)
PROC: 05L Upper Veins, Occlusion (ICD-10-PCS; principal; 2022-01-09 11:30)
PROC: 02L70CK Occlusion of Left Atrial Appendage with Extraluminal Device, Open Approach (ICD-10-PCS; principal; 2022-01-09 11:30)
PROC: 02Q60ZZ Repair Right Atrium, Open Approach (ICD-10-PCS; principal; 2022-01-09 11:30)
PROC: 02583ZZ Destruction of Conduction Mechanism, Percutaneous Approach (ICD-10-PCS; 2022-01-09 11:30)
DX: I97.51 Accidental puncture and laceration of a circulatory system organ or structure during a circulatory system procedure (principal); I46.2 Cardiac arrest due to underlying cardiac condition; I31.4 Cardiac tamponade; E85.4 Organ-limited amyloidosis; I43 Cardiomyopathy in diseases classified elsewhere; I48.19 Other persistent atrial fibrillation; J98.11 Atelectasis; J44.9 Chronic obstructive pulmonary disease, unspecified; Z20.822 Contact with and (suspected) exposure to COVID-19; E78.5 Hyperlipidemia, unspecified; G89.29 Other chronic pain; M96.1 Postlaminectomy syndrome, not elsewhere classified; M51.36 Other intervertebral disc degeneration, lumbar region; M48.00 Spinal stenosis, site unspecified; G47.33 Obstructive sleep apnea (adult) (pediatric); F41.9 Anxiety disorder, unspecified; K21.9 Gastro-esophageal reflux disease without esophagitis; E66.9 Obesity, unspecified; Z68.33 Body mass index [BMI] 33.0-33.9, adult; Z79.01 Long term (current) use of anticoagulants; Z79.82 Long term (current) use of aspirin; Z79.51 Long term (current) use of inhaled steroids; Z79.899 Other long term (current) drug therapy; Z86.79 Personal history of other diseases of the circulatory system; Z86.718 Personal history of other venous thrombosis and embolism; Z86.711 Personal history of pulmonary embolism; Z87.891 Personal history of nicotine dependence; Z98.1 Arthrodesis status; Z71.3 Dietary counseling and surveillance; Z88.8 Allergy status to other drugs, medicaments and biological substances; Y83.8 Other surgical procedures as the cause of abnormal reaction of the patient, or of later complication, without mention of misadventure at the time of the procedure; Y92.234 Operating room of hospital as the place of occurrence of the external cause; Z82.49 Family history of ischemic heart disease and other diseases of the circulatory system; Z83.3 Family history of diabetes mellitus
CPT/HCPCS: 36430; 71045; 80053; 82330; 82805; 83735; 85025; 85027; 85384; 85610; 85730; 86850; 86891; 86900; 86901; 86920; 87635; 93308; 93656; 94002; 94640; 94760

== ENCOUNTER 2022-01-18 11:59 | Observation (INO) | payer MEDICARE ==
--- NOTE | 2022-01-18 12:20 | ED ---
General Adult HPI - General Chief complaint: Chest Pain Stated complaint: A-Fib,SOB Time Seen by Provider: 01/18/22 12:05 Source: patient, RN notes reviewed, old records reviewed Mode of arrival: ambulatory Limitations: no limitations - History of Present Illness Initial comments: This is a 66-year-old male who presents emergency Department who has a history of atrial fibrillation. Patient had an ablation on Sunday and during ablation according to the the heart was perforated and he had have emergent open heart surgery by Dr. Beebe. Patient went to Dr. Reis's office in his heart rate was at 140 beats a minute so they sent to the emergency department. Patient states she's been fatigued short of breath and having chest pain since he left the hospital. Patient denies any fever chills per patient denies any cough per patient denies any lightheadedness or dizziness. Patient denies any abdominal pain patient denies nausea vomiting diarrhea. - Related Data Home Medications Medication Instructions Recorded Confirmed Atorvastatin Calcium [Lipitor] 40 mg PO QAM 01/02/18 01/09/22 Hydrocodone/Acetaminophen [[place] tab PO DIRECTED PRN 01/02/18 01/09/22 7.5-325] lamoTRIgine [LaMICtal] 100 mg PO QAM 01/02/18 01/09/22 risperiDONE [RisperDAL] 1 mg PO QAM 01/02/18 01/09/22 Budesonide/Formoterol Fumarate 2 puff INHALATION RT-BID 10/08/18 01/09/22 [Symbicort 160-4.5 Mcg Inhaler] Albuterol Inhaler [Ventolin Hfa 1 - 2 puff INHALATION RT-QID PRN 03/05/20 01/09/22 Inhaler] Rivaroxaban [Xarelto] 20 mg PO HS 03/05/20 01/09/22 allopurinoL [Zyloprim] 100 mg PO BID 04/21/20 01/09/22 Cholecalciferol [Vitamin D3 (25 2,000 unit PO QAM 06/07/20 01/09/22 Mcg = 1000 Iu)] Omeprazole 20 mg PO QAM 06/07/20 01/09/22 Aspirin 81 mg PO HS 07/19/20 01/09/22 Furosemide [Lasix] 20 mg PO QAM 07/19/20 01/09/22 lamoTRIgine [LaMICtal] 50 mg PO HS 07/19/20 01/09/22 Previous Rx's Medication Instructions Recorded Metoprolol Tartrate [Lopressor] 50 mg PO BID #120 tab 01/13/22 Allergies Allergy/AdvReac Type Severity Reaction Status Date / Time varenicline [From Chantix] AdvReac IRRITABLE/A Verified 01/18/22 12:09 NGER Review of Systems ROS Statement: Those systems with pertinent positive or pertinent negative responses have been documented in the HPI. ROS Other: All systems not noted in ROS Statement are negative. Past Medical History Past Medical History: Atrial Fibrillation, Asthma, COPD, GERD/Reflux, Hyperlipidemia, Memory Impairment, Sleep Apnea/CPAP/BIPAP Additional Past Medical History / Comment(s): SEE DR. PAUL[facility]S [facility] & P. [facility] ON 08/22/21. DDD, spinal stenosis, chronic low back pain with L leg involvement-pain and numbness History of Any Multi-Drug Resistant Organisms: None Reported Past Surgical History: Back Surgery Additional Past Surgical History / Comment(s): Deviated septum repair, spinal fusion, "skin grafts to bilateral arms and above bilateral hips", pain clinic procedures Past Anesthesia/Blood Transfusion Reactions: No Reported Reaction Past Psychological History: Anxiety Smoking Status: Former smoker Past Alcohol Use History: Daily Past Drug Use History: Marijuana - Past Family History Mother Family Medical History: Diabetes Mellitus, Hypertension Father History Unknown: Yes Additional Family Medical History / Comment(s): Father left when pt was 2 yrs old. General Exam - General Exam Comments Initial Comments: GENERAL: Patient is well-developed and well-nourished. Patient is nontoxic and well- hydrated and is in mild distress. ENT: Neck is soft and supple. No significant lymphadenopathy is noted. Oropharynx is clear. Moist mucous membranes. Neck has full range of motion without eliciting any pain. EYES: The sclera were anicteric and conjunctiva were pink and moist. Extraocular movements were intact and pupils were equal round and reactive to light. Eyelids were unremarkable. PULMONARY: Unlabored respirations. Decreased breath sounds left base CARDIOVASCULAR: Heart rate is regular about 140 beats minute ABDOMEN: Soft and nontender with normal bowel sounds. SKIN: Skin is clear with no lesions or rashes and otherwise unremarkable. NEUROLOGIC: Patient is alert and oriented x3. Cranial nerves II through XII are grossly intact. Motor and sensory are also intact. Normal speech, volume and content. Symmetrical smile. MUSCULOSKELETAL: Normal extremities with adequate strength and full range of motion. LYMPHATICS: No significant lymphadenopathy is noted PSYCHIATRIC: Normal psychiatric evaluation. Limitations: no limitations Course Vital Signs 01/18/22 12:03 Temperature 97.4 F L Pulse Rate 69 Respiratory 24 Rate Blood Pressure 97/64 O2 Sat by Pulse 94 L Oximetry Medical Decision Making - Medical Decision Making EKG shows atrial fibrillation with rapid ventricular response at 139 bpm QRS is 94 Q-T intervals 297 QTC is 370. Patient's EKG shows no ST segment elevation or depression Chest x-ray shows left-sided pleural effusion. Echo has a small pericardial effusion I placed the patient on amiodarone drip after 150 mg bolus after a consult with Dr. Damon. Cardiothoracic surgery stop by and saw the patient as well. Spoke with some physicians agreed to admit the patient and the patient wrote admitting orders. - Lab Data Result diagrams: 01/18/22 12:17 01/18/22 12:17 Lab Results 01/18/22 01/18/22 01/18/22 Range/Units 12:17 12:17 12:17 WBC 7.5 (3.8-10.6) k/uL RBC 3.13 L (4.30-5.90) m/uL Hgb 9.9 L (13.0-17.5) gm/dL Hct 31.0 L (39.0-53.0) % MCV 99.1 (80.0-100.0) fL MCH 31.8 (25.0-35.0) pg MCHC 32.1 (31.0-37.0) g/dL RDW 17.1 H (11.5-15.5) % Plt Count 593 H D (150-450) k/uL MPV 8.4 Neutrophils % 76 % Lymphocytes % 15 % Monocytes % 6 % Eosinophils % 1 % Basophils % 0 % Neutrophils # 5.7 (1.3-7.7) k/uL Lymphocytes # 1.1 (1.0-4.8) k/uL Monocytes # 0.4 (0-1.0) k/uL Eosinophils # 0.1 (0-0.7) k/uL Basophils # 0.0 (0-0.2) k/uL Hypochromasia Slight Anisocytosis Slight Macrocytosis Slight PT 11.3 (9.0-12.0) sec INR 1.1 (<1.2) APTT 27.9 (22.0-30.0) sec Sodium 135 L (137-145) mmol/L Potassium 3.8 (3.5-5.1) mmol/L Chloride 103 (98-107) mmol/L Carbon Dioxide 24 (22-30) mmol/L Anion Gap 8 mmol/L BUN 7 L (9-20) mg/dL Creatinine 0.65 L (0.66-1.25) mg/dL Est GFR (CKD-EPI)AfAm >90 (>60 ml/min/1.73 sqM) Est GFR (CKD-EPI)NonAf >90 (>60 ml/min/1.73 sqM) Glucose 104 H (74-99) mg/dL Calcium 8.9 (8.4-10.2) mg/dL Magnesium 1.7 (1.6-2.3) mg/dL Total Bilirubin 0.5 (0.2-1.3) mg/dL AST 25 (17-59) U/L ALT 11 (4-49) U/L Alkaline Phosphatase 107 (38-126) U/L Troponin I (0.000-0.034) ng/mL NT-Pro-B Natriuret Pep pg/mL Total Protein 5.6 L (6.3-8.2) g/dL Albumin 2.8 L (3.5-5.0) g/dL 01/18/22 01/18/22 Range/Units 12:17 12:17 WBC (3.8-10.6) k/uL RBC (4.30-5.90) m/uL Hgb (13.0-17.5) gm/dL Hct (39.0-53.0) % MCV (80.0-100.0) fL MCH (25.0-35.0) pg MCHC (31.0-37.0) g/dL RDW (11.5-15.5) % Plt Count (150-450) k/uL MPV Neutrophils % % Lymphocytes % % Monocytes % % Eosinophils % % Basophils % % Neutrophils # (1.3-7.7) k/uL Lymphocytes # (1.0-4.8) k/uL Monocytes # (0-1.0) k/uL Eosinophils # (0-0.7) k/uL Basophils # (0-0.2) k/uL Hypochromasia Anisocytosis Macrocytosis PT (9.0-12.0) sec INR (<1.2) APTT (22.0-30.0) sec Sodium (137-145) mmol/L Potassium (3.5-5.1) mmol/L Chloride (98-107) mmol/L Carbon Dioxide (22-30) mmol/L Anion Gap mmol/L BUN (9-20) mg/dL Creatinine (0.66-1.25) mg/dL Est GFR (CKD-EPI)AfAm (>60 ml/min/1.73 sqM) Est GFR (CKD-EPI)NonAf (>60 ml/min/1.73 sqM) Glucose (74-99) mg/dL Calcium (8.4-10.2) mg/dL Magnesium (1.6-2.3) mg/dL Total Bilirubin (0.2-1.3) mg/dL AST (17-59) U/L ALT (4-49) U/L Alkaline Phosphatase (38-126) U/L Troponin I 0.296 H* (0.000-0.034) ng/mL NT-Pro-B Natriuret Pep 3700 pg/mL Total Protein (6.3-8.2) g/dL Albumin (3.5-5.0) g/dL Critical Care Time Critical Care Time: Yes Total Critical Care Time: 35 Disposition Clinical Impression: Atrial fibrillation with rapid ventricular response, Pericardial effusion, Pleural effusion, Elevated troponin Disposition: ADMITTED IP TO THIS HOSP Referrals: None,Stated [Primary Care Provider] - 1-2 days Time of Disposition: 14:00
[2022-01-18] MEDS ORDERED: AMIODARONE 200 MG TAB PO STA (12:30)
[2022-01-18 12:38] LABS: Anisocytosis Slight; Basophils % (A) 0 %; Eosinophils # (A) 0.1 k/uL (0-0.7); Eosinophils % (A) 1 %; HGB 9.9 gm/dL (13.0-17.5); Hypochromasia Slight; Lymphocytes # (A) 1.1 k/uL (1.0-4.8); Lymphocytes % (A) 15 %; MCH 31.8 pg (25.0-35.0); MCHC 32.1 g/dL (31.0-37.0); MCV 99.1 fL (80.0-100.0); Macrocytosis Slight; Mean Platelet Volume 8.4; Monocytes # (A) 0.4 k/uL (0-1.0); Monocytes % (A) 6 %; Neutrophils # (A) 5.7 k/uL (1.3-7.7); Neutrophils % (A) 76 %; RBC 3.13 m/uL (4.30-5.90); RDW 17.1 % (11.5-15.5); WBC 7.5 k/uL (3.8-10.6)
[2022-01-18] MEDS ORDERED: AMIODARONE 360 MG in DEXTROSE 5% IN WATER 200 ML IV ONE ×2 (12:52)
[2022-01-18] MEDS ORDERED: DEXTROSE 5% IN WATER 100 ML with AMIODARONE 150 MG IV ONE (12:52)
[2022-01-18 12:56] LABS: INR 1.1 (<1.2); Partial Thromboplastin Time 27.9 sec (22.0-30.0); Prothrombin Time 11.3 sec (9.0-12.0)
[2022-01-18 12:57] LABS: ALT 11 U/L (4-49); AST 25 U/L (17-59); African American GFR (CKD) >90 (>60 ml/min/1.73 sqM); Albumin 2.8 g/dL (3.5-5.0); Alkaline Phosphatase 107 U/L (38-126); Anion Gap 8 mmol/L; Blood Urea Nitrogen 7 mg/dL (9-20); Calcium 8.9 mg/dL (8.4-10.2); Carbon Dioxide 24 mmol/L (22-30); Chloride 103 mmol/L (98-107); Glucose 104 mg/dL (74-99); Magnesium 1.7 mg/dL (1.6-2.3); Non-African American GFR(CKD) >90 (>60 ml/min/1.73 sqM); Potassium 3.8 mmol/L (3.5-5.1); Sodium 135 mmol/L (137-145); Total Bilirubin 0.5 mg/dL (0.2-1.3); Total Protein 5.6 g/dL (6.3-8.2)
--- NOTE | 2022-01-18 12:59 | XR ---
EXAMINATION TYPE: XR chest 2V DATE OF EXAM: 01/18/2022 COMPARISON: 01/13/2022 HISTORY: 66-year-old male with chest pain and shortness of breath TECHNIQUE: AP and lateral views FINDINGS: Heart mildly enlarged. Median sternotomy wires. There is a moderate left and small right pleural effu bao with bibasilar opacity. Interstitial prominence. [facility] mid and lower thoracic spine. IMPRESSION: Mild cardiomegaly and interstitial prominence. Moderate left and small right pleural effusions with a djacent atelectasis and/or consolidation. Correlate for CHF as an etiology.
[2022-01-18 13:21] LABS: Platelet Count 593 k/uL (150-450)
[2022-01-18] MEDS ORDERED: NITROGLYCERIN SL TABS 0.4 MG TAB SUBLINGUAL PRN (14:06)
[2022-01-18] MEDS ORDERED: FUROSEMIDE 10 MG/ML 4 ML VIAL IV SCH (15:30)
--- NOTE | 2022-01-18 16:03 | P.HPIM ---
History of Present Illness H&P Date: 01/18/22 Chief Complaint: Tachycardia 66-year-old man with medical history of paroxysmal atrial fibrillation with a complicated recent hospitalization including perforation during pulmonary vein ablation requiring CPR with return of spontaneous circulation after 1 minute as well as emergent sternotomy and right atrial repair, gout, hypertension, hyperlipidemia, asthma, chronic low back pain presented for tachycardia and dyspnea on exertion. Patient says that since he was discharged home 5 days ago he is still not felt back up to baseline. He says that he is noted increased dy spnea, even while talking for too long at rest. Normally, he is able to walk up at least 1 flight of stairs before feeling fatigued, however, this has gotten much worse. He went to see Dr. Reis today and cardiology, who noted the patient was tachycardic to 130s, and recommended that the patient come into the emergency room for follow-up. Patient denies fevers, reports chills. Patient reports chest pain at the sternotomy site, palpitations, nausea, abdominal pain. Patient denies constipation, diarrhea. Patient reports numbness of the left leg which is intermittent and a long-standing problem. Patient denies dysuria, dyschezia. In the emergency room, patient is afebrile, 97/64, heart rate 130, 96% on room air. CBC shows a hemoglobin of 9.9, platelet count 593. Chemistries are mostly within normal limits. Liver function tests are remarkable for a total protein of 5.6, albumin of 2.8. BNP was elevated at 3700. Coags are unremarkable. Chest x-ray shows mild cardiomegaly as well as interstitial prominence and a moderate left and small right pleural effusion. EKG shows atrial fibrillation with rapid ventricular response. All Systems reviewed and pertinent positives and negatives noted in HPI, all other symptoms are negative Gen: in no apparent distress, resting comfortably in bed Eyes: PERRL, no scleral injection or icterus HENT: normocephalic, atraumatic, good hearing acuity, moist mucous membranes Neck: no tracheal deviation, full range of motion Resp: Diminished air exchange in the left base, crackles in the posterior lungs, no wheezes CVS: good distal perfusion x 4, no pitting edema, no appreciable murmurs GI: soft, NTTP, ND, no hepatosplenomegaly : no suprapubic tenderness, no CVAT, quintanilla catheter not present MSK: no clubbing, no cyanosis, no noted contractures of extremities Skin: no noted rashes, petechiae; temperature of skin is appropriate Neuro: moving all extremities without signs of weakness, CN II-XII intact Psych: cooperative, euthymic mood, insight and judgment intact Labs and imaging reviewed as above Assessment/plan: Paroxysmal Atrial Fibrillation with RVR Acute congestive heart failure exacerbation, previously preserved ejection fraction of 55-60% Bilateral pleural effusions Pericardial effusion -Admit to inpatient, telemetry -Cardiology consult -Amiodarone drip -Resume home metoprolol -Resume home xarelto -Lasix 40 mg IV daily -Echocardiogram -Strict ins and outs, daily weights Hypertension Hyperlipidemia Asthma/COPD without exacerbation Chronic lower back pain -Home medications reviewed and reconciled Patient is full code DVT prophylaxis withxarelto Past Medical History Past Medical History: Atrial Fibrillation, Asthma, COPD, GERD/Reflux, Hyperlipidemia, Memory Impairment, Sleep Apnea/CPAP/BIPAP Additional Past Medical History / Comment(s): SEE DR. PAUL[facility]S H & P. [facility] ON 08/22/21. DDD, spinal stenosis, chronic low back pain with L leg involvement-pain and numbness History of Any Multi-Drug Resistant Organisms: None Reported Past Surgical History: Back Surgery Additional Past Surgical History / Comment(s): Deviated septum repair, spinal fusion, "skin grafts to bilateral arms and above bilateral hips", pain clinic procedures Past Anesthesia/Blood Transfusion Reactions: No Reported Reaction Past Psychological History: Anxiety Smoking Status: Former smoker Past Alcohol Use History: Daily Past Drug Use History: Marijuana - Past Family History Mother Family Medical History: Diabetes Mellitus, Hypertension Father History Unknown: Yes Additional Family Medical History / Comment(s): Father left when pt was 2 yrs old. Medications and Allergies Home Medications Medication Instructions Recorded Confirmed Type Hydrocodone/Acetaminophen [[place] 1 tab PO 5XD PRN 01/02/18 01/18/22 History 7.5-325] lamoTRIgine [LaMICtal] 100 mg PO DAILY 01/02/18 01/18/22 History risperiDONE [RisperDAL] 1 mg PO DAILY 01/02/18 01/18/22 History Budesonide/Formoterol Fumarate 2 puff INHALATION RT-BID 10/08/18 01/18/22 History [Symbicort 160-4.5 Mcg Inhaler] Albuterol Inhaler [Ventolin Hfa 1 - 2 puff INHALATION RT-QID PRN 03/05/20 01/18/22 History Inhaler] Rivaroxaban [Xarelto] 20 mg PO HS 03/05/20 01/18/22 History allopurinoL [Zyloprim] 100 mg PO BID 04/21/20 01/18/22 History Cholecalciferol [Vitamin D3 (25 50 mcg PO DAILY 06/07/20 01/18/22 History Mcg = 1000 Iu)] Omeprazole 20 mg PO DAILY 06/07/20 01/18/22 History Aspirin 81 mg PO HS 07/19/20 01/18/22 History Furosemide [Lasix] 20 mg PO DAILY 07/19/20 01/18/22 History lamoTRIgine [LaMICtal] 50 mg PO HS 07/19/20 01/18/22 History Metoprolol Tartrate [Lopressor] 50 mg PO BID 01/18/22 01/18/22 History Allergies Allergy/AdvReac Type Severity Reaction Status Date / Time varenicline [From Chantix] AdvReac IRRITABLE/A Verified 01/18/22 12:09 NGER Physical Exam Osteopathic Statement: *. No significant issues noted on an osteopathic s tructural exam other than those noted in the History and Physical/Consult. Vitals: Vital Signs Temp Pulse Resp BP Pulse Ox 01/18/22 14:16 130 H 18 106/79 96 01/18/22 12:03 97.4 F L 69 24 97/64 94 L Intake and Output 01/18/22 01/18/22 01/18/22 06:59 14:59 22:59 Other: Weight 104.326 kg Results CBC & Chem 7: 01/18/22 12:17 01/18/22 12:17 Labs: Abnormal Lab Results - Last 24 Hours (Table) 01/18/22 01/18/22 01/18/22 Range/Units 12:17 12:17 12:17 RBC 3.13 L (4.30-5.90) m/uL Hgb 9.9 L (13.0-17.5) gm/dL Hct 31.0 L (39.0-53.0) % RDW 17.1 H (11.5-15.5) % Plt Count 593 H D (150-450) k/uL Sodium 135 L (137-145) mmol/L BUN 7 L (9-20) mg/dL Creatinine 0.65 L (0.66-1.25) mg/dL Glucose 104 H (74-99) mg/dL Troponin I 0.296 H* (0.000-0.034) ng/mL Total Protein 5.6 L (6.3-8.2) g/dL Albumin 2.8 L (3.5-5.0) g/dL
[2022-01-18] MEDS: HYDROcodone/APAP 7.5-325MG 1 EACH TAB PO PRN ×2 (16:51→23:53)
[2022-01-18] MEDS ORDERED: AMIODARONE 450 MG in DEXTROSE 5% IN WATER 250 ML IV SCH ×2 (18:51)
[2022-01-18] MEDS ORDERED: MORPHINE SULFATE 2 MG/ML SYRINGE IVP STA (20:24)
[2022-01-18] MEDS: SYMBICORT 160-4.5 MCG INHALER INHALATION SCH (20:28)
[2022-01-18] MEDS: METOPROLOL TARTRATE 50 MG TAB PO SCH (20:35)
[2022-01-18] MEDS: RIVAROXABAN 20 MG TAB PO SCH (20:35)
[2022-01-18] MEDS: ASPIRIN 81 MG PO SCH (20:35)
[2022-01-18] MEDS: allopurinoL 100 MG TAB PO SCH (20:36)
[2022-01-18] MEDS: lamoTRIgine 25 MG TAB PO SCH (20:36)
[2022-01-19] MEDS: ALBUTEROL NEBULIZED 2.5 MG/3 ML INHALATION PRN ×4 (00:25→15:16)
[2022-01-19] MEDS: PANTOPRAZOLE 40 MG TABLET PO SCH (06:50)
--- NOTE | 2022-01-19 07:46 | P.PN ---
Progress Note - Text Update Intraoperatively, left atrial appendage clipping was performed Extremely large left atrial appendage at baseline This was only partially excluded with the atril clip system Patient has a fairly large residual left atrial stump He will have to remain on anticoagulation for stroke prevention
[2022-01-19] MEDS: allopurinoL 100 MG TAB PO SCH ×2 (08:44→20:22)
[2022-01-19] MEDS: HYDROcodone/APAP 7.5-325MG 1 EACH TAB PO PRN ×3 (08:44→20:23)
[2022-01-19] MEDS: CHOLECALCIFEROL 25 MCG (1000 IU) TABLET PO SCH (08:44)
[2022-01-19] MEDS: AMIODARONE 200 MG TAB PO SCH (08:44)
[2022-01-19] MEDS: lamoTRIgine 100 MG TAB PO SCH (08:44)
[2022-01-19] MEDS: METOPROLOL TARTRATE 50 MG TAB PO SCH ×2 (08:44→20:22)
[2022-01-19] MEDS: risperiDONE 1 MG TAB PO SCH (08:45)
[2022-01-19] MEDS: SYMBICORT 160-4.5 MCG INHALER INHALATION SCH ×2 (08:55→20:17)
[2022-01-19] MEDS ORDERED: ASPIRIN 325 MG TAB PO SCH (09:00)
[2022-01-19] MEDS ORDERED: FUROSEMIDE 40 MG TAB PO SCH (09:00)
[2022-01-19 10:27] LABS: Anisocytosis Slight; Basophils % (A) 1 %; Eosinophils # (A) 0.1 k/uL (0-0.7); Eosinophils % (A) 2 %; HCT 29.7 % (39.0-53.0); HGB 9.4 gm/dL (13.0-17.5); Hypochromasia Moderate; Lymphocytes % (A) 18 %; MCH 32.6 pg (25.0-35.0); MCHC 31.6 g/dL (31.0-37.0); MCV 103.2 fL (80.0-100.0); Macrocytosis Moderate; Mean Platelet Volume 8.5; Monocytes # (A) 0.3 k/uL (0-1.0); Monocytes % (A) 5 %; Neutrophils % (A) 71 %; Platelet Count 454 k/uL (150-450); RBC 2.88 m/uL (4.30-5.90); RDW 17.4 % (11.5-15.5); WBC 5.6 k/uL (3.8-10.6)
[2022-01-19 10:45] LABS: African American GFR (CKD) >90 (>60 ml/min/1.73 sqM); Anion Gap 5 mmol/L; Blood Urea Nitrogen 8 mg/dL (9-20); Calcium 8.3 mg/dL (8.4-10.2); Carbon Dioxide 24 mmol/L (22-30); Chloride 106 mmol/L (98-107); Glucose 80 mg/dL (74-99); Magnesium 1.7 mg/dL (1.6-2.3); Non-African American GFR(CKD) >90 (>60 ml/min/1.73 sqM); Sodium 135 mmol/L (137-145)
--- NOTE | 2022-01-19 11:17 | P.PN ---
Subjective Progress Note Date: 01/19/22 Pt still is not feeling well overall. His HR is better controlled however. Ongoing IV diuresis for HF. Breathing slightly improved. Gen: in no apparent distress, resting comfortably in bed Eyes: PERRL, no scleral injection or icterus HENT: normocephalic, atraumatic, good hearing acuity, moist mucous membranes Neck: no tracheal deviation, full range of motion Resp: Diminished air exchange in the left base, crackles in the posterior lungs, no wheezes CVS: good distal perfusion x 4, no pitting edema, no appreciable murmurs GI: soft, NTTP, ND, no hepatosplenomegaly : no suprapubic tenderness, no CVAT, quintanilla catheter not present MSK: no clubbing, no cyanosis, no noted contractures of extremities Skin: no noted rashes, petechiae; temperature of skin is appropriate Neuro: moving all extremities without signs of weakness, CN II-XII intact Psych: cooperative, euthymic mood, insight and judgment intact Labs and imaging reviewed as above Assessment/plan: Paroxysmal Atrial Fibrillation with RVR Acute congestive heart failure exacerbation, previously preserved ejection fraction of 55-60% Bilateral pleural effusions Pericardial effusion -Admit to inpatient, telemetry -Cardiology consult -Amiodarone drip -Resume home metoprolol -Resume home xarelto -Lasix 40 mg IV daily -Echocardiogram, pending -Strict ins and outs, daily weights Hypertension Hyperlipidemia Asthma/COPD without exacerbation Chronic lower back pain -Home medications reviewed and reconciled Patient is full code DVT prophylaxis withxarelto Objective - Vital Signs Vital signs: Vital Signs Temp 98.0 F 01/19/22 08:35 Pulse 85 01/19/22 09:07 Resp 16 01/19/22 08:35 BP 109/69 01/19/22 08:35 Pulse Ox 97 01/19/22 08:55 FiO2 Intake & Output 01/18/22 01/19/22 01/19/22 18:59 06:59 18:59 Intake Total 118 117.78 118 Output Total 950 750 200 Balance -832 -632. -82 Weight 104.5 kg 101.8 kg Intake: Intake, IV Titration 117.78 Amount Amiodarone 450 mg In 117.78 Dextrose 5% in Water 250 ml @ 0.5 MG/MIN 16.667 mls/hr IV .Q15H [facility] Rx#: [id number] Oral 118 118 Output: Urine 950 750 200 Other: Voiding Method Urinal - Labs CBC & Chem 7: 01/19/22 09:20 01/19/22 09:20 Labs: Abnormal Lab Results - Last 24 Hours (Table) 01/18/22 01/18/22 01/18/22 Range/Units 12:17 12:17 12:17 RBC 3.13 L (4.30-5.90) m/uL Hgb 9.9 L (13.0-17.5) gm/dL Hct 31.0 L (39.0-53.0) % MCV (80.0-100.0) fL RDW 17.1 H (11.5-15.5) % Plt Count 593 H D (150-450) k/uL Sodium 135 L (137-145) mmol/L BUN 7 L (9-20) mg/dL Creatinine 0.65 L (0.66-1.25) mg/dL Glucose 104 H (74-99) mg/dL Calcium (8.4-10.2) mg/dL Troponin I 0.296 H* (0.000-0.034) ng/mL Total Protein 5.6 L (6.3-8.2) g/dL Albumin 2.8 L (3.5-5.0) g/dL 01/18/22 01/18/22 01/19/22 Range/Units 14:57 17:46 09:20 RBC (4.30-5.90) m/uL Hgb (13.0-17.5) gm/dL Hct (39.0-53.0) % MCV (80.0-100.0) fL RDW (11.5-15.5) % Plt Count (150-450) k/uL Sodium 135 L (137-145) mmol/L BUN 8 L (9-20) mg/dL Creatinine (0.66-1.25) mg/dL Glucose (74-99) mg/dL Calcium 8.3 L (8.4-10.2) mg/dL Troponin I 0.255 H* 0.284 H* (0.000-0.034) ng/mL Total Protein (6.3-8.2) g/dL Albumin (3.5-5.0) g/dL 01/19/22 Range/Units 09:20 RBC 2.88 L (4.30-5.90) m/uL Hgb 9.4 L (13.0-17.5) gm/dL Hct 29.7 L (39.0-53.0) % MCV 103.2 H (80.0-100.0) fL RDW 17.4 H (11.5-15.5) % Plt Count 454 H (150-450) k/uL Sodium (137-145) mmol/L BUN (9-20) mg/dL Creatinine (0.66-1.25) mg/dL Glucose (74-99) mg/dL Calcium (8.4-10.2) mg/dL Troponin I (0.000-0.034) ng/mL Total Protein (6.3-8.2) g/dL Albumin (3.5-5.0) g/dL
--- NOTE | 2022-01-19 12:16 | P.CRDCN ---
History of Present Illness History of present illness: This is a 66-year-old male with a past medical history of recurrent symptomatic paroxysmal atrial fibrillation with RVR, with recent admission for Ablation on 01/09/2022 with post operative complications including pericardial tamponade, cardiac arrest and sternal exploration with control of right atrial hemorrhage and repair of perforation on 01/09/2022. As well as history DVT and pulmonary embolism 2019 on Xarelto, dilated left atrium former nicotine dependence, COPD, hyperlipidemia, obstructive sleep apnea. He follows with Dr. Reis regularly. He was seen in the office by Dr. Reis on 01/18 for follow up appointment and was found in A fib with RVR and was sent to the ER for further evaluation. Since last admission patient has been feeling short of breath, no hypoxia inpatient or outpatient but is having dyspnea on exertion, shortness of breath, and orthopnea. He denies any chest pain. On admission patient found to be in atrial fibrillation with fast ventricular response, he was started on IV amiodarone and converted to sinus mechanism. He is currently maintaining sinus mechanism with heart rate in the 60s. Recently patient was admitted to the hospital for a planned atrial fibrillation ablation on 01/09/2022. During the procedure, right atrial perforation occurred, pericardail effusion was noted, patient's blood pressure dropped and patient coded, CPR was initiated and maintained for 1 minute and ROSC was achieved. Pericardial drain was placed. Emergent CT surgery consult was made. Patient was taken to OR by Dr. Beebe. Patient underwent sternal exploration with control of right atrial hemorrhage and repair of perforation, application of 45 mm AtriCure clip at the base of the left atrial appendage, ligation of the left innominate vein. (See full procedure notes for details). Patient was transferred to ICU postoperatively. Patient was extubated on 01/10/2022. Chest tubes were removed 01/12/2022, patient was stabilized and transferred out of the ICU. Patient was then monitored on 3S cardiac stepdown unit and was discharged home on 01/14/2022. * EKG on admission reveals atrial fibrillation with RVR HR 139. * Telemetry tracings indicate sinus rhythm HR 60s * Chest xray mild cardiomegaly and interstitial prominence. Moderate left and small bilateral pleural effusions. * Laboratory reviewed, WBC 7.5, hemoglobin 9.9, platelets 593, sodium 135, potassium 3.8, BUN 7, serum creatinine 0.6, troponin 0.29, proBNP 3700 * Current home cardiac medications include metoprolol titrate 50 mg twice a day, aspirin 81 mg daily, Lasix 20 mg daily, Xarelto 20 mg nightly * JUDY 08/2021 revealed left ventricle is normal size and systolic function, no intracardiac thrombus, moderate MR, mild TR. REVIEW OF SYSTEMS At the time of my exam: CONSTITUTIONAL: Denies fever or chills. CARDIOVASCULAR: Denies chest pain, +shortness of breath, +orthopnea, +PND Senies palpitations. RESPIRATORY: Denies cough. GASTROINTESTINAL: Denies abdominal pain, diarrhea, constipation, nausea or vomiting. MUSCULOSKELETAL: Denies myalgias. NEUROLOGIC: Denies numbness, tingling, headacbe or weakness. ENDOCRINE: Denies fatigue, weight change, polydipsia or polyurina. GENITOURINARY: Denies burning, hematuria or urgency with micturation. HEMATOLOGIC: Denies history of anemia or bleeding. PHYSICAL EXAMINATION Vitals reviewed CONSTITUTIONAL: No apparent distress. HEENT: Head is normocephalic. Pupils are equal, round. Sclerae anicteric. Mucous membranes of the mouth are moist. No JVD. CHEST EXAMINATION: Lungs are crackles in the bases to auscultation. No chest wall tenderness is noted on palpation or with deep breathing. Heart hugger in place. HEART EXAMINATION: Regular rate and rhythm. S1, S2 heard. ABDOMEN: Soft, nontender. Positive bowel sounds. EXTREMITIES: 2+ peripheral pulses, no lower extremity edema and no calf tenderness. SKIN: Midline sternal incision is well approximated NEUROLOGIC EXAMINATION: Patient is awake, alert and oriented x3. ASSESSMENT Persistent atrial fibrillation with RVR, converted to sinus mechanism after IV amiodarone , on Xarelto Acute on chronic heart failure with preserved ejection fraction Recent 01/09/2022 Pulmonary vein isolation with successful ablation solution of the left superior and left inferior right inferior right middle pulmonary veins Recent Pericardial tamponade during catheter placement within the right superior pulmonary vein with Cardiac arrest with 1 minute of CPR, ROSC on 01/09/2022 Recent Status post sternal exploration with control of right atrial hemorrhage and repair of perforation 01/09/2022 History of DVT/PE on Xarelto History of COPD, hyperlipidemia, sleep apnea Previous tobacco dependence Chronic back pain PLAN: IV Lasix 40mg Daily Monitor I/Os, daily weights renal function and electrolytes Limited 2D echo Amiodarone 400mg Daily Continue Xarelto Continue beta [place] Further recommendations based on clinical course Nurse practitioner note has been reviewed by physician. Signing provider agrees with the documented findings, assessment, and plan of care. Past Medical History Past Medical History: Atrial Fibrillation, Asthma, COPD, GERD/Reflux, Hyperlipidemia, Memory Impairment, Sleep Apnea/CPAP/BIPAP Additional Past Medical History / Comment(s): SEE DR. PAUL'S H & P. JUDY ON 08/22/21. DDD, spinal stenosis, chronic low back pain with L leg involvement-pain and numbness History of Any Multi-Drug Resistant Organisms: None Reported Past Surgical History: Back Surgery Additional Past Surgical History / Comment(s): Deviated septum repair, spinal fusion, "skin grafts to bilateral arms and above bilateral hips", pain clinic procedures Past Anesthesia/Blood Transfusion Reactions: No Reported Reaction Past Psychological History: Anxiety Smoking Status: Former smoker Past Alcohol Use History: Daily Past Drug Use History: Marijuana - Past Family History Mother Family Medical History: Diabetes Mellitus, Hypertension Father History Unknown: Yes Additional Family Medical History / Comment(s): Father left when pt was 2 yrs old. Medications and Allergies Home Medications Medication Instructions Recorded Confirmed Type Hydrocodone/Acetaminophen [[place] 1 tab PO 5XD PRN 01/02/18 01/18/22 History 7.5-325] lamoTRIgine [LaMICtal] 100 mg PO DAILY 01/02/18 01/18/22 History risperiDONE [RisperDAL] 1 mg PO DAILY 01/02/18 01/18/22 History Budesonide/Formoterol Fumarate 2 puff INHALATION RT-BID 10/08/18 01/18/22 History [Symbicort 160-4.5 Mcg Inhaler] Albuterol Inhaler [Ventolin Hfa 1 - 2 puff INHALATION RT-QID PRN 03/05/20 01/18/22 History Inhaler] Rivaroxaban [Xarelto] 20 mg PO HS 03/05/20 01/18/22 History allopurinoL [Zyloprim] 100 mg PO BID 04/21/20 01/18/22 History Cholecalciferol [Vitamin D3 (25 50 mcg PO DAILY 06/07/20 01/18/22 History Mcg = 1000 Iu)] Omeprazole 20 mg PO DAILY 06/07/20 01/18/22 History Aspirin 81 mg PO HS 07/19/20 01/18/22 History Furosemide [Lasix] 20 mg PO DAILY 07/19/20 01/18/22 History lamoTRIgine [LaMICtal] 50 mg PO HS 07/19/20 01/18/22 History Metoprolol Tartrate [Lopressor] 50 mg PO BID 01/18/22 01/18/22 History Allergies Allergy/AdvReac Type Severity Reaction Status Date / Time varenicline [From Chantix] AdvReac IRRITABLE/A Verified 01/18/22 12:09 NGER Physical Exam Vitals: Vital Signs Temp Pulse Resp BP Pulse Ox 01/18/22 12:03 97.4 F L 69 24 97/64 94 L Intake and Output 01/17/22 01/18/22 01/18/22 22:59 06:59 14:59 Other: Weight 104.326 kg Results 01/19/22 09:20 01/19/22 09:20 Cardiac Enzymes 01/18/22 01/18/22 Range/Units 12:17 12:17 AST 25 (17-59) U/L Troponin I 0.296 H* (0.000-0.034) ng/mL Coagulation 01/18/22 Range/Units 12:17 PT 11.3 (9.0-12.0) sec APTT 27.9 (22.0-30.0) sec Comprehensive Metabolic Panel 01/18/22 Range/Units 12:17 Sodium 135 L (137-145) mmol/L Potassium 3.8 (3.5-5.1) mmol/L Chloride 103 (98-107) mmol/L Carbon Dioxide 24 (22-30) mmol/L BUN 7 L (9-20) mg/dL Creatinine 0.65 L (0.66-1.25) mg/dL Glucose 104 H (74-99) mg/dL Calcium 8.9 (8.4-10.2) mg/dL AST 25 (17-59) U/L ALT 11 (4-49) U/L Alkaline Phosphatase 107 (38-126) U/L Total Protein 5.6 L (6.3-8.2) g/dL Albumin 2.8 L (3.5-5.0) g/dL Current Medications Generic Name Dose Route Start Last Admin Trade Name Freq PRN Reason Stop Dose Admin Amiodarone HCl 360 mg/ 200 mls @ 33.333 mls/hr 01/18/22 12:52 Dextrose/Water IV 01/18/22 18:51 .Q6H ONE Protocol 1 MG/MIN Amiodarone HCl 450 mg/ 250 mls @ 16.667 mls/hr 01/18/22 18:51 Dextrose/Water IV 01/19/22 12:50 .Q15H [facility] Protocol 0.5 MG/MIN Intake and Output 01/17/22 01/18/22 01/18/22 22:59 06:59 14:59 Other: Weight 104.326 kg Patient Weight 01/19/22 06:59 Weight 104.326 kg 01/18/22 12:17
[2022-01-19 14:50] LABS: Chol/HDL Ratio 1.97 Ratio; LDL Cholesterol,Calculated 30.8 mg/dL (0.0-131.0); VLDL Calculation 12.58 mg/dL (5.00-40.00)
[2022-01-19] MEDS: ASPIRIN 81 MG PO SCH (20:22)
[2022-01-19] MEDS: lamoTRIgine 25 MG TAB PO SCH (20:22)
[2022-01-19] MEDS: RIVAROXABAN 20 MG TAB PO SCH (20:22)
[2022-01-20] MEDS: HYDROcodone/APAP 7.5-325MG 1 EACH TAB PO PRN ×2 (03:23→08:43)
[2022-01-20] MEDS: PANTOPRAZOLE 40 MG TABLET PO SCH (06:14)
[2022-01-20] MEDS: SYMBICORT 160-4.5 MCG INHALER INHALATION SCH (07:38)
[2022-01-20] MEDS: allopurinoL 100 MG TAB PO SCH (08:40)
[2022-01-20] MEDS: AMIODARONE 200 MG TAB PO SCH (08:40)
[2022-01-20] MEDS: CHOLECALCIFEROL 25 MCG (1000 IU) TABLET PO SCH (08:40)
[2022-01-20] MEDS: METOPROLOL TARTRATE 50 MG TAB PO SCH (08:40)
[2022-01-20] MEDS: lamoTRIgine 100 MG TAB PO SCH (08:40)
[2022-01-20] MEDS: risperiDONE 1 MG TAB PO SCH (08:41)
[2022-01-20] MEDS ORDERED: FUROSEMIDE 10 MG/ML 4 ML VIAL IV SCH (09:00)
[2022-01-20 09:44] VITALS: BP 100/67; RESP 17; TEMP 98
--- NOTE | 2022-01-20 11:03 | P.DS ---
Providers Date of admission: 01/18/22 14:11 Expected date of discharge: 01/20/22 Attending physician: Natalai Braden MD Consults: 01/18/22 14:06 Consult Physician Urgent Consulting Provider: Jalil Reis Consult Reason/Comments: A. fib with rapid ventricular response Do you want consulting provider notified?: Yes Primary care physician: Stated None Hospital Course: Paroxysmal Atrial Fibrillation with RVR Acute congestive heart failure exacerbation, previously preserved ejection fraction of 55-60% Bilateral pleural effusions Pericardial effusion Hypertension Hyperlipidemia Asthma/COPD without exacerbation Chronic lower back pain 66-year-old man with medical history of paroxysmal atrial fibrillation with a complicated recent hospitalization including perforation during pulmonary vein ablation requiring CPR with return of spontaneous circulation after 1 minute as well as emergent sternotomy and right atrial repair, gout, hypertension, hyperlipidemia, asthma, chronic low back pain presented for tachycardia and dyspnea on exertion. In the emergency room, patient is afebrile, 97/64, heart rate 130, 96% on room air. CBC shows a hemoglobin of 9.9, platelet count 593. Chemistries are mostly within normal limits. Liver function tests are remarkable for a total protein of 5.6, albumin of 2.8. BNP was elevated at 3700. Coags are unremarkable. Chest x-ray shows mild cardiomegaly as well as interstitial prominence and a moderate left and small right pleural effusion. EKG shows atrial fibrillation with rapid ventricular response. Patient was started on amiodarone as well as IV Lasix for atrial fibrillation with RVR as well as heart failure. After 2 days of diuresis, patient felt significantly better, and is able to ambulate without difficulty or shortness of breath. Patient's home dose of Lasix was increased and he was discharged on amiodarone as a new medication for rate control. He'll follow-up with cardiology as well as PCP in CT surgery as planned. I spent 34 minutes preparing this discharge Gen: in no apparent distress, resting comfortably in bed Eyes: PERRL, no scleral injection or icterus HENT: normocephalic, atraumatic, good hearing acuity, moist mucous membranes Neck: no tracheal deviation, full range of motion Resp: Diminished air exchange in the left base, crackles in the posterior lungs, no wheezes CVS: good distal perfusion x 4, no pitting edema, no appreciable murmurs GI: soft, NTTP, ND, no hepatosplenomegaly : no suprapubic tenderness, no CVAT, quintanilla catheter not present MSK: no clubbing, no cyanosis, no noted contractures of extremities Skin: no noted rashes, petechiae; temperature of skin is appropriate Neuro: moving all extremities without signs of weakness, CN II-XII intact Psych: cooperative, euthymic mood, insight and judgment intact Patient Condition at Discharge: Good Plan - Discharge Summary Discharge Rx Participant: Yes New Discharge Prescriptions: New Amiodarone [Cordarone] 400 mg PO DAILY #120 tab Continue risperiDONE [RisperDAL] 1 mg PO DAILY lamoTRIgine [LaMICtal] 100 mg PO DAILY Hydrocodone/Acetaminophen [[place] 7.5-325] 1 tab PO 5XD PRN PRN Reason: Pain Budesonide/Formoterol Fumarate [Symbicort 160-4.5 Mcg Inhaler] 2 puff INHALATION RT-BID Rivaroxaban [Xarelto] 20 mg PO HS Albuterol Inhaler [Ventolin Hfa Inhaler] 1 - 2 puff INHALATION RT-QID PRN PRN Reason: Shortness Of Breath allopurinoL [Zyloprim] 100 mg PO BID Cholecalciferol [Vitamin D3 (25 Mcg = 1000 Iu)] 50 mcg PO DAILY Omeprazole 20 mg PO DAILY lamoTRIgine [LaMICtal] 50 mg PO HS Aspirin 81 mg PO HS Metoprolol Tartrate [Lopressor] 50 mg PO BID Changed Furosemide [Lasix] 40 mg PO DAILY #60 tab Discharge Medication List Hydrocodone/Acetaminophen [[place] 7.5-325] 1 tab PO 5XD PRN 01/02/18 [History] lamoTRIgine [LaMICtal] 100 mg PO DAILY 01/02/18 [History] risperiDONE [RisperDAL] 1 mg PO DAILY 01/02/18 [History] Budesonide/Formoterol Fumarate [Symbicort 160-4.5 Mcg Inhaler] 2 puff INHALATION RT-BID 10/08/18 [History] Albuterol Inhaler [Ventolin Hfa Inhaler] 1 - 2 puff INHALATION RT-QID PRN 03/05/20 [History] Rivaroxaban [Xarelto] 20 mg PO HS 03/05/20 [History] allopurinoL [Zyloprim] 100 mg PO BID 04/21/20 [History] Cholecalciferol [Vitamin D3 (25 Mcg = 1000 Iu)] 50 mcg PO DAILY 06/07/20 [History] Omeprazole 20 mg PO DAILY 06/07/20 [History] Aspirin 81 mg PO HS 07/19/20 [History] lamoTRIgine [LaMICtal] 50 mg PO HS 07/19/20 [History] Metoprolol Tartrate [Lopressor] 50 mg PO BID 01/18/22 [History] Amiodarone [Cordarone] 400 mg PO DAILY #120 tab 01/19/22 [Rx] Furosemide [Lasix] 40 mg PO DAILY #60 tab 01/20/22 [Rx] Follow up Appointment(s)/Referral(s): [facility] [NON-STAFF] - Artie Beebe MD [STAFF PHYSICIAN] - 02/02/22 1:45 pm None,Stated [Primary Care Provider] - 1-2 days Jalil Reis MD [STAFF PHYSICIAN] - 02/07/22 3:15 pm Patient Instructions/Handouts: A-fib (Atrial Fibrillation) (DC), Cardiac Ablation (DC) Activity/Diet/Wound Care/Special Instructions: Amiodarone Instructions: Take amiodarone 400mg Daily for 1 month, Then take amiodarone 200mg Daily for 1 month. Further changes by your house cleaner Dr. Reis or Aco Coordinator Dr. Conrad as an outpatient 1. No driving for 4 weeks, or until physician gives their ok. 2. The patient should sleep in their own bed, no medical bed needed. 3. Stairs are not an issue. If the bedroom is upstairs, it is advised that the patient go up at night and down in the morning for the first week. Go slowly, using handrail and take 1 step at a time. 4. Heart hugger is to be worn 100% of the time until physician discont inues.(except when showering) 5. No lifting, pushing, or pulling more than 10 pounds for 12 weeks. The physician will advise of any restriction changes. 6. The patient is expected to continue the prescribed walking program. 7. Continue pain control per as needed orders. 8. Continue with incentive spirometry and splinting/heart hugger until otherwise directed by the physician. 9. Must shower daily using liquid antibacterial soap 10. Routine sternal incision care. No powders, lotions, ointments on incisions. No dressings are necessary on incisions unless they are draining. Dermabond tape is to remain on sternal incision until surgeon follow-up. 11. Please call surgeon/SLUBBER RUNNER for temp greater than 101 F or purulent drainage from incisions. Discharge Disposition: HOME WITH HOME HEALTH SERVICES
[2022-01-20] MEDS: ALBUTEROL NEBULIZED 2.5 MG/3 ML INHALATION PRN (11:33)
[2022-01-20 11:43] VITALS: PULSE 62
--- NOTE | 2022-01-20 14:42 | P.PN ---
Subjective This is a 66-year-old male with a past medical history of recurrent symptomatic paroxysmal atrial fibrillation with RVR, with recent admission for Ablation on 01/09/2022 with post operative complications including pericardial tamponade, cardiac arrest and sternal exploration with control of right atrial hemorrhage and repair of perforation on 01/09/2022. As well as history DVT and pulmonary embolism 2019 on Xarelto, dilated left atrium former nicotine dependence, COPD, hyperlipidemia, obstructive sleep apnea. He follows with Dr. Reis regularly. He was seen in the office by Dr. Reis on 01/18 for follow up appointment and was found in A fib with RVR and was sent to the ER for further evaluation. Since last admission patient has been feeling short of breath, no hypoxia inpatient or outpatient but is having dyspnea on exertion, shortness of breath, and orthopnea. He denies any chest pain. On admission patient found to be in atrial fibrillation with fast ventricular response, he was started on IV amiodarone and converted to sinus mechanism. He is currently maintaining sinus mechanism with heart rate in the 60s. Recently patient was admitted to the hospital for a planned atrial fibrillation ablation on 01/09/2022. During the procedure, right atrial perforation occurred, pericardail effusion was noted, patient's blood pressure dropped and patient coded, CPR was initiated and maintained for 1 minute and ROSC was achieved. Pericardial drain was placed. Emergent CT surgery consult was made. Patient was taken to OR by Dr. Beebe. Patient underwent sternal exploration with control of right atrial hemorrhage and repair of perforation, application of 45 mm AtriCure clip at the base of the left atrial appendage, ligation of the left innominate vein. (See full procedure notes for details). Patient was transferred to ICU postoperatively. Patient was extubated on 01/10/2022. Chest tubes were removed 01/12/2022, patient was stabilized and transferred out of the ICU. Patient was then monitored on 3S cardiac stepdown unit and was discharged home on 01/14/2022. * EKG on admission reveals atrial fibrillation with RVR HR 139. * Telemetry tracings indicate sinus rhythm HR 60s * Chest xray mild cardiomegaly and interstitial prominence. Moderate left and small bilateral pleural effusions. * Laboratory reviewed, WBC 7.5, hemoglobin 9.9, platelets 593, sodium 135, potassium 3.8, BUN 7, serum creatinine 0.6, troponin 0.29, proBNP 3700 * Current home cardiac medications include metoprolol titrate 50 mg twice a day, aspirin 81 mg daily, Lasix 20 mg daily, Xarelto 20 mg nightly * JUDY 08/2021 revealed left ventricle is normal size and systolic function, no intracardiac thrombus, moderate MR, mild TR. 01/20/2022 Patient seen and examined at bedside, no acute distress. His symptoms have significantly improved. He is maintaining sinus mechanism. He denies any worsening shortness of breath, chest pain. Shortness of breath is significantly improved. No lower extremity edema. PHYSICAL EXAMINATION Vitals reviewed CONSTITUTIONAL: No apparent distress. HEENT: Head is normocephalic. Pupils are equal, round. Sclerae anicteric. Mucous membranes of the mouth are moist. No JVD. CHEST EXAMINATION: Lungs are crackles in the bases to auscultation. No chest wall tenderness is noted on palpation or with deep breathing. Heart hugger in place. HEART EXAMINATION: Regular rate and rhythm. S1, S2 heard. ABDOMEN: Soft, nontender. Positive bowel sounds. EXTREMITIES: 2+ peripheral pulses, no lower extremity edema and no calf tendern ess. SKIN: Midline sternal incision is well approximated NEUROLOGIC EXAMINATION: Patient is awake, alert and oriented x3. ASSESSMENT Persistent atrial fibrillation with RVR, converted to sinus mechanism after IV amiodarone , on Xarelto Acute on chronic heart failure with preserved ejection fraction Recent 01/09/2022 Pulmonary vein isolation with successful ablation solution of the left superior and left inferior right inferior right middle pulmonary veins Recent Pericardial tamponade during catheter placement within the right superior pulmonary vein with Cardiac arrest with 1 minute of CPR, ROSC on 01/09/2022 Recent Status post sternal exploration with control of right atrial hemorrhage a nd repair of perforation 01/09/2022 History of DVT/PE on Xarelto History of COPD, hyperlipidemia, sleep apnea Previous tobacco dependence Chronic back pain PLAN: Transition to by mouth Lasix 40 mg daily Amiodarone 400mg Daily Continue Xarelto Continue beta [place] From cardiology perspective, patient stable to be discharged home. Follow up outpatient with Dr. Reis Nurse practitioner note has been reviewed by physician. Signing provider agrees with the documented findings, assessment, and plan of care. Objective - Vital Signs Vital signs: Vital Signs Temp 98 F 01/20/22 07:55 Pulse 62 08/05/22 11:43 Resp 17 01/20/22 07:55 BP 100/67 01/20/22 07:55 Pulse Ox 98 01/20/22 07:55 FiO2 Intake & Output 01/19/22 01/20/22 01/20/22 18:59 06:59 18:59 Intake Total 354 118 Output Total 200 350 120 Balance 154 -350 -2 Weight 101.5 kg Intake: Oral 354 118 Output: Urine 200 350 120 Other: Voiding Method Urinal - Labs CBC & Chem 7: 01/19/22 09:20 01/19/22 09:20
[2022-01-21] MEDS ORDERED: FUROSEMIDE 40 MG TAB PO SCH (09:00)
--- NOTE | 2022-03-24 10:32 | CA ---
Transthoracic Echo Report Name: Escobar Martinez Age: 66 Gender: M : 1955 Exam Date: 01/18/2022 12:46 Exam Location: [facility] Ht (in): 72 Wt (lb): 230 Ordering Physician: Bert Nguyen DO Attending/Referring Phys: Continuous Process Coffee Roaster Dafne Norwood RDCS Procedure CPT: Indications: recent open heart Cardiac Hx: Technical Quality: Very technically difficult study Contrast 1: Lumason Total Dose (mL): 3 Contrast 2: Total Dose (mL): MEASUREMENTS (Male / Female) Normal Values DOPPLER AV Peak Velocity 97.3 cm/s AV Peak Gradient 3.8 mmHg FINDINGS Left Ventricle Left ventricular ejection fraction is estimated at 40-45 %. Right Ventricle Right Atrium Left Atrium Mitral Valve Aortic Valve Tricuspid Valve Pulmonic Valve Pericardium Aorta CONCLUSIONS Limited Echo LVEF is about 45% Possible small pericardial effusion The study is very difficult technically. Contrast was used Previewed by: Dr. Danny Morris MD (Electronically Signed) Final Date: 24 March 2022 10:31
== END 2022-01-20 11:49 | disposition home health service (06) ==
LOC: EC 11:59 → 3SCARD 14:11 → INTOOBSV 14:11 → 3SCARD 14:41 → UNDODISIN 01-20 11:49
PROVIDERS: ADMIT Family Medicine; ATTEND Family Medicine
DX: I48.0 Paroxysmal atrial fibrillation (principal); I11.0 Hypertensive heart disease with heart failure; I50.9 Heart failure, unspecified; J44.9 Chronic obstructive pulmonary disease, unspecified; K21.9 Gastro-esophageal reflux disease without esophagitis; E78.5 Hyperlipidemia, unspecified; M10.9 Gout, unspecified; M54.50 Low back pain, unspecified; G89.28 Other chronic postprocedural pain; F41.9 Anxiety disorder, unspecified; G47.33 Obstructive sleep apnea (adult) (pediatric); F12.90 Cannabis use, unspecified, uncomplicated; Z79.899 Other long term (current) drug therapy; Z98.1 Arthrodesis status; Z87.891 Personal history of nicotine dependence; Z83.3 Family history of diabetes mellitus; Z82.49 Family history of ischemic heart disease and other diseases of the circulatory system; Z86.718 Personal history of other venous thrombosis and embolism; Z79.01 Long term (current) use of anticoagulants; Z86.711 Personal history of pulmonary embolism
CPT/HCPCS: 96376; 96366 ×3; 96375 ×2; 96365; 99291; 36415; 94640 ×5; 94760; 93005; 97161; 97165; 83880; 80061; 80053; 80048; 83735 ×2; 84484; 85025 ×2; 85610; 85730; 71046; G0378 ×3; C8929; J1940 ×2; J0282 ×2; J2270; Q9950; 93306

== ENCOUNTER → 2022-02-10 | Outpatient (CLI) | payer MEDICARE ==
[2022-02-10 19:54] LABS: African American GFR (CKD) 112.3 (60.0-200.0); Anion Gap 13.5 mmol/L (10.00-18.00); Blood Urea Nitrogen 7.1 mg/dL (9.0-27.0); Carbon Dioxide 24.3 mmol/L (20.0-27.5); Non-African American GFR(CKD) 96.9 (60.0-200.0); Potassium 4.1 mmol/L (3.5-5.5)
== END | disposition home or self-care (01) ==
LOC: LABWHC1 12:00
PROVIDERS: ATTEND Internal Medicine Cardiovascular Disease
DX: I50.30 Unspecified diastolic (congestive) heart failure (principal)
CPT/HCPCS: 36415; 80051; 82565; 84443; 84450; 84460; 84520

== ENCOUNTER 2022-03-14 10:10 | Observation (INO) | payer MEDICARE ==
--- NOTE | 2022-03-14 10:49 | ED ---
SOB HPI - General Chief Complaint: Shortness of Breath Stated Complaint: SOB Time Seen by Provider: 03/14/22 10:35 Source: patient, RN notes reviewed Mode of arrival: ambulatory Limitations: no limitations - History of Present Illness Initial Comments: Patient is a 66-year-old male presents to the emergency room with shortness of breath ongoing for the last 3 days which has been progressively worsening. He reports that he has an increase in difficulty breathing if he lays on his left side. He states that he utilizes an inhaler at home at times and that the inhaler is not giving him significant symptom relief. He does report that if he lays on his right side he is able to breathe a little bit easier and sleep. He denies any chest pain. He complains of an occasional cough but overall denies a significant cough. He denies any abdominal pain, nausea, vomiting, diarrhea, diaphoresis, lower extremity swelling, headache, dizziness, fevers or chills. He is a past medical history significant for PE, DVT, atrial fibrillation, cardiac tamponade, cardiac arrest, COPD, hyperlipidemia, sleep apnea and GERD. - Related Data Home Medications Medication Instructions Recorded Confirmed Hydrocodone/Acetaminophen [[place] 1 tab PO 5XD PRN 01/02/18 01/18/22 7.5-325] lamoTRIgine [LaMICtal] 100 mg PO DAILY 01/02/18 01/18/22 risperiDONE [RisperDAL] 1 mg PO DAILY 01/02/18 01/18/22 Budesonide/Formoterol Fumarate 2 puff INHALATION RT-BID 10/08/18 01/18/22 [Symbicort 160-4.5 Mcg Inhaler] Albuterol Inhaler [Ventolin Hfa 1 - 2 puff INHALATION RT-QID PRN 03/05/20 01/18/22 Inhaler] Rivaroxaban [Xarelto] 20 mg PO HS 03/05/20 01/18/22 allopurinoL [Zyloprim] 100 mg PO BID 04/21/20 01/18/22 Cholecalciferol [Vitamin D3 (25 50 mcg PO DAILY 06/07/20 01/18/22 Mcg = 1000 Iu)] Omeprazole 20 mg PO DAILY 06/07/20 01/18/22 Aspirin 81 mg PO HS 07/19/20 01/18/22 lamoTRIgine [LaMICtal] 50 mg PO HS 07/19/20 01/18/22 Metoprolol Tartrate [Lopressor] 50 mg PO BID 01/18/22 01/18/22 Previous Rx's Medication Instructions Recorded Amiodarone [Cordarone] 400 mg PO DAILY #120 tab 01/19/22 Furosemide [Lasix] 40 mg PO DAILY #60 tab 01/20/22 Allergies Allergy/AdvReac Type Severity Reaction Status Date / Time varenicline [From Chantix] AdvReac IRRITABLE/A Verified 03/14/22 10:25 NGER Review of Systems ROS Statement: Those systems with pertinent positive or pertinent negative responses have been documented in the HPI. ROS Other: All systems not noted in ROS Statement are negative. Past Medical History Past Medical History: Atrial Fibrillation, Asthma, COPD, Deep Vein Thrombosis (DVT), GERD/Reflux, Hyperlipidemia, Memory Impairment, Pulmonary Embolus (PE), Sleep Apnea/CPAP/BIPAP Additional Past Medical History / Comment(s): Cardiac tamponade, cardiac arrest History of Any Multi-Drug Resistant Organisms: None Reported Past Surgical History: Ablation, Back Surgery Additional Past Surgical History / Comment(s): Deviated septum repair, spinal fusion, "skin grafts to bilateral arms and above bilateral hips", pain clinic procedures Past Anesthesia/Blood Transfusion Reactions: No Reported Reaction Past Psychological History: Anxiety Smoking Status: Former smoker Past Alcohol Use History: Daily Past Drug Use History: Marijuana - Past Family History Mother Family Medical History: Diabetes Mellitus, Hypertension Father History Unknown: Yes Additional Family Medical History / Comment(s): Father left when pt was 2 yrs old. General Exam General appearance: alert, in no apparent distress Head exam: Present: atraumatic, normocephalic, normal inspection Eye exam: Present: normal appearance, PERRL, EOMI. Absent: scleral icterus, conjunctival injection, periorbital swelling ENT exam: Present: normal exam, mucous membranes moist Neck exam: Present: normal inspection. Absent: tenderness, meningismus, lymphadenopathy Respiratory exam: Present: decreased breath sounds. Absent: respiratory distr ess, wheezes, rales (throughout; left more decreased), accessory muscle use Cardiovascular Exam: Present: regular rate, normal rhythm, normal heart sounds. Absent: systolic murmur, diastolic murmur, rubs, gallop, clicks GI/Abdominal exam: Present: soft, normal bowel sounds. Absent: distended, tenderness, guarding, rebound, rigid Rectal exam: Present: deferred Extremities exam: Present: normal inspection, full ROM. Absent: pedal edema, joint swelling Back exam: Present: normal inspection Neurological exam: Present: alert, oriented X3, CN II-XII intact Psychiatric exam: Present: normal affect, normal mood Skin exam: Present: warm, dry, intact, normal color. Absent: rash Course Vital Signs 03/14/22 03/14/22 03/14/22 10:20 10:40 13:06 Temperature 98.3 F Pulse Rate 75 65 61 Respiratory 20 18 Rate Blood Pressure 99/61 108/64 117/68 O2 Sat by Pulse 98 97 Oximetry Medical Decision Making - Medical Decision Making 66-year-old male presenting to the emergency room with shortness of breath with history of COPD along with cardiac tamponade and cardiac arrest. Will check chest x-ray, EKG along with CMP, CBC, troponin, magnesium, proBNP, lactic acid, and coags. Chest x-ray shows pulmonary vascular congestion with small to moderate left and small right pleural effusions with adjacent or atelectasis/consolidation; correlate for CHF. EKG shows sinus rhythm. ProBNP elevated at 1830. Lactic acid slightly elevated at 2.2. WBC normal. See the CT shows mild anemia. Troponin negative. Magnesium slightly low at 1.4 replaced with magnesium. Will start on IV Lasix and plan for admission for congestive heart failure to [facility]. Case discussed with Dr. Braden who is on with [facility] physician's accepting observation admission for CHF. Case discussed with Dr. Duncan. - Lab Data Result diagrams: 03/14/22 10:47 03/14/22 10:47 Lab Results 03/14/22 03/14/22 03/14/22 Range/Units 10:47 10:47 10:47 WBC 6.9 (3.8-10.6) k/uL RBC 3.57 L (4.30-5.90) m/uL Hgb 12.0 L (13.0-17.5) gm/dL Hct 36.5 L (39.0-53.0) % MCV 102.3 H (80.0-100.0) fL MCH 33.6 (25.0-35.0) pg MCHC 32.8 (31.0-37.0) g/dL RDW 15.4 (11.5-15.5) % Plt Count 181 D (150-450) k/uL MPV 9.3 Neutrophils % 84 % Lymphocytes % 7 % Monocytes % 5 % Eosinophils % 3 % Basophils % 1 % Neutrophils # 5.8 (1.3-7.7) k/uL Lymphocytes # 0.5 L (1.0-4.8) k/uL Monocytes # 0.3 (0-1.0) k/uL Eosinophils # 0.2 (0-0.7) k/uL Basophils # 0.0 (0-0.2) k/uL Macrocytosis Slight PT 10.9 (9.0-12.0) sec INR 1.0 (<1.2) APTT 33.6 H (22.0-30.0) sec Sodium 136 L (137-145) mmol/L Potassium 3.9 (3.5-5.1) mmol/L Chloride 102 (98-107) mmol/L Carbon Dioxide 24 (22-30) mmol/L Anion Gap 10 mmol/L BUN 3 L (9-20) mg/dL Creatinine 0.52 L (0.66-1.25) mg/dL Est GFR (CKD-EPI)AfAm >90 (>60 ml/min/1.73 sqM) Est GFR (CKD-EPI)NonAf >90 (>60 ml/min/1.73 sqM) Glucose 119 H (74-99) mg/dL Plasma Lactic Acid James (0.7-2.0) mmol/L Calcium 8.3 L (8.4-10.2) mg/dL Magnesium 1.4 L (1.6-2.3) mg/dL Total Bilirubin 0.9 (0.2-1.3) mg/dL AST 21 (17-59) U/L ALT 9 (4-49) U/L Alkaline Phosphatase 81 (38-126) U/L Troponin I (0.000-0.034) ng/mL NT-Pro-B Natriuret Pep pg/mL Total Protein 6.0 L (6.3-8.2) g/dL Albumin 3.3 L (3.5-5.0) g/dL Coronavirus (PCR) (Not Detectd) 03/14/22 03/14/22 03/14/22 Range/Units 10:47 10:47 10:47 WBC (3.8-10.6) k/uL RBC (4.30-5.90) m/uL Hgb (13.0-17.5) gm/dL Hct (39.0-53.0) % MCV (80.0-100.0) fL MCH (25.0-35.0) pg MCHC (31.0-37.0) g/dL RDW (11.5-15.5) % Plt Count (150-450) k/uL MPV Neutrophils % % Lymphocytes % % Monocytes % % Eosinophils % % Basophils % % Neutrophils # (1.3-7.7) k/uL Lymphocytes # (1.0-4.8) k/uL Monocytes # (0-1.0) k/uL Eosinophils # (0-0.7) k/uL Basophils # (0-0.2) k/uL Macrocytosis PT (9.0-12.0) sec INR (<1.2) APTT (22.0-30.0) sec Sodium (137-145) mmol/L Potassium (3.5-5.1) mmol/L Chloride (98-107) mmol/L Carbon Dioxide (22-30) mmol/L Anion Gap mmol/L BUN (9-20) mg/dL Creatinine (0.66-1.25) mg/dL Est GFR (CKD-EPI)AfAm (>60 ml/min/1.73 sqM) Est GFR (CKD-EPI)NonAf (>60 ml/min/1.73 sqM) Glucose (74-99) mg/dL Plasma Lactic Acid James 2.2 H* (0.7-2.0) mmol/L Calcium (8.4-10.2) mg/dL Magnesium (1.6-2.3) mg/dL Total Bilirubin (0.2-1.3) mg/dL AST (17-59) U/L ALT (4-49) U/L Alkaline Phosphatase (38-126) U/L Troponin I <0.012 (0.000-0.034) ng/mL NT-Pro-B Natriuret Pep 1810 pg/mL Total Protein (6.3-8.2) g/dL Albumin (3.5-5.0) g/dL Coronavirus (PCR) (Not Detectd) 03/14/22 Range/Units 10:47 WBC (3.8-10.6) k/uL RBC (4.30-5.90) m/uL Hgb (13.0-17.5) gm/dL Hct (39.0-53.0) % MCV (80.0-100.0) fL MCH (25.0-35.0) pg MCHC (31.0-37.0) g/dL RDW (11.5-15.5) % Plt Count (150-450) k/uL MPV Neutrophils % % Lymphocytes % % Monocytes % % Eosinophils % % Basophils % % Neutrophils # (1.3-7.7) k/uL Lymphocytes # (1.0-4.8) k/uL Monocytes # (0-1.0) k/uL Eosinophils # (0-0.7) k/uL Basophils # (0-0.2) k/uL Macrocytosis PT (9.0-12.0) sec INR (<1.2) APTT (22.0-30.0) sec Sodium (137-145) mmol/L Potassium (3.5-5.1) mmol/L Chloride (98-107) mmol/L Carbon Dioxide (22-30) mmol/L Anion Gap mmol/L BUN (9-20) mg/dL Creatinine (0.66-1.25) mg/dL Est GFR (CKD-EPI)AfAm (>60 ml/min/1.73 sqM) Est GFR (CKD-EPI)NonAf (>60 ml/min/1.73 sqM) Glucose (74-99) mg/dL Plasma Lactic Acid James (0.7-2.0) mmol/L Calcium (8.4-10.2) mg/dL Magnesium (1.6-2.3) mg/dL Total Bilirubin (0.2-1.3) mg/dL AST (17-59) U/L ALT (4-49) U/L Alkaline Phosphatase (38-126) U/L Troponin I (0.000-0.034) ng/mL NT-Pro-B Natriuret Pep pg/mL Total Protein (6.3-8.2) g/dL Albumin (3.5-5.0) g/dL Coronavirus (PCR) Not Detected (Not Detectd) - EKG Data EKG Comments: Sinus rhythm, ventricular rate 60 bpm, CA interval 166 ms, QRS duration 88 ms, QT/QTC 425/442 ms, PRT axes XX, 42, 47 - Radiology Data Radiology results: report reviewed, image reviewed Chest x-ray 2 view overall similar in appearance compared to 01/18/2022. Correlate for CHF with pulmonary vascular congestion. Small to moderate left and small right pleural effusion with adjacent atelectasis and/or consolidation. Disposition Clinical Impression: Congestive heart failure Disposition: ADMITTED IP TO THIS HOSP Condition: Stable Is patient prescribed a controlled substance at d/c from ED?: No Time of Disposition: 12:51
[2022-03-14 11:12] LABS: Basophils % (A) 1 %; Eosinophils # (A) 0.2 k/uL (0-0.7); Eosinophils % (A) 3 %; HCT 36.5 % (39.0-53.0); Lymphocytes # (A) 0.5 k/uL (1.0-4.8); Lymphocytes % (A) 7 %; MCH 33.6 pg (25.0-35.0); MCHC 32.8 g/dL (31.0-37.0); MCV 102.3 fL (80.0-100.0); Macrocytosis Slight; Mean Platelet Volume 9.3; Monocytes # (A) 0.3 k/uL (0-1.0); Monocytes % (A) 5 %; Neutrophils # (A) 5.8 k/uL (1.3-7.7); Neutrophils % (A) 84 %; RBC 3.57 m/uL (4.30-5.90); RDW 15.4 % (11.5-15.5); WBC 6.9 k/uL (3.8-10.6)
[2022-03-14 11:20] LABS: Partial Thromboplastin Time 33.6 sec (22.0-30.0); Prothrombin Time 10.9 sec (9.0-12.0)
[2022-03-14 11:26] LABS: Platelet Count 181 k/uL (150-450)
[2022-03-14 11:29] LABS: ALT 9 U/L (4-49); AST 21 U/L (17-59); African American GFR (CKD) >90 (>60 ml/min/1.73 sqM); Albumin 3.3 g/dL (3.5-5.0); Alkaline Phosphatase 81 U/L (38-126); Anion Gap 10 mmol/L; Blood Urea Nitrogen 3 mg/dL (9-20); Calcium 8.3 mg/dL (8.4-10.2); Carbon Dioxide 24 mmol/L (22-30); Chloride 102 mmol/L (98-107); Glucose 119 mg/dL (74-99); Magnesium 1.4 mg/dL (1.6-2.3); Non-African American GFR(CKD) >90 (>60 ml/min/1.73 sqM); Potassium 3.9 mmol/L (3.5-5.1); Sodium 136 mmol/L (137-145); Total Bilirubin 0.9 mg/dL (0.2-1.3)
--- NOTE | 2022-03-14 11:59 | XR ---
EXAMINATION TYPE: XR chest 2V DATE OF EXAM: 03/14/2022 COMPARISON: 01/18/2022 HISTORY: 66-year-old male shortness of breath, difficulty breathing TECHNIQUE: AP and lateral views FINDINGS: Median sternotomy wires are present. Heart mildly enlarged. Interstitial prominence. Small to moderat e left and small right effusions with bibasilar opacity. Overall appearance is similar. IMPRESSION: Overall similar appearance compared to 01/18/2022. Correlate for CHF with pulmonary vascular congestion . Small to moderate left and small right pleural effusions with adjacent atelectasis and/or consolida tion.
[2022-03-14] MEDS ORDERED: DEXAMETHASONE SOD PHOSPHATE 10 MG/ML 1 ML VIAL IVP STA (12:21)
[2022-03-14] MEDS ORDERED: FUROSEMIDE 10 MG/ML 4 ML VIAL IV STA (12:44)
[2022-03-14] MEDS ORDERED: NALOXONE 0.4 MG/ML 1 ML VIAL IV PRN (12:59)
[2022-03-14] MEDS ORDERED: CYCLOBENZAPRINE 10 MG TAB PO PRN (15:11)
--- NOTE | 2022-03-14 15:22 | P.HPIM ---
History of Present Illness H&P Date: 03/14/22 Patient is a 66-year-old male with PMH of proximal atrial fibrillation with complicated recent hospitalization including perforation during pulmonary vein ablation requiring CPR and return of spontaneous circulation after 1 minute as well as emergent sternotomy and right atrial repair, gout, hypertension, dyslipidemia, asthma, chronic lower back pain, HFpEF presents the ED for shortness of breath. Patient reports shortness of breath with exertion. He also reports paroxysmal nocturnal dyspnea. He denies any cough or shortness of breath. Of note, he reports a cardiology recently discontinued his Lasix over the last 2 weeks for complaints of nocturia. He denies any headache, lower extremity edema, nausea or vomiting, fever or chills, palpitations, changes in urination or bowel habits. No changes in appetite or weight. He denies any dizziness, numbness/weakness/tingling of extremities. In the ED, his vital signs are stable. CBC showed hemoglobin of 12 and MCV of 102.3. INR was 1. CMP showed sodium 136, BUN of 3, creatinine of 0.52, glucose 119, calcium of 8.3, magnesium 1.4. Lactic acid is 2.2. Troponin was less than 0.012, chest x- ray showing sinus rhythm with low-voltage QRS and ST depression with Q waves. BNP was 1810, chest x-ray showing CHF with pulmonary vascular congestion, small to moderate left and right pleural effusions. COVID-19 negative. Patient is admitted for CHF exacerbation. Review of systems is performed and is negative except above. General: non toxic, no distress, appears at stated age Derm: warm, dry Head: atraumatic, normocephalic, symmetric Eyes: EOMI, no lid lag, anicteric sclera Mouth: no lip lesion, mucus membranes moist Cardiovascular: S1S2 reg, no murmur Lungs: Decreased breath sounds bilateral, no rhonchi, no rales , no accessory muscle use Abdominal: soft, nontender to palpation, no guarding, no appreciable organomegaly Ext: no gross muscle atrophy, no edema, no contractures Neuro: CN II-XI grossly intact, no focal neuro deficits Psych: Alert, oriented, appropriate affect Acute on chronic CHF exacerbation, preserved EF Macrocytic anemia Lactic acidosis Hypomagnesemia Chronic conditions: Asthma, gout, atrial fibrillation, Hypertension, chronic lower back pain, GERD Patient be started on Lasix 40 mg IV twice a day. Strict intake and take will be ordered. Daily weights will be ordered. Patient be placed on telemetry monitoring. Cardiology consulted for further management. Echocardiogram will be ordered. B12 and folate ordered for MCV of 102.3. Lactic acid 2.2 likely related to dehydration. Encourage hydration by mouth. Trend until negative. Magnesium level 1.4. Her place of magnesium sulfate for gram IV. Repeat magnesium level tomorrow. Restart albuterol and Symbicort for history of asthma. Restart allopurinol for history of gout. Restart amiodarone and metoprolol along with Xarelto for h istory of atrial fibrillation. Antihypertensive medication as above, monitor vitals, chest medication if necessary. [place] and Flexeril as needed for chronic lower back pain. Restart Prilosec for history of GERD. DVT prophylaxis: [Xarelto] Discussed with: [Patient, nurse, ED physician] Anticipated discharge: [1-2 days] Anticipated discharge place: [Home] A total of [35] minutes was spent on the care of this complex patient more than 50% of the time was spent in counseling and care coordination. Patient names his decision-maker if he can't make decisions for himself. Patient would like to be full code. Past Medical History Past Medical History: Atrial Fibrillation, Asthma, COPD, Deep Vein Thrombosis (DVT), GERD/Reflux, Hyperlipidemia, Memory Impairment, Pulmonary Embolus (PE), Sleep Apnea/CPAP/BIPAP Additional Past Medical History / Comment(s): Cardiac tamponade, cardiac arrest History of Any Multi-Drug Resistant Organisms: None Reported Past Surgical History: Ablation, Back Surgery Additional Past Surgical History / Comment(s): Deviated septum repair, spinal fusion, "skin grafts to bilateral arms and above bilateral hips", pain clinic procedures Past Anesthesia/Blood Transfusion Reactions: No Reported Reaction Past Psychological History: Anxiety Additional Psychological History / Comment(s): Pt resides with his spouse. He uses no assistive device. He drives. Smoking Status: Former smoker Past Alcohol Use History: Daily Additional Past Alcohol Use History / Comment(s): Quit smoking 10-08-2018. Started smoking at age 35, 0.5ppd. Pt drinks 2 beers a day. Past Drug Use History: Marijuana Additional Drug Use History / Comment(s): Has [employer] Marijuana card-uses occasionally. - Past Family History Mother Family Medical History: Diabetes Mellitus, Hypertension Father History Unknown: Yes Additional Family Medical History / Comment(s): Father left when pt was 2 yrs old. Medications and Allergies Home Medications Medication Instructions Recorded Confirmed Type Hydrocodone/Acetaminophen [[place] 1 tab PO 5XD PRN 01/02/18 03/14/22 History 7.5-325] lamoTRIgine [LaMICtal] 100 mg PO DAILY 01/02/18 03/14/22 History risperiDONE [RisperDAL] 1 mg PO DAILY 01/02/18 03/14/22 History Budesonide/Formoterol Fumarate 2 puff INHALATION RT-BID 10/08/18 03/14/22 History [Symbicort 160-4.5 Mcg Inhaler] Albuterol Inhaler [Ventolin Hfa 1 - 2 puff INHALATION RT-QID PRN 03/05/20 03/14/22 History Inhaler] Rivaroxaban [Xarelto] 20 mg PO HS 03/05/20 03/14/22 History allopurinoL [Zyloprim] 100 mg PO BID 04/21/20 03/14/22 History Omeprazole 20 mg PO DAILY 06/07/20 03/14/22 History Aspirin 81 mg PO HS 07/19/20 03/14/22 History lamoTRIgine [LaMICtal] 50 mg PO HS 07/19/20 03/14/22 History Amiodarone [Cordarone] 200 mg PO DAILY 03/14/22 03/14/22 History Cholecalciferol [Vitamin D3 (25 50 mcg PO DAILY 03/14/22 03/14/22 History Mcg = 1000 Iu)] Cyclobenzaprine [Flexeril] 10 mg PO DAILY PRN 03/14/22 03/14/22 History Cyclobenzaprine [Flexeril] 10 mg PO HS 03/14/22 03/14/22 History Furosemide [Lasix] 20 mg PO DAILY 03/14/22 03/14/22 History Metoprolol Succinate [Metoprolol 25 mg PO BID 03/14/22 03/14/22 History Succinate ER] Allergies Allergy/AdvReac Type Severity Reaction Status Date / Time varenicline [From Chantix] AdvReac IRRITABLE/A Verified 03/14/22 13:44 NGER Physical Exam Vitals: Vital Signs Temp Pulse Pulse Resp BP BP Pulse Ox 03/14/22 14:16 98 F 61 24 124/79 99 03/14/22 13:06 61 18 117/68 97 03/14/22 10:40 65 108/64 03/14/22 10:20 98.3 F 75 20 99/61 98 Intake and Output 03/14/22 03/14/22 03/14/22 06:59 14:59 22:59 Other: # Voids 1 Weight 99.79 kg Results CBC & Chem 7: 03/14/22 10:47 03/14/22 10:47 Labs: Abnormal Lab Results - Last 24 Hours (Table) 03/14/22 03/14/22 03/14/22 Range/Units 10:47 10:47 10:47 RBC 3.57 L (4.30-5.90) m/uL Hgb 12.0 L (13.0-17.5) gm/dL Hct 36.5 L (39.0-53.0) % MCV 102.3 H (80.0-100.0) fL Lymphocytes # 0.5 L (1.0-4.8) k/uL APTT 33.6 H (22.0-30.0) sec Sodium 136 L (137-145) mmol/L BUN 3 L (9-20) mg/dL Creatinine 0.52 L (0.66-1.25) mg/dL Glucose 119 H (74-99) mg/dL Plasma Lactic Acid James (0.7-2.0) mmol/L Calcium 8.3 L (8.4-10.2) mg/dL Magnesium 1.4 L (1.6-2.3) mg/dL Total Protein 6.0 L (6.3-8.2) g/dL Albumin 3.3 L (3.5-5.0) g/dL 03/14/22 Range/Units 10:47 RBC (4.30-5.90) m/uL Hgb (13.0-17.5) gm/dL Hct (39.0-53.0) % MCV (80.0-100.0) fL Lymphocytes # (1.0-4.8) k/uL APTT (22.0-30.0) sec Sodium (137-145) mmol/L BUN (9-20) mg/dL Creatinine (0.66-1.25) mg/dL Glucose (74-99) mg/dL Plasma Lactic Acid James 2.2 H* (0.7-2.0) mmol/L Calcium (8.4-10.2) mg/dL Magnesium (1.6-2.3) mg/dL Total Protein (6.3-8.2) g/dL Albumin (3.5-5.0) g/dL Thrombosis Risk Factor Assmnt - Choose All That Apply Any of the Below Risk Factors Present?: Yes Each Factor Represents 1 point: Obesity (BMI >25) Other Risk Factors: Yes Each Risk Factor Represents 2 Points: Age 61-74 years Other congenital or acquired thrombophilia - If yes, enter type in comment: No Thrombosis Risk Factor Assessment Total Risk Factor Score: 3 Thrombosis Risk Factor Assessment Level: Moderate Risk
[2022-03-14] MEDS: HYDROcodone/APAP 7.5-325MG 1 EACH TAB PO PRN ×2 (15:50→21:41)
[2022-03-14] MEDS: MAGNESIUM SULFATE-D5W PMX 1 GM in DEXTROSE/WATER 1 100ML.BAG IVPB SCH ×4 (15:50→19:32)
[2022-03-14] MEDS: CYCLOBENZAPRINE 10 MG TAB PO SCH (19:31)
[2022-03-14] MEDS: METOPROLOL SUCCINATE (ER) 25 MG TAB.ER.24H PO SCH (19:31)
[2022-03-14] MEDS: lamoTRIgine 25 MG TAB PO SCH (19:31)
[2022-03-14] MEDS: ASPIRIN 81 MG PO SCH (19:31)
[2022-03-14] MEDS: FUROSEMIDE 10 MG/ML 4 ML VIAL IV SCH (19:31)
[2022-03-14] MEDS: RIVAROXABAN 20 MG TAB PO SCH (19:31)
[2022-03-14] MEDS: allopurinoL 100 MG TAB PO SCH (19:31)
[2022-03-14] MEDS: SYMBICORT 160-4.5 MCG INHALER INHALATION SCH (20:45)
[2022-03-14] MEDS: ALBUTEROL NEBULIZED 2.5 MG/3 ML INHALATION PRN (20:45)
[2022-03-15] MEDS: ALBUTEROL NEBULIZED 2.5 MG/3 ML INHALATION PRN ×4 (07:50→18:47)
[2022-03-15] MEDS: SYMBICORT 160-4.5 MCG INHALER INHALATION SCH ×2 (07:50→18:47)
[2022-03-15 08:19] LABS: African American GFR (CKD) >90 (>60 ml/min/1.73 sqM); Anion Gap 8 mmol/L; Blood Urea Nitrogen 5 mg/dL (9-20); Calcium 8.6 mg/dL (8.4-10.2); Carbon Dioxide 28 mmol/L (22-30); Chloride 99 mmol/L (98-107); Glucose 92 mg/dL (74-99); Non-African American GFR(CKD) >90 (>60 ml/min/1.73 sqM); Potassium 3.6 mmol/L (3.5-5.1); Sodium 135 mmol/L (137-145)
[2022-03-15] MEDS ORDERED: AMIODARONE 200 MG TAB PO SCH ×3 (09:00→22:00)
[2022-03-15] MEDS: allopurinoL 100 MG TAB PO SCH ×2 (09:48→20:36)
[2022-03-15] MEDS: FUROSEMIDE 10 MG/ML 4 ML VIAL IV SCH ×2 (09:48→20:36)
[2022-03-15] MEDS: risperiDONE 1 MG TAB PO SCH (09:48)
[2022-03-15] MEDS: lamoTRIgine 100 MG TAB PO SCH (09:48)
[2022-03-15] MEDS: PANTOPRAZOLE 40 MG TABLET PO SCH (09:49)
[2022-03-15] MEDS: METOPROLOL SUCCINATE (ER) 25 MG TAB.ER.24H PO SCH ×2 (09:50→20:37)
[2022-03-15] MEDS: CHOLECALCIFEROL 25 MCG (1000 IU) TABLET PO SCH (09:50)
--- NOTE | 2022-03-15 09:57 | P.CRDCN ---
History of Present Illness Consult date: 03/15/22 History of present illness: HISTORY OF PRESENT ILLNESS: This is a 66-year-old male with a past medical history significant for atrial fibrillation with recent ablation that was complicated by 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 followed by recurrence of atrial fibrillation with subsequent cardioversion. Patient also has a history of GERD and congestive heart failure. Patient follows in the office with Dr. Reis. We have been asked to see the patient in consultation for CHF. Patient examined at the bedside. Patient states that he saw his pe manager on 03/07/2022. He reports telling his pe manager that he was having a hard time taking his Lasix because he was up during the night urinating. He reports that his pe manager instructed him to stop taking his Lasix. He presents to the hospital with a chief complaint of shortness of breath. He denies any swelling to his lower extremities. The patient was found to be in acute CHF. He was started on IV Lasix. The patient continues to report shortness of breath and labored breathing this morning. He denies any chest pain or pressure. * EKG reveals sinus mechanism with no signs of acute ischemia * Chest xray overall similar appearance compared to 01/18/2022. Correlate for CHF with pulmonary vascular congestion. Small to moderate left and small right pleural effusions with adjacent atelectasis or consolidation. * Laboratory data: WBC 6.9. Hemoglobin 12.0. Platelet count 181. Sodium 135. Potassium 3.6. BUN 5. Creatinine 0.68. Troponin negative 1. ProBNP 1810. * Current home cardiac medications include Xarelto 20 mg at night, aspirin 81 mg at night, Lasix 20 mg daily, amiodarone 200 mg daily, and metoprolol succinate 25 mg twice a day * Most recent echocardiogram obtained in and revealed ejection fraction 50-55%, mild MR, mild TR * Patient underwent Lexiscan stress test in July 2021 which was negative for ischemia REVIEW OF SYSTEMS: At the time of my exam: CONSTITUTIONAL: Denies fever or chills. HEENT: Denies blurred vision, vision changes, or eye pain. Denies hemoptysis CARDIOVASCULAR: Denies chest pain. Denies orthopnea. Denies PND. Denies palpitations RESPIRATORY: Denies shortness of breath. GASTROINTESTINAL: Denies abdominal pain. Denies nausea or vomiting. HEMATOLOGIC: Denies bleeding disorders. GENITOURINARY: Denies any blood in urine. SKIN: Denies pruitis. Denies rash. PHYSICAL EXAM: VITAL SIGNS: Reviewed. GENERAL: Well-developed in no acute distress. HEENT: Head is normocephalic. Pupils are equal, round. Sclerae anicteric. Mucous membranes of the mouth are moist. Neck supple. No JVD or thyromegaly LUNGS: Respirations even and unlabored. Lungs diminished to auscultation bilaterally. HEART: Regular rate and rhythm. S1 and S2 heard. ABDOMEN: Soft. Nondistended. Nontender. EXTREMITIES: Normal range of motion. No clubbing or cyanosis. Peripheral pulses intact. No lower extremity edema NEUROLOGIC: Awake and alert. Oriented x 3. ASSESSMENT: Shortness of breath Acute on chronic heart failure with preserved ejection fraction History of persistent atrial fibrillation with recent ablation complicated by 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 followed by recurrence of atrial fibrillation with subsequent cardioversion GERD PLAN: Obtain 2-D echo to assess cardiac structure and function Resume home cardiac medications Continue IV Lasix 40 mg every 12 hours Monitor kidney function Daily weights Accurate I&O Further recommendations by physician course Nurse practitioner note has been reviewed by physician. Signing provider agrees with the documented findings, assessment, and plan of care. Past Medical History Past Medical History: Atrial Fibrillation, Asthma, COPD, Deep Vein Thrombosis (DVT), GERD/Reflux, Hyperlipidemia, Memory Impairment, Pulmonary Embolus (PE), Sleep Apnea/CPAP/BIPAP Additional Past Medical History / Comment(s): Cardiac tamponade, cardiac arrest History of Any Multi-Drug Resistant Organisms: None Reported Past Surgical History: Ablation, Back Surgery Additional Past Surgical History / Comment(s): Deviated septum repair, spinal fusion, "skin grafts to bilateral arms and above bilateral hips", pain clinic procedures Past Anesthesia/Blood Transfusion Reactions: No Reported Reaction Past Psychological History: Anxiety Additional Psychological History / Comment(s): Pt resides with his spouse. He uses no assistive device. He drives. Smoking Status: Former smoker Past Alcohol Use History: Daily Additional Past Alcohol Use History / Comment(s): Quit smoking 10-08-2018. Started smoking at age 35, 0.5ppd. Pt drinks 2 beers a day. Past Drug Use History: Marijuana Additional Drug Use History / Comment(s): Has Intoloop Marijuana card-uses occasionally. - Past Family History Mother Family Medical History: Diabetes Mellitus, Hypertension Father History Unknown: Yes Additional Family Medical History / Comment(s): Father left when pt was 2 yrs old. Medications and Allergies Home Medications Medication Instructions Recorded Confirmed Type Hydrocodone/Acetaminophen [Hunker 1 tab PO 5XD PRN 01/02/18 03/14/22 History 7.5-325] lamoTRIgine [LaMICtal] 100 mg PO DAILY 01/02/18 03/14/22 History risperiDONE [RisperDAL] 1 mg PO DAILY 01/02/18 03/14/22 History Budesonide/Formoterol Fumarate 2 puff INHALATION RT-BID 10/08/18 03/14/22 History [Symbicort 160-4.5 Mcg Inhaler] Albuterol Inhaler [Ventolin Hfa 1 - 2 puff INHALATION RT-QID PRN 03/05/20 03/14/22 History Inhaler] Rivaroxaban [Xarelto] 20 mg PO HS 03/05/20 03/14/22 History allopurinoL [Zyloprim] 100 mg PO BID 04/21/20 03/14/22 History Omeprazole 20 mg PO DAILY 06/07/20 03/14/22 History Aspirin 81 mg PO HS 07/19/20 03/14/22 History lamoTRIgine [LaMICtal] 50 mg PO HS 07/19/20 03/14/22 History Amiodarone [Cordarone] 200 mg PO DAILY 03/14/22 03/14/22 History Cholecalciferol [Vitamin D3 (25 50 mcg PO DAILY 03/14/22 03/14/22 History Mcg = 1000 Iu)] Cyclobenzaprine [Flexeril] 10 mg PO DAILY PRN 03/14/22 03/14/22 History Cyclobenzaprine [Flexeril] 10 mg PO HS 03/14/22 03/14/22 History Furosemide [Lasix] 20 mg PO DAILY 03/14/22 03/14/22 History Metoprolol Succinate [Metoprolol 25 mg PO BID 03/14/22 03/14/22 History Succinate ER] Allergies Allergy/AdvReac Type Severity Reaction Status Date / Time varenicline [From Chantix] AdvReac IRRITABLE/A Verified 03/14/22 13:44 NGER Physical Exam Vitals: Vital Signs Temp Pulse Pulse Pulse Resp BP BP 03/15/22 08:02 56 L 03/15/22 07:50 68 03/15/22 07:00 97.9 F 55 L 14 99/63 03/15/22 02:04 97.8 F 50 L 16 103/66 03/14/22 20:55 64 03/14/22 20:46 64 03/14/22 19:58 97.7 F 60 16 108/70 03/14/22 14:16 98 F 61 24 124/79 03/14/22 13:06 61 18 117/68 03/14/22 10:40 65 108/64 03/14/22 10:20 98.3 F 75 20 99/61 Pulse Ox 03/15/22 08:02 03/15/22 07:50 03/15/22 07:00 96 03/15/22 02:04 97 03/14/22 20:55 03/14/22 20:46 03/14/22 19:58 99 03/14/22 14:16 99 03/14/22 13:06 97 03/14/22 10:40 03/14/22 10:20 98 Intake and Output 03/14/22 03/15/22 03/15/22 22:59 06:59 14:59 Intake Total 240 240 Balance 240 240 Intake: Oral 240 240 Other: # Voids 1 Weight 98 kg Results 03/14/22 10:47 03/15/22 05:20 Cardiac Enzymes 03/14/22 03/14/22 Range/Units 10:47 10:47 AST 21 (17-59) U/L Troponin I <0.012 (0.000-0.034) ng/mL Coagulation 03/14/22 Range/Units 10:47 PT 10.9 (9.0-12.0) sec APTT 33.6 H (22.0-30.0) sec CBC 03/14/22 Range/Units 10:47 WBC 6.9 (3.8-10.6) k/uL RBC 3.57 L (4.30-5.90) m/uL Hgb 12.0 L (13.0-17.5) gm/dL Hct 36.5 L (39.0-53.0) % Plt Count 181 D (150-450) k/uL Comprehensive Metabolic Panel 03/14/22 03/15/22 Range/Units 10:47 05:20 Sodium 136 L 135 L (137-145) mmol/L Potassium 3.9 3.6 (3.5-5.1) mmol/L Chloride 102 99 (98-107) mmol/L Carbon Dioxide 24 28 (22-30) mmol/L BUN 3 L 5 L (9-20) mg/dL Creatinine 0.52 L 0.68 (0.66-1.25) mg/dL Glucose 119 H 92 (74-99) mg/dL Calcium 8.3 L 8.6 (8.4-10.2) mg/dL AST 21 (17-59) U/L ALT 9 (4-49) U/L Alkaline Phosphatase 81 (38-126) U/L Total Protein 6.0 L (6.3-8.2) g/dL Albumin 3.3 L (3.5-5.0) g/dL Current Medications Generic Name Dose Route Start Last Admin Trade Name Freq PRN Reason Stop Dose Admin Hydrocodone Bitart/Acetaminophen 1 each 03/14/22 15:11 03/14/22 21:41 Hydrocodone/Apap 7.5-325mg 1 Each Tab PO 1 each 5XD PRN Administration Pain Albuterol Sulfate 2.5 mg 03/14/22 15:11 03/15/22 07:50 Albuterol Nebulized 2.5 Mg/3 Ml INHALATION 2.5 mg RT-QID PRN Administration Shortness Of Breath Allopurinol 100 mg 03/14/22 21:00 03/15/22 09:48 Allopurinol 100 Mg Tab PO 100 mg BID KIRILL Administration Amiodarone HCl 200 mg 03/15/22 22:00 Amiodarone 200 Mg Tab PO HS@2200 KIRILL Aspirin 81 mg 03/14/22 21:00 03/14/22 19:31 Aspirin 81 Mg PO 81 mg HS KIRILL Administration Budesonide/Formoterol Fumarate 2 puff 03/14/22 20:00 03/15/22 07:50 Symbicort 160-4.5 Mcg Inhaler INHALATION 2 puff RT-BID KIRILL Administration Cholecalciferol 50 mcg 03/15/22 09:00 03/15/22 09:50 Cholecalciferol 25 Mcg (1000 Iu) Tablet PO 50 mcg DAILY KIRILL Administration Cyclobenzaprine HCl 10 mg 03/14/22 21:00 03/14/22 19:31 Cyclobenzaprine 10 Mg Tab PO 10 mg HS KIRILL Administration Cyclobenzaprine HCl 10 mg 03/14/22 15:11 Cyclobenzaprine 10 Mg Tab PO DAILY PRN Muscle Pain Furosemide 40 mg 03/14/22 21:00 03/15/22 09:48 Furosemide 10 Mg/Ml 4 Ml Vial IV 40 mg Q12HR KIRILL Administration Lamotrigine 50 mg 03/14/22 21:00 03/14/22 19:31 Lamotrigine 25 Mg Tab PO 50 mg HS KIRILL Administration Lamotrigine 100 mg 03/15/22 09:00 03/15/22 09:48 Lamotrigine 100 Mg Tab PO 100 mg DAILY KIRILL Administration Metoprolol Succinate 25 mg 03/14/22 21:00 03/15/22 09:50 Metoprolol Succinate (Er) 25 Mg Tab.Er.24h PO 25 mg BID KIRILL Administration Naloxone HCl 0.2 mg 03/14/22 12:59 Naloxone 0.4 Mg/Ml 1 Ml Vial IV Q2M PRN Opioid Reversal Pantoprazole Sodium 40 mg 03/15/22 07:30 03/15/22 09:49 Pantoprazole 40 Mg Tablet PO 40 mg [id number] KIRILL Administration Risperidone 1 mg 03/15/22 09:00 03/15/22 09:48 Risperidone 1 Mg Tab PO 1 mg DAILY KIRILL Administration Rivaroxaban 20 mg 03/14/22 21:00 03/14/22 19:31 Rivaroxaban 20 Mg Tab PO 20 mg HS KIRILL Administration Protocol Intake and Output 03/14/22 03/15/22 03/15/22 22:59 06:59 14:59 Intake Total 240 240 Balance 240 240 Intake: Oral 240 240 Other: # Voids 1 Weight 98 kg 03/14/22 10:47 03/15/22 05:20
[2022-03-15] MEDS: HYDROcodone/APAP 7.5-325MG 1 EACH TAB PO PRN ×3 (10:02→20:36)
--- NOTE | 2022-03-15 11:31 | P.PN ---
Subjective Progress Note Date: 03/15/22 Patient is a 66-year-old male with PMH of proximal atrial fibrillation with complicated recent hospitalization including perforation during pulmonary vein ablation requiring CPR and return of spontaneous circulation after 1 minute as well as emergent sternotomy and right atrial repair, gout, hypertension, dyslipidemia, asthma, chronic lower back pain, HFpEF presents the ED for shortness of breath. In the ED, his vital signs are stable. CBC showed hemoglobin of 12 and MCV of 102.3. INR was 1. CMP showed sodium 136, BUN of 3, creatinine of 0.52, glucose 119, calcium of 8.3, magnesium 1.4. Lactic acid is 2.2. Troponin was less than 0.012, chest x-ray showing sinus rhythm with low- voltage QRS and ST depression with Q waves. BNP was 1810, chest x-ray showing CHF with pulmonary vascular congestion, small to moderate left and right pleural effusions. COVID-19 negative. Patient is admitted for CHF exacerbation. Patient was diuresed with Lasix 40 mg IV twice a day. Patient was seen and examined this morning. No acute events overnight. Patient reports improvement in his breathing but not yet back to baseline. He denies any chest pain or palpitations. No nausea or vomiting. No fever or chills. General: non toxic, no distress, appears at stated age Derm: warm, dry Head: atraumatic, normocephalic, symmetric Eyes: EOMI, no lid lag, anicteric sclera Mouth: no lip lesion, mucus membranes moist Cardiovascular: S1S2 reg, no murmur Lungs: Decreased breath sounds bilateral, no rhonchi, no rales , no accessory muscle use Ext: no gross muscle atrophy, no edema, no contractures Neuro: no focal neuro deficits Psych: Alert, oriented, appropriate affect Acute on chronic CHF exacerbation, preserved EF Macrocytic anemia Resolved: Lactic acidosis, HypoMg Chronic conditions: Asthma, gout, atrial fibrillation, Hypertension, chronic lower back pain, GERD Patient be started on Lasix 40 mg IV twice a day. Strict intake and take will be ordered. Daily weights will be ordered. Patient be placed on telemetry monitoring. Cardiology consulted for further management. Echocardiogram will be ordered. B12 and folate within normal limits. Restart albuterol and Symbicort for history of asthma. Restart allopurinol for history of gout. Restart amiodarone and metoprolol along with Xarelto for history of atrial fibrillation. Antihypertensive medication as above, monitor vitals, chest medication if necessary. [place] and Flexeril as needed for chronic lower back pain. Restart Prilosec for history of GERD. DVT prophylaxis: Xarelto Discussed with: Patient, nurse Anticipated discharge: 1-2 days Patient diuresing well. Echocardiogram pending. He is pending clinical improvement. Anticipated DC in 1-2 days. Objective - Vital Signs Vital signs: Vital Signs Temp 97.9 F 03/15/22 07:00 Pulse 68 03/15/22 09:45 Resp 14 03/15/22 07:00 BP 109/67 03/15/22 09:45 Pulse Ox 96 03/15/22 07:00 FiO2 Intake & Output 03/14/22 03/15/22 03/15/22 18:59 06:59 18:59 Intake Total 240 240 Balance 240 240 Weight 99.79 kg 98 kg Intake: Oral 240 240 Other: # Voids 1 - Labs CBC & Chem 7: 03/14/22 10:47 03/15/22 05:20 Labs: Abnormal Lab Results - Last 24 Hours (Table) 03/14/22 03/14/22 03/15/22 Range/Units 10:47 10:47 05:20 Sodium 136 L 135 L (137-145) mmol/L BUN 3 L 5 L (9-20) mg/dL Creatinine 0.52 L (0.66-1.25) mg/dL Glucose 119 H (74-99) mg/dL Plasma Lactic Acid James 2.2 H* (0.7-2.0) mmol/L Calcium 8.3 L (8.4-10.2) mg/dL Magnesium 1.4 L (1.6-2.3) mg/dL Total Protein 6.0 L (6.3-8.2) g/dL Albumin 3.3 L (3.5-5.0) g/dL
[2022-03-15] MEDS: ASPIRIN 81 MG PO SCH (20:36)
[2022-03-15] MEDS: CYCLOBENZAPRINE 10 MG TAB PO SCH (20:36)
[2022-03-15] MEDS: lamoTRIgine 25 MG TAB PO SCH (20:37)
[2022-03-15] MEDS: RIVAROXABAN 20 MG TAB PO SCH (20:38)
[2022-03-16] MEDS: SYMBICORT 160-4.5 MCG INHALER INHALATION SCH (08:06)
[2022-03-16] MEDS: ALBUTEROL NEBULIZED 2.5 MG/3 ML INHALATION PRN (08:06)
[2022-03-16 08:14] VITALS: BP 112/71; RESP 16; TEMP 98
[2022-03-16] MEDS: risperiDONE 1 MG TAB PO SCH (08:28)
[2022-03-16] MEDS: CHOLECALCIFEROL 25 MCG (1000 IU) TABLET PO SCH (08:28)
[2022-03-16] MEDS: PANTOPRAZOLE 40 MG TABLET PO SCH (08:28)
[2022-03-16] MEDS: lamoTRIgine 100 MG TAB PO SCH (08:28)
[2022-03-16] MEDS: allopurinoL 100 MG TAB PO SCH (08:28)
[2022-03-16] MEDS: HYDROcodone/APAP 7.5-325MG 1 EACH TAB PO PRN (08:28)
[2022-03-16] MEDS: FUROSEMIDE 10 MG/ML 4 ML VIAL IV SCH (08:29)
[2022-03-16] MEDS: METOPROLOL SUCCINATE (ER) 25 MG TAB.ER.24H PO SCH (08:29)
[2022-03-16] MEDS ORDERED: FUROSEMIDE 20 MG TAB PO SCH (09:00)
[2022-03-16 09:13] LABS: BUN/Creat Ratio 8.29 Ratio (12.00-20.00); Blood Urea Nitrogen 5.8 mg/dL (9.0-27.0); Calcium 8.9 mg/dL (8.7-10.3); Non-African American GFR(CKD) 98.3 (60.0-200.0); Potassium 3.8 mmol/L (3.5-5.5)
--- NOTE | 2022-03-16 09:19 | P.PN ---
Subjective Progress Note Date: 03/16/22 HISTORY OF PRESENT ILLNESS: This is a 66-year-old male with a past medical history significant for atrial fibrillation with recent ablation that was complicated by 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 followed by recurrence of atrial fibrillation with subsequent cardioversion. Patient also has a history of GERD and congestive heart failure. Patient follows in the office with Dr. Reis. We have been asked to see the patient in consultation for CHF. Patient examined at the bedside. Patient states that he saw his veneer matcher on 03/07/2022. He reports telling his veneer matcher that he was having a hard time taking his Lasix because he was up during the night urinating. He reports that his veneer matcher instructed him to stop taking his Lasix. He presents to the hospital with a chief complaint of shortness of breath. He denies any swelling to his lower extremities. The patient was found to be in acute CHF. He was started on IV Lasix. The patient continues to report shortness of breath and labored breathing this morning. He denies any chest pain or pressure. * EKG reveals sinus mechanism with no signs of acute ischemia * Chest xray overall similar appearance compared to 01/18/2022. Correlate for CHF with pulmonary vascular congestion. Small to moderate left and small right pleural effusions with adjacent atelectasis or consolidation. * Laboratory data: WBC 6.9. Hemoglobin 12.0. Platelet count 181. Sodium 135. Potassium 3.6. BUN 5. Creatinine 0.68. Troponin negative 1. ProBNP 1810. * Current home cardiac medications include Xarelto 20 mg at night, aspirin 81 mg at night, Lasix 20 mg daily, amiodarone 200 mg daily, and metoprolol succinate 25 mg twice a day * Most recent echocardiogram obtained in and revealed e jection fraction 50-55%, mild MR, mild TR * Patient underwent Lexiscan stress test in July 2021 which was negative for ischemia 03/16/2022 Patient examined this morning at the bedside. Patient denies chest pain or pressure. He denies shortness of breath. He remains on IV Lasix. Patient states he has not been leading to the bathroom without difficulty. Vital signs are stable. PHYSICAL EXAM: VITAL SIGNS: Reviewed. GENERAL: Well-developed in no acute distress. HEENT: Head is normocephalic. Pupils are equal, round. Sclerae anicteric. Mucous membranes of the mouth are moist. Neck supple. No JVD or thyromegaly LUNGS: Respirations even and unlabored. Lungs diminished to auscultation bilaterally. HEART: Regular rate and rhythm. S1 and S2 heard. ABDOMEN: Soft. Nondistended. Nontender. EXTREMITIES: Normal range of motion. No clubbing or cyanosis. Peripheral pulses intact. No lower extremity edema NEUROLOGIC: Awake and alert. Oriented x 3. ASSESSMENT: Shortness of breath Acute on chronic heart failure with preserved ejection fraction History of persistent atrial fibrillation with recent ablation complicated by pe rforation of the right atrium requiring surgery followed by recurrence of atrial fibrillation with subsequent cardioversion GERD PLAN: Continue current cardiac medications Discontinue IV Lasix Resume oral Lasix Patient is stable for discharge home today with close outpatient follow-up Nurse practitioner note has been reviewed by physician. Signing provider agrees with the documented findings, assessment, and plan of care. Objective - Vital Signs Vital signs: Vital Signs Temp 98 F 03/16/22 07:00 Pulse 64 03/16/22 08:17 Resp 16 03/16/22 07:00 BP 112/71 03/16/22 07:00 Pulse Ox 96 03/16/22 07:00 FiO2 Intake & Output 03/15/22 03/16/22 03/16/22 18:59 06:59 18:59 Intake Total 780 240 Balance 780 240 Weight 97.6 kg Intake: Oral 780 240 Other: Voiding Method Toilet Toilet - Labs CBC & Chem 7: 03/14/22 10:47 03/16/22 06:22 Labs: Abnormal Lab Results - Last 24 Hours (Table) 03/16/22 Range/Units 06:22 Chloride 94 L (96-109) mmol/L Carbon Dioxide 29.0 H (20.0-27.5) mmol/L BUN 5.8 L (9.0-27.0) mg/dL BUN/Creatinine Ratio 8.29 L (12.00-20.00) Ratio
--- NOTE | 2022-03-16 09:21 | CA ---
Transthoracic Echo Report Name: Escobar Martinez Age: 66 Gender: M : 1955 Exam Date: 03/15/2022 14:13 Exam Location: [facility] Ht (in): 72 Wt (lb): 216 Ordering Physician: Beena Gabriel Attending/Referring Phys: [id number], Nery Casting Cleaner Flora Schulz RDCS Procedure CPT: Indications: LV function Cardiac Hx: Technical Quality: Technically difficult study Contrast 1: Agitated Saline Total Dose (mL): 3 Contrast 2: Total Dose (mL): MEASUREMENTS (Male / Female) Normal Values 2D ECHO LA Systolic Diameter LX 4.9 cm 3.0 - 4.0 / 2.7 - 3.8 cm FINDINGS Left Ventricle Left ventricular ejection fraction is estimated at 50-55 %. Right Ventricle Right Atrium Left Atrium Moderate left atrial dilatation. Mitral Valve Mild mitral regurgitation. Aortic Valve Aortic valve sclerosis. Tricuspid Valve Tricuspid valve not well visualized. Pulmonic Valve Pericardium Aorta CONCLUSIONS Limited study Normal left ventricular dimension and systolic function Previewed by: Dr. Danny Morris MD (Electronically Signed) Final Date: 16 March 2022 09:20
[2022-03-16 09:51] VITALS: PULSE 61
--- NOTE | 2022-03-16 10:05 | P.DS ---
Providers Date of admission: 03/14/22 12:42 Expected date of discharge: 03/16/22 Attending physician: Natalia Braden MD Consults: 03/14/22 15:14 Consult Physician Routine Consulting Provider: Danny Morris Consult Reason/Comments: CHF Do you want consulting provider notified?: Yes Primary care physician: Physician Nonstaff Hospital Course: Patient is a 66-year-old male with PMH of proximal atrial fibrillation with complicated recent hospitalization including perforation during pulmonary vein ablation requiring CPR and return of spontaneous circulation after 1 minute as well as emergent sternotomy and right atrial repair, gout, hypertension, dyslipidemia, asthma, chronic lower back pain, HFpEF presents the ED for shortness of breath. Patient reports shortness of breath with exertion. He also reports paroxysmal nocturnal dyspnea. He denies any cough or shortness of breath. Of note, he reports a cardiology recently discontinued his Lasix over the last 2 weeks for complaints of nocturia. He denies any headache, lower extremity edema, nausea or vomiting, fever or chills, palpitations, changes in urination or bowel habits. No changes in appetite or weight. He denies any dizziness, numbness/weakness/tingling of extremities. In the ED, his vital signs are stable. CBC showed hemoglobin of 12 and MCV of 102.3. INR was 1. CMP showed sodium 136, BUN of 3, creatinine of 0.52, glucose 119, calcium of 8.3, magnesium 1.4. Lactic acid is 2.2. Troponin was less than 0.012, chest x- ray showing sinus rhythm with low-voltage QRS and ST depression with Q waves. BNP was 1810, chest x-ray showing CHF with pulmonary vascular congestion, small to moderate left and right pleural effusions. COVID-19 negative. Patient is admitted for CHF exacerbation. He was started on Lasix 40 mg IV twice a day. His magnesium level was replaced. Lactic acidosis resolved. Echocardiogram was done which showed EF of 50-55%. Cardiology was consulted and followed the patient during his hospitalization. He diuresed well. Patient was seen and examined. No acute events overnight. Patient reports returning back to baseline. He is comfortable being discharged home. He is advised to follow-up with his PCP within 1-2 days of discharge. Follow-up with cardiology within 1 week of discharge. He is advised to take Lasix 20 mg by mouth daily. He is advised to not skip any doses. He is advised low-salt diet and fluid restriction to 1.5 L per day. Patient verbalized understanding of the plan. Discharge diagnosis: Acute on chronic CHF exacerbation, preserved EF Macrocytic anemia Resolved: Lactic acidosis, HypoMg Chronic conditions: Asthma, gout, atrial fibrillation, Hypertension, chronic lower back pain, GERD Pertinent Studies: CXR Echo Patient Condition at Discharge: Stable Plan - Discharge Summary New Discharge Prescriptions: Continue risperiDONE [RisperDAL] 1 mg PO DAILY lamoTRIgine [LaMICtal] 100 mg PO DAILY Hydrocodone/Acetaminophen [[place] 7.5-325] 1 tab PO 5XD PRN PRN Reason: Pain Budesonide/Formoterol Fumarate [Symbicort 160-4.5 Mcg Inhaler] 2 puff INHALATION RT-BID Rivaroxaban [Xarelto] 20 mg PO HS Albuterol Inhaler [Ventolin Hfa Inhaler] 1 - 2 puff INHALATION RT-QID PRN PRN Reason: Shortness Of Breath allopurinoL [Zyloprim] 100 mg PO BID Omeprazole 20 mg PO DAILY lamoTRIgine [LaMICtal] 50 mg PO HS Aspirin 81 mg PO HS Cholecalciferol [Vitamin D3 (25 Mcg = 1000 Iu)] 50 mcg PO DAILY Cyclobenzaprine [Flexeril] 10 mg PO DAILY PRN PRN Reason: Muscle Pain Cyclobenzaprine [Flexeril] 10 mg PO HS Amiodarone [Cordarone] 200 mg PO DAILY Metoprolol Succinate [Metoprolol Succinate ER] 25 mg PO BID Changed Furosemide [Lasix] 20 mg PO DAILY #30 tab Discharge Medication List Hydrocodone/Acetaminophen [[place] 7.5-325] 1 tab PO 5XD PRN 01/02/18 [History] lamoTRIgine [LaMICtal] 100 mg PO DAILY 01/02/18 [History] risperiDONE [RisperDAL] 1 mg PO DAILY 01/02/18 [History] Budesonide/Formoterol Fumarate [Symbicort 160-4.5 Mcg Inhaler] 2 puff INHALATION RT-BID 10/08/18 [History] Albuterol Inhaler [Ventolin Hfa Inhaler] 1 - 2 puff INHALATION RT-QID PRN 03/05/20 [History] Rivaroxaban [Xarelto] 20 mg PO HS 03/05/20 [History] allopurinoL [Zyloprim] 100 mg PO BID 04/21/20 [History] Omeprazole 20 mg PO DAILY 06/07/20 [History] Aspirin 81 mg PO HS 07/19/20 [History] lamoTRIgine [LaMICtal] 50 mg PO HS 07/19/20 [History] Amiodarone [Cordarone] 200 mg PO DAILY 03/14/22 [History] Cholecalciferol [Vitamin D3 (25 Mcg = 1000 Iu)] 50 mcg PO DAILY 03/14/22 [History] Cyclobenzaprine [Flexeril] 10 mg PO DAILY PRN 03/14/22 [History] Cyclobenzaprine [Flexeril] 10 mg PO HS 03/14/22 [History] Metoprolol Succinate [Metoprolol Succinate ER] 25 mg PO BID 03/14/22 [History] Furosemide [Lasix] 20 mg PO DAILY #30 tab 03/16/22 [Rx] Follow up Appointment(s)/Referral(s): Danny Morris MD [STAFF PHYSICIAN] - 1 Week Nonstaff,Physician [Primary Care Provider] - 1-2 days Activity/Diet/Wound Care/Special Instructions: He is advised to follow-up with his PCP within 1-2 days of discharge. Follow-up with cardiology within 1 week of discharge. He is advised to take Lasix 20 mg by mouth daily. He is advised to not skip any doses. He is advised low-salt diet and fluid restriction to 1.5 L per day. Discharge Disposition: HOME SELF-CARE
== END 2022-03-16 11:09 | disposition home or self-care (01) ==
LOC: SUPCPDRO 10:10 → EC 10:10 → 6NMEDSUR 12:42
PROVIDERS: ADMIT Family Medicine; ATTEND Family Medicine
DX: I11.0 Hypertensive heart disease with heart failure (principal); I50.33 Acute on chronic diastolic (congestive) heart failure; E87.2 Acidosis; E83.42 Hypomagnesemia; E86.0 Dehydration; D53.9 Nutritional anemia, unspecified; I08.0 Rheumatic disorders of both mitral and aortic valves; I48.0 Paroxysmal atrial fibrillation; J44.9 Chronic obstructive pulmonary disease, unspecified; K21.9 Gastro-esophageal reflux disease without esophagitis; E78.5 Hyperlipidemia, unspecified; G47.30 Sleep apnea, unspecified; R41.3 Other amnesia; F41.9 Anxiety disorder, unspecified; M10.9 Gout, unspecified; M54.50 Low back pain, unspecified; G89.29 Other chronic pain; E66.9 Obesity, unspecified; Z68.29 Body mass index [BMI] 29.0-29.9, adult; Z20.822 Contact with and (suspected) exposure to COVID-19; Z79.51 Long term (current) use of inhaled steroids; Z79.01 Long term (current) use of anticoagulants; Z79.82 Long term (current) use of aspirin; Z79.899 Other long term (current) drug therapy; Z88.8 Allergy status to other drugs, medicaments and biological substances; Z86.74 Personal history of sudden cardiac arrest; Z86.711 Personal history of pulmonary embolism; Z86.718 Personal history of other venous thrombosis and embolism; Z98.1 Arthrodesis status; Z98.890 Other specified postprocedural states; Z87.891 Personal history of nicotine dependence; Z83.3 Family history of diabetes mellitus; Z82.49 Family history of ischemic heart disease and other diseases of the circulatory system
CPT/HCPCS: 96376 ×3; 96365; 96366; 96375; 99285; 36415; 94640 ×6; 93005; 83880; 80053; 80048 ×2; 82607; 82746; 83605; 83735 ×2; 84484; 85025; 85610; 85730; 87635; 71046; G0378 ×3; C8929; J1940 ×3; J3475; Q9950; 93306

== ENCOUNTER → 2022-05-18 | Outpatient (CLI) | payer MEDICARE | END | disposition home or self-care (01) | LOC: LABWHC1 13:04 | PROVIDERS: ATTEND Internal Medicine Cardiovascular Disease | DX: I48.0 Paroxysmal atrial fibrillation (principal) | CPT/HCPCS: 36415; 84443; 84450; 84460 ==

== ENCOUNTER → 2023-12-19 | Outpatient (CLI) | payer MEDICARE ==
--- NOTE | 2023-12-19 23:09 | EEG ---
ELECTROENCEPHALOGRAM REPORT CLINICAL HISTORY: This is a 68-year-old gentleman with reported short-term memory loss. The video EEG is obtained to evaluate for seizure epileptiform activity. RELEVANT MEDICATIONS: 1. Lamictal. 2. Flexeril. 3. Risperdal. as reported on the electrocardiogram technician report. EEG TYPE: A routine 21-channel EEG with video using the 10/20 electrode placement system. DESCRIPTION: Wakefulness is obtained. During awake state, the posterior-dominant rhythm consists of [id number] voltage of 7 hertz activity. There is no physiological stage 2 sleep architecture. There is no focal slowing. Interictal and ictal is none. ACTIVATION PROCEDURE: Photic stimulation did not evoke a posterior driving response. There is no abnormality during the photic stimulation. Hyperventilation is not performed. CLINICAL INTERPRETATION: This an abnormal routine EEG. The background slowing is suggestive of mild encephalopathy. Otherwise, there is no focal slowing, epileptiform discharge, or seizure on the EEG. Clinical correlation is recommended. KYA / JONA: [id number] / CODY
== END ==
LOC: NEUROMAIN 12:33
PROVIDERS: ATTEND Psychiatry & Neurology Neurology
DX: R41.3 Other amnesia (principal); F17.200 Nicotine dependence, unspecified, uncomplicated; Z88.8 Allergy status to other drugs, medicaments and biological substances
CPT/HCPCS: 95816

== ENCOUNTER 2024-03-28 10:34 | Day surgery (SDC) | payer MEDICARE ==
[2024-03-28 12:12] VITALS: TEMP 97.2
[2024-03-28] MEDS: IV FLUID CONTINUATION 1,000 ML IV ONE (12:15)
[2024-03-28] MEDS: LACTATED RINGERS 1,000 ML IV SCH (12:15)
[2024-03-28] MEDS ORDERED: LIDOCAINE 1% INJ 10MG/ML (20 ML MDV) ONE (12:54)
[2024-03-28] MEDS ORDERED: PROPOFOL 10 MG/ML 20 ML VIAL IV ONE (12:54)
--- NOTE | 2024-03-28 13:11 | P.PCN ---
Date of Procedure: 03/28/24 Procedure(s) Performed: BRIEF HISTORY: Patient is a 68-year-old pleasant white male scheduled for an elective colonoscopy as a part of evaluation of history of colon polyps. Last colonoscopy was 4 years ago. PROCEDURE PERFORMED: Colonoscopy. PREOPERATIVE DIAGNOSIS: History of colon polyps. IV sedation per Anesthesia. PROCEDURE: After informed consent was obtained, the patient, was brought into the endoscopy unit. IV sedation was administered by Anesthesia under continuous monitoring. Digital rectal examination was normal. Initially the Olympus CF-160 flexible video colonoscope was then inserted in the rectum, gradually advanced into the cecum without any difficulty. Careful examination was performed as the scope was gradually being withdrawn. Ileocecal valve and the appendiceal orifice were visualized and appeared normal. Prep was excellent. Mucosa of the cecum, ascending colon, transverse colon, descending colon, sigmoid colon, and rectum appeared normal. Scattered sigmoid diverticulosis. Retroflexion was performed in the rectum and no lesions were seen. The patient tolerated the procedure well. IMPRESSION: ' Normal-appearing colon from rectum to cecum no evidence of colorectal neoplasia. Scattered sigmoid diverticulosis. RECOMMENDATIONS: Findings of this examination were discussed with the patient as well as his family. He was advised to have repeat screening colonoscopy in 5 years because of the prior history of colon polyps..
[2024-03-28 13:51] VITALS: BP 129/76; PULSE 97; RESP 18
== END 2024-03-28 13:59 | disposition home or self-care (01) ==
LOC: ORWHC2ENDO 10:34
PROVIDERS: ATTEND Internal Medicine Gastroenterology
CPT/HCPCS: 45378

== ENCOUNTER → 2024-08-20 | Outpatient (CLI) | payer MEDICARE ==
--- NOTE | 2024-08-20 10:11 | XR ---
EXAMINATION TYPE: XR lumbar spine 2 or 3V DATE OF EXAM: 08/20/2024 CLINICAL HISTORY: pain TECHNIQUE: Three views of the lumbar spine are submitted. COMPARISON: MRI lumbar spine 06/15/2015, lumbar spine radiograph 03/08/2011 FINDINGS: There are 5 lumbar type vertebral bodies identified. Postsurgical changes from posterior fusion with disc hardware involving L4-S1. There are bilateral pedicle screws involving the L4 and S1 vertebral b odies. Single left pedicular screw at the L5 vertebral body. No acute fracture. No vertebral body hei ght loss. Normal alignment of the lumbar spine. Multilevel disc space narrowing with endplate scleros is and anterior osteophytosis. Multilevel facet arthropathy of the lower lumbar spine. The overlying soft tissue appears unremarkable. Partial visualization of median sternotomy wires. Atherosclerotic calcification of the aorta. IMPRESSION: 1. No acute fracture of the lumbar spine. 2. Post surgical changes from spinal fusion L4-S1. Hardware appears intact. 3. Moderate multilevel degenerative disc disease and facet arthropathy. [facility], , 08/20/2024 10:08 AM
== END | disposition home or self-care (01) ==
LOC: RADXRMAIN 09:21
PROVIDERS: ATTEND Specialist
DX: M51.16 Intervertebral disc disorders with radiculopathy, lumbar region (principal); M47.26 Other spondylosis with radiculopathy, lumbar region; Z98.1 Arthrodesis status
CPT/HCPCS: 72100

== ENCOUNTER → 2024-08-20 | Outpatient (CLI) | payer MEDICARE ==
[2024-08-20 08:48] VITALS: BP 102/69; PULSE 118; RESP 15; TEMP 96.9
--- NOTE | 2024-08-20 15:38 | P.PAINPG ---
PQRS Measure Charge Sheet Comment: HISTORY OF PRESENT ILLNESS: A 69 yr old male as a referral from [facility] presents today w severe and chronic LBP > 1 yr secondary to Post Laminectomy of L2-L4/ L5-S1 w L5-S1 Fusion & Hardware, possible L4-L5 Intervertebral Fusion for evaluation. Pt states pain level is provoked at 7 /10 in intensity, constant, localized in the lumbar spine, predominantly axial, throbbing in character w occasional shooting pain towards the LLE. Pain is provoked by over activity and PT in 2019. Pain is alleviated by home OT twice weekly x 2 mo which ended in Feb 2024, physician guided home stretches daily since Feb 2022, heat, medications, topical, repositioning and rest . Oswestry axial pain score at 32. PMH: OA, aFib, HTN, Cardiac Tamponade, Cardiac Arrest, Asthma, COPD, DVT, GERD, Hyperlipidemia, Memory Impairment, PE, BUCKY, Anxiety PSH: Deviated Septum Repair, Lumbar Fusion, BUE Skin Graft, BL Hips Skin Graft SH: Former tobacco user, Daily ETOH use, Cannabis use FH: Mo- DM, CAD. Fa- Unknown. All: See list Meds: See list incl Osborn 7.5/325 #120, Xarelto, Alpesh-Bains REVIEW OF ORGAN SYSTEMS: CONSTITUTIONAL: No fevers or chills. No recent weight loss. NEUROLOGICAL: + numbness and tingling along the distal extremities. No seizure disorders or headaches. MUSCULOSKELETAL: + pain PSYCHIATRIC: Denies current depression or suicidal thoughts. Physical Examinations : Constitutional : Cooperative , not in acute distress . Neurologic : Cranial nerve II to XII intact. No focal neurological deficits. Psychiatric : alert & oriented x 3. Matching mood & appropriate affect. Judgment & insight intact. Musculoskeletal : Cervical Spine Motor strength in the deltoid and biceps: Normal right side. Normal Left side Motor strength biceps and the wrist extensors: Normal right side . Normal left side Motor strength in the triceps muscle: Normal right side. Normal left side Deep tendon reflexes: Normal at the biceps. Normal at Brachioradialis. Normal at triceps Vertebral body tenderness to deep palpation over Cervical facet loading test: positive bilaterally Spurling test: positive bilaterally Neck distraction test: positive bilaterally Marcia sign: positive bilaterally Lumbar spine +Incisonal scars intact Motor strength lower extremities ,thigh and legs 5/5 Right side , 5/5 Left side Deep tendon reflexes : Normal Knee Jerk. Normal Ankle Jerk Vertebral body tenderness over Telles Test positive Lumbar facet Loading Test: positive Right / positive Left Range of motion of the lumbar spine Flexion 30 degrees, extension 10 degrees Straight Leg Raise test: Left/ Right positive at degrees Jun test: positive right / positive left. Severe tenderness over the Sacroiliac joint on the Right / Left sides Gaenslen test: positive bilaterally Seated flexion test: positive bilaterally. Sacral spine : Severe tenderness over the Sacroiliac joint: right side / left side Range of motion: Flexion of the lumbar spine <60 degrees Range of motion: Extension of the lumbar spine <20 degrees Gaenslen's Test positive Jun test: positive right side / left side Thigh Thrust Test Sacral Thrust Test Imaging: MRI non contrast lumbar spine from 07/27/18 reviewed Assessment/ Plan : Post Laminectomy of L2-L4/ L5-S1 w L5-S1 Fusion & Hardware, possible L4-L5 Intervertebral Fusion Recommendation of lumbar x ray M54.16. All questions answered. I have spent greater than 30 minutes on patient care today. Dr Fong was available by phone for the evaluation of this patient. The time was used to revi ew the medical records including relevant urine studies and Prescription history (MAPs), review of the available imaging, evaluation and examination of the patient, coordination of care with the medical staff and if applicable referring physicians, as well as creation of the medical record - Pain Location Lower Back Non-Pharmacological Interventions: Exercise Pharmacological Interventions: Medication PQRS Narrative: Smoking Status Current every day smoker Hx Alcohol Use (MH) Yes: 2 q night Home Medications: Ambulatory Orders Hydrocodone/Acetaminophen [[place] 7.5-325] 1 tab PO 5XD PRN 01/02/18 lamoTRIgine [LaMICtal] 50 mg PO DAILY 01/02/18 risperiDONE [RisperDAL] 1 mg PO DAILY 01/02/18 Budesonide/Formoterol Fumarate [Symbicort 160-4.5 Mcg Inhaler] 2 puff INHALATION RT-BID PRN 10/08/18 Albuterol Inhaler [Ventolin Hfa Inhaler] 1 - 2 puff INHALATION RT-QID PRN 03/05/20 Rivaroxaban [Xarelto] 20 mg PO HS 03/05/20 allopurinoL [Zyloprim] 100 mg PO BID 04/21/20 Omeprazole 20 mg PO DAILY 06/07/20 Aspirin 81 mg PO HS 07/19/20 lamoTRIgine [LaMICtal] 50 mg PO HS 07/19/20 Cholecalciferol [Vitamin D3 (25 Mcg = 1000 Iu)] 50 mcg PO DAILY 03/14/22 Cyclobenzaprine [Flexeril] 10 mg PO DAILY PRN 03/14/22 Metoprolol Succinate [Metoprolol Succinate ER] 25 mg PO BID 03/14/22 Furosemide [Lasix] 20 mg PO DAILY #30 tab 03/16/22 Controlled Substance Measures - Controlled Substance Measures Is patient prescribed a controlled substance at discharge?: No
== END ==
LOC: PNWHC3 08:26
PROVIDERS: ATTEND Specialist
DX: M96.1 Postlaminectomy syndrome, not elsewhere classified (principal); M43.27 Fusion of spine, lumbosacral region; M54.16 Radiculopathy, lumbar region; F17.210 Nicotine dependence, cigarettes, uncomplicated; Z88.8 Allergy status to other drugs, medicaments and biological substances
CPT/HCPCS: 99202

== ENCOUNTER 2024-09-08 12:31 | Inpatient (IN) | payer MEDICARE ==
--- NOTE | 2024-09-08 13:08 | XR ---
EXAMINATION TYPE: XR chest 2V DATE OF EXAM: 09/08/2024 CLINICAL INDICATION: Male, 69 years old with history of difficulty breathing, TECHNIQUE: Frontal and lateral views of the chest are obtained. COMPARISON: Chest x-ray March 14, 2022 FINDINGS: Overlying sternal wires along with left atrial appendage clip are redemonstrated. Persisten t cardiomegaly with small right greater than left bilateral pleural effusions and central vascular co ngestion. There is associated right basilar opacity favoring atelectasis. The osseous structures are intact. IMPRESSION: Findings are consistent with CHF exacerbation/fluid overload state. [facility], , 09/08/2024 1:06 PM
[2024-09-08 13:10] LABS: Basophils % (A) 0 %; Eosinophils # (A) 0.2 k/uL (0-0.7); Eosinophils % (A) 2 %; HCT 34.8 % (39.0-53.0); HGB 11.5 gm/dL (13.0-17.5); Lymphocytes # (A) 0.6 k/uL (1.0-4.8); Lymphocytes % (A) 7 %; MCH 35.3 pg (25.0-35.0); MCHC 32.9 g/dL (31.0-37.0); Macrocytosis Moderate; Mean Platelet Volume 9.8; Monocytes # (A) 0.6 k/uL (0-1.0); Monocytes % (A) 7 %; Neutrophils # (A) 6.6 k/uL (1.3-7.7); Neutrophils % (A) 82 %; Platelet Count 168 k/uL (150-450); RBC 3.25 m/uL (4.30-5.90); RDW 13.9 % (11.5-15.5); WBC 8.1 k/uL (3.8-10.6)
--- NOTE | 2024-09-08 13:14 | ED ---
SOB HPI - General Source: patient, RN notes reviewed Mode of arrival: ambulatory Limitations: no limitations - History of Present Illness MD Complaint: shortness of breath <Tara Schreiber - Last Filed: 09/08/24 13:12> <Rei Baig - Last Filed: 09/08/24 15:28> - General Chief Complaint: Shortness of Breath Stated Complaint: CARLOS Time Seen by Provider: 09/08/24 12:35 - History of Present Illness Initial Comments: Quick Note: This is a 69-year-old male who presents to the emergency department for shortness of breath. States that it has been worsening over the last 2 to 3 weeks. Also reports swelling in his extremities. He has a history of CHF and takes Lasix. States that he is supposed to be taking it 3 times a day but was only taking it twice a day and wonders if that may have contributed to it. States that it feels like a CHF exacerbation. (Tara Schreiber) This is a 69-year-old male who presents to the emergency department patient states he has a history of atrial fibrillation and while he was trying to have an ablation they perforated his artery and had have open heart surgery. Patient states that was 2 years ago. Patient states since then he has been on Lasix and more recently increased it to 3 times a day because he is feeling short of breath especially with any exertion. Patient has not noticed any significant edema. Patient just has noted that sleeping is very difficult because becomes much more short of breath. Patient does not know the dose of his Lasix. Patient denies any recent fever chills or cough. Patient has any chest pain or palpitations. (Rei Baig) - Related Data Home Medications Medication Instructions Recorded Confirmed Hydrocodone/Acetaminophen [[place] 1 tab PO 5XD PRN 01/02/18 03/28/24 7.5-325] lamoTRIgine [LaMICtal] 50 mg PO DAILY 01/02/18 03/28/24 risperiDONE [RisperDAL] 1 mg PO DAILY 01/02/18 03/28/24 Budesonide/Formoterol Fumarate 2 puff INHALATION RT-BID PRN 10/08/18 03/28/24 [Symbicort 160-4.5 Mcg Inhaler] Albuterol Inhaler [Ventolin Hfa 1 - 2 puff INHALATION RT-QID PRN 03/05/20 03/28/24 Inhaler] Rivaroxaban [Xarelto] 20 mg PO HS 03/05/20 03/28/24 allopurinoL [Zyloprim] 100 mg PO BID 04/21/20 03/28/24 Omeprazole 20 mg PO DAILY 06/07/20 03/28/24 Aspirin 81 mg PO HS 07/19/20 03/28/24 lamoTRIgine [LaMICtal] 50 mg PO HS 07/19/20 03/28/24 Cholecalciferol [Vitamin D3 (25 50 mcg PO DAILY 03/14/22 03/28/24 Mcg = 1000 Iu)] Cyclobenzaprine [Flexeril] 10 mg PO DAILY PRN 03/14/22 03/28/24 Metoprolol Succinate [Metoprolol 25 mg PO BID 03/14/22 03/28/24 Succinate ER] Previous Rx's Medication Instructions Recorded Furosemide [Lasix] 20 mg PO DAILY #30 tab 03/16/22 Allergies Allergy/AdvReac Type Severity Reaction Status Date / Time varenicline [From Chantix] AdvReac IRRITABLE/A Verified 09/08/24 12:48 NGER Review of Systems ROS Other: All systems not noted in ROS Statement are negative. <Tara Schreiber - Last Filed: 09/08/24 13:12> ROS Other: All systems not noted in ROS Statement are negative. <Rei Baig - Last Filed: 09/08/24 15:28> ROS Statement: Those systems with pertinent positive or pertinent negative responses have been documented in the HPI. Past Medical History Past Medical History: Atrial Fibrillation, Asthma, COPD, Deep Vein Thrombosis (DVT), GERD/Reflux, Hyperlipidemia, Memory Impairment, Pulmonary Embolus (PE), Sleep Apnea/CPAP/BIPAP Additional Past Medical History / Comment(s): Cardiac tamponade, cardiac arrest possible tia, no cpap used History of Any Multi-Drug Resistant Organisms: None Reported Past Surgical History: Back Surgery, Cardiac Ablation Additional Past Surgical History / Comment(s): Deviated septum repair, spinal fusion, "skin grafts to bilateral arms and above bilateral hips", pain clinic procedures Past Anesthesia/Blood Transfusion Reactions: No Reported Reaction Past Psychological History: Anxiety Smoking Status: Former smoker Past Alcohol Use History: Daily Past Drug Use History: Marijuana - Past Family History Mother Family Medical History: Diabetes Mellitus, Hypertension Father History Unknown: Yes Additional Family Medical History / Comment(s): Father left when pt was 2 yrs old. <Tara Schreiber - Last Filed: 09/08/24 13:12> General Exam Limitations: no limitations <Tara Schreiber - Last Filed: 09/08/24 13:12> <Rei Baig - Last Filed: 09/08/24 15:28> - General Exam Comments Initial Comments: Visual Physical Exam Vital signs reviewed General: Well-appearing, nontoxic, no acute distress. Head: Normocephalic, atraumatic Eyes: PERRLA, EOMI ENT: Airway patent Chest: Nonlabored breathing Skin: No visual rash, normal skin tone Neuro: Alert and oriented 3 Musculoskeletal: No gross abnormalities (Tara Schreiber) GENERAL: Patient is well-developed and well-nourished. Patient is nontoxic and well- hydrated and is in mild distress. ENT: Neck is soft and supple. No significant lymphadenopathy is noted. Oropharynx is clear. Moist mucous membranes. Neck has full range of motion without eliciting any pain. EYES: The sclera were anicteric and conjunctiva were pink and moist. Extraocular movements were intact and pupils were equal round and reactive to light. Eyelids were unremarkable. PULMONARY: Unlabored respirations. Good breath sounds bilaterally. No audible rales rhonchi or wheezing was noted. CARDIOVASCULAR: Patient is tachycardic at 120 bpm and irregular ABDOMEN: Soft and nontender with normal bowel sounds. SKIN: Skin is clear with no lesions or rashes and otherwise unremarkable. NEUROLOGIC: Patient is alert and oriented x3. Cranial nerves II through XII are grossly intact. Motor and sensory are also intact. Normal speech, volume and content. Symmetrical smile. MUSCULOSKELETAL: Normal extremities with adequate strength and full range of motion. No lower extremity swelling or edema. No calf tenderness. LYMPHATICS: No significant lymphadenopathy is noted PSYCHIATRIC: Normal psychiatric evaluation. (Rei Baig) Course Vital Signs 09/08/24 12:45 Temperature 97.7 F Pulse Rate 110 H Respiratory 18 Rate Blood Pressure 98/63 O2 Sat by Pulse 98 Oximetry Medical Decision Making - Lab Data Result diagrams: 09/08/24 12:58 <Tara Schreiber - Last Filed: 09/08/24 13:12> - Lab Data Result diagrams: 09/08/24 12:58 09/08/24 12:58 <Rei Baig - Last Filed: 09/08/24 15:28> - Medical Decision Making I performed the QuickNote portion of this chart. Signed Tara Schreiber PA-C. (Tara Schreiber) EKG is interpreted by myself but EKG shows atrial fibrillation with rapid ventricular response at 113 beats a minute QRS is 98 QT interval 353 QTc is 400. Patient's EKG shows no ST segment elevation or depression Was pt. sent in by a medical professional or institution ([facility], [facility], urgent care, hospital, or halfway...) When possible be specific @ -No Did you speak to anyone other than the patient for history (EMS, parent, family, police, friend...)? What history was obtained from this source @ -No Did you review nursing and triage notes (agree or disagree)? Why? @ -I reviewed and agree with nursing and triage notes Were old charts reviewed (outside hosp., previous admission, EMS record, old EKG, old radiological studies, urgent care reports/EKG's, halfway records)? Report findings @ -No old charts were reviewed Differential Diagnosis? @ -Differential Chest Pain: Stable Angina, Unstable Angina, STEMI, NSTEMI Aortic Dissection, Pneumothorax, Musculoskeletal, Esophageal Spasm GERD, Cholecystitis, Pancreatitis, Zoster, this is not meant to be an all-inclusive list. EKG interpreted by me (3pts min.). @ -As above X-rays interpreted by me (1pt min.). @ -Chest x-ray shows pulmonary edema and a stable pleural effusion CT interpreted by me (1pt min.). @ -None done U/S interpreted by me (1pt. min.). @ -None done What testing was considered but not performed or refused? (CT, X-rays, U/S, labs)? Why? @ -None What meds were considered but not given or refused? Why? @ -None Did you discuss the management of the patient with other professionals (professionals i.e. [facility] Guardado, [facility], lab, RT, psych nurse, manager social work, bottom man, teacher, health promotion officer, case resolution specialist)? Give summary @ -I spoke with sound physicians he agreed admit the patient to the patient would have any worse Was smoking cessation discussed for >3mins.? @ -No Was critical care preformed (if so, how long)? @ -No Were there social determinants of health that impacted care today? How? (Homelessness, low income, unemployed, alcoholism, drug addiction, transportation, low edu. Level, literacy, decrease access to med. care, fci, rehab)? @ -No Was there de-escalation of care discussed even if they declined (Discuss DNR or withdrawal of care, Hospice)? DNR status @ -No What co-morbidities impacted this encounter? (DM, HTN, Smoking, COPD, CAD, Cancer, CVA, ARF, Chemo, Hep., AIDS, mental health diagnosis, sleep apnea, morbid obesity)? @ -None Was patient admitted / discharged? Hospital course, mention meds given and route, prescriptions, significant lab abnormalities, going to OR and other pertinent info. @ -Patient was evaluated and seen in the waiting room because there is no rooms patient's heart rate was about 120 beats a minute and irregular in the waiting room however I could not get him on a monitor prior to admission. Patient's could not be placed on Lasix and admitted to the hospital and sound physicians will evaluate the patient to determine if he needs anything to slow his heart rate down. Undiagnosed new problem with uncertain prognosis? @ -No Drug Therapy requiring intensive monitoring for toxicity (Heparin, Nitro, Insulin, Cardizem)? @ -No Were any procedures done? @ -No Diagnosis/symptom? @ -Acute pulmonary edema Acute, or Chronic, or Acute on Chronic? @ -Acute Uncomplicated (without systemic symptoms) or Complicated (systemic symptoms)? @ -Comp Side effects of treatment? @ -No Exacerbation, Progression, or Severe Exacerbation? @ -No Poses a threat to life or bodily function? How? (Chest pain, [place], [place], pneumonia, PE, COPD, DKA, ARF, appy, cholecystitis, CVA, Diverticulitis, Homicidal, Suicidal, threat to staff... and all critical care pts) @ -Yes this can lead to hypoxia and endorgan dysfunction Diagnosis/symptom? @ -A-fib with rapid ventricular response Acute, or Chronic, or Acute on Chronic? @ -Acute Uncomplicated (without systemic symptoms) or Complicated (systemic symptoms)? @ -Complicated Side effects of treatment? @ -None Exacerbation, Progression, or Severe Exacerbation] @ -No Poses a threat to life or bodily function? @ -No (Rei Baig) - Lab Data Lab Results 09/08/24 09/08/24 09/08/24 Range/Units 12:58 12:58 12:58 WBC 8.1 (3.8-10.6) k/uL RBC 3.25 L (4.30-5.90) m/uL Hgb 11.5 L (13.0-17.5) gm/dL Hct 34.8 L (39.0-53.0) % MCV 107.0 H (80.0-100.0) fL MCH 35.3 H (25.0-35.0) pg MCHC 32.9 (31.0-37.0) g/dL RDW 13.9 (11.5-15.5) % Plt Count 168 (150-450) k/uL MPV 9.8 Neutrophils % 82 % Lymphocytes % 7 % Monocytes % 7 % Eosinophils % 2 % Basophils % 0 % Neutrophils # 6.6 (1.3-7.7) k/uL Lymphocytes # 0.6 L (1.0-4.8) k/uL Monocytes # 0.6 (0-1.0) k/uL Eosinophils # 0.2 (0-0.7) k/uL Basophils # 0.0 (0-0.2) k/uL Macrocytosis Moderate PT 10.3 (10.0-12.5) sec INR 0.9 (<1.2) APTT 26.9 (22.0-30.0) sec Sodium 133 L (137-145) mmol/L Potassium 4.2 (3.5-5.1) mmol/L Chloride 100 (98-107) mmol/L Carbon Dioxide 27 (22-30) mmol/L Anion Gap 6 mmol/L BUN 14 (9-20) mg/dL Creatinine 0.61 L (0.66-1.25) mg/dL Est GFR (CKD-EPI)AfAm >90 (>60 ml/min/1.73 sqM) Est GFR (CKD-EPI)NonAf >90 (>60 ml/min/1.73 sqM) Glucose 127 H (74-99) mg/dL Plasma Lactic Acid James (0.7-2.0) mmol/L Calcium 9.1 (8.4-10.2) mg/dL Magnesium 1.7 (1.6-2.3) mg/dL Total Bilirubin 0.9 (0.2-1.3) mg/dL AST 24 (17-59) U/L ALT 11 (4-49) U/L Alkaline Phosphatase 117 (38-126) U/L Troponin I (0.000-0.034) ng/mL NT-Pro-B Natriuret Pep 2730 pg/mL Total Protein 6.5 (6.3-8.2) g/dL Albumin 3.5 (3.5-5.0) g/dL 09/08/24 09/08/24 Range/Units 12:58 12:58 WBC (3.8-10.6) k/uL RBC (4.30-5.90) m/uL Hgb (13.0-17.5) gm/dL Hct (39.0-53.0) % MCV (80.0-100.0) fL MCH (25.0-35.0) pg MCHC (31.0-37.0) g/dL RDW (11.5-15.5) % Plt Count (150-450) k/uL MPV Neutrophils % % Lymphocytes % % Monocytes % % Eosinophils % % Basophils % % Neutrophils # (1.3-7.7) k/uL Lymphocytes # (1.0-4.8) k/uL Monocytes # (0-1.0) k/uL Eosinophils # (0-0.7) k/uL Basophils # (0-0.2) k/uL Macrocytosis PT (10.0-12.5) sec INR (<1.2) APTT (22.0-30.0) sec Sodium (137-145) mmol/L Potassium (3.5-5.1) mmol/L Chloride (98-107) mmol/L Carbon Dioxide (22-30) mmol/L Anion Gap mmol/L BUN (9-20) mg/dL Creatinine (0.66-1.25) mg/dL Est GFR (CKD-EPI)AfAm (>60 ml/min/1.73 sqM) Est GFR (CKD-EPI)NonAf (>60 ml/min/1.73 sqM) Glucose (74-99) mg/dL Plasma Lactic Acid James 1.8 (0.7-2.0) mmol/L Calcium (8.4-10.2) mg/dL Magnesium (1.6-2.3) mg/dL Total Bilirubin (0.2-1.3) mg/dL AST (17-59) U/L ALT (4-49) U/L Alkaline Phosphatase (38-126) U/L Troponin I <0.012 (0.000-0.034) ng/mL NT-Pro-B Natriuret Pep pg/mL Total Protein (6.3-8.2) g/dL Albumin (3.5-5.0) g/dL Disposition <Tara Schreiber - Last Filed: 09/08/24 13:12> Time of Disposition: 15:28 <Rei Baig - Last Filed: 09/08/24 15:28> Clinical Impression: Atrial fibrillation with rapid ventricular response, Pulmonary edema Disposition: ADMITTED IP TO THIS HOSP Referrals: Ethan Mccarthy MD [Primary Care Provider] - 1-2 days
[2024-09-08 13:24] LABS: INR 0.9 (<1.2); Partial Thromboplastin Time 26.9 sec (22.0-30.0); Prothrombin Time 10.3 sec (10.0-12.5)
[2024-09-08 13:30] LABS: ALT 11 U/L (4-49); AST 24 U/L (17-59); African American GFR (CKD) >90 (>60 ml/min/1.73 sqM); Albumin 3.5 g/dL (3.5-5.0); Alkaline Phosphatase 117 U/L (38-126); Anion Gap 6 mmol/L; Blood Urea Nitrogen 14 mg/dL (9-20); Calcium 9.1 mg/dL (8.4-10.2); Carbon Dioxide 27 mmol/L (22-30); Chloride 100 mmol/L (98-107); Glucose 127 mg/dL (74-99); Magnesium 1.7 mg/dL (1.6-2.3); Non-African American GFR(CKD) >90 (>60 ml/min/1.73 sqM); Potassium 4.2 mmol/L (3.5-5.1); Sodium 133 mmol/L (137-145); Total Bilirubin 0.9 mg/dL (0.2-1.3); Total Protein 6.5 g/dL (6.3-8.2)
[2024-09-08 13:38] LABS: NT-Pro-B-Type Natriuretic Pept 2730 pg/mL
[2024-09-08] MEDS ORDERED: Magnesium Replacement Protocol 1 EACH MISC MISCELLANE PRN (15:58)
[2024-09-08] MEDS: MAGNESIUM SULFATE-D5W PMX 1 GM in DEXTROSE/WATER 1 100ML.BAG IVPB ONE (16:25)
[2024-09-08] MEDS: FUROSEMIDE 10 MG/ML 10 ML VIAL IV STA (16:25)
[2024-09-08] MEDS: FUROSEMIDE 10 MG/ML 4 ML VIAL IV SCH ×2 (16:30→23:12)
[2024-09-08] MEDS ORDERED: IPRATROPIUM-ALBUTEROL 3 ML NEB INHALATION PRN (16:32)
[2024-09-08] MEDS ORDERED: ALBUTEROL NEBULIZED 2.5 MG/3 ML INHALATION PRN (16:32)
--- NOTE | 2024-09-08 16:33 | P.HPIM ---
History of Present Illness H&P Date: 09/08/24 Patient is a 69-year-old male with medical history of persistent A-fib on Xarelto with history of ablation that was complicated by 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, HFpEF, COPD not on home oxygen, BUCKY, chronic anemia, macrocytic, who presented to the ER with SOB that started several weeks ago, he describes difficulties breathing while laying down, he has been sleeping in a sitting position for the past several days, he is short of breath on exertion. He does not check his weight daily as he supposed to, he states that he usually feels fine when his weight is at 210 215 LB. He has been compliant with his Lasix, states that he takes 20 mg p.o. 3 times daily, his metoprolol was adjusted by his bicycle technician Dr. Reis, now states that he takes 50 3 times daily. He does not follow a specific diet, however states that he adds salt quite a bit, we did discuss that recommended salt intake per him and his up to 2 g of salt a day. He does not drink too much fluids, actually states that he is probably not drinking enough. He denies any worsening of his lower extremity swelling, usually right LE is a little bit more swollen, currently at baseline. No wheezing, fevers, chills, sick contacts, abdominal pain, dysuria, bowel habit changes. On admission afebrile, heart rate in 119, blood pressure 102/69, SpO2 98 on room air. Blood work significant for normal WBC, hemoglobin 11.5, around baseline, elevated MCV 107, normal coagulation panel, sodium 133, potassium 4.2, bicarb normal, creatinine 0.61, blood glucose 127, magnesium 1.7, AST and ALT normal, troponin negative, BNP 2720 EKG showed A-fib with RVR, no acute ischemic changes. Chest x-ray independently interpreted showed cardiomegaly, and pulmonary vascular congestion Pertinent positives and negatives as discussed in HPI, a complete review of systems was performed and all other systems are negative. Patient seen and examined at bedside. Vital signs reviewed General: nontoxic, no distress, appears at stated age Derm: warm, dry Head: atraumatic, normocephalic, symmetric Eyes: EOMI, no lid lag, anicteric sclera, pupils equal round reactive to light ENT: Nose and ears atraumatic Neck: No thyromegaly, supple Mouth: no lip lesion, mucus membranes moist Cardiovascular: S1S2 irreg, no murmur, bilateral trace lower extremity edema Lungs: clear to auscultation bilateral, diminished bibasilar breath sounds, no rhonchi, no rales, no wheeze, no accessory muscle use Abdominal: soft, nontender to palpation, no guarding, no appreciable organomegaly Ext: no gross muscle atrophy, muscle strength muscle strength 5 out of 5 in all 4 extremities, no contractures, Neuro: CN II-XII grossly intact Psych: Alert, oriented, appropriate affect Assessment/Plan: persistent A-fib with RVR on Xarelto history of ablation that was complicated by 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 HFpEF exacerbation -Cardiology consulted, appreciate recommendations -TTE ordered -Continue IV Lasix 40 every 8 hours -Monitor strict I's and O's, daily weights, EDW 215 -Monitor BMP daily, monitor magnesium -Medication reconciliation is pending, in the meantime we will order metoprolol tartrate 50 oral 3 times daily -Continue Xarelto 20 nightly -Cepheid ordered, pending -Dietitian consulted for CHF diet COPD not on home oxygen,not in exacerbation BUCKY not on CPAP chronic anemia, macrocytic, -Med rec is pending, albuterol 1 puff 4 times daily as needed, DuoNebs as needed The patient is admitted with an anticipated [greater] than 2 midnight stay as [inpatient/] status for evaluation of A-fib with RVR, CHF exacerbation. CODE STATUS full code DVT prophylaxis: Xarelto Anticipated discharge date: TBD Anticipated discharge place: [facility] A total of 41 minutes was spent on the care of this complex patient more than 50% of the time was spent in counseling and care coordination. Past Medical History Past Medical History: Atrial Fibrillation, Asthma, COPD, Deep Vein Thrombosis (DVT), GERD/Reflux, Hyperlipidemia, Memory Impairment, Pulmonary Embolus (PE), Sleep Apnea/CPAP/BIPAP Additional Past Medical History / Comment(s): Cardiac tamponade, cardiac arrest possible tia, no cpap used History of Any Multi-Drug Resistant Organisms: None Reported Past Surgical History: Back Surgery, Cardiac Ablation Additional Past Surgical History / Comment(s): Deviated septum repair, spinal fusion, "skin grafts to bilateral arms and above bilateral hips", pain clinic procedures Past Anesthesia/Blood Transfusion Reactions: No Reported Reaction Past Psychological History: Anxiety Smoking Status: Former smoker Past Alcohol Use History: Daily Past Drug Use History: Marijuana - Past Family History Mother Family Medical History: Diabetes Mellitus, Hypertension Father History Unknown: Yes Additional Family Medical History / Comment(s): Father left when pt was 2 yrs old. Medications and Allergies Home Medications Medication Instructions Recorded Confirmed Type Hydrocodone/Acetaminophen [[place] 1 tab PO 5XD PRN 01/02/18 03/28/24 History 7.5-325] lamoTRIgine [LaMICtal] 50 mg PO DAILY 01/02/18 03/28/24 History risperiDONE [RisperDAL] 1 mg PO DAILY 01/02/18 03/28/24 History Budesonide/Formoterol Fumarate 2 puff INHALATION RT-BID PRN 10/08/18 03/28/24 History [Symbicort 160-4.5 Mcg Inhaler] Albuterol Inhaler [Ventolin Hfa 1 - 2 puff INHALATION RT-QID PRN 03/05/20 03/28/24 History Inhaler] Rivaroxaban [Xarelto] 20 mg PO HS 03/05/20 03/28/24 History allopurinoL [Zyloprim] 100 mg PO BID 04/21/20 03/28/24 History Omeprazole 20 mg PO DAILY 06/07/20 03/28/24 History Aspirin 81 mg PO HS 07/19/20 03/28/24 History lamoTRIgine [LaMICtal] 50 mg PO HS 07/19/20 03/28/24 History Cholecalciferol [Vitamin D3 (25 50 mcg PO DAILY 03/14/22 03/28/24 History Mcg = 1000 Iu)] Cyclobenzaprine [Flexeril] 10 mg PO DAILY PRN 03/14/22 03/28/24 History Metoprolol Succinate [Metoprolol 25 mg PO BID 03/14/22 03/28/24 History Succinate ER] Furosemide [Lasix] 20 mg PO DAILY #30 tab 03/16/22 03/28/24 Rx Allergies Allergy/AdvReac Type Severity Reaction Status Date / Time varenicline [From Chantix] AdvReac IRRITABLE/A Verified 09/08/24 16:32 NGER Physical Exam Vitals: Vital Signs Temp Pulse Resp BP Pulse Ox 09/08/24 16:07 103 H 20 117/83 99 09/08/24 12:45 97.7 F 110 H 18 98/63 98 Intake and Output 09/08/24 09/08/24 09/08/24 06:59 14:59 22:59 Other: Weight 97.522 kg Results CBC & Chem 7: 09/08/24 12:58 09/08/24 12:58 Labs: Abnormal Lab Results - Last 24 Hours (Table) 09/08/24 09/08/24 Range/Units 12:58 12:58 RBC 3.25 L (4.30-5.90) m/uL Hgb 11.5 L (13.0-17.5) gm/dL Hct 34.8 L (39.0-53.0) % MCV 107.0 H (80.0-100.0) fL MCH 35.3 H (25.0-35.0) pg Lymphocytes # 0.6 L (1.0-4.8) k/uL Sodium 133 L (137-145) mmol/L Creatinine 0.61 L (0.66-1.25) mg/dL Glucose 127 H (74-99) mg/dL
[2024-09-08 17:23] LABS: Influenza A Not Detected (Not Detectd); Influenza B Not Detected (Not Detectd); RSV Not Detected (Not Detectd)
[2024-09-08] MEDS: METOPROLOL TARTRATE 50 MG TAB PO SCH (21:25)
[2024-09-08] MEDS: RIVAROXABAN 20 MG TAB PO SCH (21:26)
[2024-09-08] MEDS: HYDROcodone/APAP 7.5-325MG 1 EACH TAB PO PRN (23:12)
[2024-09-09 06:57] LABS: HCT 34.4 % (39.0-53.0); HGB 11.4 gm/dL (13.0-17.5); Hypochromasia Slight; MCHC 33.2 g/dL (31.0-37.0); MCV 108.3 fL (80.0-100.0); Macrocytosis Marked; Mean Platelet Volume 9.8; Platelet Count 149 k/uL (150-450); RBC 3.17 m/uL (4.30-5.90); RDW 13.9 % (11.5-15.5); WBC 3.7 k/uL (3.8-10.6)
--- NOTE | 2024-09-09 07:06 | P.CRDCN ---
History of Present Illness Consult date: 09/09/24 History of present illness: The patient is a pleasant 69-year-old gentleman who is known to our service from before with a past medical history significant for history of persistent atrial fibrillation with history of atrial fibrillation ablation as well as heart failure with preserved ejection fraction HFpEF as well as multiple comorbid conditions who was admitted to the hospital with heart failure. The patient presented to the hospital with progressive exertional dyspnea with no orthopnea or PND and no symptoms of any edema in the lower extremities but he was having upper respiratory congestions. No fever and no chills. No cough or sputum production. He was compliant with his medications including the current dose of Lasix orally at home and he also was compliant with oral anticoagulation for the atrial fibrillation. He was diagnosed with heart failure and he was started on IV Lasix with improvement in his shortness of breath significantly. As lizbeth er-of-fact when he was seen and evaluated this morning he is euvolemic and he is not hypoxic and no edema was noted with clear breathing sounds bilaterally and currently is not on oxygen. An echocardiogram was performed in the emergency department but the results still pending. The EKG showed atrial fibrillation with controlled heart rate and diffuse nonspecific ST and T wave abnormalities with chest x-ray showed finding consistent with heart failure. NT proBNP came to be around 3000. The physical examination is remarkable for irregular rhythm with a systolic murmur at the right upper sternal border with clear breathing sounds bilaterally and no edema was noted in the lower extremities Assessment HFrEF exacerbation Atrial fibrillation with controlled heart rate Multiple comorbid conditions Plan Continue the current medical regimen Possible discharge later on today if the echo showed no significant finding Continue oral anticoagulation Continue AV valarie berlin agents Follow-up with the patient Past Medical History Past Medical History: Atrial Fibrillation, Asthma, COPD, Deep Vein Thrombosis (DVT), GERD/Reflux, Hyperlipidemia, Memory Impairment, Pulmonary Embolus (PE), Sleep Apnea/CPAP/BIPAP Additional Past Medical History / Comment(s): Cardiac tamponade, cardiac arrest possible tia, no cpap used History of Any Multi-Drug Resistant Organisms: None Reported Past Surgical History: Back Surgery, Cardiac Ablation Additional Past Surgical History / Comment(s): Deviated septum repair, spinal fusion, "skin grafts to bilateral arms and above bilateral hips", pain clinic procedures Past Anesthesia/Blood Transfusion Reactions: No Reported Reaction Past Psychological History: Anxiety Additional Psychological History / Comment(s): Pt resides with his spouse. He uses no assistive device. He drives. Smoking Status: Former smoker Past Alcohol Use History: Daily Additional Past Alcohol Use History / Comment(s): Quit smoking 10-08-2018. Started smoking at age 35, 0.5ppd. Pt drinks 2 beers a day.or every other day Past Drug Use History: Marijuana Additional Drug Use History / Comment(s): Has [employer] Marijuana card-uses occasionally. - Past Family History Mother Family Medical History: Diabetes Mellitus, Hypertension Father History Unknown: Yes Additional Family Medical History / Comment(s): Father left when pt was 2 yrs old. Medications and Allergies Home Medications Medication Instructions Recorded Confirmed Type Hydrocodone/Acetaminophen [[place] 1 tab PO QID PRN 01/02/18 09/08/24 History 7.5-325] risperiDONE [RisperDAL] 1 mg PO DAILY 01/02/18 09/08/24 History Rivaroxaban [Xarelto] 20 mg PO W/SUPPER 03/05/20 09/08/24 History allopurinoL [Zyloprim] 100 mg PO BID 04/21/20 09/08/24 History Omeprazole 20 mg PO DAILY 06/07/20 09/08/24 History lamoTRIgine [LaMICtal] 100 mg PO BID 07/19/20 09/08/24 History Cyclobenzaprine [Flexeril] 10 mg PO HS 03/14/22 09/08/24 History Atorvastatin [Lipitor] 40 mg PO HS 09/08/24 09/08/24 History Furosemide [Lasix] 20 mg PO TID 09/08/24 09/08/24 History Metoprolol Tartrate [Lopressor] 50 mg PO TID-W/MEALS 09/08/24 09/08/24 History Allergies Allergy/AdvReac Type Severity Reaction Status Date / Time varenicline [From Chantix] AdvReac IRRITABLE/A Verified 09/08/24 16:32 NGER Physical Exam Vitals: Vital Signs Temp Pulse Pulse Resp BP BP Pulse Ox 09/09/24 03:21 97.7 F 85 17 102/70 97 09/08/24 23:11 98.1 F 17 107/61 98 09/08/24 19:55 105 H 18 100/65 100 09/08/24 18:01 112 H 20 107/73 100 09/08/24 16:07 103 H 20 117/83 99 09/08/24 12:45 97.7 F 110 H 18 98/63 98 Intake and Output 09/08/24 09/09/24 09/09/24 22:59 06:59 14:59 Intake Total 600 Output Total 1450 700 Balance -850 -700 Intake: Oral 600 Output: Urine 1450 700 Other: Voiding Method Toilet Toilet Urinal Urinal # Voids 1 Weight 97.522 kg 99.2 kg Results 09/08/24 12:58 09/08/24 12:58 Cardiac Enzymes 09/08/24 09/08/24 Range/Units 12:58 12:58 AST 24 (17-59) U/L Troponin I <0.012 (0.000-0.034) ng/mL Coagulation 09/08/24 Range/Units 12:58 PT 10.3 (10.0-12.5) sec APTT 26.9 (22.0-30.0) sec CBC 09/08/24 Range/Units 12:58 WBC 8.1 (3.8-10.6) k/uL RBC 3.25 L (4.30-5.90) m/uL Hgb 11.5 L (13.0-17.5) gm/dL Hct 34.8 L (39.0-53.0) % Plt Count 168 (150-450) k/uL Comprehensive Metabolic Panel 09/08/24 Range/Units 12:58 Sodium 133 L (137-145) mmol/L Potassium 4.2 (3.5-5.1) mmol/L Chloride 100 (98-107) mmol/L Carbon Dioxide 27 (22-30) mmol/L BUN 14 (9-20) mg/dL Creatinine 0.61 L (0.66-1.25) mg/dL Glucose 127 H (74-99) mg/dL Calcium 9.1 (8.4-10.2) mg/dL AST 24 (17-59) U/L ALT 11 (4-49) U/L Alkaline Phosphatase 117 (38-126) U/L Total Protein 6.5 (6.3-8.2) g/dL Albumin 3.5 (3.5-5.0) g/dL Current Medications Generic Name Dose Route Start Last Admin Trade Name Freq PRN Reason Stop Dose Admin Hydrocodone Bitart/Acetaminophen 1 each 09/08/24 21:45 09/08/24 23:12 Hydrocodone/Apap 7.5-325mg 1 Each Tab PO 1 each QID PRN Administration Pain Albuterol/Ipratropium 3 ml 09/08/24 16:32 Ipratropium-Albuterol 3 Ml Neb INHALATION RT-QID PRN Shortness Of Breath Or Wheezing Furosemide 40 mg 09/09/24 00:00 09/08/24 23:12 Furosemide 10 Mg/Ml 4 Ml Vial IV 40 mg Q8HR KIRILL Administration Metoprolol Tartrate 50 mg 09/08/24 22:00 09/08/24 21:25 Metoprolol Tartrate 50 Mg Tab PO 50 mg TID KIRILL Administration Miscellaneous Information 1 each 09/08/24 15:58 Magnesium Replacement Protocol 1 Each Misc MISCELLANE DAILY PRN Per Protocol Protocol Rivaroxaban 20 mg 09/08/24 21:00 09/08/24 21:26 Rivaroxaban 20 Mg Tab PO 20 mg HS KIRILL Administration Protocol Intake and Output 09/08/24 09/09/24 09/09/24 22:59 06:59 14:59 Intake Total 600 Output Total 1450 700 Balance -850 -700 Intake: Oral 600 Output: Urine 1450 700 Other: Voiding Method Toilet Toilet Urinal Urinal # Voids 1 Weight 97.522 kg 99.2 kg 09/08/24 12:58 09/08/24 12:58
[2024-09-09 07:19] LABS: African American GFR (CKD) >90 (>60 ml/min/1.73 sqM); Anion Gap 4 mmol/L; Blood Urea Nitrogen 10 mg/dL (9-20); Calcium 8.6 mg/dL (8.4-10.2); Carbon Dioxide 30 mmol/L (22-30); Chloride 102 mmol/L (98-107); Glucose 98 mg/dL (74-99); Magnesium 1.9 mg/dL (1.6-2.3); Non-African American GFR(CKD) >90 (>60 ml/min/1.73 sqM); Potassium 3.3 mmol/L (3.5-5.1); Sodium 136 mmol/L (137-145)
[2024-09-09 09:09] VITALS: RESP 18; TEMP 97.9
[2024-09-09] MEDS: risperiDONE 1 MG TAB PO SCH (09:09)
[2024-09-09] MEDS: lamoTRIgine 100 MG TAB PO SCH (09:09)
[2024-09-09] MEDS: POTASSIUM CHLORIDE ER 20 MEQ TAB.ER PO STA (09:09)
--- NOTE | 2024-09-09 11:07 | CA ---
Transthoracic Echo Report Name: Escobar Martinez Age: 69 Gender: M : 1955 Exam Date: 09/08/2024 16:46 Exam Location: [facility] Ht (in): 72 Wt (lb): 215 Ordering Physician: Varsha Summers MD Attending/Referring Phys: [employer]arer [employer] Dafne Norwood RDCS Procedure CPT: Indications: afib, chf Cardiac Hx: hx of CABG Technical Quality: Technically difficult study Contrast 1: Definity Total Dose (mL): 2 Contrast 2: Total Dose (mL): MEASUREMENTS (Male / Female) Normal Values 2D ECHO LV Diastolic Diameter PLAX 5.0 cm 4.2 - 5.9 / 3.9 - 5.3 cm LV Systolic Diameter PLAX 3.6 cm IVS Diastolic Thickness 1.4 cm 0.6 - 1.0 / 0.6 - 0.9 cm LVPW Diastolic Thickness 1.5 cm 0.6 - 1.0 / 0.6 - 0.9 cm LV Relative Wall Thickness 0.6 RV Internal Dim ED PLAX 2.9 cm LA Systolic Diameter LX 4.1 cm 3.0 - 4.0 / 2.7 - 3.8 cm M-MODE Aortic Root Diameter MM 4.0 cm DOPPLER AV Peak Velocity 109.4 cm/s AV Peak Gradient 4.8 mmHg MV Area PHT 8.5 cm??? TR Peak Velocity 245.7 cm/s TR Peak Gradient 24.2 mmHg Right Ventricular Systolic Press 34.2 mmHg FINDINGS Left Ventricle Left ventricular ejection fraction is estimated at45 %. Left ventricular cavity size normal. Moderate concentric left ventricular hypertrophy. Right Ventricle Mild right ventricular dilatation. Borderline PHTN Right Atrium Right atrial dilatation. Left Atrium Mildly increased left atrial diameter. No left atrial thrombus or mass present. Mitral Valve Structurally normal mitral valve. No mitral stenosis. No evidence for mitral valve prolapse. [id number] mitral regurgitation. Aortic Valve Trileaflet aortic valve. Thickened aortic valve without stenosis. Tricuspid Valve Structurally normal tricuspid valve. Mild tricuspid regurgitation. Pulmonic Valve Pulmonic valve not well visualized. Pericardium No pericardial effusion. Aorta Mild aortic dilatation at the level of the sinuses of valsalva 40 mm CONCLUSIONS Mild LV systolic dysfunction with an ejection fraction of 45% Mild to moderate mitral regurgitation Mildly dilated aortic root measuring 4 cm Previewed by: Dr. Jalil Reis MD (Electronically Signed) Final Date: 09 September 2024 11:06
[2024-09-09] MEDS: PANTOPRAZOLE 40 MG TABLET PO SCH (11:16)
[2024-09-09 11:27] VITALS: BMI 29.6
[2024-09-09 12:41] VITALS: BP 110/65; PULSE 99
--- NOTE | 2024-09-09 12:59 | P.DS ---
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 HFmrEF exacerbation COPD not on home oxygen,not in exacerbation BUCKY not on CPAP mildly dilated aortic root 4 cm Hospital Course: Patient is a 69-year-old male with medical history of persistent A-fib on Xarelto with history of ablation that was complicated by perforation of the r ight atrium requiring surgery, HFpEF, COPD not on home oxygen, BUCKY, chronic anemia, macrocytic, who presented to the ER with SOB that started several weeks ago, he describes difficulties breathing while laying down, he has been sleeping in a sitting position for the past several days, he is short of breath on exertion. He does not check his weight daily as he supposed to, he states that he usually feels fine when his weight is at 210 215 LB. He has been compliant with his Lasix, states that he takes 20 mg p.o. 3 times daily, his metoprolol was adjusted by his mining consultant Dr. Reis, now states that he takes 50 3 times daily. He does not follow a specific diet, however states that he adds salt quite a bit, we did discuss that recommended salt intake per him and his up to 2 g of salt a day. He does not drink too much fluids, actually states that he is probably not drinking enough. He denies any worsening of his lower extremity swelling, usually right LE is a little bit more swollen, currently at baseline. No wheezing, fevers, chills, sick contacts, abdominal pain, dysuria, bowel habit changes. On admission afebrile, heart rate in 119, blood pressure 102/69, SpO2 98 on room air. Blood work significant for normal WBC, hemoglobin 11.5, around baseline, elevated MCV 107, normal coagulation panel, sodium 133, potassium 4.2, bicarb normal, creatinine 0.61, blood glucose 127, magnesium 1.7, AST and ALT normal, troponin negative, BNP 2720 EKG showed A-fib with RVR, no acute ischemic changes. Chest x-ray independently interpreted showed cardiomegaly, and pulmonary vascular congestion Cardiology consulted, patient was continued on IV Lasix 40 3 times daily, TTE was obtained and showed EF of 45%, mild to moderate mitral regurgitation, mildly dilated aortic root 4 cm Patient remained on room air with stable blood pressure, heart rate improved. He will be continued on his home metoprolol tartrate 50 3 times daily, Lasix dose was increased from 20 3 times daily to 40 3 times daily overall, added potassium supplementation, recommended to follow-up with primary care physician in the next couple days, follow-up with mining consultant. He was also provided with diet recommendations, instructed to check daily weight and blood pressure, keep a log of the readings. EDW 215 Vital signs reviewed and stable. General: nontoxic, no distress, appears at stated age Derm: warm, dry Head: atraumatic, normocephalic, symmetric Eyes: EOMI, no lid lag, anicteric sclera, pupils equal round reactive to light ENT: Nose and ears atraumatic Neck: No thyromegaly, supple Mouth: no lip lesion, mucus membranes moist Cardiovascular: S1S2 irreg, no murmur, bilateral trace lower extremity edema Lungs: clear to auscultation bilateral, diminished bibasilar breath sounds, no rhonchi, no rales, no wheeze, no accessory muscle use Abdominal: soft, nontender to palpation, no guarding, no appreciable organomegaly Ext: no gross muscle atrophy, muscle strength muscle strength 5 out of 5 in all 4 extremities, no contractures, Neuro: CN II-XII grossly intact Psych: Alert, oriented, appropriate affect A total of 45 minutes of time were spent preparing this complex discharge summary. Patient was discharged on 09/09/2024. Plan - Discharge Summary Discharge Rx Participant: Yes New Discharge Prescriptions: New Potassium Chloride [Klor-Con M20] 20 meq PO DAILY #30 tab Continue risperiDONE [RisperDAL] 1 mg PO DAILY Hydrocodone/Acetaminophen [[place] 7.5-325] 1 tab PO QID PRN PRN Reason: Pain Rivaroxaban [Xarelto] 20 mg PO W/SUPPER allopurinoL [Zyloprim] 100 mg PO BID Omeprazole 20 mg PO DAILY lamoTRIgine [LaMICtal] 100 mg PO BID Metoprolol Tartrate [Lopressor] 50 mg PO TID-W/MEALS Cyclobenzaprine [Flexeril] 10 mg PO HS Atorvastatin [Lipitor] 40 mg PO HS Changed Furosemide [Lasix] 40 mg PO TID #120 tab Discharge Medication List Hydrocodone/Acetaminophen [[place] 7.5-325] 1 tab PO QID PRN 01/02/18 [History] risperiDONE [RisperDAL] 1 mg PO DAILY 01/02/18 [History] Rivaroxaban [Xarelto] 20 mg PO W/SUPPER 03/05/20 [History] allopurinoL [Zyloprim] 100 mg PO BID 04/21/20 [History] Omeprazole 20 mg PO DAILY 06/07/20 [History] lamoTRIgine [LaMICtal] 100 mg PO BID 07/19/20 [History] Cyclobenzaprine [Flexeril] 10 mg PO HS 03/14/22 [History] Atorvastatin [Lipitor] 40 mg PO HS 09/08/24 [History] Metoprolol Tartrate [Lopressor] 50 mg PO TID-W/MEALS 09/08/24 [History] Furosemide [Lasix] 40 mg PO TID #120 tab 09/09/24 [Rx] Potassium Chloride [Klor-Con M20] 20 meq PO DAILY #30 tab 09/09/24 [Rx] Follow up Appointment(s)/Referral(s): Ethan Mccarthy MD [Primary Care Provider] - 1-2 days Patient Instructions/Handouts: Heart Failure (DC), Low-Sodium Diet (DC) Activity/Diet/Wound Care/Special Instructions: Please, follow-up with your primary care physician and mining consultant. Check your weight daily around the same time every morning, please keep a log of your readings. Your weight at discharge is 99.2 kg which is equal to 218 pounds, you mentioned that your dry weight is around 215. Please watch your salt intake, no more than 2 g/day, follow-up diet recommendations provided in the AVS Monitor your blood pressure, keep log of the readings to discuss with your primary care physician and mining consultant. Your Lasix dose was increased to 40 mg 3 times daily, please make sure you notify your primary care physician and mining consultant, the dose might need adjustment in the outpatient settings. Please, follow-up with your primary care physician sometime this week Discharge Disposition: HOME SELF-CARE
[2024-09-09] MEDS ORDERED: ATORVASTATIN 40 MG TAB PO SCH (21:00)
[2024-09-09] MEDS ORDERED: CYCLOBENZAPRINE 10 MG TAB PO SCH (21:00)
== END 2024-09-09 14:16 | disposition home or self-care (01) | DRG 292 ==
LOC: EC 12:31 → 3SCARD 15:29
PROVIDERS: ADMIT Student in an Organized Health Care Education/Training Program; ATTEND Student in an Organized Health Care Education/Training Program
DX: I50.21 Acute systolic (congestive) heart failure (principal); I48.19 Other persistent atrial fibrillation; Z86.74 Personal history of sudden cardiac arrest; Z79.01 Long term (current) use of anticoagulants; D53.9 Nutritional anemia, unspecified; J44.9 Chronic obstructive pulmonary disease, unspecified; I77.810 Thoracic aortic ectasia; I08.1 Rheumatic disorders of both mitral and tricuspid valves; Z11.52 Encounter for screening for COVID-19; G47.33 Obstructive sleep apnea (adult) (pediatric); F41.9 Anxiety disorder, unspecified; E78.5 Hyperlipidemia, unspecified; Z79.51 Long term (current) use of inhaled steroids; Z79.82 Long term (current) use of aspirin; Z79.899 Other long term (current) drug therapy; Z82.49 Family history of ischemic heart disease and other diseases of the circulatory system; Z86.711 Personal history of pulmonary embolism; Z87.891 Personal history of nicotine dependence; Z98.1 Arthrodesis status; Z88.8 Allergy status to other drugs, medicaments and biological substances; K21.9 Gastro-esophageal reflux disease without esophagitis
CPT/HCPCS: 36415; 71046; 80048; 80053; 83605; 83735; 83880; 84484; 85025; 85610; 85730; 87636; 93005; 93306; 96365; 96375; 99285

== ENCOUNTER → 2024-10-03 | Outpatient (CLI) | payer MEDICARE ==
--- NOTE | 2024-10-03 12:59 | MR ---
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 TECHNIQUE: Multiplanar, multisequence images of the lumbar spine were acquired without IV contrast. FINDINGS: Postsurgical change L4-S1 posterior and interbody lumbar fusion with corresponding laminectomies. Vertebral body heights are preserved and alignment is maintained. No suspicious bone marrow replacement. Mild degenerative disc disease characterized by some variable desiccation and mild bulging along the nonfused levels. There is a component of congenital spinal canal narrowing especially in the mid lumbar spine which is narrowed down to 9 mm AP canal dimension. However, there is superimposed dorsal epidural lipomatosis which further compresses the thecal sac to varying degrees. Conus medullaris is normal. There is overall mild narrowing of the spinal canal/thecal sac at L1-L2 due to disc bulge and dorsal epidural fat. At L2/L3, mild congenital spinal canal narrowing. At L3-L4 directly above the fusion, there is combination of diffuse disc bulge with congenital canal stenosis, ligamentum flavum thickening, hypertrophic facet arthropathy, and dorsal epidural fat. This contribute to moderate to severe focal thecal sac compression. Barely any CSF signal is seen between the nerve roots at this level. No significant neuroforaminal stenosis. The spinal canal is patent at the fused L4-L5 and L5-S1 levels. No significant neuroforaminal narrowi ng here. IMPRESSION: 1. Previous L4-S1 posterior and interbody lumbar fusion with laminectomy change decompressing the spi nal canal here. 2. Overall appearance is relatively similar to minimally progressed from 2015. 3. 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 This contributes to moderate to severe focal thecal sac compression directly above the fusion at L3-L4. 4. Mild level degenerative disc disease. Hypertrophic facet arthropathy and ligamentum flavum thicken ing also along the nonfused levels especially L3-L4. [facility], , 10/03/2024 12:57 PM
== END | disposition home or self-care (01) ==
LOC: RADMRIMAIN 11:17
PROVIDERS: ATTEND Specialist
DX: M51.16 Intervertebral disc disorders with radiculopathy, lumbar region (principal); M47.26 Other spondylosis with radiculopathy, lumbar region
CPT/HCPCS: 72148

== ENCOUNTER 2024-10-06 07:33 | Inpatient (IN) | payer MEDICARE ==
[2024-10-06 08:06] LABS: Basophils # (A) 0.05 10*3/uL (0.00-0.10); Eosinophils % (A) 7.7 %; HGB 12.5 g/dL (13.0-17.0); Lymphocytes # (A) 1.44 10*3/uL (0.90-5.00); Lymphocytes % (A) 27.7 %; MCH 36.2 pg (27.0-32.0); MCHC 35.7 g/dL (32.0-37.0); MCV 101.4 fL (80.0-97.0); Mean Platelet Volume 11.8 fL (9.5-12.2); Monocytes # (A) 0.57 10*3/uL (0.20-1.00); Neutrophils # (A) 2.71 10*3/uL (1.80-7.70); Neutrophils % (A) 52.2 %; Platelet Count 150 10*3/uL (140-440); RBC 3.45 10*6/uL (4.40-5.60); RDW 13.4 % (11.5-14.5); WBC 5.19 10*3/uL (4.50-10.00)
--- NOTE | 2024-10-06 08:17 | ED ---
General Adult HPI - General Chief complaint: Shortness of Breath Stated complaint: SOB Time Seen by Provider: 10/06/24 07:39 Source: patient, RN notes reviewed, old records reviewed Mode of arrival: ambulatory Limitations: no limitations - History of Present Illness Initial comments: 69-year-old male history of atrial fibrillation, CHF presenting with worsening dyspnea over the past several days. Patient states this is worse with lying flat. He denies lower extremity swelling or pain. Denies fever. He reports mild cough. History of COPD as well as CHF. No central chest pain. Patient is on Xarelto. - Related Data Home Medications Medication Instructions Recorded Confirmed Hydrocodone/Acetaminophen [[place] 1 tab PO QID PRN 01/02/18 09/08/24 7.5-325] risperiDONE [RisperDAL] 1 mg PO DAILY 01/02/18 09/08/24 Rivaroxaban [Xarelto] 20 mg PO W/SUPPER 03/05/20 09/08/24 allopurinoL [Zyloprim] 100 mg PO BID 04/21/20 09/08/24 Omeprazole 20 mg PO DAILY 06/07/20 09/08/24 lamoTRIgine [LaMICtal] 100 mg PO BID 07/19/20 09/08/24 Cyclobenzaprine [Flexeril] 10 mg PO HS 03/14/22 09/08/24 Atorvastatin [Lipitor] 40 mg PO HS 09/08/24 09/08/24 Metoprolol Tartrate [Lopressor] 50 mg PO TID-W/MEALS 09/08/24 09/08/24 Previous Rx's Medication Instructions Recorded Furosemide [Lasix] 40 mg PO TID #120 tab 09/09/24 Potassium Chloride [Klor-Con M20] 20 meq PO DAILY #30 tab 09/09/24 Allergies Allergy/AdvReac Type Severity Reaction Status Date / Time varenicline [From Chantix] AdvReac IRRITABLE/A Verified 10/06/24 07:45 NGER Review of Systems ROS Statement: Those systems with pertinent positive or pertinent negative responses have been documented in the HPI. ROS Other: All systems not noted in ROS Statement are negative. Past Medical History Past Medical History: Atrial Fibrillation, Asthma, COPD, Deep Vein Thrombosis (DVT), GERD/Reflux, Hyperlipidemia, Memory Impairment, Pulmonary Embolus (PE), Sleep Apnea/CPAP/BIPAP Additional Past Medical History / Comment(s): Cardiac tamponade, cardiac arrest possible tia, no cpap used History of Any Multi-Drug Resistant Organisms: None Reported Past Surgical History: Back Surgery, Cardiac Ablation Additional Past Surgical History / Comment(s): Deviated septum repair, spinal fusion, "skin grafts to bilateral arms and above bilateral hips", pain clinic procedures Past Anesthesia/Blood Transfusion Reactions: No Reported Reaction Past Psychological History: Anxiety Smoking Status: Former smoker Past Alcohol Use History: Daily Past Drug Use History: Marijuana - Past Family History Mother Family Medical History: Diabetes Mellitus, Hypertension Father History Unknown: Yes Additional Family Medical History / Comment(s): Father left when pt was 2 yrs old. General Exam Limitations: no limitations General appearance: alert, in no apparent distress Head exam: Present: atraumatic, normocephalic Eye exam: Present: normal appearance, PERRL ENT exam: Present: mucous membranes dry Neck exam: Present: normal inspection. Absent: tenderness, meningismus Respiratory exam: Present: decreased breath sounds. Absent: respiratory distress, wheezes Cardiovascular Exam: Present: tachycardia, irregular rhythm GI/Abdominal exam: Present: soft. Absent: distended, tenderness, guarding Extremities exam: Present: normal inspection, normal capillary refill. Absent: pedal edema, calf tenderness Neurological exam: Present: alert, oriented X3 Psychiatric exam: Present: normal affect, normal mood Skin exam: Present: warm, dry, intact Course Vital Signs 10/06/24 10/06/24 10/06/24 07:41 08:52 10:16 Temperature 97.8 F Pulse Rate 110 H 106 H 105 H Respiratory 22 20 16 Rate Blood Pressure 109/76 119/73 96/69 O2 Sat by Pulse 99 95 97 Oximetry Medical Decision Making - Medical Decision Making Was pt. sent in by a medical professional or institution (, PA, [employer], urgent care, hospital, or senior living...) When possible be specific @ -No Did you speak to anyone other than the patient for history (EMS, parent, family, police, friend...)? What history was obtained from this source @ -No Did you review nursing and triage notes (agree or disagree)? Why? @ -I reviewed and agree with nursing and triage notes Were old charts reviewed (outside hosp., previous admission, EMS record, old EKG, old radiological studies, urgent care reports/EKG's, senior living records)? Report findings @ -No old charts were reviewed Differential Dyspnea: Coronary syndrome, arrhythmia, tamponade, asthma, COPD, pulmonary embolism, pneumonia, pneumothorax, pulmonary effusion, anaphylaxis, diabetic ketoacidosis, flailed chest, pulmonary contusion, diaphragmatic rupture, anemia, calvin romuscular, this is not meant to be an all-inclusive list. EKG interpreted by me (3pts min.). @ -Atrial fibrillation with RVR rate of 126, QRS duration 100, QTc [address] segment elevation. X-rays interpreted by me (1pt min.). @Chest x-ray showing cardiomegaly, right pleural effusion with central pulmonary vascular congestion CT interpreted by me (1pt min.). @ -None done U/S interpreted by me (1pt. min.). @ -None done What testing was considered but not performed or refused? (CT, X-rays, U/S, labs)? Why? @ -None What meds were considered but not given or refused? Why? @ -None Did you discuss the management of the patient with other professionals (professionals i.e. , PA, [employer], lab, RT, psych nurse, social work program coordinator, information coordinator, teacher, bank compliance officer, watch caser)? Give summary @ -[facility] Was smoking cessation discussed for >3mins.? @ -No Was critical care preformed (if so, how long)? @ -No Were there social determinants of health that impacted care today? How? (Edgar elessness, low income, unemployed, alcoholism, drug addiction, transportation, low edu. Level, literacy, decrease access to med. care, correction, rehab)? @ -No Was there de-escalation of care discussed even if they declined (Discuss DNR or withdrawal of care, Hospice)? DNR status @ -No What co-morbidities impacted this encounter? (DM, HTN, Smoking, COPD, CAD, Cancer, CVA, ARF, Chemo, Hep., AIDS, mental health diagnosis, sleep apnea, morbid obesity)? @ -[History of atrial fibrillation, CHF Was patient admitted / discharged? Hospital course, mention meds given and route, prescriptions, significant lab abnormalities, going to OR and other pertinent info. @ -69-year-old male with increased dyspnea, orthopnea, history of CHF. Chest x-ray consistent with CHF with central pulmonary vascular congestion, cardiomegaly, right pleural effusion. Patient did have a lactic acid which I suspect is from a degree of of dehydration as this patient is a daily drinker. He was given a small fluid bolus in addition to Lasix.. He will benefit from several doses of IV Lasix for diuresis. Admitted to [facility]. Undiagnosed new problem with uncertain prognosis? @ -[No Drug Therapy requiring intensive monitoring for toxicity (Heparin, Nitro, Insulin, Cardizem)? @ -No Were any procedures done? @ -No Diagnosis/symptom? @CHF Acute, or Chronic, or Acute on Chronic? @ -[Acute on chronic Uncomplicated (without systemic symptoms) or Complicated (systemic symptoms)? @ -Default Side effects of treatment? @ -No Exacerbation, Progression, or Severe Exacerbation? @ -No Poses a threat to life or bodily function? How? (Chest pain, [place], [place], pneumonia, PE, COPD, DKA, ARF, appy, cholecystitis, CVA, Diverticulitis, Homicidal, Suicidal, threat to staff... and all critical care pts) @ -Yes, respiratory failure, CHF - Lab Data Result diagrams: 10/06/24 08:01 10/06/24 08:01 Lab Results 10/06/24 10/06/24 10/06/24 Range/Units 08:01 08:01 08:01 WBC 5.19 (4.50-10.00) 10*3/uL RBC 3.45 L (4.40-5.60) 10*6/uL Hgb 12.5 L (13.0-17.0) g/dL Hct 35.0 L (39.6-50.0) % MCV 101.4 H (80.0-97.0) fL MCH 36.2 H (27.0-32.0) pg MCHC 35.7 (32.0-37.0) g/dL Plt Count 150 (140-440) 10*3/uL MPV 11.8 (9.5-12.2) fL Immature Gran % (Auto) 0.4 % Neutrophils % 52.2 % Lymphocytes % 27.7 % Monocytes % 11.0 % Eosinophils % 7.7 % Basophils % 1.0 % Immature Gran # 0.02 (0.00-0.04) 10*3/uL Neutrophils # 2.71 (1.80-7.70) 10*3/uL Lymphocytes # 1.44 (0.90-5.00) 10*3/uL Monocytes # 0.57 (0.20-1.00) 10*3/uL Eosinophils # 0.40 H (0.04-0.35) 10*3/uL Basophils # 0.05 (0.00-0.10) 10*3/uL PT 11.8 (10.0-12.5) sec INR 1.1 (<1.2) APTT 30.8 H (22.0-30.0) sec Sodium 130 L (137-145) mmol/L Potassium 3.7 (3.5-5.1) mmol/L Chloride 94 L (98-107) mmol/L Carbon Dioxide 24 (22-30) mmol/L Anion Gap 12 mmol/L BUN 14 (9-20) mg/dL Creatinine 0.65 L (0.66-1.25) mg/dL Est GFR (CKD-EPI)AfAm >90 (>60 ml/min/1.73 sqM) Est GFR (CKD-EPI)NonAf >90 (>60 ml/min/1.73 sqM) Glucose 104 H (74-99) mg/dL Plasma Lactic Acid James (0.7-2.0) mmol/L Calcium 8.9 (8.4-10.2) mg/dL Total Bilirubin 0.6 (0.2-1.3) mg/dL AST 29 (17-59) U/L ALT 11 (4-49) U/L Alkaline Phosphatase 119 (38-126) U/L Troponin I (0.000-0.034) ng/mL NT-Pro-B Natriuret Pep 1470 pg/mL Total Protein 7.2 (6.3-8.2) g/dL Albumin 4.0 (3.5-5.0) g/dL 10/06/24 10/06/24 Range/Units 08:01 08:01 WBC (4.50-10.00) 10*3/uL RBC (4.40-5.60) 10*6/uL Hgb (13.0-17.0) g/dL Hct (39.6-50.0) % MCV (80.0-97.0) fL MCH (27.0-32.0) pg MCHC (32.0-37.0) g/dL Plt Count (140-440) 10*3/uL MPV (9.5-12.2) fL Immature Gran % (Auto) % Neutrophils % % Lymphocytes % % Monocytes % % Eosinophils % % Basophils % % Immature Gran # (0.00-0.04) 10*3/uL Neutrophils # (1.80-7.70) 10*3/uL Lymphocytes # (0.90-5.00) 10*3/uL Monocytes # (0.20-1.00) 10*3/uL Eosinophils # (0.04-0.35) 10*3/uL Basophils # (0.00-0.10) 10*3/uL PT (10.0-12.5) sec INR (<1.2) APTT (22.0-30.0) sec Sodium (137-145) mmol/L Potassium (3.5-5.1) mmol/L Chloride (98-107) mmol/L Carbon Dioxide (22-30) mmol/L Anion Gap mmol/L BUN (9-20) mg/dL Creatinine (0.66-1.25) mg/dL Est GFR (CKD-EPI)AfAm (>60 ml/min/1.73 sqM) Est GFR (CKD-EPI)NonAf (>60 ml/min/1.73 sqM) Glucose (74-99) mg/dL Plasma Lactic Acid James 3.7 H* (0.7-2.0) mmol/L Calcium (8.4-10.2) mg/dL Total Bilirubin (0.2-1.3) mg/dL AST (17-59) U/L ALT (4-49) U/L Alkaline Phosphatase (38-126) U/L Troponin I <0.012 (0.000-0.034) ng/mL NT-Pro-B Natriuret Pep pg/mL Total Protein (6.3-8.2) g/dL Albumin (3.5-5.0) g/dL Disposition Clinical Impression: Congestive heart failure Disposition: ADMITTED IP TO THIS HOSP Condition: Stable Is patient prescribed a controlled substance at d/c from ED?: No Referrals: Ethan Mccarthy MD [Primary Care Provider] - 1-2 days Time of Disposition: 10:37
[2024-10-06 08:18] LABS: INR 1.1 (<1.2); Partial Thromboplastin Time 30.8 sec (22.0-30.0); Prothrombin Time 11.8 sec (10.0-12.5)
[2024-10-06 08:34] LABS: ALT 11 U/L (4-49); AST 29 U/L (17-59); African American GFR (CKD) >90 (>60 ml/min/1.73 sqM); Alkaline Phosphatase 119 U/L (38-126); Anion Gap 12 mmol/L; Blood Urea Nitrogen 14 mg/dL (9-20); Calcium 8.9 mg/dL (8.4-10.2); Carbon Dioxide 24 mmol/L (22-30); Chloride 94 mmol/L (98-107); Glucose 104 mg/dL (74-99); Non-African American GFR(CKD) >90 (>60 ml/min/1.73 sqM); Potassium 3.7 mmol/L (3.5-5.1); Sodium 130 mmol/L (137-145); Total Bilirubin 0.6 mg/dL (0.2-1.3); Total Protein 7.2 g/dL (6.3-8.2)
[2024-10-06 08:42] LABS: NT-Pro-B-Type Natriuretic Pept 1470 pg/mL
[2024-10-06] MEDS: SODIUM CHLORIDE 0.9% 500 ML 500 ML IV ONE (08:53)
[2024-10-06] MEDS: SODIUM CHLORIDE 0.9% 1,000 ML IV SCH (08:54)
--- NOTE | 2024-10-06 09:13 | XR ---
EXAMINATION TYPE: XR chest 2V DATE OF EXAM: 10/06/2024 8:32 AM COMPARISON: Chest radiographs from 09/08/2024. CLINICAL INDICATION: Male, 69 years old with history of difficulty breathing; [facility] TECHNIQUE: XR chest 2V Frontal and lateral views of the chest. FINDINGS: Lungs/Pleura: Blunting of the right costophrenic angle. There is no evidence of left pleural effusio n, focal consolidation, or pneumothorax Pulmonary vascularity: Unremarkable. Heart/mediastinum: Cardiomediastinal silhouette is prominent in size. Left atrial appendage occlusion device is present. Musculoskeletal: No acute osseous pathology. IMPRESSION: Cardiomegaly and mild pulmonary vascular congestion and right pleural effusion. Correlate with BNP fo r congestive heart failure. [facility], , 10/06/2024 9:11 AM
[2024-10-06] MEDS: FUROSEMIDE 10 MG/ML 4 ML VIAL IV STA (09:20)
[2024-10-06] MEDS ORDERED: NALOXONE 0.4 MG/ML 1 ML VIAL IV PRN (10:34)
[2024-10-06] MEDS ORDERED: ALBUTEROL NEBULIZED 2.5 MG/3 ML INHALATION PRN (13:01)
--- NOTE | 2024-10-06 13:12 | P.HPIM ---
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 Symptoms started several days ago, particularly noted orthopnea when he was trying to lay on his sides (unable to sleep on the back due to history of s urgeries), denied PND, he states that he was compliant with his fluid restriction and was drinking up to 3 bottles of 16 oz of water, he was taking his Lasix 40 mg 3 times daily as prescribed, was checking his weight. It was pretty stable at 220 and started going up to 225 recently. No fevers, chills, chest pain, palpitations, signs of sinus infection or other viral infections, bowel habit changes, dysuria Of note, patient was discharged on 09/08/2024 after being treated for HFrEF exacerbation, cardiology was on board, he was diuresed with IV Lasix, TTE showed EF of 45%. EDW 215 On admission afebrile, heart rate in 100s, BP 110/65, SpO2 99 on room air. Lab work revealed normal WBC, stable hemoglobin 12.5, MCV elevated 101.4, sodium 130, normal potassium, chloride 94, creatinine 0.65, glucose 104, lactic acid 3.7, BNP 1470, down from 2731-month ago EKG showed A-fib with RVR heart rate in 120s, QTc 390, nonspecific ST and T wave abnormalities Chest x-ray reviewed personally, pulmonary vascular congestion with cardiomegaly Pertinent positives and negatives as discussed in HPI, a complete review of systems was performed and all other systems are negative. Patient seen and examined at bedside. [] Vital signs reviewed General: nontoxic, no distress, appears at stated age Derm: warm, dry Head: atraumatic, normocephalic, symmetric Eyes: EOMI, no lid lag, anicteric sclera, pupils equal round reactive to light ENT: Nose and ears atraumatic Neck: No thyromegaly, supple Mouth: no lip lesion, mucus membranes moist Cardiovascular: S1S2 irreg, no murmur, bilateral trace lower extremity edema Lungs: Bibasilar crackles, no wheeze, no accessory muscle use Abdominal: soft, nontender to palpation, no guarding, no appreciable organomegaly Ext: no gross muscle atrophy, muscle strength muscle strength 5 out of 5 in all 4 extremities, no contractures, Neuro: CN II-XII grossly intact Psych: Alert, oriented, appropriate affect Assessment/Plan: Heart failure with mildly reduced ejection fraction , in acute exacerbation Hypervolemic hyponatremia Elevated lactic acid without acidosis persistent A-fib with RVR on Xarelto history of ablation that was complicated by 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 -Cardiology consulted, appreciate recommendations - IV Lasix 40 every 8 hours -Monitor strict I's and O's, daily weights, EDW 215 -Monitor BMP daily, monitor magnesium -Dietitian consulted for CHF diet -Continue metoprolol 100 mg twice daily - Repeat lactic acid pending - Cepheid ordered and pending Persistent A-fib on Xarelto -Continue Xarelto 20 mg daily -Continue metoprolol 100 mg twice daily COPD not on home oxygen,not in exacerbation BUCKY not on CPAP chronic anemia, macrocytic, -albuterol 1 puff 4 times daily as needed, DuoNebs as needed The patient is admitted with an anticipated lesshan 2 midnight stay as obs status for evaluation of A-fib with RVR, CHF exacerbation. CODE STATUS full code DVT prophylaxis: Xarelto Anticipated discharge date: TBD Anticipated discharge place: TBD A total of 41 minutes was spent on the care of this complex patient more than 50% of the time was spent in counseling and care coordination. Past Medical History Past Medical History: Atrial Fibrillation, Asthma, COPD, Deep Vein Thrombosis (DVT), GERD/Reflux, Hyperlipidemia, Memory Impairment, Pulmonary Embolus (PE), Sleep Apnea/CPAP/BIPAP Additional Past Medical History / Comment(s): Cardiac tamponade, cardiac arrest possible tia, no cpap used History of Any Multi-Drug Resistant Organisms: None Reported Past Surgical History: Back Surgery, Cardiac Ablation Additional Past Surgical History / Comment(s): Deviated septum repair, spinal fusion, "skin grafts to bilateral arms and above bilateral hips", pain clinic procedures Past Anesthesia/Blood Transfusion Reactions: No Reported Reaction Past Psychological History: Anxiety Smoking Status: Former smoker Past Alcohol Use History: Daily Past Drug Use History: Marijuana - Past Family History Mother Family Medical History: Diabetes Mellitus, Hypertension Father History Unknown: Yes Additional Family Medical History / Comment(s): Father left when pt was 2 yrs old. Medications and Allergies Home Medications Medication Instructions Recorded Confirmed Type Hydrocodone/Acetaminophen [[place] 1 tab PO QID PRN 01/02/18 10/06/24 History 7.5-325] risperiDONE [RisperDAL] 1 mg PO DAILY 01/02/18 10/06/24 History Rivaroxaban [Xarelto] 20 mg PO W/SUPPER 03/05/20 10/06/24 History allopurinoL [Zyloprim] 100 mg PO BID 04/21/20 10/06/24 History Omeprazole 20 mg PO DAILY 06/07/20 10/06/24 History lamoTRIgine [LaMICtal] 100 mg PO BID 07/19/20 10/06/24 History Cyclobenzaprine [Flexeril] 10 mg PO HS 03/14/22 10/06/24 History Atorvastatin [Lipitor] 40 mg PO HS 09/08/24 10/06/24 History Furosemide [Lasix] 40 mg PO TID #120 tab 09/09/24 10/06/24 Rx Albuterol Inhaler [Ventolin Hfa 2 puff INHALATION RT-QID PRN 10/06/24 10/06/24 History Inhaler] Aspirin EC [Ecotrin Low Dose] 81 mg PO DAILY 10/06/24 10/06/24 History Metoprolol Tartrate [Lopressor] 100 mg PO BID-W/MEALS 10/06/24 10/06/24 History Potassium Chloride [Klor-Con M20] 20 meq PO DIRECTED 10/06/24 10/06/24 History Allergies Allergy/AdvReac Type Severity Reaction Status Date / Time varenicline [From Chantix] AdvReac IRRITABLE/A Verified 10/06/24 10:47 NGER Physical Exam Vitals: Vital Signs Temp Pulse Resp BP Pulse Ox 10/06/24 12:26 98 F 112 H 18 105/80 95 10/06/24 10:16 105 H 16 96/69 97 10/06/24 08:52 106 H 20 119/73 95 10/06/24 07:41 97.8 F 110 H 22 109/76 99 Intake and Output 10/05/24 10/06/24 10/06/24 22:59 06:59 14:59 Other: Weight 101.151 kg Results CBC & Chem 7: 10/06/24 08:01 10/06/24 08:01 Labs: Abnormal Lab Results - Last 24 Hours (Table) 10/06/24 10/06/24 10/06/24 Range/Units 08:01 08:01 08:01 RBC 3.45 L (4.40-5.60) 10*6/uL Hgb 12.5 L (13.0-17.0) g/dL Hct 35.0 L (39.6-50.0) % MCV 101.4 H (80.0-97.0) fL MCH 36.2 H (27.0-32.0) pg Eosinophils # 0.40 H (0.04-0.35) 10*3/uL APTT 30.8 H (22.0-30.0) sec Sodium 130 L (137-145) mmol/L Chloride 94 L (98-107) mmol/L Creatinine 0.65 L (0.66-1.25) mg/dL Glucose 104 H (74-99) mg/dL Plasma Lactic Acid James (0.7-2.0) mmol/L 10/06/24 Range/Units 08:01 RBC (4.40-5.60) 10*6/uL Hgb (13.0-17.0) g/dL Hct (39.6-50.0) % MCV (80.0-97.0) fL MCH (27.0-32.0) pg Eosinophils # (0.04-0.35) 10*3/uL APTT (22.0-30.0) sec Sodium (137-145) mmol/L Chloride (98-107) mmol/L Creatinine (0.66-1.25) mg/dL Glucose (74-99) mg/dL Plasma Lactic Acid James 3.7 H* (0.7-2.0) mmol/L
--- NOTE | 2024-10-06 14:16 | P.CRDCN ---
History of Present Illness History of present illness: HISTORY OF PRESENT ILLNESS: This is a 69-year-old male with a past medical history significant for atrial fibrillation, congestive heart failure, and hyperlipidemia. Patient follows in the office with Dr. Reis. We have been asked to see the patient in consultation for congestive heart failure. Patient examined at the bedside in the emergency room. Patient was admitted to the hospital at the end of August due to congestive heart failure and A-fib with RVR. Patient followed up in the office with Dr. Reis and his metoprolol was changed to 50 mg 3 times daily to 100 mg twice a day. Patient presented back to the hospital with a chief complaint of shortness of breath. He states he has been feeling short of breath for the past week. He does report a 4 to 5 pound weight gain. He reports dizziness which he states is chronic for him. He denies having any palpitations. He denies any chest pain or pressure. DIAGNOSTICS: - EKG reveals A-fib with RVR - Chest xray cardiomegaly mild pulmonary vascular congestion. Right pleural effusion. - Laboratory data: WBC 5.19. Hemoglobin 12.5. Platelet count 150. Sodium 130. Potassium 3.7. BUN 14. Creatinine 0.65. Lactic acid 3.7. Troponin negative x 1. proBNP 1470. - Current home cardiac medications include Lipitor 40 mg at night, Lasix 40 mg 3 times daily, metoprolol tartrate 100 mg twice a day, Xarelto 20 mg with dinner, aspirin 81 mg daily. - Most recent echocardiogram obtained in August 2024 revealed ejection fraction 45%, moderate concentric LVH, mild to moderate MR, mild TR, mildly dilated aortic root measuring 4 cm - Patient underwent Lexiscan stress test in 02/2024 which was negative for ischemia REVIEW OF SYSTEMS: At the time of my exam: CONSTITUTIONAL: Denies fever or chills. HEENT: Denies blurred vision, vision changes, or eye pain. Denies hemoptysis CARDIOVASCULAR: Denies chest pain. Denies orthopnea. Denies PND. Denies palpitations RESPIRATORY: Reports shortness of breath. GASTROINTESTINAL: Denies abdominal pain. Denies nausea or vomiting. HEMATOLOGIC: Denies bleeding disorders. GENITOURINARY: Denies any blood in urine. SKIN: Denies pruitis. Denies rash. PHYSICAL EXAM: VITAL SIGNS: Reviewed. GENERAL: Well-developed in no acute distress. HEENT: Head is normocephalic. Pupils are equal, round. Sclerae anicteric. Mucous membranes of the mouth are moist. Neck supple. No JVD or thyromegaly LUNGS: Respirations even and unlabored. Lungs with a few crackles at the bases HEART: Tachycardic. Irregular rate and rhythm. S1 and S2 heard. ABDOMEN: Soft. Nondistended. Nontender. EXTREMITIES: Normal range of motion. No clubbing or cyanosis. Peripheral pulses intact. Trace bilateral lower extremity edema NEUROLOGIC: Awake and alert. Oriented x 3. ASSESSMENT: Shortness of breath Acute on chronic heart failure with mildly reduced EF, 45% Persistent atrial fibrillation with RVR History of A-fib ablation complicated by perforation of right atrium requiring surgery followed by recurrence of atrial fibrillation with subsequent cardioversion Former nicotine dependence, patient quit smoking in 2018 Noncompliance with low-sodium diet PLAN: No need to repeat echocardiogram as this was performed in August 2024 Continue IV Lasix. Decrease dose to 40 mg twice a day Add Farxiga 10 mg daily Add Aldactone 12.5 mg daily Daily weights, accurate intake and output, monitoring of kidney function Continue current dose of metoprolol. Continue telemetry monitoring Patient reports high salt intake at home. Reinforced importance of low-sodium diet. Further recommendations pending patient course Nurse practitioner note has been reviewed by physician. Signing provider agrees with the documented findings, assessment, and plan of care documented by CASTING MACHINE ADJUSTER as a scribe. Past Medical History Past Medical History: Atrial Fibrillation, Asthma, COPD, Deep Vein Thrombosis (DVT), GERD/Reflux, Hyperlipidemia, Memory Impairment, Pulmonary Embolus (PE), Sleep Apnea/CPAP/BIPAP Additional Past Medical History / Comment(s): Cardiac tamponade, cardiac arrest possible tia, no cpap used History of Any Multi-Drug Resistant Organisms: None Reported Past Surgical History: Back Surgery, Cardiac Ablation Additional Past Surgical History / Comment(s): Deviated septum repair, spinal fusion, "skin grafts to bilateral arms and above bilateral hips", pain clinic pr ocedures Past Anesthesia/Blood Transfusion Reactions: No Reported Reaction Past Psychological History: Anxiety Smoking Status: Former smoker Past Alcohol Use History: Daily Past Drug Use History: Marijuana - Past Family History Mother Family Medical History: Diabetes Mellitus, Hypertension Father History Unknown: Yes Additional Family Medical History / Comment(s): Father left when pt was 2 yrs old. Medications and Allergies Home Medications Medication Instructions Recorded Confirmed Type Hydrocodone/Acetaminophen [Dickens 1 tab PO QID PRN 01/02/18 10/06/24 History 7.5-325] risperiDONE [RisperDAL] 1 mg PO DAILY 01/02/18 10/06/24 History Rivaroxaban [Xarelto] 20 mg PO W/SUPPER 03/05/20 10/06/24 History allopurinoL [Zyloprim] 100 mg PO BID 04/21/20 10/06/24 History Omeprazole 20 mg PO DAILY 06/07/20 10/06/24 History lamoTRIgine [LaMICtal] 100 mg PO BID 07/19/20 10/06/24 History Cyclobenzaprine [Flexeril] 10 mg PO HS 03/14/22 10/06/24 History Atorvastatin [Lipitor] 40 mg PO HS 09/08/24 10/06/24 History Furosemide [Lasix] 40 mg PO TID #120 tab 09/09/24 10/06/24 Rx Albuterol Inhaler [Ventolin Hfa 2 puff INHALATION RT-QID PRN 10/06/24 10/06/24 History Inhaler] Aspirin EC [Ecotrin Low Dose] 81 mg PO DAILY 10/06/24 10/06/24 History Metoprolol Tartrate [Lopressor] 100 mg PO BID-W/MEALS 10/06/24 10/06/24 History Potassium Chloride [Klor-Con M20] 20 meq PO DIRECTED 10/06/24 10/06/24 History Allergies Allergy/AdvReac Type Severity Reaction Status Date / Time varenicline [From Chantix] AdvReac IRRITABLE/A Verified 10/06/24 10:47 NGER Physical Exam Vitals: Vital Signs Temp Pulse Resp BP Pulse Ox 10/06/24 12:26 98 F 112 H 18 105/80 95 10/06/24 10:16 105 H 16 96/69 97 10/06/24 08:52 106 H 20 119/73 95 10/06/24 07:41 97.8 F 110 H 22 109/76 99 Intake and Output 10/05/24 10/06/24 10/06/24 22:59 06:59 14:59 Other: Weight 101.151 kg Results 10/06/24 08:01 04/21/25 08:01 Cardiac Enzymes 10/06/24 10/06/24 Range/Units 08:01 08:01 AST 29 (17-59) U/L Troponin I <0.012 (0.000-0.034) ng/mL Coagulation 10/06/24 Range/Units 08:01 PT 11.8 (10.0-12.5) sec APTT 30.8 H (22.0-30.0) sec CBC 10/06/24 Range/Units 08:01 WBC 5.19 (4.50-10.00) 10*3/uL RBC 3.45 L (4.40-5.60) 10*6/uL Hgb 12.5 L (13.0-17.0) g/dL Hct 35.0 L (39.6-50.0) % Plt Count 150 (140-440) 10*3/uL Comprehensive Metabolic Panel 10/06/24 Range/Units 08:01 Sodium 130 L (137-145) mmol/L Potassium 3.7 (3.5-5.1) mmol/L Chloride 94 L (98-107) mmol/L Carbon Dioxide 24 (22-30) mmol/L BUN 14 (9-20) mg/dL Creatinine 0.65 L (0.66-1.25) mg/dL Glucose 104 H (74-99) mg/dL Calcium 8.9 (8.4-10.2) mg/dL AST 29 (17-59) U/L ALT 11 (4-49) U/L Alkaline Phosphatase 119 (38-126) U/L Total Protein 7.2 (6.3-8.2) g/dL Albumin 4.0 (3.5-5.0) g/dL Current Medications Generic Name Dose Route Start Last Admin Trade Name Freq PRN Reason Stop Dose Admin Hydrocodone Bitart/Acetaminophen 1 each 10/06/24 13:01 Hydrocodone/Apap 7.5-325mg 1 Each Tab PO QID PRN Pain Albuterol Sulfate 2.5 mg 10/06/24 13:01 Albuterol Nebulized 2.5 Mg/3 Ml INHALATION RT-QID PRN Shortness Of Breath Allopurinol 100 mg 10/06/24 21:00 Allopurinol 100 Mg Tab PO BID KIRILL Atorvastatin Calcium 40 mg 10/06/24 21:00 Atorvastatin 40 Mg Tab PO HS [facility] Cyclobenzaprine HCl 10 mg 10/06/24 21:00 Cyclobenzaprine 10 Mg Tab PO HS [facility] Dapagliflozin 10 mg 10/06/24 14:00 Dapagliflozin Propanediol 10 Mg Tablet PO DAILY [facility] Furosemide 40 mg 10/06/24 21:00 Furosemide 10 Mg/Ml 4 Ml Vial IV Q12HR [facility] Lamotrigine 100 mg 10/06/24 21:00 Lamotrigine 100 Mg Tab PO BID [facility] Metoprolol Tartrate 100 mg 10/06/24 17:30 Metoprolol Tartrate 50 Mg Tab PO BID-W/MEALS [facility] Naloxone HCl 0.2 mg 10/06/24 10:34 Naloxone 0.4 Mg/Ml 1 Ml Vial IV Q2M PRN Opioid Reversal Pantoprazole Sodium 40 mg 10/07/24 09:00 Pantoprazole 40 Mg Tablet PO DAILY [facility] Potassium Chloride 20 meq 10/06/24 13:30 Potassium Chloride Er 20 Meq Tab.Er PO DAILY [facility] Risperidone 1 mg 10/07/24 09:00 Risperidone 1 Mg Tab PO DAILY [facility] Rivaroxaban 20 mg 10/06/24 17:30 Rivaroxaban 20 Mg Tab PO W/SUPPER [facility] Protocol Spironolactone 12.5 mg 10/06/24 14:00 Spironolactone 25 Mg Tab PO DAILY [facility] Intake and Output 10/05/24 10/06/24 10/06/24 22:59 06:59 14:59 Other: Weight 101.151 kg Patient Weight 10/07/24 06:59 Weight 101.151 kg 10/06/24 08:01 10/06/24 08:01
[2024-10-06] MEDS: SPIRONOLACTONE 25 MG TAB PO SCH (14:27)
[2024-10-06] MEDS: POTASSIUM CHLORIDE ER 20 MEQ TAB.ER PO SCH (14:27)
[2024-10-06] MEDS: DAPAGLIFLOZIN PROPANEDIOL 10 MG TABLET PO SCH (14:27)
[2024-10-06] MEDS ORDERED: FUROSEMIDE 10 MG/ML 4 ML VIAL IV SCH ×2 (16:00→21:00)
[2024-10-06 16:21] LABS: Influenza A Not Detected (Not Detectd); Influenza B Not Detected (Not Detectd); RSV Not Detected (Not Detectd)
[2024-10-06] MEDS: METOPROLOL TARTRATE 50 MG TAB PO SCH (17:05)
[2024-10-06] MEDS: RIVAROXABAN 20 MG TAB PO SCH (17:05)
[2024-10-06] MEDS: HYDROcodone/APAP 7.5-325MG 1 EACH TAB PO PRN (17:09)
[2024-10-06] MEDS: lamoTRIgine 100 MG TAB PO SCH (22:00)
[2024-10-06] MEDS: ATORVASTATIN 40 MG TAB PO SCH (22:00)
[2024-10-06] MEDS: CYCLOBENZAPRINE 10 MG TAB PO SCH (22:00)
[2024-10-06] MEDS: FUROSEMIDE 10 MG/ML 4 ML VIAL IV SCH (22:00)
[2024-10-06] MEDS: allopurinoL 100 MG TAB PO SCH (22:00)
[2024-10-07 08:14] LABS: Calcium 8.9 mg/dL (8.7-10.3); Chloride 104 mmol/L (96-109); Glucose 100 mg/dL (70-110); Magnesium 1.8 mg/dL (1.5-2.4); Potassium 3.7 mmol/L (3.5-5.5); Sodium 141 mmol/L (135-145)
[2024-10-07] MEDS: risperiDONE 1 MG TAB PO SCH (08:26)
[2024-10-07] MEDS: FUROSEMIDE 40 MG TAB PO SCH (08:26)
[2024-10-07] MEDS: PANTOPRAZOLE 40 MG TABLET PO SCH (08:26)
[2024-10-07 08:45] LABS: HCT 33.2 % (39.6-50.0); HGB 10.9 g/dL (13.0-17.0); MCH 34.9 pg (27.0-32.0); MCHC 32.8 g/dL (32.0-37.0); MCV 106.4 FL (80.0-97.0); Mean Platelet Volume 12.5 FL (9.5-12.2); NRBC Per 100 WBC 0 X 10*3/uL (0.00-0.01); Platelet Count 128 X 10*3/uL (140-440); RBC 3.12 X 10*6/uL (4.40-5.60); RDW 14.3 % (11.5-14.5); WBC 4.31 X 10*3/uL (4.50-10.00)
[2024-10-07] MEDS ORDERED: ASPIRIN 81 MG PO SCH (09:00)
[2024-10-07 09:59] LABS: Basophils # (A) 0.05 X 10*3/uL (0.00-0.10); Basophils % (A) 1.2 %; Eosinophils # (A) 0.27 X 10*3/uL (0.04-0.35); Eosinophils % (A) 6.3 %; Lymphocytes % (A) 16.2 %; Macrocytosis (M) 3+ (None Seen); Monocytes # (A) 0.49 X 10*3/uL (0.20-1.00); Monocytes % (A) 11.4 %; Neutrophils # (A) 2.79 X 10*3/uL (1.80-7.70); Neutrophils % (A) 64.7 %; Target Cells 2+ (None Seen)
--- NOTE | 2024-10-07 11:24 | P.PN ---
Subjective Progress Note Date: 10/07/24 Hospital Course: Patient is a 69-year-old male with past medical history of persistent A-fib on Xarelto with history of ablation that was complicated by 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, HFmrF, COPD not on home oxygen, BUCKY not on CPAP, chronic anemia, macrocytic, mildly dilated aortic root 4 cm, who presented to the ER on 10/06with SOB. Symptoms started several days ago, particularly noted orthopnea when he was trying to lay on his sides (unable to sleep on the back due to history of surgeries), denied PND, he states that he was compliant with his fluid restriction and was drinking up to 3 bottles of 16 oz of water, he was taking his Lasix 40 mg 3 times daily as prescribed, was checking his weight. It was pretty stable at 220 and started going up to 225 recently. No fevers, chills, chest pain, palpitations, signs of sinus infection or other viral infections, bowel habit changes, dysuria Of note, patient was discharged on 09/08/2024 after being treated for HFrEF ex acerbation, cardiology was on board, he was diuresed with IV Lasix, TTE showed EF of 45%. EDW 215 On admission afebrile, heart rate in 100s, BP 110/65, SpO2 99 on room air. Lab work revealed normal WBC, stable hemoglobin 12.5, MCV elevated 101.4, sodium 130, normal potassium, chloride 94, creatinine 0.65, glucose 104, lactic acid 3.7, BNP 1470, down from 2731-month ago EKG showed A-fib with RVR heart rate in 120s, QTc 390, nonspecific ST and T wave abnormalities Chest x-ray reviewed personally, pulmonary vascular congestion with cardiomegaly Admitted for further management of CHF exacerbation, cardiology consulted, patient was started on IV Lasix 40 mg twice daily, added Farxiga 10 mg daily and Aldactone 12.5 mg daily 10/07: Patient needs continuous IV diuresis, thus, status changed to inpatient. He feels some improvement in his breathing, still gets winded easily. Pertinent Imaging: No new imaging Pertinent positives and negatives as discussed above, a complete review of systems was performed and all other systems are negative. Vitals Signs Reviewed. General: nontoxic, no distress, appears at stated age Derm: warm, dry Head: atraumatic, normocephalic, symmetric Eyes: EOMI, no lid lag, anicteric sclera, pupils equal round reactive to light ENT: Nose and ears atraumatic Neck: No thyromegaly, supple Mouth: no lip lesion, mucus membranes moist Cardiovascular: S1S2 irreg, no murmur, bilateral trace lower extremity edema Lungs: Bibasilar crackles, no wheeze, no accessory muscle use Abdominal: soft, nontender to palpation, no guarding, no appreciable organomegaly Ext: no gross muscle atrophy, muscle strength muscle strength 5 out of 5 in all 4 extremities, no contractures, Neuro: CN II-XII grossly intact Psych: Alert, oriented, appropriate affect Assessment and Plan: Heart failure with mildly reduced ejection fraction , in acute exacerbation Hypervolemic hyponatremia, resolved Elevated lactic acid without acidosis persistent A-fib with RVR on Xarelto history of ablation that was complicated by 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 -Cardiology consulted, appreciate recommendations -added Farxiga 10 mg daily and Aldactone 12.5 mg daily - IV Lasix 40 every twice daily -Monitor strict I's and O's, daily weights, EDW 215 -Monitor BMP daily, monitor magnesium -Dietitian consulted for CHF diet -Continue metoprolol 100 mg twice daily - Repeat lactic acid normalized - Cepheid ordered, negative Persistent A-fib on Xarelto -Continue Xarelto 20 mg daily -Continue metoprolol 100 mg twice daily COPD not on home oxygen,not in exacerbation BUCKY not on CPAP chronic anemia, macrocytic, -albuterol 1 puff 4 times daily as needed, DuoNebs as needed CODE STATUS full code DVT prophylaxis: Xarelto Anticipated discharge home Anticipated discharge place: 24 to 48 hours Objective - Vital Signs Vital signs: Vital Signs Temp 98.1 F 10/07/24 07:06 Pulse 108 H 10/07/24 07:06 Resp 17 10/07/24 07:06 BP 104/60 10/07/24 07:06 Pulse Ox 96 10/07/24 07:06 FiO2 Intake & Output 10/06/24 10/07/24 10/07/24 18:59 06:59 18:59 Intake Total 540 250 Output Total 1000 Balance -460 250 Weight 101.151 kg 99.5 kg Intake: Oral 540 250 Output: Urine 1000 Other: Voiding Method Toilet # Voids 1 - Labs CBC & Chem 7: 10/07/24 05:42 10/07/24 05:42 Labs: Abnormal Lab Results - Last 24 Hours (Table) 10/06/24 10/07/24 Range/Units 14:03 05:42 WBC 4.31 L (4.50-10.00) X 10*3/uL RBC 3.12 L (4.40-5.60) X 10*6/uL Hgb 10.9 L (13.0-17.0) g/dL Hct 33.2 L (39.6-50.0) % MCV 106.4 H (80.0-97.0) FL MCH 34.9 H (27.0-32.0) pg Plt Count 128 L (140-440) X 10*3/uL MPV 12.5 H (9.5-12.2) FL Lymphocytes # 0.70 L (0.90-5.00) X 10*3/uL Macrocytosis (manual) 3+ A (None Seen) Target Cells 2+ A (None Seen) Plasma Lactic Acid James 2.7 H* (0.7-2.0) mmol/L
--- NOTE | 2024-10-07 12:20 | P.PN ---
Subjective HISTORY OF PRESENT ILLNESS: This is a 69-year-old male with a past medical history significant for atrial fibrillation, congestive heart failure, and hyperlipidemia. Patient follows in the office with Dr. Reis. We have been asked to see the patient in consultation for congestive heart failure. Patient examined at the bedside in the emergency room. Patient was admitted to the hospital at the end of August due to congestive heart failure and A-fib with RVR. Patient followed up in the office with Dr. Reis and his metoprolol was changed to 50 mg 3 times daily to 100 mg twice a day. Patient presented back to the hospital with a chief complaint of shortness of breath. He states he has been feeling short of breath for the past week. He does report a 4 to 5 pound weight gain. He reports dizziness which he states is chronic for him. He denies having any palpitations. He denies any chest pain or pressure. DIAGNOSTICS: - EKG reveals A-fib with RVR - Chest xray cardiomegaly mild pulmonary vascular congestion. Right pleural effusion. - Laboratory data: WBC 5.19. Hemoglobin 12.5. Platelet count 150. Sodium 130. Potassium 3.7. BUN 14. Creatinine 0.65. Lactic acid 3.7. Troponin negative x 1. proBNP 1470. - Current home cardiac medications include Lipitor 40 mg at night, Lasix 40 mg 3 times daily, metoprolol tartrate 100 mg twice a day, Xarelto 20 mg with dinner, aspirin 81 mg daily. - Most recent echocardiogram obtained in August 2024 revealed ejection fraction 45%, moderate concentric LVH, mild to moderate MR, mild TR, mildly dilated aortic root measuring 4 cm - Patient underwent Lexiscan stress test in 02/2024 which was negative for ischemia 10/07/2024 Patient examined this morning the bedside. Patient denies chest pain or pressure. He reports improvement in his shortness of breath. Patient remains on IV Lasix. Denies any dizziness or lightheadedness. Telemetry reveals atrial fibrillation with a heart rate around [id number]. PHYSICAL EXAM: VITAL SIGNS: Reviewed. GENERAL: Well-developed in no acute distress. HEENT: Head is normocephalic. Pupils are equal, round. Sclerae anicteric. Mucous membranes of the mouth are moist. Neck supple. No JVD or thyromegaly LUNGS: Respirations even and unlabored. Lungs with a few crackles at the bases HEART: Mildly tachycardic. Irregular rate and rhythm. S1 and S2 heard. ABDOMEN: Soft. Nondistended. Nontender. EXTREMITIES: Normal range of motion. No clubbing or cyanosis. Peripheral pulses intact. Trace bilateral lower extremity edema NEUROLOGIC: Awake and alert. Oriented x 3. ASSESSMENT: Shortness of breath Acute on chronic heart failure with mildly reduced EF, 45% Persistent atrial fibrillation with RVR History of A-fib ablation complicated by perforation of right atrium requiring surgery followed by recurrence of atrial fibrillation with subsequent cardioversion Former nicotine dependence, patient quit smoking in 2018 Noncompliance with low-sodium diet PLAN: No need to repeat echocardiogram as this was performed in August 2024 Discontinue IV Lasix. Begin oral Lasix 40 mg twice a day Continue additional cardiac medications including Lipitor, Farxiga, metoprolol, Aldactone, and Xarelto Patient reports high salt intake at home. Reinforced importance of low-sodium diet. Further recommendations pending patient course Patient to follow-up postdischarge with Dr. Reis Nurse practitioner note has been reviewed by physician. Signing provider agrees with the documented findings, assessment, and plan of care documented by TIRE REPAIRMAN as a scribe. Objective - Vital Signs Vital signs: Vital Signs Temp 98.1 F 10/07/24 07:06 Pulse 108 H 10/07/24 07:06 Resp 17 10/07/24 07:06 BP 104/60 10/07/24 07:06 Pulse Ox 96 10/07/24 07:06 FiO2 Intake & Output 10/06/24 10/07/24 10/07/24 18:59 06:59 18:59 Intake Total 540 250 Output Total 1000 Balance -460 250 Weight 101.151 kg 99.5 kg Intake: Oral 540 250 Output: Urine 1000 Other: Voiding Method Toilet # Voids 1 - Labs CBC & Chem 7: 10/07/24 05:42 10/07/24 05:42 Labs: Abnormal Lab Results - Last 24 Hours (Table) 10/06/24 10/07/24 Range/Units 14:03 05:42 WBC 4.31 L (4.50-10.00) X 10*3/uL RBC 3.12 L (4.40-5.60) X 10*6/uL Hgb 10.9 L (13.0-17.0) g/dL Hct 33.2 L (39.6-50.0) % MCV 106.4 H (80.0-97.0) FL MCH 34.9 H (27.0-32.0) pg Plt Count 128 L (140-440) X 10*3/uL MPV 12.5 H (9.5-12.2) FL Lymphocytes # 0.70 L (0.90-5.00) X 10*3/uL Macrocytosis (manual) 3+ A (None Seen) Target Cells 2+ A (None Seen) Plasma Lactic Acid James 2.7 H* (0.7-2.0) mmol/L
[2024-10-08 04:36] VITALS: BP 106/73
[2024-10-08 07:44] VITALS: PULSE 97; RESP 17; TEMP 98.2
[2024-10-08 08:21] LABS: BUN/Creat Ratio 12.71 Ratio (12.00-20.00); Blood Urea Nitrogen 8.9 mg/dL (9.0-27.0); Calcium 8.9 mg/dL (8.7-10.3); Carbon Dioxide 25.9 mmol/L (21.6-31.8); Chloride 103 mmol/L (96-109); Glucose 94 mg/dL (70-110); Potassium 3.6 mmol/L (3.5-5.5); Sodium 141 mmol/L (135-145)
--- NOTE | 2024-10-08 11:41 | P.PN ---
Subjective HISTORY OF PRESENT ILLNESS: This is a 69-year-old male with a past medical history significant for atrial fibrillation, congestive heart failure, and hyperlipidemia. Patient follows in the office with Dr. Reis. We have been asked to see the patient in consultation for congestive heart failure. Patient examined at the bedside in the emergency room. Patient was admitted to the hospital at the end of August due to congestive heart failure and A-fib with RVR. Patient followed up in the office with Dr. Reis and his metoprolol was changed to 50 mg 3 times daily to 100 mg twice a day. Patient presented back to the hospital with a chief complaint of shortness of breath. He states he has been feeling short of breath for the past week. He does report a 4 to 5 pound weight gain. He reports dizziness which he states is chronic for him. He denies having any palpitations. He denies any chest pain or pressure. DIAGNOSTICS: - EKG reveals A-fib with RVR - Chest xray cardiomegaly mild pulmonary vascular congestion. Right pleural effusion. - Laboratory data: WBC 5.19. Hemoglobin 12.5. Platelet count 150. Sodium 130. Potassium 3.7. BUN 14. Creatinine 0.65. Lactic acid 3.7. Troponin negative x 1. proBNP 1470. - Current home cardiac medications include Lipitor 40 mg at night, Lasix 40 mg 3 times daily, metoprolol tartrate 100 mg twice a day, Xarelto 20 mg with dinner, aspirin 81 mg daily. - Most recent echocardiogram obtained in August 2024 revealed ejection fraction 45%, moderate concentric LVH, mild to moderate MR, mild TR, mildly dilated aortic root measuring 4 cm - Patient underwent Lexiscan stress test in 02/2024 which was negative for ischemia 10/07/2024 Patient examined this morning the bedside. Patient denies chest pain or pressure. He reports improvement in his shortness of breath. Patient remains on IV Lasix. Denies any dizziness or lightheadedness. Telemetry reveals atrial fibrillation with a heart rate around [id number]. 10/08/2024 Patient examined this morning at the bedside. Patient currently denies any chest pain or pressure. He denies any shortness of breath. Vital signs are stable. Telemetry reveals atrial fibrillation with controlled ventricular rate. PHYSICAL EXAM: VITAL SIGNS: Reviewed. GENERAL: Well-developed in no acute distress. HEENT: Head is normocephalic. Pupils are equal, round. Sclerae anicteric. Mucous membranes of the mouth are moist. Neck supple. No JVD or thyromegaly LUNGS: Respirations even and unlabored. Lungs clear to auscultation HEART: Irregular rate and rhythm. S1 and S2 heard. ABDOMEN: Soft. Nondistended. Nontender. EXTREMITIES: Normal range of motion. No clubbing or cyanosis. Peripheral pulses intact. No lower extremity edema noted. NEUROLOGIC: Awake and alert. Oriented x 3. ASSESSMENT: Shortness of breath Acute on chronic heart failure with mildly reduced EF, 45% Persistent atrial fibrillation with RVR History of A-fib ablation complicated by perforation of right atrium requiring surgery followed by recurrence of atrial fibrillation with subsequent cardioversion Former nicotine dependence, patient quit smoking in 2019 Noncompliance with low-sodium diet PLAN: Continue cardiac medications including Lasix, Lipitor, Farxiga, metoprolol, Aldactone, and Xarelto Patient reports high salt intake at home. Reinforced importance of low-sodium diet. Patient is stable for discharge home today from a cardiac standpoint Patient to follow-up postdischarge with Dr. Reis Nurse practitioner note has been reviewed by physician. Signing provider agrees with the documented findings, assessment, and plan of care documented by MANAGER UTILIZATION MANAGEMENT as a scribe. Objective - Vital Signs Vital signs: Vital Signs Temp 98.2 F 10/08/24 07:19 Pulse 97 10/08/24 07:19 Resp 17 10/08/24 07:19 BP 106/73 10/08/24 07:19 Pulse Ox 97 10/08/24 07:19 FiO2 Intake & Output 10/07/24 10/08/24 10/08/24 18:59 06:59 18:59 Intake Total 500 Output Total 700 Balance 500 -700 Weight 99 kg Intake: Oral 500 Output: Urine 700 Other: Voiding Method Toilet Toilet # Voids 2 # Bowel Movements 1 - Labs CBC & Chem 7: 10/07/24 05:42 10/08/24 05:33 Labs: Abnormal Lab Results - Last 24 Hours (Table) 10/08/24 Range/Units 05:33 Anion Gap 12.10 H (4.00-12.00) mmol/L BUN 8.9 L (9.0-27.0) mg/dL
--- NOTE | 2024-10-08 11:49 | P.DS ---
Providers Date of admission: 10/06/24 10:35 Attending physician: Ilir Mims Consults: 10/06/24 13:10 Consult Physician Routine Consulting Provider: Danny Morris Consult Reason/Comments: recurrent chf exacerbation Do you want consulting provider notified?: Yes Primary care physician: Ethan Mccarthy [facility] Course: Discharge Diagnosis: Shortness of breath secondary to acute on chronic heart failure with mildly reduced ejection fraction EF 45% due to diet noncompliance Persistent atrial fibrillation with RVR History of A-fib ablation complicated by perforation of the right atrium re quiring surgery followed by recurrence of atrial fibrillation with subsequent cardioversion Hypovolemic hyponatremia, resolved Elevated lactic acid without acidosis, resolved COPD not on home oxygen not in acute exacerbation BUCKY not on CPAP Chronic anemia, stable Hospital Course: Patient is a 69-year-old male with past medical history of persistent A-fib on Xarelto with history of ablation that was complicated by 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, HFmrF, COPD not on home oxygen, BUCKY not on CPAP, chronic anemia, macrocytic, mildly dilated aortic root 4 cm, who presented to [facility] ER on 10/06with SOB. Symptoms started several days ago, particularly noted orthopnea when he was trying to lay on his sides (unable to sleep on the back due to history of surgeries), denied PND, he states that he was compliant with his fluid restriction and was drinking up to 3 bottles of 16 oz of water, he was taking his Lasix 40 mg 3 times daily as prescribed, was checking his weight. It was p retty stable at 220 and started going up to 225 recently. No fevers, chills, chest pain, palpitations, signs of sinus infection or other viral infections, bowel habit changes, dysuria Of note, patient was discharged on 09/08/2024 after being treated for HFrEF exacerbation, cardiology was on board, he was diuresed with IV Lasix, TTE showed EF of 45%. EDW 215 On admission afebrile, heart rate in 100s, BP 110/65, SpO2 99 on room air. Lab work revealed normal WBC, stable hemoglobin 12.5, MCV elevated 101.4, sodium 130, normal potassium, chloride 94, creatinine 0.65, glucose 104, lactic acid 3.7, BNP 1470, down from 2731-month ago EKG showed A-fib with RVR heart rate in 120s, QTc 390, nonspecific ST and T wave abnormalities Chest x-ray reviewed personally, pulmonary vascular congestion with cardiomegaly Admitted for further management of CHF exacerbation, cardiology consulted, patient was started on IV Lasix 40 mg twice daily, added Farxiga 10 mg daily and Aldactone 12.5 mg daily 10/07: Patient needs continuous IV diuresis, thus, status changed to inpatient. He feels some improvement in his breathing, still gets winded easily. 10/08: Breathing is at baseline, cleared for discharge by cardiology, discharge medications include Lasix 40 mg p.o. twice daily, spironolactone 12.5 mg p.o. daily, Farxiga 10 mg p.o. daily, the rest of medications without changes. I discontinued his potassium supplement as patient is now on spironolactone , patient to follow-up with Dr. Reis and PCP after discharge. Extensively discussed diet modifications, diet recommendations provided in the AVS Patient seen and examined at bedside. Vital signs reviewed and stable. General: [nontoxic], [no distress], [appears at stated age] Derm: [warm], [dry] Head: [atraumatic], [normocephalic], [symmetric] Eyes: [EOMI], [no lid lag], [anicteric sclera] Mouth: [no lip lesion], [mucus membranes moist] Cardiovascular: [S1S2 reg], [no murmur] Lungs: [CTA bilateral], [no rhonchi, no rales] , [no accessory muscle use] Abdominal: [soft], [ nontender to palpation], [no guarding], [no appreciable organomegaly] Ext: [no gross muscle atrophy], [no edema], [no contractures] Neuro: [ CN II-XI grossly intact], [no focal neuro deficits] Psych: [Alert], [oriented], [appropriate affect] A total of 38 minutes of time were spent preparing this complex discharge summary. Patient was discharged on 10/08/2024. Patient Condition at Discharge: Stable Plan - Discharge Summary New Discharge Prescriptions: New Spironolactone [Aldactone] 12.5 mg PO DAILY #30 tab Dapagliflozin Propanediol [Farxiga] 10 mg PO DAILY #30 tab Continue risperiDONE [RisperDAL] 1 mg PO DAILY Hydrocodone/Acetaminophen [Callands 7.5-325] 1 tab PO QID PRN PRN Reason: Pain Rivaroxaban [Xarelto] 20 mg PO W/SUPPER allopurinoL [Zyloprim] 100 mg PO BID Omeprazole 20 mg PO DAILY lamoTRIgine [LaMICtal] 100 mg PO BID Aspirin EC [Ecotrin Low Dose] 81 mg PO DAILY Cyclobenzaprine [Flexeril] 10 mg PO HS Atorvastatin [Lipitor] 40 mg PO HS Metoprolol Tartrate [Lopressor] 100 mg PO BID-W/MEALS Albuterol Inhaler [Ventolin Hfa Inhaler] 2 puff INHALATION RT-QID PRN PRN Reason: Shortness Of Breath Changed Furosemide [Lasix] 40 mg PO BID #120 tab Discontinued Potassium Chloride [Klor-Con M20] 20 meq PO DIRECTED Discharge Medication List Hydrocodone/Acetaminophen [Callands 7.5-325] 1 tab PO QID PRN 01/02/18 [History] risperiDONE [RisperDAL] 1 mg PO DAILY 01/02/18 [History] Rivaroxaban [Xarelto] 20 mg PO W/SUPPER 03/05/20 [History] allopurinoL [Zyloprim] 100 mg PO BID 04/21/20 [History] Omeprazole 20 mg PO DAILY 06/07/20 [History] lamoTRIgine [LaMICtal] 100 mg PO BID 07/19/20 [History] Cyclobenzaprine [Flexeril] 10 mg PO HS 03/14/22 [History] Atorvastatin [Lipitor] 40 mg PO HS 09/08/24 [History] Albuterol Inhaler [Ventolin Hfa Inhaler] 2 puff INHALATION RT-QID PRN 10/06/24 [History] Aspirin EC [Ecotrin Low Dose] 81 mg PO DAILY 10/06/24 [History] Metoprolol Tartrate [Lopressor] 100 mg PO BID-W/MEALS 10/06/24 [History] Dapagliflozin Propanediol [Farxiga] 10 mg PO DAILY #30 tab 10/08/24 [Rx] Furosemide [Lasix] 40 mg PO BID #120 tab 10/08/24 [Rx] Spironolactone [Aldactone] 12.5 mg PO DAILY #30 tab 10/08/24 [Rx] Follow up Appointment(s)/Referral(s): Ethan Mccarthy MD [Primary Care Provider] - 1-2 days Jalil Reis MD [STAFF PHYSICIAN] - 1 Week Patient Instructions/Handouts: Seasoning Without Salt (DC), Low-Sodium Diet (DC) Activity/Diet/Wound Care/Special Instructions: Please, follow-up with your primary care physician and acid bath mixer. Check your weight daily around the same time every morning, please keep a log of your readings. Your weight at discharge is 99.2 kg which is equal to 218 pounds, you mentioned that your dry weight is around 215. Please watch your salt intake, no more than 2 g/day, follow-up diet recommendations provided in the AVS Monitor your blood pressure, keep log of the readings to discuss with your primary care physician and acid bath mixer.
== END 2024-10-08 12:38 | disposition home or self-care (01) | DRG 292 ==
LOC: EC 07:33 → 6NMEDSUR 10:34 → OBSVTOIN 10:35 → 6NMEDSUR 18:03
PROVIDERS: ADMIT Student in an Organized Health Care Education/Training Program; ATTEND Student in an Organized Health Care Education/Training Program
DX: I50.33 Acute on chronic diastolic (congestive) heart failure (principal); E87.1 Hypo-osmolality and hyponatremia; E86.1 Hypovolemia; E87.20 Acidosis, unspecified; J44.1 Chronic obstructive pulmonary disease with (acute) exacerbation; I48.19 Other persistent atrial fibrillation; E78.5 Hyperlipidemia, unspecified; D53.9 Nutritional anemia, unspecified; I08.1 Rheumatic disorders of both mitral and tricuspid valves; Z11.52 Encounter for screening for COVID-19; Z79.01 Long term (current) use of anticoagulants; Z87.891 Personal history of nicotine dependence; Z91.118 Patient's noncompliance with dietary regimen for other reason; F41.9 Anxiety disorder, unspecified; G47.33 Obstructive sleep apnea (adult) (pediatric); Z79.82 Long term (current) use of aspirin; Z79.899 Other long term (current) drug therapy; Z82.49 Family history of ischemic heart disease and other diseases of the circulatory system; Z86.711 Personal history of pulmonary embolism; Z86.74 Personal history of sudden cardiac arrest; Z91.119 Patient's noncompliance with dietary regimen due to unspecified reason; Z98.1 Arthrodesis status; Z88.8 Allergy status to other drugs, medicaments and biological substances
CPT/HCPCS: 36415; 71046; 80048; 80053; 83605; 83735; 83880; 84484; 85025; 85610; 85730; 87636; 93005; 96361; 96374; 99285

== ENCOUNTER 2024-10-13 07:11 | Inpatient (IN) | payer MEDICARE ==
--- NOTE | 2024-10-13 07:56 | ED ---
General Adult HPI - General Chief complaint: Shortness of Breath Stated complaint: Difficulty Breathing Time Seen by Provider: 10/13/24 07:12 Source: patient Mode of arrival: ambulatory Limitations: no limitations - History of Present Illness Initial comments: Dictation was produced using Alfred dictation software. please excuse any grammatical, word or spelling errors. Chief Complaint: 69-year-old male presents to the emergency department with shortness of breath and cough History of Present Illness: Patient 69-year-old male has multiple comorbidities including bypass, A-fib. Takes anticoagulation medications states that she recently for similar complaint. States that he is here today again for shortness of breath. States he has a nonproductive cough. States that he cannot get comfortable has a little bit of pressure in his chest. Denies any fever, chills or night sweats. States that he is not producing phlegm. Denies any lower extremity swelling. Patient takes Xarelto for what he reports is blood clot The ROS documented in this emergency department record has been reviewed and confirmed by me. Those systems with pertinent positive or negative responses have been documented in the HPI. All other systems are other negative and/or noncontributory. - Related Data Home Medications Medication Instructions Recorded Confirmed Hydrocodone/Acetaminophen [Parker 1 tab PO QID PRN 01/02/18 10/06/24 7.5-325] risperiDONE [RisperDAL] 1 mg PO DAILY 01/02/18 10/06/24 Rivaroxaban [Xarelto] 20 mg PO W/SUPPER 03/05/20 10/06/24 allopurinoL [Zyloprim] 100 mg PO BID 04/21/20 10/06/24 Omeprazole 20 mg PO DAILY 06/07/20 10/06/24 lamoTRIgine [LaMICtal] 100 mg PO BID 07/19/20 10/06/24 Cyclobenzaprine [Flexeril] 10 mg PO HS 03/14/22 10/06/24 Atorvastatin [Lipitor] 40 mg PO HS 09/08/24 10/06/24 Albuterol Inhaler [Ventolin Hfa 2 puff INHALATION RT-QID PRN 10/06/24 10/06/24 Inhaler] Aspirin EC [Ecotrin Low Dose] 81 mg PO DAILY 10/06/24 10/06/24 Metoprolol Tartrate [Lopressor] 100 mg PO BID-W/MEALS 10/06/24 10/06/24 Previous Rx's Medication Instructions Recorded Dapagliflozin Propanediol [Farxiga] 10 mg PO DAILY #30 tab 10/08/24 Furosemide [Lasix] 40 mg PO BID #120 tab 10/08/24 Spironolactone [Aldactone] 12.5 mg PO DAILY #30 tab 10/08/24 Allergies Allergy/AdvReac Type Severity Reaction Status Date / Time varenicline [From Chantix] AdvReac IRRITABLE/A Verified 10/13/24 07:16 NGER Review of Systems ROS Statement: Those systems with pertinent positive or pertinent negative responses have been documented in the HPI. ROS Other: All systems not noted in ROS Statement are negative. Past Medical History Past Medical History: Atrial Fibrillation, Asthma, COPD, Deep Vein Thrombosis (DVT), GERD/Reflux, Hyperlipidemia, Memory Impairment, Pulmonary Embolus (PE), Sleep Apnea/CPAP/BIPAP Additional Past Medical History / Comment(s): Cardiac tamponade, cardiac arrest possible tia, no cpap used History of Any Multi-Drug Resistant Organisms: None Reported Past Surgical History: Back Surgery, Cardiac Ablation Additional Past Surgical History / Comment(s): Deviated septum repair, spinal fusion, "skin grafts to bilateral arms and above bilateral hips", pain clinic p rocedures Past Anesthesia/Blood Transfusion Reactions: No Reported Reaction Past Psychological History: Anxiety Smoking Status: Former smoker Past Alcohol Use History: Daily Past Drug Use History: Marijuana - Past Family History Mother Family Medical History: Diabetes Mellitus, Hypertension Father History Unknown: Yes Additional Family Medical History / Comment(s): Father left when pt was 2 yrs old. General Exam - General Exam Comments Initial Comments: PHYSICAL EXAM: General Impression: Alert and oriented x3, not in acute distress HEENT: Normocephalic atraumatic, extra-ocular movements intact, pupils equal and reactive to light bilaterally, mucous membranes moist. Cardiovascular: Heart regular rate and rhythm Chest: Able to complete full sentences, no retractions, no tachypnea Abdomen: abdomen soft, non-tender, non-distended, no organomegaly Musculoskeletal: Pulses present and equal in all extremities, no peripheral edema Motor: no focal deficits noted Neurological: CN II-XII grossly intact, no focal motor or sensory deficits noted Skin: Intact with no visualized rashes Psych: Normal affect and mood Limitations: no limitations Course Vital Signs 10/13/24 10/13/24 10/13/24 07:14 08:16 08:30 Temperature 97.3 F L Pulse Rate 106 H 112 H 108 H Respiratory 18 22 16 Rate Blood Pressure 91/60 88/57 88/57 O2 Sat by Pulse 98 99 100 Oximetry 10/13/24 10/13/24 09:00 09:30 Temperature Pulse Rate 92 117 H Respiratory 15 13 Rate Blood Pressure 88/58 92/69 O2 Sat by Pulse 98 97 Oximetry EKG Findings - EKG Comments: EKG Findings:: My EKG interpretation: Ventricular rate 112, A-fib, QRS 104, QTc 415. No WI prolongation, no QTC prolongation, no ST or T-wave changes noted. EKG compared to October 06, 2024 showing no changes. Overall, this EKG is unremarkable Medical Decision Making - Medical Decision Making Was pt. sent in by a medical professional or institution (, PA, CARDIOLOGY TECH, urgent care, hospital, or half-way...) When possible be specific @ -No Did you speak to anyone other than the patient for history (EMS, parent, family, police, friend...)? What history was obtained from this source @ -No Did you review nursing and triage notes (agree or disagree)? Why? @ -I reviewed and agree with nursing and triage notes Were old charts reviewed (outside hosp., previous admission, EMS record, old EKG, old radiological studies, urgent care reports/EKG's, half-way records)? Report findings @ -No old charts were reviewed Differential Diagnosis (chest pain, altered mental status, abdominal pain women, abdominal pain men, vaginal bleeding, musculoskeletal, weakness, fever, dyspnea, syncope, headache, dizziness, GI bleed, back pain, seizure, CVA, palpatations, mental health)? @ -Differential Chest Pain: Stable Angina, Unstable Angina, STEMI, NSTEMI Aortic Dissection, Pneumothorax, Musculoskeletal, Esophageal Spasm GERD, Cholecystitis, Pancreatitis, Zoster, this is not meant to be an all-inclusive list. EKG interpreted by me (3pts min.). @ -See above X-rays interpreted by me (1pt min.). @ -Chest x-ray is nonacute. CT interpreted by me (1pt min.). @ -None done U/S interpreted by me (1pt. min.). @ -None done What testing was considered but not performed or refused? (CT, X-rays, U/S, labs)? Why? @ -None What meds were considered but not given or refused? Why? @ -None Was smoking cessation discussed for >3mins.? @ -No Were there social determinants of health that impacted care today? How? (Homelessness, low income, unemployed, alcoholism, drug addiction, transportation, low edu. Level, literacy, decrease access to med. care, halfway, rehab)? @ -No Was there de-escalation of care discussed even if they declined (Discuss DNR or withdrawal of care, Hospice)? DNR status @ -No What co-morbidities impacted this encounter? (DM, HTN, Smoking, COPD, CAD, Cancer, CVA, ARF, Chemo, Hep., AIDS, mental health diagnosis, sleep apnea, morbid obesity)? @ -History of coronary artery disease Was patient admitted / discharged? Hospital course, mention meds given and route, prescriptions, significant lab abnormalities, going to OR and other pertinent info. @ -69-year-old male presents to the emergency department with shortness of breath and chest pressure. He does have history of coronary artery disease. Vital signs stable. EKG is unremarkable. Patient is well-appearing at the bedside no acute distress. Did you discuss the management of the patient with other professionals (professionals i.e. , PA, CARDIOLOGY TECH, lab, RT, psych nurse, social scientist, telehealth nurse, teacher, assurance officer, pillowcase folder)? Give summary @ -Case discussed with hospitalist for admission Was critical care preformed (if so, how long)? @ -No Undiagnosed new problem with uncertain prognosis? @ -No Drug Therapy requiring intensive monitoring for toxicity (Heparin, Nitro, Insulin, Cardizem)? @ -No Were any procedures done? @ -No Diagnosis/symptom? Acute, or Chronic, or Acute on Chronic? Uncomplicated (without systemic symptoms) or Complicated (systemic symptoms)? @ -Chest pressure Side effects of treatment? @ -No Exacerbation, Progression, or Severe Exacerbation? @ -No Poses a threat to life or bodily function? How? (Chest pain, [place], [place], pneumonia, PE, COPD, DKA, ARF, appy, cholecystitis, CVA, Diverticulitis, Homicidal, Suicidal, threat to staff... and all critical care pts) @ -yes - Lab Data Result diagrams: 10/13/24 08:00 10/13/24 08:00 Lab Results 10/13/24 10/13/24 10/13/24 Range/Units 08:00 08:00 08:00 WBC 6.34 (4.50-10.00) 10*3/uL RBC 3.19 L (4.40-5.60) 10*6/uL Hgb 11.3 L (13.0-17.0) g/dL Hct 33.6 L (39.6-50.0) % MCV 105.3 H (80.0-97.0) fL MCH 35.4 H (27.0-32.0) pg MCHC 33.6 (32.0-37.0) g/dL Plt Count 168 (140-440) 10*3/uL MPV 11.8 (9.5-12.2) fL Immature Gran % (Auto) 0.3 % Immature Gran # 0.02 (0.00-0.04) 10*3/uL PT 12.8 H (10.0-12.5) sec INR 1.2 H (<1.2) APTT 30.7 H (22.0-30.0) sec D-Dimer 0.25 (<0.60) mg/L FEU Sodium 137 (137-145) mmol/L Potassium 4.1 (3.5-5.1) mmol/L Chloride 101 (98-107) mmol/L Carbon Dioxide 28 (22-30) mmol/L Anion Gap 8 mmol/L BUN 14 (9-20) mg/dL Creatinine 0.78 (0.66-1.25) mg/dL Est GFR (CKD-EPI)AfAm >90 (>60 ml/min/1.73 sqM) Est GFR (CKD-EPI)NonAf >90 (>60 ml/min/1.73 sqM) Glucose 101 H (74-99) mg/dL Plasma Lactic Acid James (0.7-2.0) mmol/L Calcium 9.1 (8.4-10.2) mg/dL Total Bilirubin 0.6 (0.2-1.3) mg/dL AST 24 (17-59) U/L ALT 11 (4-49) U/L Alkaline Phosphatase 89 (38-126) U/L Troponin I (0.000-0.034) ng/mL Total Protein 6.8 (6.3-8.2) g/dL Albumin 3.7 (3.5-5.0) g/dL Influenza Type A (PCR) (Not Detectd) Influenza Type B (PCR) (Not Detectd) RSV (PCR) (Not Detectd) SARS-CoV-2 (PCR) (Not Detectd) 10/13/24 10/13/24 10/13/24 Range/Units 08:00 08:00 08:00 WBC (4.50-10.00) 10*3/uL RBC (4.40-5.60) 10*6/uL Hgb (13.0-17.0) g/dL Hct (39.6-50.0) % MCV (80.0-97.0) fL MCH (27.0-32.0) pg MCHC (32.0-37.0) g/dL Plt Count (140-440) 10*3/uL MPV (9.5-12.2) fL Immature Gran % (Auto) % Immature Gran # (0.00-0.04) 10*3/uL PT (10.0-12.5) sec INR (<1.2) APTT (22.0-30.0) sec D-Dimer (<0.60) mg/L FEU Sodium (137-145) mmol/L Potassium (3.5-5.1) mmol/L Chloride (98-107) mmol/L Carbon Dioxide (22-30) mmol/L Anion Gap mmol/L BUN (9-20) mg/dL Creatinine (0.66-1.25) mg/dL Est GFR (CKD-EPI)AfAm (>60 ml/min/1.73 sqM) Est GFR (CKD-EPI)NonAf (>60 ml/min/1.73 sqM) Glucose (74-99) mg/dL Plasma Lactic Acid James 1.8 (0.7-2.0) mmol/L Calcium (8.4-10.2) mg/dL Total Bilirubin (0.2-1.3) mg/dL AST (17-59) U/L ALT (4-49) U/L Alkaline Phosphatase (38-126) U/L Troponin I <0.012 (0.000-0.034) ng/mL Total Protein (6.3-8.2) g/dL Albumin (3.5-5.0) g/dL Influenza Type A (PCR) Not Detected (Not Detectd) Influenza Type B (PCR) Not Detected (Not Detectd) RSV (PCR) Not Detected (Not Detectd) SARS-CoV-2 (PCR) Not Detected (Not Detectd) Disposition Clinical Impression: Chest pain Disposition: ADMITTED IP TO THIS HOSP Condition: Fair Referrals: Ethan Mccarthy MD [Primary Care Provider] - 1-2 days Decision Time: 10:13
--- NOTE | 2024-10-13 08:19 | XR ---
EXAMINATION TYPE: XR chest 2V DATE OF EXAM: 10/13/2024 8:11 AM COMPARISON: 10/06/2024 CLINICAL INDICATION: Male, 69 years old with history of difficulty breathing: Shortness of breath TECHNIQUE: XR chest 2V views of the chest are obtained. FINDINGS: Scattered senescent parenchymal changes noted. Hyperinflation compatible with COPD. Stable chronic appearing pleural parenchymal opacity right lower lobe. The lungs are otherwise clear. As mild pulmonary venous congestion without overt failure. Heart size is stable. Mediastinal structures are stable and grossly unremarkable. No evidence for hilar prominence. Degenerative changes dorsal spine. IMPRESSION: 1. Stable chronic appearing pleural parenchymal opacity right lower lobe. The lungs are otherwise abby ar. As mild pulmonary venous congestion without overt failure. [facility], , 10/13/2024 8:17 AM
[2024-10-13 08:22] LABS: Basophils # (A) 0.09 10*3/uL (0.00-0.10); Basophils % (A) 1.4 %; Eosinophils # (A) 0.46 10*3/uL (0.04-0.35); Eosinophils % (A) 7.3 %; HCT 33.6 % (39.6-50.0); HGB 11.3 g/dL (13.0-17.0); Lymphocytes # (A) 1.03 10*3/uL (0.90-5.00); Lymphocytes % (A) 16.2 %; MCH 35.4 pg (27.0-32.0); MCHC 33.6 g/dL (32.0-37.0); MCV 105.3 fL (80.0-97.0); Mean Platelet Volume 11.8 fL (9.5-12.2); Monocytes # (A) 0.82 10*3/uL (0.20-1.00); Monocytes % (A) 12.9 %; Neutrophils # (A) 3.92 10*3/uL (1.80-7.70); Neutrophils % (A) 61.9 %; Platelet Count 168 10*3/uL (140-440); RBC 3.19 10*6/uL (4.40-5.60); RDW 13.8 % (11.5-14.5); WBC 6.34 10*3/uL (4.50-10.00)
[2024-10-13 08:32] LABS: INR 1.2 (<1.2); Partial Thromboplastin Time 30.7 sec (22.0-30.0); Prothrombin Time 12.8 sec (10.0-12.5)
[2024-10-13 08:39] LABS: ALT 11 U/L (4-49); AST 24 U/L (17-59); African American GFR (CKD) >90 (>60 ml/min/1.73 sqM); Albumin 3.7 g/dL (3.5-5.0); Alkaline Phosphatase 89 U/L (38-126); Anion Gap 8 mmol/L; Blood Urea Nitrogen 14 mg/dL (9-20); Calcium 9.1 mg/dL (8.4-10.2); Carbon Dioxide 28 mmol/L (22-30); Chloride 101 mmol/L (98-107); Glucose 101 mg/dL (74-99); Non-African American GFR(CKD) >90 (>60 ml/min/1.73 sqM); Potassium 4.1 mmol/L (3.5-5.1); Sodium 137 mmol/L (137-145); Total Bilirubin 0.6 mg/dL (0.2-1.3); Total Protein 6.8 g/dL (6.3-8.2)
[2024-10-13 08:47] LABS: Influenza A Not Detected (Not Detectd); Influenza B Not Detected (Not Detectd); RSV Not Detected (Not Detectd)
[2024-10-13] MEDS ORDERED: NITROGLYCERIN SL TABS 0.4 MG TAB SUBLINGUAL PRN (10:07)
[2024-10-13] MEDS: ASPIRIN 81 MG PO STA (11:07)
[2024-10-13] MEDS: SODIUM CHLORIDE 0.9% 500 ML 500 ML IV STA (11:08)
--- NOTE | 2024-10-13 16:14 | P.HPIM ---
History of Present Illness H&P Date: 10/13/24 69 year old M with PMH of A-Fib, HFrEF 40% EF, Gout, GERD, HLD, cognitive impairment, sleep apnea, schizophrenia presents to the ED for SOB. Recently admitted from 10/06-10/08 for similar symptoms. He reports shortness of breath ongoing since his discharge. He reports orthopnea and intermittent chest pain which he cant describe effectively. Denies lower extremity swelling. Denies any changes in urination or bowel habits. In the ED he underwent extensive evaluation. BP 91/60, HR 106, T 97.3F, RR 18, 98% on RA. CBC, Coag panel, CMP significant for RBC 3.19, Hg 11.3, Hct 33.6, MCV 105.3, PT 12.8, INR 1.2, APTT 30.7, glu 101. Lactic acid 1.8. Trop < 0.012 x 3. D-Dimer 0.25. COVID, RSV, Flu neg. EKG A-Fib with RVR rate of 112. CXR chronic opacity over the RLL with mild pulmonary vascular congestion. Patient is admitted for further evaluation. General: non toxic, no distress, appears at stated age Derm: warm, dry Head: atraumatic, normocephalic, symmetric Mouth: no lip lesion, mucus membranes moist Cardiovascular: S1 S2 reg. No murmur. Lungs: Decreased BS bilaterally, no accessory muscle use Ext: no gross muscle atrophy, no edema, no contractures Neuro: No focal neurologic deficits. Psych: Alert and oriented. Based on my assessment of this patient, this patient meets a high complexity level of care. Systolic CHF exacerbation: Start Lasix 40 mg IV BID. Continue Metoprolol 100 mg PO BID. Farxiga 10 mg PO QD. Hold aldactone given hypotensive nature. Would benefit from ACEi. Strict intake and outtake. Daily weights. Consult Cardiology. Atrial fibrillation with RVR: Restart Metoprolol as above. Xarelto 20 mg PO QD for AC. K > 4 and Mg > 2. Consult Cardiology. Chest pain: ACS ruled out. Likely due to above. Macrocytic anemia: Chronic. B12 386. Folate 12.5. Gout: Allopurinol 100 mg PO BID. GERD: Protonix 40 mg PO QD. HLD: Lipitor 40 mg PO QHS. Cognitive impairment Sleep apnea: CPAP QHS. Schizophrenia: Lamictal 100 mg PO BID. Risperidal 1 mg PO QD. CODE STATUS: FULL CODE DVT Prophylaxis: Xarelto GI Prophylaxis: Protonix Designated medical POA if patient is not able to make medical decisions for themselves: . I have reviewed the following surgery consultant notes: ED note. I have reviewed the results of the following tests: As above. I have ordered the following tests: As above. I have discussed the care of this patient with the following independent historian: I have independently interpreted the following test below: EKG. I have discussed the management of this patient with the following physician: Past Medical History Past Medical History: Atrial Fibrillation, Asthma, COPD, Deep Vein Thrombosis (DVT), GERD/Reflux, Hyperlipidemia, Memory Impairment, Pulmonary Embolus (PE), Sleep Apnea/CPAP/BIPAP Additional Past Medical History / Comment(s): Cardiac tamponade, cardiac arrest possible tia, no cpap used History of Any Multi-Drug Resistant Organisms: None Reported Past Surgical History: Back Surgery, Cardiac Ablation Additional Past Surgical History / Comment(s): Deviated septum repair, spinal fusion, "skin grafts to bilateral arms and above bilateral hips", pain clinic procedures Past Anesthesia/Blood Transfusion Reactions: No Reported Reaction Past Psychological History: Anxiety Smoking Status: Former smoker Past Alcohol Use History: Daily Past Drug Use History: Marijuana - Past Family History Mother Family Medical History: Diabetes Mellitus, Hypertension Father History Unknown: Yes Additional Family Medical History / Comment(s): Father left when pt was 2 yrs old. Medications and Allergies Home Medications Medication Instructions Recorded Confirmed Type Hydrocodone/Acetaminophen [[place] 1 tab PO QID PRN 01/02/18 10/13/24 History 7.5-325] risperiDONE [RisperDAL] 1 mg PO DAILY 01/02/18 10/13/24 History Rivaroxaban [Xarelto] 20 mg PO W/SUPPER 03/05/20 10/13/24 History allopurinoL [Zyloprim] 100 mg PO BID 04/21/20 10/13/24 History Omeprazole 20 mg PO DAILY 06/07/20 10/13/24 History lamoTRIgine [LaMICtal] 100 mg PO BID 07/19/20 10/13/24 History Cyclobenzaprine [Flexeril] 10 mg PO HS 03/14/22 10/13/24 History Atorvastatin [Lipitor] 40 mg PO HS 09/08/24 10/13/24 History Albuterol Inhaler [Ventolin Hfa 2 puff INHALATION RT-QID PRN 10/06/24 10/13/24 History Inhaler] Aspirin EC [Ecotrin Low Dose] 81 mg PO DAILY 10/06/24 10/13/24 History Metoprolol Tartrate [Lopressor] 100 mg PO BID-W/MEALS 10/06/24 10/13/24 History Furosemide [Lasix] 40 mg PO BID #120 tab 10/08/24 10/13/24 Rx Dapagliflozin Propanediol [Farxiga] 10 mg PO DIRECTED 10/13/24 10/13/24 History Spironolactone [Aldactone] 12.5 mg PO DIRECTED 10/13/24 10/13/24 History Allergies Allergy/AdvReac Type Severity Reaction Status Date / Time varenicline [From Chantix] AdvReac IRRITABLE/A Verified 10/13/24 10:49 NGER Physical Exam Vitals: Vital Signs Temp Pulse Resp BP Pulse Ox 10/13/24 14:49 107 H 18 99/76 100 10/13/24 11:00 105 H 10 L 92/73 98 10/13/24 10:30 98 14 95/68 98 10/13/24 10:00 103 H 14 81/48 99 10/13/24 09:30 117 H 13 92/69 97 10/13/24 09:00 92 15 88/58 98 10/13/24 08:30 108 H 16 88/57 100 10/13/24 08:16 112 H 22 88/57 99 10/13/24 07:14 97.3 F L 106 H 18 91/60 98 Intake and Output 10/13/24 10/13/24 10/13/24 06:59 14:59 22:59 Other: Weight 101.605 kg Results CBC & Chem 7: 10/13/24 08:00 10/13/24 08:00 Labs: Abnormal Lab Results - Last 24 Hours (Table) 10/13/24 10/13/24 10/13/24 Range/Units 08:00 08:00 08:00 RBC 3.19 L (4.40-5.60) 10*6/uL Hgb 11.3 L (13.0-17.0) g/dL Hct 33.6 L (39.6-50.0) % MCV 105.3 H (80.0-97.0) fL MCH 35.4 H (27.0-32.0) pg Eosinophils # 0.46 H (0.04-0.35) 10*3/uL PT 12.8 H (10.0-12.5) sec INR 1.2 H (<1.2) APTT 30.7 H (22.0-30.0) sec Glucose 101 H (74-99) mg/dL
[2024-10-13] MEDS: METOPROLOL TARTRATE 50 MG TAB PO SCH (17:15)
[2024-10-13] MEDS: FUROSEMIDE 10 MG/ML 4 ML VIAL IV SCH (17:15)
[2024-10-13] MEDS: RIVAROXABAN 20 MG TAB PO SCH (17:21)
[2024-10-13] MEDS: lamoTRIgine 100 MG TAB PO SCH (20:26)
[2024-10-13] MEDS: ATORVASTATIN 40 MG TAB PO SCH (20:26)
[2024-10-13] MEDS: CYCLOBENZAPRINE 10 MG TAB PO SCH (20:26)
[2024-10-13] MEDS: allopurinoL 100 MG TAB PO SCH (20:26)
[2024-10-14] MEDS: HYDROcodone/APAP 7.5-325MG 1 EACH TAB PO PRN (01:17)
[2024-10-14 05:24] LABS: African American GFR (CKD) >90 (>60 ml/min/1.73 sqM); Anion Gap 8 mmol/L; Blood Urea Nitrogen 12 mg/dL (9-20); Calcium 9.6 mg/dL (8.4-10.2); Carbon Dioxide 27 mmol/L (22-30); Chloride 102 mmol/L (98-107); Glucose 98 mg/dL (74-99); Non-African American GFR(CKD) >90 (>60 ml/min/1.73 sqM); Potassium 3.7 mmol/L (3.5-5.1); Sodium 137 mmol/L (137-145)
[2024-10-14] MEDS: PANTOPRAZOLE 40 MG TABLET PO SCH (06:40)
[2024-10-14 08:08] LABS: Chol/HDL Ratio 1.93 Ratio
[2024-10-14] MEDS ORDERED: ASPIRIN 325 MG TAB PO SCH (09:00)
[2024-10-14] MEDS: risperiDONE 1 MG TAB PO SCH (09:45)
[2024-10-14] MEDS: DAPAGLIFLOZIN PROPANEDIOL 10 MG TABLET PO SCH (09:45)
[2024-10-14] MEDS: ASPIRIN 81 MG PO SCH (09:45)
[2024-10-14] MEDS ORDERED: REGADENOSON 0.4 MG/5 ML SYRINGE IV PRN (10:38)
[2024-10-14] MEDS ORDERED: AMINOPHYLLINE 500 MG/20 ML VIAL IV PRN (10:38)
[2024-10-14] MEDS ORDERED: CAFFEINE CITRATE 60 MG/3 ML VIAL IV PRN (10:38)
[2024-10-14] MEDS: METOPROLOL TARTRATE 50 MG TAB PO STA (11:25)
--- NOTE | 2024-10-14 11:56 | P.CRDCN ---
History of Present Illness Consult date: 10/14/24 Consult reason: chest pain History of present illness: This is 69-year-old male patient of Dr. Navid Reis with past medical history of chronic diastolic heart failure, coronary artery disease, persistent atrial fibrillation on Xarelto remote, status post atrial fibrillation ablation and coded during procedure requiring CPR with return of ROSC finding iatrogenic right atrial perforation with exsanguinating hemorrhage requiring drainage with cardiothoracic surgery, history of DVT and PE, chronic lumbar back pain with previous back surgeries, history of tobacco use and quit in 2019. We have been asked to evaluate the patient for chest pain. Patient was recently hospitalized and discharged on 10/08 at which time he was seen by cardiology for acute on chronic heart failure, persistent atrial fibrillation with RVR. We have been asked to evaluate the patient for chest pain. Patient states that he has a tightness in his chest which is new for him. He complains of feeling fatigued. He has a dry cough with no sputum production. No fever or chills. He quit smoking in 2019. He states he feels a little dizzy when he stands up. He state s the chest tightness has been going on for about a week. Blood pressure 105/72, heart rate 101, pulse ox 96% on room air. Patient has been started on IV Lasix 40 mg daily. -EKG: Atrial fibrillation with ventricular rate of 112. -Chest x-ray: Stable chronic appearing pleural-parenchymal opacity right lower lobe. Lungs are otherwise clear. Mild pulmonary venous congestion without overt failure. -Laboratory studies: WBC 6.3, hemoglobin 11.3. INR 1.2. Electrolytes and renal function are normal. Troponins negative x 3. Triglycerides 139, cholesterol 122, LDL 31. Cepheid viral panel not detected. -Home cardiac medications: Aspirin 81 mg daily, atorvastatin 40 mg at bedtime, Farxiga 10 mg prescribed but has not started it, Lasix 40 mg twice daily, Lopressor 100 mg twice daily, Xarelto 20 mg with supper, spironolactone 12.5 mg daily prescribed but not started yet. -Echocardiogram performed 08/2024 revealed EF of 45%, moderate concentric LVH, mild to moderate MR, mild TR, mildly dilated aortic root measuring 4 cm. -Lexiscan Cardiolite stress test performed in the office on 03/06/2024 revealed inconclusive EKG part of the stress test due to baseline EKG abnormalities. Normal myocardial perfusion and function. Review Of Systems: At the time of my exam: CONSTITUTIONAL: Denies fever or chills. Reports fatigue HEENT: Denies blurred vision, vision changes, or eye pain. Denies hemoptysis CARDIOVASCULAR: Denies chest pain. Denies orthopnea. Denies PND. Denies palpitations RESPIRATORY: Denies shortness of breath. GASTROINTESTINAL: Denies abdominal pain. Denies nausea or vomiting. HEMATOLOGIC: Denies bleeding disorders. GENITOURINARY: Denies any blood in urine. SKIN: Denies puritis. Denies rash. Physical examination: Gen: This is 69-year-old male in no acute respiratory distress. VS: reviewed HEENT: Head is atraumatic, normocephalic. Pupils equal, round. Sclerae is anic teric. NECK: Supple. No JVD. LUNGS: Clear to auscultation. No wheezes or rhonchi. No intercostal retractions. HEART: Irregular rate and rhythm. No murmur. ABDOMEN: Soft No tenderness. EXTREMITIES: No pedal edema. No calf tenderness. NEUROLOGICAL: Patient is awake, alert and oriented x3. Assessment: Atypical chest pain, acute coronary syndrome ruled out Symptoms may be related to atrial fibrillation Acute on chronic heart failure with mildly reduced EF, 45% Persistent atrial fibrillation currently controlled rate History of A-fib ablation complicated by perforation of right atrium requiring surgery followed by recurrence of atrial fibrillation with subsequent cardioversion History of tobacco use and dependence and quit in 2019 Plan: Resume patient's home cardiac medications with the following change Increase Lopressor to 150 mg twice daily Schedule patient for Lexiscan Cardiolite stress test today Obtain TSH No need to repeat echocardiogram as this was done in August Monitor MANPREET, daily weights, electrolytes and renal function Further recommendations to follow based upon clinical course Thank you kindly for this consultation. Nurse practitioner note has been reviewed, I agree with documented findings and plan of care. Patient was seen and examined. Past Medical History Past Medical History: Atrial Fibrillation, Asthma, COPD, Deep Vein Thrombosis (DVT), GERD/Reflux, Hyperlipidemia, Memory Impairment, Pulmonary Embolus (PE), Sleep Apnea/CPAP/BIPAP Additional Past Medical History / Comment(s): Cardiac tamponade, cardiac arrest possible tia, no cpap used History of Any Multi-Drug Resistant Organisms: None Reported Past Surgical History: Back Surgery, Cardiac Ablation Additional Past Surgical History / Comment(s): Deviated septum repair, spinal fusion, "skin grafts to bilateral arms and above bilateral hips", pain clinic procedures Past Anesthesia/Blood Transfusion Reactions: No Reported Reaction Past Psychological History: Anxiety Additional Psychological History / Comment(s): Pt resides with his spouse. He uses no assistive device. He drives. Smoking Status: Former smoker Past Alcohol Use History: Daily Additional Past Alcohol Use History / Comment(s): Quit smoking 10-08-2018. Started smoking at age 35, 0.5ppd. Pt drinks 2 beers a day.or every other day Past Drug Use History: Marijuana Additional Drug Use History / Comment(s): Has [email or web address] Marijuana card-uses occasionally. - Past Family History Mother Family Medical History: Diabetes Mellitus, Hypertension Father History Unknown: Yes Additional Family Medical History / Comment(s): Father left when pt was 2 yrs old. Medications and Allergies Home Medications Medication Instructions Recorded Confirmed Type Hydrocodone/Acetaminophen [[place] 1 tab PO QID PRN 01/02/18 10/13/24 History 7.5-325] risperiDONE [RisperDAL] 1 mg PO DAILY 01/02/18 10/13/24 History Rivaroxaban [Xarelto] 20 mg PO W/SUPPER 03/05/20 10/13/24 History allopurinoL [Zyloprim] 100 mg PO BID 04/21/20 10/13/24 History Omeprazole 20 mg PO DAILY 06/07/20 10/13/24 History lamoTRIgine [LaMICtal] 100 mg PO BID 07/19/20 10/13/24 History Cyclobenzaprine [Flexeril] 10 mg PO HS 03/14/22 10/13/24 History Atorvastatin [Lipitor] 40 mg PO HS 09/08/24 10/13/24 History Albuterol Inhaler [Ventolin Hfa 2 puff INHALATION RT-QID PRN 10/06/24 10/13/24 History Inhaler] Aspirin EC [Ecotrin Low Dose] 81 mg PO DAILY 10/06/24 10/13/24 History Metoprolol Tartrate [Lopressor] 100 mg PO BID-W/MEALS 10/06/24 10/13/24 History Furosemide [Lasix] 40 mg PO BID #120 tab 10/08/24 10/13/24 Rx Dapagliflozin Propanediol [Farxiga] 10 mg PO DIRECTED 10/13/24 10/13/24 History Spironolactone [Aldactone] 12.5 mg PO DIRECTED 10/13/24 10/13/24 History Allergies Allergy/AdvReac Type Severity Reaction Status Date / Time varenicline [From Chantix] AdvReac IRRITABLE/A Verified 10/13/24 10:49 NGER Physical Exam Vitals: Vital Signs Temp Pulse Pulse Resp BP BP Pulse Ox 10/14/24 07:00 97.7 F 101 H 16 105/72 96 10/14/24 01:31 98.4 F 91 16 94/62 93 L 10/13/24 19:26 97.9 F 109 H 17 95/64 96 10/13/24 17:00 97.5 F L 97 16 116/83 94 L 10/13/24 16:33 97.5 F L 10/13/24 14:49 107 H 18 99/76 100 10/13/24 11:00 105 H 10 L 92/73 98 10/13/24 10:30 98 14 95/68 98 10/13/24 10:00 103 H 14 81/48 99 Intake and Output 10/13/24 10/14/24 10/14/24 22:59 06:59 14:59 Output Total 1200 Balance -1200 Output: Urine 1200 Other: Weight 101.605 kg Results 10/13/24 08:00 10/14/24 04:20 Cardiac Enzymes 10/13/24 10/13/24 Range/Units 11:38 14:36 Troponin I <0.012 <0.012 (0.000-0.034) ng/mL Lipids 10/14/24 Range/Units 04:20 Triglycerides 139.00 (0.00-149.00) mg/dL Cholesterol 122.00 (0.00-200.00) mg/dL HDL Cholesterol 63.20 H (40.00-60.00) mg/dL Cholesterol/HDL Ratio 1.93 Ratio Comprehensive Metabolic Panel 10/14/24 Range/Units 04:20 Sodium 137 (137-145) mmol/L Potassium 3.7 (3.5-5.1) mmol/L Chloride 102 (98-107) mmol/L Carbon Dioxide 27 (22-30) mmol/L BUN 12 (9-20) mg/dL Creatinine 0.77 (0.66-1.25) mg/dL Glucose 98 (74-99) mg/dL Calcium 9.6 (8.4-10.2) mg/dL Current Medications Generic Name Dose Route Start Last Admin Trade Name Freq PRN Reason Stop Dose Admin Hydrocodone Bitart/Acetaminophen 1 each 10/13/24 15:51 10/14/24 01:17 Hydrocodone/Apap 7.5-325mg 1 Each Tab PO 1 each QID PRN Administration Pain Allopurinol 100 mg 10/13/24 21:00 10/14/24 09:44 Allopurinol 100 Mg Tab PO 100 mg BID KIRILL Administration Aspirin 81 mg 10/14/24 09:00 10/14/24 09:45 Aspirin 81 Mg PO 81 mg DAILY KIRILL Administration Atorvastatin Calcium 40 mg 10/13/24 21:00 10/13/24 20:26 Atorvastatin 40 Mg Tab PO 40 mg HS KIRILL Administration Cyclobenzaprine HCl 10 mg 10/13/24 21:00 10/13/24 20:26 Cyclobenzaprine 10 Mg Tab PO 10 mg HS KIRILL Administration Dapagliflozin 10 mg 10/14/24 09:00 10/14/24 09:45 Dapagliflozin Propanediol 10 Mg Tablet PO 10 mg DAILY KIRILL Administration Furosemide 40 mg 10/13/24 16:00 10/14/24 09:45 Furosemide 10 Mg/Ml 4 Ml Vial IV 40 mg DAILY KIRILL Administration Lamotrigine 100 mg 10/13/24 21:00 10/14/24 09:45 Lamotrigine 100 Mg Tab PO 100 mg BID KIRILL Administration Metoprolol Tartrate 100 mg 10/13/24 17:30 10/14/24 09:44 Metoprolol Tartrate 50 Mg Tab PO 100 mg BID-W/MEALS KIRILL Administration Nitroglycerin 0.4 mg 10/13/24 10:07 Nitroglycerin Sl Tabs 0.4 Mg Tab SUBLINGUAL Q5M PRN Chest Pain Pantoprazole Sodium 40 mg 10/14/24 07:30 10/14/24 06:40 Pantoprazole 40 Mg Tablet PO 40 mg [id number] KIRILL Administration Risperidone 1 mg 10/14/24 09:00 10/14/24 09:45 Risperidone 1 Mg Tab PO 1 mg DAILY KIRILL Administration Rivaroxaban 20 mg 10/13/24 17:30 10/14/24 09:45 Rivaroxaban 20 Mg Tab PO 20 mg W/SUPPER KIRILL Administration Protocol Intake and Output 10/13/24 10/14/24 10/14/24 22:59 06:59 14:59 Output Total 1200 Balance -1200 Output: Urine 1200 Other: Weight 101.605 kg 10/13/24 08:00 10/14/24 04:20
--- NOTE | 2024-10-14 13:51 | P.PN ---
Subjective Progress Note Date: 10/14/24 69 year old M with PMH of A-Fib, HFrEF 40% EF, Gout, GERD, HLD, cognitive impairment, sleep apnea, schizophrenia presents to the ED for SOB. Recently admitted from 10/06-10/08 for similar symptoms. He reports shortness of breath ongoing since his discharge. He reports orthopnea and intermittent chest pain w hich he cant describe effectively. Denies lower extremity swelling. Denies any changes in urination or bowel habits. In the ED he underwent extensive evaluation. BP 91/60, HR 106, T 97.3F, RR 18, 98% on RA. CBC, Coag panel, CMP significant for RBC 3.19, Hg 11.3, Hct 33.6, MCV 105.3, PT 12.8, INR 1.2, APTT 30.7, glu 101. Lactic acid 1.8. Trop < 0.012 x 3. D-Dimer 0.25. COVID, RSV, Flu neg. EKG A-Fib with RVR rate of 112. CXR chronic opacity over the RLL with mild pulmonary vascular congestion. Patient is admitted for further evaluation. 10/14 Patient was seen and examined. Reports continued SOB. Cardiology recommends Lexiscan. BMP unremarkable. Lipid panel T. Chol 122, LDL 31. General: non toxic, no distress, appears at stated age Derm: warm, dry Head: atraumatic, normocephalic, symmetric Mouth: no lip lesion, mucus membranes moist Cardiovascular: S1 S2 reg. No murmur. Lungs: Decreased BS bilaterally, no accessory muscle use Ext: no gross muscle atrophy, no edema, no contractures Neuro: No focal neurologic deficits. Psych: Alert and oriented. Based on my assessment of this patient, this patient meets a high complexity level of care. Systolic CHF exacerbation: Lasix 40 mg IV QD. Monitor renal function while on Lasix IV. Increased Metoprolol from 100 to 150 mg PO BID. Farxiga 10 mg PO QD. Hold aldactone given hypotensive nature. Would benefit from ACEi. Strict intake and outtake. Daily weights. Cardiology on board. Atrial fibrillation with RVR: Metoprolol as above. Xarelto 20 mg PO QD for AC. K > 4 and Mg > 2. Cardiology on board. Chest pain: ACS ruled out. Likely due to above. Macrocytic anemia: Chronic. B12 386. Folate 12.5. Gout: Allopurinol 100 mg PO BID. GERD: Protonix 40 mg PO QD. HLD: Lipitor 40 mg PO QHS. Cognitive impairment Sleep apnea: CPAP QHS. Schizophrenia: Lamictal 100 mg PO BID. Risperidal 1 mg PO QD. CODE STATUS: FULL CODE DVT Prophylaxis: Xarelto GI Prophylaxis: Protonix Designated medical POA if patient is not able to make medical decisions for themselves: . I have reviewed the following erp implementation consultant notes: Cardio note. I have reviewed the results of the following tests: BMP. Lipid panel. I have ordered the following tests: BMP in the AM. I have discussed the care of this patient with the following independent historian: I have independently interpreted the following test below: I have discussed the management of this patient with the following physician: Objective - Vital Signs Vital signs: Vital Signs Temp 97.7 F 10/14/24 13:14 Pulse 104 H 10/14/24 13:14 Resp 18 10/14/24 13:14 BP 109/77 10/14/24 13:14 Pulse Ox 98 10/14/24 13:14 FiO2 Intake & Output 10/13/24 10/14/24 10/14/24 18:59 06:59 18:59 Output Total 1200 1100 Balance -1200 -1100 Weight 101.605 kg Output: Urine 1200 1100 - Labs CBC & Chem 7: 10/13/24 08:00 10/14/24 04:20 Labs: Abnormal Lab Results - Last 24 Hours (Table) 10/14/24 Range/Units 04:20 HDL Cholesterol 63.20 H (40.00-60.00) mg/dL
--- NOTE | 2024-10-14 13:59 | CA ---
Lexiscan Nuclear Stress Test Report Name: Escobar Martinez Exam Date: 10/14/2024 12:00 Exam Location: [place] Stress Ht (in): 72 Wt (lb): 224 BSA: 2.24 Ordering Phys: Tamanna Vang Referring Phys: GLORIA, Technologist: Bandar Witt Age: 69 Gender: M : 1955 Procedure CPT: Indications: Reflex order-Stress test ICD-10 Codes: Patient History: CHEST PAIN, DIFFICULTY IN BREATHING, PALPITATIONS, HTN, HYPERCHOLESTEROLEMIA, FAMILY HX OF HEART DISEASE, PRIOR SMOKER, COPD Medications: Meds past 24 hrs: Pretest Chest Pain: STRESS TEST Lexiscan Protocol Exercise Duration (min:sec): 02:[address] Depressions (mm): Angina Score: Gambino Score: Resting HR (bpm): 91 Peak HR (bpm): 115 Resting BP (mmHg): 83 / 56 Peak BP (mmHg): 127 / 51 MPHR: 151 Target HR: 128 % MPHR: 76 METS: 1.0 Total Dose: Peak Dose: Atropine: Double Product: 23470 BP Response: Stress Termination: INFUSION COMPLETE Stress Symptoms: CARLOS Stress Summary: ECG ANALYSIS Resting ECG: Stress ECG: CONCLUSIONS At baseline EKG showed atrial fibrillation with controlled ventricular rate with normal axis, no significant ST or T wave abnormalities. Patient recieved IV infusion of Lexiscan 0.4mg and at peak infusion EKG showed no change from baseline. Conclusions: 1. Normal EKG response to Lexiscan infusion 2. Nuclear imaging to be reported separately. Dr. Mauricio Rosa DO (Electronically Signed) Final Date: 14 October 2024 13:58
--- NOTE | 2024-10-14 14:04 | NM ---
EXAMINATION TYPE: NM stress lexiscan cardiolite DATE OF EXAM: 10/14/2024 COMPARISON: None CLINICAL INDICATION: Male, 69 years old with history of chest pain; TECHNIQUE: After the intravenous administration of 8.4 mCi Tc 99m Sestamibi - Cardiolite resting SPE CT images acquired 45 minutes post injection. The patient received 0.4mg Lexiscan, 27 mCi Tc 99m Sestamibi - Stress images obtained 35 minutes post injection FINDINGS: Review of stress and rest SPECT images demonstrates some focal reversibility along the apical anteros eptal wall. Gated analysis shows overall normal wall motion with an estimated left ventricular ejecti on fraction of 60 %. TID is calculated at 0.93. IMPRESSION: Findings suspicious for small area of focal reversibility involving the apical anteroseptal wall. Fur ther clinical and EKG correlation recommended . [facility], , 10/14/2024 2:02 PM
[2024-10-14] MEDS: METOPROLOL TARTRATE 50 MG TAB PO SCH (18:13)
[2024-10-15 06:27] LABS: African American GFR (CKD) >90 (>60 ml/min/1.73 sqM); Anion Gap 8 mmol/L; Blood Urea Nitrogen 11 mg/dL (9-20); Calcium 9.6 mg/dL (8.4-10.2); Carbon Dioxide 26 mmol/L (22-30); Chloride 100 mmol/L (98-107); Glucose 90 mg/dL (74-99); Non-African American GFR(CKD) >90 (>60 ml/min/1.73 sqM); Potassium 3.4 mmol/L (3.5-5.1); Sodium 134 mmol/L (137-145)
[2024-10-15] MEDS ORDERED: ALPRAZolam 0.5 MG TAB PO PRN (10:57)
[2024-10-15] MEDS ORDERED: ALPRAZolam 0.25 MG TAB PO PRN (10:57)
[2024-10-15] MEDS ORDERED: NITROGLYCERIN SL TABS 0.4 MG TAB SUBLINGUAL PRN (10:57)
--- NOTE | 2024-10-15 11:23 | P.PN ---
Subjective Progress Note Date: 10/15/24 69 year old M with PMH of A-Fib, HFrEF 40% EF, Gout, GERD, HLD, cognitive impairment, sleep apnea, schizophrenia presents to the ED for SOB. Recently admitted from 10/06-10/08 for similar symptoms. He reports shortness of breath ongoing since his discharge. He reports orthopnea and intermittent chest pain w hich he cant describe effectively. Denies lower extremity swelling. Denies any changes in urination or bowel habits. In the ED he underwent extensive evaluation. BP 91/60, HR 106, T 97.3F, RR 18, 98% on RA. CBC, Coag panel, CMP significant for RBC 3.19, Hg 11.3, Hct 33.6, MCV 105.3, PT 12.8, INR 1.2, APTT 30.7, glu 101. Lactic acid 1.8. Trop < 0.012 x 3. D-Dimer 0.25. COVID, RSV, Flu neg. EKG A-Fib with RVR rate of 112. CXR chronic opacity over the RLL with mild pulmonary vascular congestion. Patient is admitted for further evaluation. 10/14 Patient was seen and examined. Reports continued SOB. Cardiology recommends Lexiscan. BMP unremarkable. Lipid panel T. Chol 122, LDL 31. 10/15 Patient was seen and examined. Breathing better. Negative 1.2L fluid balance over the past 24H. Maintained on Lasix 40 mg IV QD. Lexiscan done yesterday shows reversible ischemia. Discussed with Tamanna ROWE, plans for [facility] tomorrow. BMP Na 134, K 3.4. General: non toxic, no distress, appears at stated age Derm: warm, dry Head: atraumatic, normocephalic, symmetric Mouth: no lip lesion, mucus membranes moist Cardiovascular: S1 S2 reg. No murmur. Lungs: Decreased BS bilaterally, no accessory muscle use Ext: no gross muscle atrophy, no edema, no contractures Neuro: No focal neurologic deficits. Psych: Alert and oriented. Based on my assessment of this patient, this patient meets a high complexity level of care. Systolic CHF exacerbation: Lasix 40 mg IV QD. Monitor renal function while on Lasix IV. Increased Metoprolol from 150 to 200 mg PO BID. Farxiga 10 mg PO QD. Hold aldactone given hypotensive nature. Would benefit from ACEi. Strict intake and outtake. Daily weights. Cardiology on board. Atrial fibrillation with RVR: Metoprolol as above. Xarelto 20 mg PO QD for AC. K > 4 and Mg > 2. Cardiology on board. Hypokalemia: KCl 20 meq PO x 1. Repeat BMP in the AM along with Mag. Chest pain: ACS ruled out. Positive Lexiscan. Plans for LHC in the AM. Macrocytic anemia: Chronic. B12 386. Folate 12.5. Gout: Allopurinol 100 mg PO BID. GERD: Protonix 40 mg PO QD. HLD: Lipitor 40 mg PO QHS. Cognitive impairment Sleep apnea: CPAP QHS. Schizophrenia: Lamictal 100 mg PO BID. Risperidal 1 mg PO QD. CODE STATUS: FULL CODE DVT Prophylaxis: Xarelto GI Prophylaxis: Protonix Designated medical POA if patient is not able to make medical decisions for themselves: . I have reviewed the following senior treasury consultant notes: I have reviewed the results of the following tests: BMP. Lexiscan I have ordered the following tests: BMP and Mag in the AM. I have discussed the care of this patient with the following independent historian: I have independently interpreted the following test below: I have discussed the management of this patient with the following physician: Tamanna ROWE Objective - Vital Signs Vital signs: Vital Signs Temp 97.6 F 10/15/24 07:00 Pulse 105 H 10/15/24 08:21 Resp 18 10/15/24 07:00 BP 96/59 10/15/24 07:00 Pulse Ox 97 10/15/24 07:00 FiO2 Intake & Output 10/14/24 10/15/24 10/15/24 18:59 06:59 18:59 Intake Total 240 Output Total 1100 300 Balance -860 -300 Weight 100.1 kg Intake: Oral 240 Output: Urine 1100 300 - Labs CBC & Chem 7: 10/13/24 08:00 10/15/24 04:55 Labs: Abnormal Lab Results - Last 24 Hours (Table) 10/15/24 Range/Units 04:55 Sodium 134 L (137-145) mmol/L Potassium 3.4 L (3.5-5.1) mmol/L
[2024-10-15] MEDS: METOPROLOL TARTRATE 50 MG TAB PO STA (11:24)
[2024-10-15] MEDS: POTASSIUM CHLORIDE ER 20 MEQ TAB.ER PO STA (11:46)
--- NOTE | 2024-10-15 14:47 | P.PN ---
Subjective Progress Note Date: 10/15/24 Consult reason: chest pain History of present illness: This is 69-year-old male patient of Dr. Navid Reis with past medical history of chronic diastolic heart failure, coronary artery disease, persistent atrial fibrillation on Xarelto remote, status post atrial fibrillation ablation and coded during procedure requiring CPR with return of ROSC finding iatrogenic right atrial perforation with exsanguinating hemorrhage requiring drainage with cardiothoracic surgery, history of DVT and PE, chronic lumbar back pain with previous back surgeries, history of tobacco use and quit in 2019. We have been asked to evaluate the patient for chest pain. Patient was recently hospitalized and discharged on 10/08 at which time he was seen by cardiology for acute on chronic heart failure, persistent atrial fibrillation with RVR. We have been asked to evaluate the patient for chest pain. Patient states that he has a tightness in his chest which is new for him. He complains of feeling fatigued. He has a dry cough with no sputum production. No fever or chills. He quit smoking in 2019. He states he feels a little dizzy when he stands up. He states the chest tightness has been going on for about a week. Blood pressure 105/72, heart rate 101, pulse ox 96% on room air. Patient has been started on IV Lasix 40 mg daily. -EKG: Atrial fibrillation with ventricular rate of 112. -Chest x-ray: Stable chronic appearing pleural-parenchymal opacity right lower lobe. Lungs are otherwise clear. Mild pulmonary venous congestion without overt failure. -Laboratory studies: WBC 6.3, hemoglobin 11.3. INR 1.2. Electrolytes and renal function are normal. Troponins negative x 3. Triglycerides 139, cholesterol 122, LDL 31. Cepheid viral panel not detected. -Home cardiac medications: Aspirin 81 mg daily, atorvastatin 40 mg at bedtime, Farxiga 10 mg prescribed but has not started it, Lasix 40 mg twice daily, Lopressor 100 mg twice daily, Xarelto 20 mg with supper, spironolactone 12.5 mg daily prescribed but not started yet. -Echocardiogram performed 08/2024 revealed EF of 45%, moderate concentric LVH, mild to moderate MR, mild TR, mildly dilated aortic root measuring 4 cm. -Lexiscan Cardiolite stress test performed in the office on 03/06/2024 revealed inconclusive EKG part of the stress test due to baseline EKG abnormalities. Normal myocardial perfusion and function. 10/15 Patient seen and examined. Yesterday, patient underwent a Lexiscan stress test which revealed findings suspicious for small area of focal reversibility involving the apical anterior septal wall. Films have been reviewed by Dr. Rosa. He has discussed findings with the patient with recommendations for cardiac catheterization which patient is agreeable to move forward with and will be scheduled tomorrow. TSH 3.21. Sodium 134, potassium 3.4, BUN 11 creatinine 0.67. Patient has been maintained on IV Lasix 40 mg daily. Blood pressure 96/59, heart rate 105, pulse ox 97% on room air. Physical examination: Gen: This is 69-year-old male in no acute respiratory distress. VS: reviewed HEENT: Head is atraumatic, normocephalic. Pupils equal, round. Sclerae is anicteric. NECK: Supple. No JVD. LUNGS: Clear to auscultation. No wheezes or rhonchi. No intercostal ret ractions. HEART: Irregular rate and rhythm. No murmur. ABDOMEN: Soft No tenderness. EXTREMITIES: No pedal edema. No calf tenderness. NEUROLOGICAL: Patient is awake, alert and oriented x3. Assessment: Atypical chest pain, acute coronary syndrome ruled out Symptoms may be related to atrial fibrillation Acute on chronic heart failure with mildly reduced EF, 45% Persistent atrial fibrillation currently controlled rate History of A-fib ablation complicated by perforation of right atrium requiring surgery followed by recurrence of atrial fibrillation with subsequent cardioversion History of tobacco use and dependence and quit in 2018 Plan: Continue patient's home cardiac medications with the following change Increase Lopressor to 200 mg twice daily Schedule patient for cardiac catheterization tomorrow with Dr. Navid Reis No need to repeat echocardiogram as this was done in August Further recommendations to follow based upon clinical course Nurse practitioner note has been reviewed, I agree with documented findings and plan of care. Patient was seen and examined. Objective - Vital Signs Vital signs: Vital Signs Temp 97.6 F 10/15/24 07:00 Pulse 105 H 10/15/24 07:00 Resp 18 10/15/24 07:00 BP 96/59 10/15/24 07:00 Pulse Ox 97 10/15/24 07:00 FiO2 Intake & Output 10/14/24 10/15/24 10/15/24 18:59 06:59 18:59 Intake Total 240 Output Total 1100 300 Balance -860 -300 Weight 100.1 kg Intake: Oral 240 Output: Urine 1100 300 - Labs CBC & Chem 7: 10/13/24 08:00 10/15/24 04:55 Labs: Abnormal Lab Results - Last 24 Hours (Table) 10/15/24 Range/Units 04:55 Sodium 134 L (137-145) mmol/L Potassium 3.4 L (3.5-5.1) mmol/L
[2024-10-15] MEDS: METOPROLOL TARTRATE 50 MG TAB PO SCH (18:45)
[2024-10-16] MEDS: ATORVASTATIN 80 MG TAB PO ONE (06:04)
[2024-10-16] MEDS: ASPIRIN 325 MG TAB PO ONE (06:04)
[2024-10-16 07:19] LABS: African American GFR (CKD) >90 (>60 ml/min/1.73 sqM); Anion Gap 12 mmol/L; Blood Urea Nitrogen 10 mg/dL (9-20); Calcium 9.9 mg/dL (8.4-10.2); Carbon Dioxide 26 mmol/L (22-30); Chloride 98 mmol/L (98-107); Glucose 119 mg/dL (74-99); Non-African American GFR(CKD) 87 (>60 ml/min/1.73 sqM); Potassium 3.8 mmol/L (3.5-5.1); Sodium 136 mmol/L (137-145)
[2024-10-16] MEDS: EMPTY BAG 1 BAG with SODIUM CHLORIDE 0.9% 1,000 ML IV ONE (08:05)
[2024-10-16] MEDS: HEPARIN SODIUM,PORCINE 10,000 UNIT in SODIUM CHLORIDE 0.9% 1,000 ML IRRIGATION PRN (09:13)
[2024-10-16] MEDS: IV FLUID CONTINUATION 1,000 ML IV ONE (09:13)
[2024-10-16] MEDS: HEPARIN SODIUM,PORCINE (1 ML) 2,500 UNIT in SODIUM CHLORIDE 0.9% 250 ML IRRIGATION PRN (09:13)
[2024-10-16] MEDS: MIDAZOLAM 2 MG/2 ML VIAL IVP ONE (09:25)
[2024-10-16] MEDS: fentaNYL (PF) 50 MCG/ML 2 ML AMP IVP ONE (09:25)
[2024-10-16] MEDS: LIDOCAINE 1% INJ 10MG/ML (20 ML MDV) SQ ONE (09:27)
[2024-10-16] MEDS: VERAPAMIL SYRINGE (5 MG/10 ML) INTRAARTER ONE (09:30)
[2024-10-16] MEDS: HEPARIN SODIUM 1,000 UN/ML (10ML VL) IV ONE (09:37)
[2024-10-16] MEDS: IOPAMIDOL-370 100ML BTL INJ ONE ×2 (09:40→11:05)
[2024-10-16] MEDS: CLOPIDOGREL 75 MG TAB PO ONE (10:21)
[2024-10-16] MEDS: HEPARIN SODIUM 1,000 UN/ML (10ML VL) IVP ONE (10:41)
[2024-10-16] MEDS: NITROGLYCERIN 1000MCG/10ML SYRINGE INTRACORON ONE (10:54)
[2024-10-16] MEDS ORDERED: ATROPINE SULFATE 0.1 MG/ML 10ML SYRINGE IV PRN (11:10)
[2024-10-16] MEDS ORDERED: ZOLPIDEM 5 MG TAB PO PRN (11:10)
[2024-10-16] MEDS ORDERED: RX INFO: IV CONTRAST WAS GIVEN 1 EACH MISC MISCELLANE PRN (11:10)
[2024-10-16] MEDS ORDERED: MAG HYDROX/AL HYDROX/SIMETH 30 ML CUP PO PRN (11:10)
--- NOTE | 2024-10-16 11:39 | P.PN ---
Subjective Progress Note Date: 10/16/24 69 year old M with PMH of A-Fib, HFrEF 40% EF, Gout, GERD, HLD, cognitive impairment, sleep apnea, schizophrenia presents to the ED for SOB. Recently admitted from 10/06-10/08 for similar symptoms. He reports shortness of breath ongoing since his discharge. He reports orthopnea and intermittent chest pain w hich he cant describe effectively. Denies lower extremity swelling. Denies any changes in urination or bowel habits. In the ED he underwent extensive evaluation. BP 91/60, HR 106, T 97.3F, RR 18, 98% on RA. CBC, Coag panel, CMP significant for RBC 3.19, Hg 11.3, Hct 33.6, MCV 105.3, PT 12.8, INR 1.2, APTT 30.7, glu 101. Lactic acid 1.8. Trop < 0.012 x 3. D-Dimer 0.25. COVID, RSV, Flu neg. EKG A-Fib with RVR rate of 112. CXR chronic opacity over the RLL with mild pulmonary vascular congestion. Patient is admitted for further evaluation. 10/14 Patient was seen and examined. Reports continued SOB. Cardiology recommends Lexiscan. BMP unremarkable. Lipid panel T. Chol 122, LDL 31. 10/15 Patient was seen and examined. Breathing better. Negative 1.2L fluid balance over the past 24H. Maintained on Lasix 40 mg IV QD. Lexiscan done yesterday shows reversible ischemia. Discussed with Tamanna ROWE, plans for LHC tomorrow. BMP Na 134, K 3.4. 10/16 Patient was seen and examined. Negative 2L fluid balance over the past 24H. Maintained on Lasix 40 mg IV QD. BMP shows Na 136, glu 119. Plans for LHC today. General: non toxic, no distress, appears at stated age Derm: warm, dry Head: atraumatic, normocephalic, symmetric Mouth: no lip lesion, mucus membranes moist Cardiovascular: S1 S2 reg. No murmur. Lungs: Decreased BS bilaterally, no accessory muscle use Ext: no gross muscle atrophy, no edema, no contractures Neuro: No focal neurologic deficits. Psych: Alert and oriented. Based on my assessment of this patient, this patient meets a high complexity level of care. Systolic CHF exacerbation: Lasix 40 mg IV QD. Monitor renal function while on Lasix IV. Metoprolol 200 mg PO BID. Farxiga 10 mg PO QD. Hold aldactone given hypotensive nature. Would benefit from ACEi. Strict intake and outtake. Daily weights. Cardiology on board. Chest pain: ACS ruled out. Positive Lexiscan. Plans for C today. Macrocytic anemia: Chronic. B12 386. Folate 12.5. Gout: Allopurinol 100 mg PO BID. GERD: Protonix 40 mg PO QD. HLD: Lipitor 40 mg PO QHS. Cognitive impairment Sleep apnea: CPAP QHS. Schizophrenia: Lamictal 100 mg PO BID. Risperidal 1 mg PO QD. Resolved: HypoK CODE STATUS: FULL CODE DVT Prophylaxis: Xarelto GI Prophylaxis: Protonix Designated medical POA if patient is not able to make medical decisions for themselves: . I have reviewed the following emergency management consultant notes: Cardiology. I have reviewed the results of the following tests: BMP. I have ordered the following tests: BMP in the AM. I have discussed the care of this patient with the following independent historian: I have independently interpreted the following test below: I have discussed the management of this patient with the following physician: Objective - Vital Signs Vital signs: Vital Signs Temp 98.4 F 10/16/24 07:00 Pulse 105 H 10/16/24 07:00 Resp 14 10/16/24 08:05 BP 96/61 10/16/24 07:00 Pulse Ox 96 10/16/24 07:00 FiO2 Intake & Output 10/15/24 10/16/24 10/16/24 18:59 06:59 18:59 Intake Total 600 Output Total 550 1450 Balance -550 -1450 600 Weight 100.2 kg Intake: IV 600 Output: Urine 550 1450 Other: Voiding Method Toilet - Labs CBC & Chem 7: 10/13/24 08:00 10/16/24 06:32 Labs: Abnormal Lab Results - Last 24 Hours (Table) 10/16/24 Range/Units 06:32 Sodium 136 L (137-145) mmol/L Glucose 119 H (74-99) mg/dL
[2024-10-16] MEDS: HEPARIN SODIUM 1,000 UN/ML (10ML VL) IVP STA (12:29)
--- NOTE | 2024-10-16 14:08 | P.PRCINT ---
Percutaneous Coronary Int. - Percutaneous Coronary Intervention Percutaneous Coronary Intervention: PROCEDURES PERFORMED: Left coronary angiography, Shockwave lithotripsy with a 3.0mm balloon, IVUS LAD, iFR LAD, PCI mid LAD with a 3.5 x 38mm Xience KACY, post dilated with a 3.75mm NC balloon INDICATION: Abnormal stress test, chest pain CONSENT:The risks, benefits and alternative therapies for the above-mentioned procedure and for both sedation/analgesia as well as necessary blood product administration, if indicated, as they pertain to this patient were explained. The patient has indicated understanding and acceptance of the risks and procedures discussed. PROCEDURE: After the risks, benefits and alternatives of the above mentioned procedure explained in detail with the patient, informed consent was obtained. Patient was taken to the catheterization lab and prepped and draped in usual fashion. A 6-Luxembourger sheath had previously been placed in the right radial artery. The decision was made to perform functional assessment of the LAD. A 6 Luxembourger CLS 3.5 guide was used to engage the left main. Heparin was given. A 0.014 pressure wire was advanced to the left main and normalized. It was then advanced 1 cm distal to the mid LAD lesion. iFR was performed and was abnormal at 0.80. Therefore the decision was made to perform PCI of the LAD. There was bifurcation however did not appear to be much disease of the diagonal branch. Balloon angioplasty was performed with a 2.5 x 12 mm balloon. Next intravascular ultrasound was performed which showed reference vessel 4.0 mm proximally and 3.5 mm distally. There was diffuse disease distal to the bifurcation lesion however more normal segment of the mid LAD. Therefore a longer segment of normal to normal angioplasty was recommended. There was significant calcification and therefore lithotripsy was recommended. Shockwave balloon lithotripsy was performed with 3.0 mm balloon. Next a 3.5 x 38 mm drug- eluting stent was placed in the mid LAD jailing the diagonal branch without any significant impedance of flow. The stent was postdilated with a 3.75 mm balloon. There was a step-off after the stent noted to be there previously and on intravascular ultrasound this was related to more distal disease and felt best treated medically. Final angiograms were performed. Preintervention there was 70 to 80% mid LAD stenosis and DEBORA-3 flow and postintervention there was less than 10% stenosis with DEBORA-3 flow. The right radial sheath was removed and a TR band was placed with hemostasis achieved. The patient tolerated the procedure well. Patient was transported back to the post catheterization holding area in stable condition. Conscious Sedation: Patient was monitored under the direct supervision of myself for conscious sedation using Versed and fentanyl for a total duration of 52 minutes HEMODYNAMICS: Aorta: 136/78 SELECTIVE CORONARY ARTERIOGRAPHY: LEFT MAIN: The left main is a large caliber vessel which bifurcates into the LAD and circumflex. There is no significant stenosis. LEFT ANTERIOR DESCENDING CORONARY ARTERY: LAD is a large caliber vessel which wraps around to the apex. There is diffuse proximal and mid LAD calcified stenosis with more focal 70 to 80% stenosis just after the diagonal 1 branch takeoff. Diagonal 1 is small to moderate caliber with no significant disease. LEFT CIRCUMFLEX CORONARY ARTERY: Left circumflex is a moderate caliber vessel without significant stenosis. RIGHT CORONARY ARTERY: The right coronary artery was not imaged, see separate report. FINAL IMPRESSION: 1. CAD as described above including 70 to 80% mid LAD stenosis and otherwise mild 20% proximal and mid LAD stenosis. 2. Status post PCI mid LAD with a 3.5 x 38mm Xience KACY, post dilated with a 3.75mm NC balloon 3. Abnormal iFR LAD PLAN: 1. Aggressive risk factor modification per most recent ACC/AHA guidelines. 2. Continue with Plavix and Eliquis for 6 months.
[2024-10-16] MEDS: RIVAROXABAN 20 MG TAB PO SCH (20:28)
[2024-10-17 06:48] LABS: Basophils # (A) 0.07 10*3/uL (0.00-0.10); Basophils % (A) 1.5 %; Eosinophils # (A) 0.25 10*3/uL (0.04-0.35); Eosinophils % (A) 5.3 %; HCT 31.9 % (39.6-50.0); HGB 10.8 g/dL (13.0-17.0); Lymphocytes # (A) 0.96 10*3/uL (0.90-5.00); Lymphocytes % (A) 20.3 %; MCH 35.6 pg (27.0-32.0); MCHC 33.9 g/dL (32.0-37.0); Mean Platelet Volume 11.7 fL (9.5-12.2); Monocytes # (A) 0.56 10*3/uL (0.20-1.00); Monocytes % (A) 11.8 %; Neutrophils # (A) 2.88 10*3/uL (1.80-7.70); Neutrophils % (A) 60.9 %; Platelet Count 181 10*3/uL (140-440); RBC 3.03 10*6/uL (4.40-5.60); RDW 13.5 % (11.5-14.5); WBC 4.73 10*3/uL (4.50-10.00)
[2024-10-17 06:52] LABS: MCV 105.3 fL (80.0-97.0)
[2024-10-17 07:14] LABS: African American GFR (CKD) >90 (>60 ml/min/1.73 sqM); Anion Gap 6 mmol/L; Blood Urea Nitrogen 7 mg/dL (9-20); Calcium 9.2 mg/dL (8.4-10.2); Carbon Dioxide 25 mmol/L (22-30); Chloride 106 mmol/L (98-107); Glucose 99 mg/dL (74-99); Non-African American GFR(CKD) >90 (>60 ml/min/1.73 sqM); Sodium 137 mmol/L (137-145)
[2024-10-17 07:38] VITALS: PULSE 95; RESP 16; TEMP 98.8
[2024-10-17] MEDS: CLOPIDOGREL 75 MG TAB PO SCH (08:37)
[2024-10-17 09:59] VITALS: BP 93/59
--- NOTE | 2024-10-17 10:30 | P.PN ---
Subjective Progress Note Date: 10/17/24 Consult reason: chest pain History of present illness: This is 69-year-old male patient of Dr. Navid Reis with past medical history of chronic diastolic heart failure, coronary artery disease, persistent atrial fibrillation on Xarelto remote, status post atrial fibrillation ablation and coded during procedure requiring CPR with return of ROSC finding iatrogenic right atrial perforation with exsanguinating hemorrhage requiring drainage with cardiothoracic surgery, history of DVT and PE, chronic lumbar back pain with previous back surgeries, history of tobacco use and quit in 2019. We have been asked to evaluate the patient for chest pain. Patient was recently hospitalized and discharged on 10/08 at which time he was seen by cardiology for acute on chronic heart failure, persistent atrial fibrillation with RVR. We have been asked to evaluate the patient for chest pain. Patient states that he has a tightness in his chest which is new for him. He complains of feeling fatigued. He has a dry cough with no sputum production. No fever or chills. He quit smoking in 2019. He states he feels a little dizzy when he stands up. He states the chest tightness has been going on for about a week. Blood pressure 105/72, heart rate 101, pulse ox 96% on room air. Patient has been started on IV Lasix 40 mg daily. -EKG: Atrial fibrillation with ventricular rate of 112. -Chest x-ray: Stable chronic appearing pleural-parenchymal opacity right lower lobe. Lungs are otherwise clear. Mild pulmonary venous congestion without overt failure. -Laboratory studies: WBC 6.3, hemoglobin 11.3. INR 1.2. Electrolytes and renal function are normal. Troponins negative x 3. Triglycerides 139, cholesterol 122, LDL 31. Cepheid viral panel not detected. -Home cardiac medications: Aspirin 81 mg daily, atorvastatin 40 mg at bedtime, Farxiga 10 mg prescribed but has not started it, Lasix 40 mg twice daily, Lopressor 100 mg twice daily, Xarelto 20 mg with supper, spironolactone 12.5 mg daily prescribed but not started yet. -Echocardiogram performed 08/2024 revealed EF of 45%, moderate concentric LVH, mild to moderate MR, mild TR, mildly dilated aortic root measuring 4 cm. -Lexiscan Cardiolite stress test performed in the office on 03/06/2024 revealed inconclusive EKG part of the stress test due to baseline EKG abnormalities. Normal myocardial perfusion and function. 10/15 Patient seen and examined. Yesterday, patient underwent a Lexiscan stress test which revealed findings suspicious for small area of focal reversibility involving the apical anterior septal wall. Films have been reviewed by Dr. Rosa. He has discussed findings with the patient with recommendations for cardiac catheterization which patient is agreeable to move forward with and will be scheduled tomorrow. TSH 3.21. Sodium 134, potassium 3.4, BUN 11 creatinine 0.67. Patient has been maintained on IV Lasix 40 mg daily. Blood pressure 96/59, heart rate 105, pulse ox 97% on room air. 10/16 Patient seen and examined. Patient underwent cardiac catheterization today with Dr. Reis Blood pressure 96/61, heart rate 105, pulse ox 96% on room air. Repeat blood work reveals sodium 136, potassium 3.8, creatinine 0.91. Patient has been maintained on IV Lasix 40 mg daily 10/17 Patient seen and examined. Yesterday, patient underwent cardiac catheterization with Dr. Ries finding 7080% mid LAD stenosis and otherwise mild 20% proximal and mid LAD stenosis. Patient underwent PCI of the mid LAD with KACY. There was abnormal IFR of the LAD. Patient was started on Plavix for 6 months. Patient has been resumed on Xarelto. Repeat blood work reveals BUN 7 creatinine 0.66, potassium 4, hemoglobin 10.8. Denies chest pain or pressure. No SOB. HR's 80- 90's predominantly. Borderline BP in 90-100's. No lightheadedness Physical examination: Gen: This is 69-year-old male in no acute respiratory distress. VS: reviewed HEENT: Head is atraumatic, normocephalic. Pupils equal, round. Sclerae is anicteric. NECK: Supple. No JVD. LUNGS: Clear to auscultation. No wheezes or rhonchi. No intercostal retractions. HEART: Irregular rate and rhythm. No murmur. ABDOMEN: Soft No tenderness. EXTREMITIES: No pedal edema. No calf tenderness. NEUROLOGICAL: Patient is awake, alert and oriented x3. Assessment: Atypical chest pain, acute coronary syndrome ruled out Symptoms may be related to atrial fibrillation Acute on chronic heart failure with mildly reduced EF, 45% Persistent atrial fibrillation currently controlled rate History of A-fib ablation complicated by perforation of right atrium requiring surgery followed by recurrence of atrial fibrillation with subsequent cardioversion History of tobacco use and dependence and quit in 2019 Plan: Continue patient on atorvastatin 40 mg at bedtime, Plavix 75 mg daily, Farxiga 10 mg daily, Lopressor to 200 mg twice daily, Xarelto 20 mg with supper Plavix prescription sent to his pharmacy Patient is cleared for discharge from cardiology May follow-up in the office with Dr. Navid Reis in 2 weeks. Nurse practitioner note has been reviewed, I agree with documented findings and plan of care. Patient was seen and examined. Objective - Vital Signs Vital signs: Vital Signs Temp 98.8 F 10/17/24 07:00 Pulse 95 10/17/24 07:00 Resp 16 10/17/24 07:00 BP 102/67 10/17/24 07:00 Pulse Ox 98 10/17/24 07:00 FiO2 Intake & Output 10/16/24 10/17/24 10/17/24 18:59 06:59 18:59 Intake Total 600 841 Output Total 1650 Balance 600 -809 Weight 101 kg Intake: IV 600 Oral 841 Output: Urine 1650 Other: Voiding Method Toilet Toilet - Labs CBC & Chem 7: 10/17/24 06:24 10/17/24 06:24 Labs: Abnormal Lab Results - Last 24 Hours (Table) 10/17/24 10/17/24 Range/Units 06:24 06:24 RBC 3.03 L (4.40-5.60) 10*6/uL Hgb 10.8 L (13.0-17.0) g/dL Hct 31.9 L (39.6-50.0) % MCV 105.3 H (80.0-97.0) fL MCH 35.6 H (27.0-32.0) pg BUN 7 L (9-20) mg/dL
[2024-10-17] MEDS: FUROSEMIDE 40 MG TAB PO STA (10:48)
--- NOTE | 2024-10-17 10:51 | CC ---
CARDIAC CATHETERIZATION REPORT INDICATION: Chest pain with abnormal stress test. PROCEDURE NOTE: After obtaining informed consent, left heart catheterization and coronary angiogram were performed via the right radial artery using standard Lennie catheters. The patient tolerated the procedure well without any obvious immediate complications, received moderate conscious sedation. Total sedation time was 14 minutes. Right radial artery access was obtained using Seldinger technique. A 6-Kyrgyz sheath was placed. Catheters and wires were floated into the ascending aorta under fluoroscopic guidance. The patient received verapamil and heparin per protocol. FINDINGS: 1. Hemodynamics: Left ventricular end-diastolic pressure is 16 mm. There is no significant gradient across the aortic valve. 2. Left ventriculogram: Left ventriculogram is not performed. 3. Angiographic data: a.Right coronary artery: Right coronary artery is a large dominant vessel and shows mild nonobstructive CAD. b.Left main coronary artery is a normal-sized vessel and is free of stenosis. Divides into left anterior descending coronary artery and circumflex coronary artery. c.Circumflex coronary artery and its branches are free of significant stenosis. LAD gives off a large caliber diagonal branch and after that the LAD shows a focal 90% stenosis. CONCLUSIONS: One vessel coronary artery disease as described above. PLAN: I am going to have Dr. Rosa the on-call hydroelectric operator, review the angiographic data and advise on angioplasty of the LAD. MMODL / IJN: [id number] /
--- NOTE | 2024-10-17 11:11 | P.DS ---
Providers Date of admission: 10/13/24 10:10 Expected date of discharge: 10/17/24 Attending physician: Ilir Mims Consults: 10/13/24 10:07 Consult Physician Urgent Consulting Provider: Danny Morris Consult Reason/Comments: chestt pain Do you want consulting provider notified?: Yes 10/16/24 11:10 Consult Physician Routine Consulting Provider: [facility] Consult Reason/Comments: Post Interventional patient Do you want consulting provider notified?: Already Contacted Primary care physician: Ethan Rehman [facility] Course: 69 year old M with PMH of A-Fib, HFrEF 40% EF, Gout, GERD, HLD, cognitive impairment, sleep apnea, schizophrenia presents to the ED for SOB. Recently admitted from 10/06-10/08 for similar symptoms. He reports shortness of breath ongoing since his discharge. He reports orthopnea and intermittent chest pain which he cant describe effectively. Denies lower extremity swelling. Denies any changes in urination or bowel habits. In the ED he underwent extensive evaluation. BP 91/60, HR 106, T 97.3F, RR 18, 98% on RA. CBC, Coag panel, CMP significant for RBC 3.19, Hg 11.3, Hct 33.6, MCV 105.3, PT 12.8, INR 1.2, APTT 30.7, glu 101. Lactic acid 1.8. Trop < 0.012 x 3. D-Dimer 0.25. COVID, RSV, Flu neg. EKG A-Fib with RVR rate of 112. CXR chronic opacity over the RLL with mild pulmonary vascular congestion. Patient is admitted for further evaluation. Metoprolol increased by Cardiology. Patient diuresed with Lasix 40 mg IV QD. Underwent Lexiscan which was positive. 10/17 Patient was seen and examined. Underwent cardiac cath showing 70-80% mid LAD status post KACY on 10/17. Feeling well. No chest pain or SOB. CBC and BMP significant for RBC 3.03, Hg 10.8, Hct 31.9, MCV 105.3, BUN 7. Discharge Plan: Prescription for Plavix, Nitro SL PRN and Metoprolol (increased dose) sent to pharmacy. Advised importance of compliance with Plavix. Follow up with PCP within 1-2 days and Cardiology within 1 week of discharge. General: non toxic, no distress, appears at stated age Derm: warm, dry Head: atraumatic, normocephalic, symmetric Mouth: no lip lesion, mucus membranes moist Cardiovascular: S1 S2 reg. No murmur. Lungs: Decreased BS bilaterally, no accessory muscle use Ext: no gross muscle atrophy, no edema, no contractures Neuro: No focal neurologic deficits. Psych: Alert and oriented. Discharge Diagnosis: Systolic CHF exacerbation CAD with 70-80% mid LAD status post KACY on 10/17 Macrocytic anemia Gout GERD HLD Cognitive impairment Sleep apnea Schizophrenia Resolved: HypoK This complex discharge took 35 minutes to complete. Patient Condition at Discharge: Stable Plan - Discharge Summary Discharge Rx Participant: No New Discharge Prescriptions: New Clopidogrel [Plavix] 75 mg PO DAILY #90 tab Nitroglycerin Sl Tabs [Nitrostat] 0.4 mg SUBLINGUAL Q5M PRN #30 tab PRN Reason: Chest Pain Metoprolol Succinate (ER) [Toprol XL] 200 mg PO BID #120 tab Continue risperiDONE [RisperDAL] 1 mg PO DAILY Hydrocodone/Acetaminophen [[place] 7.5-325] 1 tab PO QID PRN PRN Reason: Pain Rivaroxaban [Xarelto] 20 mg PO W/SUPPER allopurinoL [Zyloprim] 100 mg PO BID Omeprazole 20 mg PO DAILY lamoTRIgine [LaMICtal] 100 mg PO BID Dapagliflozin Propanediol [Farxiga] 10 mg PO DIRECTED Cyclobenzaprine [Flexeril] 10 mg PO HS Atorvastatin [Lipitor] 40 mg PO HS Albuterol Inhaler [Ventolin Hfa Inhaler] 2 puff INHALATION RT-QID PRN PRN Reason: Shortness Of Breath Furosemide [Lasix] 40 mg PO BID #120 tab Discontinued Aspirin EC [Ecotrin Low Dose] 81 mg PO DAILY Spironolactone [Aldactone] 12.5 mg PO DIRECTED Metoprolol Tartrate [Lopressor] 100 mg PO BID-W/MEALS Discharge Medication List Hydrocodone/Acetaminophen [[place] 7.5-325] 1 tab PO QID PRN 01/02/18 [History] risperiDONE [RisperDAL] 1 mg PO DAILY 01/02/18 [History] Rivaroxaban [Xarelto] 20 mg PO W/SUPPER 03/05/20 [History] allopurinoL [Zyloprim] 100 mg PO BID 04/21/20 [History] Omeprazole 20 mg PO DAILY 06/07/20 [History] lamoTRIgine [LaMICtal] 100 mg PO BID 07/19/20 [History] Cyclobenzaprine [Flexeril] 10 mg PO HS 03/14/22 [History] Atorvastatin [Lipitor] 40 mg PO HS 09/08/24 [History] Albuterol Inhaler [Ventolin Hfa Inhaler] 2 puff INHALATION RT-QID PRN 10/06/24 [History] Furosemide [Lasix] 40 mg PO BID #120 tab 10/08/24 [Rx] Dapagliflozin Propanediol [Farxiga] 10 mg PO DIRECTED 10/13/24 [History] Clopidogrel [Plavix] 75 mg PO DAILY #90 tab 10/17/24 [Rx] Metoprolol Succinate (ER) [Toprol XL] 200 mg PO BID #120 tab 10/17/24 [Rx] Nitroglycerin Sl Tabs [Nitrostat] 0.4 mg SUBLINGUAL Q5M PRN #30 tab 10/17/24 [Rx] Follow up Appointment(s)/Referral(s): Mauricio Rosa DO [STAFF PHYSICIAN] - 1 Week Ethan Mccarthy MD [Primary Care Provider] - 1-2 days Patient Instructions/Handouts: *[facility] - After Heart Catheterization - Driver'S License Examiner Instructions Activity/Diet/Wound Care/Special Instructions: NO FLEXING AT THE WRIST OR LIFTING ANYTHING HEAVIER THAN 5 POUNDS FOR 5 DAYS REMOVE ANY DRESSING OVER PUNCTURE SITE IN 24 HOURS AND LEAVE OPEN TO AIR DO NOT SUBMERGE WRIST IN WATER FOR 3 DAYS, NO SWIMMING, BATH TUBS, DISH MANCIA WATER IF SITE BLEEDS, HOLD PRESSURE FOR 10MIN AND IF IT DOESN'T SUBSIDE CALL EMS OR HAVE SOMEONE DRIVE YOU TO ER WATCH FOR CIRCULATION CHANGES IN THE HEART CATH EXTREMITY (ie pallor, numbness/tingling, cool, any problems or concerns) see handout on signs/symptoms of infection given to you as well Discharge Disposition: HOME SELF-CARE
== END 2024-10-17 12:17 | disposition home or self-care (01) | DRG 323 ==
LOC: EC 07:11 → 6NMEDSUR 10:09 → OBSVTOIN 10:10 → 6NMEDSUR 15:21
PROVIDERS: ADMIT Student in an Organized Health Care Education/Training Program; ATTEND Student in an Organized Health Care Education/Training Program
PROC: B2111ZZ Fluoroscopy of Multiple Coronary Arteries using Low Osmolar Contrast (ICD-10-PCS; 2024-10-16)
PROC: 027034Z Dilation of Coronary Artery, One Artery with Drug-eluting Intraluminal Device, Percutaneous Approach (ICD-10-PCS; principal; 2024-10-16 07:30)
PROC: 02F03ZZ Fragmentation in Coronary Artery, One Artery, Percutaneous Approach (ICD-10-PCS; 2024-10-16 07:30)
PROC: 4A033BC Measurement of Arterial Pressure, Coronary, Percutaneous Approach (ICD-10-PCS; 2024-10-16 07:30)
PROC: B240ZZ3 Ultrasonography of Single Coronary Artery, Intravascular (ICD-10-PCS; 2024-10-16 07:30)
PROC: 4A023N7 Measurement of Cardiac Sampling and Pressure, Left Heart, Percutaneous Approach (ICD-10-PCS; 2024-10-16 07:30)
DX: I11.0 Hypertensive heart disease with heart failure (principal); I50.23 Acute on chronic systolic (congestive) heart failure; I48.19 Other persistent atrial fibrillation; Z86.74 Personal history of sudden cardiac arrest; D53.9 Nutritional anemia, unspecified; F20.9 Schizophrenia, unspecified; I25.119 Atherosclerotic heart disease of native coronary artery with unspecified angina pectoris; K21.9 Gastro-esophageal reflux disease without esophagitis; E78.5 Hyperlipidemia, unspecified; R41.89 Other symptoms and signs involving cognitive functions and awareness; G47.30 Sleep apnea, unspecified; M10.9 Gout, unspecified; E87.6 Hypokalemia; R94.39 Abnormal result of other cardiovascular function study; I95.9 Hypotension, unspecified; Z79.82 Long term (current) use of aspirin; Z79.84 Long term (current) use of oral hypoglycemic drugs; Z86.711 Personal history of pulmonary embolism; Z87.891 Personal history of nicotine dependence; Z98.1 Arthrodesis status; Z86.718 Personal history of other venous thrombosis and embolism; Z79.899 Other long term (current) drug therapy; Z86.73 Personal history of transient ischemic attack (TIA), and cerebral infarction without residual deficits; Z82.49 Family history of ischemic heart disease and other diseases of the circulatory system; Z79.01 Long term (current) use of anticoagulants
CPT/HCPCS: 36415; 71046; 78452; 80048; 80053; 80061; 83605; 83735; 84443; 84484; 85025; 85379; 85610; 85730; 87636; 92972; 92978; 93005; 93017; 93458; 93799; 99285

== ENCOUNTER 2024-11-05 11:35 | Emergency (ER) | payer MEDICARE ==
[2024-11-05 11:40] VITALS: TEMP 97.3
--- NOTE | 2024-11-05 13:01 | ED ---
General Adult HPI - General Source: patient, RN notes reviewed Mode of arrival: wheelchair Limitations: no limitations <Jhonatan Mai - Last Filed: 11/05/24 12:59> - General Source: patient, RN notes reviewed, old records reviewed <Ede Kam - Last Filed: 11/05/24 21:01> - General Chief complaint: Arrhythmia/Palpitations Stated complaint: Abn Labs Time Seen by Provider: 11/05/24 11:51 - History of Present Illness Initial comments: Quick note: This is a 69-year-old male with history including A-fib presenting for mild left chest pain and shortness of breath for the past several months. Patient states symptoms have been intermittent with associated fatigue and dizziness. States his casing blower is Dr. Reis. (Jhonatan Mai) Patient originally seen as a quick note. Is a 69-year-old male who presents to the emergency department complaining of dyspnea. Was at a pain clinic and has blood pressure was a little bit lower which she does have a history of lower blood pressures. Also felt palpitations. States he has had intermittent chest discomfort over the last few months however no recent episodes. States he will have occasional exertional dyspnea with this. Has a history of atrial fibrillation, is on blood thinners as well as Lasix. Has been compliant with all medications. Presents for further evaluation at this time. (Ede Kam) - Related Data Home Medications Medication Instructions Recorded Confirmed Hydrocodone/Acetaminophen [[place] 1 tab PO QID PRN 01/02/18 11/05/24 7.5-325] risperiDONE [RisperDAL] 1 mg PO DAILY 01/02/18 11/05/24 Rivaroxaban [Xarelto] 20 mg PO W/SUPPER 03/05/20 11/05/24 allopurinoL [Zyloprim] 100 mg PO BID 04/21/20 11/05/24 Omeprazole 20 mg PO DAILY 06/07/20 11/05/24 lamoTRIgine [LaMICtal] 100 mg PO BID 07/19/20 11/05/24 Cyclobenzaprine [Flexeril] 10 mg PO HS 03/14/22 11/05/24 Atorvastatin [Lipitor] 40 mg PO HS 09/08/24 11/05/24 Albuterol Inhaler [Ventolin Hfa 2 puff INHALATION RT-QID PRN 10/06/24 11/05/24 Inhaler] Dapagliflozin Propanediol [Farxiga] 10 mg PO DAILY 10/13/24 11/05/24 Furosemide [Lasix] 40 mg PO TID 11/05/24 11/05/24 Metoprolol Tartrate [Lopressor] 200 mg PO BID 11/05/24 11/05/24 Potassium Chloride ER [K-Dur 20] 20 meq PO DAILY 11/05/24 11/05/24 Spironolactone [Aldactone] 12.5 mg PO DAILY 11/05/24 11/05/24 dilTIAZem HCL 30 mg PO TID 11/05/24 11/05/24 Previous Rx's Medication Instructions Recorded Clopidogrel [Plavix] 75 mg PO DAILY #90 tab 10/17/24 Nitroglycerin Sl Tabs [Nitrostat] 0.4 mg SUBLINGUAL Q5M PRN #30 tab 10/17/24 Allergies Allergy/AdvReac Type Severity Reaction Status Date / Time varenicline [From Chantix] AdvReac IRRITABLE/A Verified 11/05/24 14:56 NGER Review of Systems ROS Other: All systems not noted in ROS Statement are negative. <Jhonatan Mai - Last Filed: 11/05/24 12:59> ROS Other: All systems not noted in ROS Statement are negative. <Ede Kam - Last Filed: 11/05/24 21:01> ROS Statement: Those systems with pertinent positive or pertinent negative responses have been documented in the HPI. Review of Systems: CONST: Denies fever EYES: Denies blurry vision ENT: Denies nasal congestion C/V: Denies Chest pain RESP: Endorses exertional dyspnea GI: Denies abdominal pain : Denies dysuria SKIN: Denies rash. MSK: Denies joint pain. NEURO: Denies headache (Ede Kam) Past Medical History Past Medical History: Atrial Fibrillation, Asthma, COPD, Deep Vein Thrombosis (DVT), GERD/Reflux, Hyperlipidemia, Memory Impairment, Pulmonary Embolus (PE), Sleep Apnea/CPAP/BIPAP Additional Past Medical History / Comment(s): Cardiac tamponade, cardiac arrest possible tia, no cpap used History of Any Multi-Drug Resistant Organisms: None Reported Past Surgical History: Back Surgery, Cardiac Ablation Additional Past Surgical History / Comment(s): Deviated septum repair, spinal fusion, "skin grafts to bilateral arms and above bilateral hips", pain clinic procedures Past Anesthesia/Blood Transfusion Reactions: No Reported Reaction Past Psychological History: Anxiety Smoking Status: Former smoker Past Alcohol Use History: Daily Past Drug Use History: Marijuana - Past Family History Mother Family Medical History: Diabetes Mellitus, Hypertension Father History Unknown: Yes Additional Family Medical History / Comment(s): Father left when pt was 2 yrs old. <Jhonatan Mai - Last Filed: 11/05/24 12:59> General Exam Limitations: no limitations <Jhonatan Mai - Last Filed: 11/05/24 12:59> <Ede Kam - Last Filed: 11/05/24 21:01> - General Exam Comments Initial Comments: Visual Physical Exam Vital signs reviewed General: Well-appearing, nontoxic, no acute distress. Head: Normocephalic, atraumatic Eyes: PERRLA, EOMI ENT: Airway patent Chest: Nonlabored breathing Skin: No visual rash, normal skin tone Neuro: Alert and oriented 3 Musculoskeletal: No gross abnormalities (Jhonatan Mai) General: Appears in no acute distress. HEAD: Normal with no signs of head trauma. EYES: PERRLA, EOMI, conjunctiva normal, no discharge. ENT: Hearing grossly intact, normal oropharynx. RESPIRATORY: Clear breath sounds bilaterally. No wheezes, rales, or rhonchi. C/V: Irregular irregular rate and rhythm. S1 and S2 auscultated, no significant pitting edema, peripheral pulses 2+ and intact throughout ABD: Abd is soft, nontender, nondistended EXT: Normal range of motion, no obvious deformity SKIN: No rashes or lesions observed on exposed skin. NEURO: Alert and oriented x 4. (Ede Kam) Course Vital Signs 11/05/24 11/05/24 11/05/24 11:36 13:43 14:35 Temperature 97.3 F L Pulse Rate 100 90 98 Respiratory 16 16 16 Rate Blood Pressure 98/69 95/71 105/75 O2 Sat by Pulse 98 98 100 Oximetry 11/05/24 17:27 Temperature Pulse Rate 105 H Respiratory 12 Rate Blood Pressure 118/90 O2 Sat by Pulse 98 Oximetry Medical Decision Making <Jhonatan Mai - Last Filed: 11/05/24 12:59> - Lab Data Result diagrams: 11/05/24 13:33 11/05/24 13:33 - EKG Data -: EKG Interpreted by Me <Ede Kam - Last Filed: 11/05/24 21:01> - Medical Decision Making I completed the quick note portion of this chart signed KAREEN Melgar (Jhonatan Mai) Was pt. sent in by a medical professional or institution (, JEANNIE, TERMITE TECHNICIAN, urgent care, hospital, or fdc...) When possible be specific @ -No Did you speak to anyone other than the patient for history (EMS, parent, family, police, friend...)? What history was obtained from this source @ -No Did you review nursing and triage notes (agree or disagree)? Why? @ -I reviewed and agree with nursing and triage notes Were old charts reviewed (outside hosp., previous admission, EMS record, old EKG, old radiological studies, urgent care reports/EKG's, fdc records)? Report findings @ -Medical charts which does show history of softer blood pressures. Compared today's EKGs with the EKGs from October 22, 2024 with no significant acute change. Differential Diagnosis (chest pain, altered mental status, abdominal pain women, abdominal pain men, vaginal bleeding, weakness, fever, dyspnea, syncope, headache, dizziness, GI bleed, back pain, seizure, CVA, palpatations, mental health, musculoskeletal)? @ -Hypotension, CHF, electrolyte abnormality, ACS. This list is not all inclusive. EKG interpreted by me (3pts min.). @ -As above X-rays interpreted by me (1pt min.). @ -Chest x-ray reveals no obvious acute cardiopulmonary process. Small right pleural effusion is chronic. CT interpreted by me (1pt min.). @ -None done U/S interpreted by me (1pt. min.). @ -None done What testing was considered but not performed or refused? (CT, X-rays, U/S, labs)? Why? @ -None What meds were considered but not given or refused? Why? @ -None Did you discuss the management of the patient with other professionals (professionals i.e. , JEANNIE, TERMITE TECHNICIAN, lab, RT, psych nurse, social service manager, solid fiber paster operator, teacher, credit products officer, case management specialist)? Give summary @ -No Was smoking cessation discussed for >3mins.? @ -No Was critical care preformed (if so, how long)? @ -No Were there social determinants of health that impacted care today? How? (Homelessness, low income, unemployed, alcoholism, drug addiction, transportation, low edu. Level, literacy, decrease access to med. care, usp, rehab)? @ -No Was there de-escalation of care discussed even if they declined (Discuss DNR or withdrawal of care, Hospice)? DNR status @ -No What co-morbidities impacted this encounter? (DM, HTN, Smoking, COPD, CAD, Cancer, CVA, ARF, Chemo, Hep., AIDS, mental health diagnosis, sleep apnea, morbid obesity)? @ -CHF, atrial fibrillation, CAD Was patient admitted / discharged? Hospital course, mention meds given and route, prescriptions, significant lab abnormalities, going to OR and other pertinent info. @ -Patient presents emergency department complaining of an episode of hypotension at his pain clinic appointment as well as exertional dyspnea. The dyspnea is a chronic issue. The intermittent episodes of hypotension occur occasionally. Presents for further evaluation at this time. Currently is asymptomatic at rest. Will obtain general workup. Originally seen as a quick note. EKG shows no signs of acute ischemia. Nonspecific findings present. Chest x- ray shows chronic pleural effusion but no obvious acute process. Laboratory s tudies are remarkable for BNP of 1400 which is similar to previous BNP as well as undetectable troponin. Remainder the labs unremarkable. On reevaluation, it appears patient likely has mild CHF exacerbation. I did offer admission however patient would like to go home. I believe this is reasonable as workup is unremarkable and clinically patient has no symptoms at this time. Recommended close follow-up with cardiology and he was in agreement this plan. Strict return precautions discussed. Recommended he take 1 extra dose of his Lasix tomorrow morning and he will be given a dose of IV Lasix now. He was in agreement this plan.Patient has had stable vital signs throughout his stay in the ER. No hypotension at any point here in the department. No hypoxia at any point here in the department. I instructed the patient to follow up with their PCP in the next 1-3 days. I explained that the patient should return to the emergency department if they experience any worsening symptoms. Strict return precautions were discussed with the patient. The patient expressed understanding of these instructions. I answered all questions that the patient had. The patient was discharged home in good condition with their prescriptions and follow up information. Undiagnosed new problem with uncertain prognosis? @ -No Drug Therapy requiring intensive monitoring for toxicity (Heparin, Nitro, Insu kaushal, Cardizem)? @ -No Were any procedures done? @ -No Diagnosis/symptom? @ -CHF Acute, or Chronic, or Acute on Chronic? @ -Acute on chronic Uncomplicated (without systemic symptoms) or Complicated (systemic symptoms)? @ -Uncomplicated Side effects of treatment? @ -No Exacerbation, Progression, or Severe Exacerbation? @ -Mild exacerbation Poses a threat to life or bodily function? How? (Chest pain, [place], [place], pneumonia, PE, COPD, DKA, ARF, appy, cholecystitis, CVA, Diverticulitis, Homicidal, Suicidal, threat to staff... and all critical care pts) @ -Unlikely at this time (Ede Kam) - Lab Data Lab Results 11/05/24 11/05/24 11/05/24 Range/Units 13:33 13:33 13:33 WBC 6.50 (4.50-10.00) 10*3/uL RBC 3.52 L (4.40-5.60) 10*6/uL Hgb 12.5 L (13.0-17.0) g/dL Hct 35.4 L (39.6-50.0) % MCV 100.6 H (80.0-97.0) fL MCH 35.5 H (27.0-32.0) pg MCHC 35.3 (32.0-37.0) g/dL Plt Count 171 (140-440) 10*3/uL MPV 12.0 (9.5-12.2) fL Immature Gran % (Auto) 0.2 % Neutrophils % 70.6 % Lymphocytes % 13.8 % Monocytes % 10.2 % Eosinophils % 4.6 % Basophils % 0.6 % Immature Gran # 0.01 (0.00-0.04) 10*3/uL Neutrophils # 4.59 (1.80-7.70) 10*3/uL Lymphocytes # 0.90 (0.90-5.00) 10*3/uL Monocytes # 0.66 (0.20-1.00) 10*3/uL Eosinophils # 0.30 (0.04-0.35) 10*3/uL Basophils # 0.04 (0.00-0.10) 10*3/uL PT 11.3 (10.0-12.5) sec INR 1.0 (<1.2) APTT 27.0 (22.0-30.0) sec Sodium 133 L (137-145) mmol/L Potassium 4.3 (3.5-5.1) mmol/L Chloride 96 L (98-107) mmol/L Carbon Dioxide 24 (22-30) mmol/L Anion Gap 13 mmol/L BUN 17 (9-20) mg/dL Creatinine 0.79 (0.66-1.25) mg/dL Est GFR (CKD-EPI)AfAm >90 (>60 ml/min/1.73 sqM) Est GFR (CKD-EPI)NonAf >90 (>60 ml/min/1.73 sqM) Glucose 108 H (74-99) mg/dL Calcium 9.8 (8.4-10.2) mg/dL Magnesium 2.2 (1.6-2.3) mg/dL Total Bilirubin 1.0 (0.2-1.3) mg/dL AST 33 (17-59) U/L ALT 12 (4-49) U/L Alkaline Phosphatase 112 (38-126) U/L Troponin I (0.000-0.034) ng/mL NT-Pro-B Natriuret Pep pg/mL Total Protein 7.6 (6.3-8.2) g/dL Albumin 4.2 (3.5-5.0) g/dL 11/05/24 11/05/24 Range/Units 13:33 13:33 WBC (4.50-10.00) 10*3/uL RBC (4.40-5.60) 10*6/uL Hgb (13.0-17.0) g/dL Hct (39.6-50.0) % MCV (80.0-97.0) fL MCH (27.0-32.0) pg MCHC (32.0-37.0) g/dL Plt Count (140-440) 10*3/uL MPV (9.5-12.2) fL Immature Gran % (Auto) % Neutrophils % % Lymphocytes % % Monocytes % % Eosinophils % % Basophils % % Immature Gran # (0.00-0.04) 10*3/uL Neutrophils # (1.80-7.70) 10*3/uL Lymphocytes # (0.90-5.00) 10*3/uL Monocytes # (0.20-1.00) 10*3/uL Eosinophils # (0.04-0.35) 10*3/uL Basophils # (0.00-0.10) 10*3/uL PT (10.0-12.5) sec INR (<1.2) APTT (22.0-30.0) sec Sodium (137-145) mmol/L Potassium (3.5-5.1) mmol/L Chloride (98-107) mmol/L Carbon Dioxide (22-30) mmol/L Anion Gap mmol/L BUN (9-20) mg/dL Creatinine (0.66-1.25) mg/dL Est GFR (CKD-EPI)AfAm (>60 ml/min/1.73 sqM) Est GFR (CKD-EPI)NonAf (>60 ml/min/1.73 sqM) Glucose (74-99) mg/dL Calcium (8.4-10.2) mg/dL Magnesium (1.6-2.3) mg/dL Total Bilirubin (0.2-1.3) mg/dL AST (17-59) U/L ALT (4-49) U/L Alkaline Phosphatase (38-126) U/L Troponin I <0.012 (0.000-0.034) ng/mL NT-Pro-B Natriuret Pep 1470 pg/mL Total Protein (6.3-8.2) g/dL Albumin (3.5-5.0) g/dL - EKG Data EKG Comments: 12-lead Electrocardiogram Interpretation Note EKG was reviewed and interpreted by myself. 12-lead ECG performed at 1148 is interpreted by me as revealing rate controlled atrial fibrillation at a rate of 92 beats per minute. [place] is normal. QRS duration is 101 ms, QTc is [address] segment depression present. R wave progression across the precordium was satisfactory. By my interpretation this EKG is non-diagnostic for acute ischemia. 12-lead Electrocardiogram Interpretation Note EKG was reviewed and interpreted by myself. 12-lead ECG performed at 1406 is interpreted by me as revealing rate controlled atrial fibrillation at a rate of 99 beats per minute. [place] is normal. QRS duration is 102 ms, QTc is [address] segment depressions present.. R wave progression across the precordium was satisfactory. By my interpretation this EKG is non-diagnostic for acute ischemia. No dynamic changes when compared with EKG from earlier. (Ede Kam) Disposition <Jhonatan Mai - Last Filed: 11/05/24 12:59> Is patient prescribed a controlled substance at d/c from ED?: No Time of Disposition: 17:00 <Ede Kam - Last Filed: 11/05/24 21:01> Clinical Impression: CHF (congestive heart failure) Disposition: HOME SELF-CARE Condition: Good Instructions (If sedation given, give patient instructions): Heart Failure (ER) Additional Instructions: Your shortness of breath symptoms that are intermittent and somewhat chronic are likely secondary to mild CHF exacerbation. He received a dose of IV Lasix prior to discharge. Take 1 extra tablet of your Lasix tomorrow morning and follow-up with your casing blower. Otherwise take medications as prescribed. Return to the ER for any concerns. It is possible your intermittent hypotensive episodes could be related to polypharmacy. Keep track of your blood pressures at home. Return to the ER for any concerns. Follow-up with your casing blower or PCP in the next 1 to 3 days. Referrals: Ethan Mccarthy MD [Primary Care Provider] - 1-2 days
[2024-11-05 13:53] LABS: Basophils # (A) 0.04 10*3/uL (0.00-0.10); Basophils % (A) 0.6 %; Eosinophils % (A) 4.6 %; HCT 35.4 % (39.6-50.0); HGB 12.5 g/dL (13.0-17.0); Lymphocytes % (A) 13.8 %; MCH 35.5 pg (27.0-32.0); MCHC 35.3 g/dL (32.0-37.0); MCV 100.6 fL (80.0-97.0); Monocytes # (A) 0.66 10*3/uL (0.20-1.00); Monocytes % (A) 10.2 %; Neutrophils # (A) 4.59 10*3/uL (1.80-7.70); Neutrophils % (A) 70.6 %; Platelet Count 171 10*3/uL (140-440); RBC 3.52 10*6/uL (4.40-5.60)
[2024-11-05 14:01] LABS: Prothrombin Time 11.3 sec (10.0-12.5)
[2024-11-05 14:14] LABS: ALT 12 U/L (4-49); AST 33 U/L (17-59); African American GFR (CKD) >90 (>60 ml/min/1.73 sqM); Albumin 4.2 g/dL (3.5-5.0); Alkaline Phosphatase 112 U/L (38-126); Anion Gap 13 mmol/L; Blood Urea Nitrogen 17 mg/dL (9-20); Calcium 9.8 mg/dL (8.4-10.2); Carbon Dioxide 24 mmol/L (22-30); Chloride 96 mmol/L (98-107); Glucose 108 mg/dL (74-99); Magnesium 2.2 mg/dL (1.6-2.3); Non-African American GFR(CKD) >90 (>60 ml/min/1.73 sqM); Potassium 4.3 mmol/L (3.5-5.1); Sodium 133 mmol/L (137-145); Total Protein 7.6 g/dL (6.3-8.2)
--- NOTE | 2024-11-05 14:24 | XR ---
EXAMINATION TYPE: XR chest 2V DATE OF EXAM: 11/05/2024 CLINICAL INDICATION: Male, 69 years old with history of dysrhythmia, TECHNIQUE: Frontal and lateral views of the chest are obtained. COMPARISON: Chest x-ray from 02/04/2025 FINDINGS: Overlying sternal wires, left atrial appendage clip are redemonstrated. Persistent cardiome torres with small right pleural effusion and right basilar linear scarring and/or atelectasis. Left tierra g remains clear. The osseous structures are intact. IMPRESSION: Cardiomegaly with small right pleural effusion redemonstrated. No significant change from most recent prior. [facility], , 11/05/2024 2:21 PM
[2024-11-05 17:27] VITALS: BP 118/90; PULSE 105; RESP 12
[2024-11-05] MEDS: FUROSEMIDE 10 MG/ML 4 ML VIAL IV STA (17:30)
== END 2024-11-05 17:37 | disposition home or self-care (01) ==
LOC: EC 11:35
DX: I50.9 Heart failure, unspecified (principal); I48.91 Unspecified atrial fibrillation; I25.10 Atherosclerotic heart disease of native coronary artery without angina pectoris; Z79.899 Other long term (current) drug therapy; Z87.891 Personal history of nicotine dependence; Z88.9 Allergy status to unspecified drugs, medicaments and biological substances
CPT/HCPCS: 36415; 93005; 83880; 80053; 83735; 84484; 85025; 85610; 85730; 71046; 99285; 96374; J1938

== ENCOUNTER → 2024-11-05 | Outpatient (CLI) | payer MEDICARE ==
[2024-11-05 11:12] VITALS: BP 91/61; PULSE 120; RESP 16; TEMP 97.3
--- NOTE | 2024-11-05 16:02 | P.PAINPG ---
PQRS Measure Charge Sheet Comment: HISTORY OF PRESENT ILLNESS: A 69 yr old male presents today w severe and chronic LBP > 1 yr secondary to Post Laminectomy of L2-L4/ L5-S1 w L5-S1 Fusion & Hardware, L4-L5 Intervertebral Fusion, L3-L4 radiculopathy for evaluation. Pt states pain level is provoked at 7 /10 in intensity, constant, localized in the lumbar spine, predominantly axial, throbbing in character w occasional shooting pain towards the LLE. Pain is provoked by over activity and PT in 2019. Pain is alleviated by home OT twice weekly x 2 mo which ended in Feb 2024, physician guided home stretches daily since Feb 2022, heat, medications, topical, repositioning and rest . Oswestry axial pain score at 32. Interventional procedures include Post Laminectomy of L2-L4/ L5-S1 w L5-S1 Fusion & Hardware, possible L4-L5 Intervertebral Fusion, Medications include [place] 7.5/325 #120, Xarelto, Alpesh-Bains, Daily ETOH use, Cannabis use REVIEW OF ORGAN SYSTEMS: CONSTITUTIONAL: No fevers or chills. No recent weight loss. NEUROLOGICAL: + numbness and tingling along the distal extremities. No seizure disorders or headaches. MUSCULOSKELETAL: + pain PSYCHIATRIC: Denies current depression or suicidal thoughts. Physical Examinations : Constitutional : Cooperative , not in acute distress . Neurologic : Cranial nerve II to XII intact. No focal neurological deficits. Psychiatric : alert & oriented x 3. Matching mood & appropriate affect. Judgment & insight intact. Musculoskeletal : Cervical Spine Motor strength in the deltoid and biceps: Normal right side. Normal Left side Motor strength biceps and the wrist extensors: Normal right side . Normal left side Motor strength in the triceps muscle: Normal right side. Normal left side Deep tendon reflexes: Normal at the biceps. Normal at Brachioradialis. Normal at triceps Vertebral body tenderness to deep palpation over Cervical facet loading test: positive bilaterally Spurling test: positive bilaterally Neck distraction test: positive bilaterally Marcia sign: positive bilaterally Lumbar spine +Incisonal scars intact Motor strength lower extremities ,thigh and legs 5/5 Right side , 5/5 Left side Deep tendon reflexes : Normal Knee Jerk. Normal Ankle Jerk Vertebral body tenderness over L4 Telles Test positive BL L3-L4 Lumbar facet Loading Test: positive Right / positive Left Range of motion of the lumbar spine Flexion 30 degrees, extension 10 degrees Straight Leg Raise test: Left/ Right positive at degrees Jun test: positive right / positive left. Severe tenderness over the Sacroiliac joint on the Right / Left sides Gaenslen test: positive bilaterally Seated flexion test: positive bilaterally. Sacral spine : Severe tenderness over the Sacroiliac joint: right side / left side Range of motion: Flexion of the lumbar spine <60 degrees Range of motion: Extension of the lumbar spine <20 degrees Gaenslen's Test positive Jun test: positive right side / left side Thigh Thrust Test Sacral Thrust Test Imaging: MRI non contrast lumbar spine from 07/27/18 reviewed Assessment/ Plan : Post Laminectomy of L2-L4/ L5-S1 w L5-S1 Fusion & Hardware, possible L4-L5 Intervertebral Fusion, L3-L4 radiculopathy Recommendation of MICHAEL L3-L4 #1. Risks, benefits of procedure discussed and patient verbalized understanding. Protocol for discontinuation/continuation of medication surrounding procedure discussed. All questions answered. I have spent greater than 30 minutes on patient care today. Dr Fong was available by phone for the evaluation of this patient. The time was used to review the medical records including relevant urine studies and Prescription history (MAPs), review of the available imaging, evaluation and examination of the patient, coordination of care with the medical staff and if applicable referring physicians, as well as creation of the medical record PQRS Narrative: Smoking Status Current every day smoker Hx Alcohol Use (MH) Yes: 2 q night Home Medications: Ambulatory Orders Hydrocodone/Acetaminophen [[place] 7.5-325] 1 tab PO QID PRN 01/02/18 risperiDONE [RisperDAL] 1 mg PO DAILY 01/02/18 Rivaroxaban [Xarelto] 20 mg PO W/SUPPER 03/05/20 allopurinoL [Zyloprim] 100 mg PO BID 04/21/20 Omeprazole 20 mg PO DAILY 06/07/20 lamoTRIgine [LaMICtal] 100 mg PO BID 07/19/20 Cyclobenzaprine [Flexeril] 10 mg PO HS 03/14/22 Atorvastatin [Lipitor] 40 mg PO HS 09/08/24 Albuterol Inhaler [Ventolin Hfa Inhaler] 2 puff INHALATION RT-QID PRN 10/06/24 Dapagliflozin Propanediol [Farxiga] 10 mg PO DAILY 10/13/24 Clopidogrel [Plavix] 75 mg PO DAILY #90 tab 05/02/25 Nitroglycerin Sl Tabs [Nitrostat] 0.4 mg SUBLINGUAL Q5M PRN #30 tab 10/17/24 Furosemide [Lasix] 40 mg PO TID 11/05/24 Metoprolol Tartrate [Lopressor] 200 mg PO BID 11/05/24 Potassium Chloride ER [K-Dur 20] 20 meq PO DAILY 11/05/24 Spironolactone [Aldactone] 12.5 mg PO DAILY 11/05/24 dilTIAZem HCL 30 mg PO TID 11/05/24 Controlled Substance Measures - Controlled Substance Measures Is patient prescribed a controlled substance at discharge?: No
== END ==
LOC: PNWHC3 10:18
PROVIDERS: ATTEND Specialist
DX: M43.27 Fusion of spine, lumbosacral region (principal); M54.16 Radiculopathy, lumbar region; M96.1 Postlaminectomy syndrome, not elsewhere classified; F17.200 Nicotine dependence, unspecified, uncomplicated; Z88.8 Allergy status to other drugs, medicaments and biological substances
CPT/HCPCS: 99211

== ENCOUNTER 2024-11-19 10:46 | Observation (INO) | payer MEDICARE ==
--- NOTE | 2024-11-19 10:53 | ED ---
SOB HPI - General Chief Complaint: Shortness of Breath Stated Complaint: dizzness, chest pain Time Seen by Provider: 11/19/24 10:52 Source: patient, RN notes reviewed, old records reviewed Mode of arrival: wheelchair Limitations: no limitations - History of Present Illness Initial Comments: This is a 69-year-old male to the ER for evaluation today. Patient coming in for persistent shortness of breath elevated heart rate palpitations cough congestion and chest pain. Patient states he was just here recently in the ER and did not want stay in the hospital but symptoms have been persistent and at times worsening and worse this morning when he woke up. Patient complaining of shortness of breath and chest pain here in the ER currently with no recent fever MD Complaint: shortness of breath, chest pain, anxiety -: days(s) Severity: moderate Severity scale (1-10): 4 Consistency: intermittent Improves With: nothing Worsens With: exertion, movement Known History Of: COPD, congestive heart failure Context: recent URI, anxiety, recent illness Associated Symptoms: chest pain, cough Treatments Prior to Arrival: none - Related Data Home Medications Medication Instructions Recorded Confirmed Hydrocodone/Acetaminophen [[place] 1 tab PO QID PRN 01/02/18 11/28/24 7.5-325] risperiDONE [RisperDAL] 1 mg PO DAILY 01/02/18 11/28/24 Rivaroxaban [Xarelto] 20 mg PO W/SUPPER 03/05/20 11/28/24 allopurinoL [Zyloprim] 100 mg PO BID 04/21/20 11/28/24 Omeprazole 20 mg PO DAILY 06/07/20 11/28/24 lamoTRIgine [LaMICtal] 100 mg PO BID 07/19/20 11/28/24 Cyclobenzaprine [Flexeril] 10 mg PO HS 03/14/22 11/28/24 Atorvastatin [Lipitor] 40 mg PO HS 09/08/24 11/28/24 Furosemide [Lasix] 40 mg PO TID 11/05/24 11/28/24 Potassium Chloride ER [K-Dur 20] 20 meq PO DAILY 11/05/24 11/28/24 dilTIAZem HCL 30 mg PO TID 11/05/24 11/28/24 Metoprolol Succinate (ER) [Toprol 200 mg PO BID 11/19/24 11/28/24 XL] Previous Rx's Medication Instructions Recorded Clopidogrel [Plavix] 75 mg PO DAILY #90 tab 10/17/24 Nitroglycerin Sl Tabs [Nitrostat] 0.4 mg SUBLINGUAL Q5M PRN #30 tab 10/17/24 Dapagliflozin Propanediol [Farxiga] 10 mg PO DAILY 30 Days #30 tab 11/20/24 Spironolactone [Aldactone] 25 mg PO DAILY 30 Days #30 tab 11/20/24 Allergies Allergy/AdvReac Type Severity Reaction Status Date / Time varenicline [From Chantix] AdvReac IRRITABLE/A Verified 11/28/24 14:51 NGER Review of Systems ROS Statement: Those systems with pertinent positive or pertinent negative responses have been documented in the HPI. ROS Other: All systems not noted in ROS Statement are negative. Past Medical History Past Medical History: Atrial Fibrillation, Asthma, Heart Failure, COPD, Deep Vein Thrombosis (DVT), GERD/Reflux, Hyperlipidemia, Hypertension, Pulmonary Embolus (PE), Sleep Apnea/CPAP/BIPAP Additional Past Medical History / Comment(s): Cardiac tamponade, cardiac arrest possible tia, no cpap used History of Any Multi-Drug Resistant Organisms: None Reported Past Surgical History: Back Surgery, Cardiac Ablation Additional Past Surgical History / Comment(s): Deviated septum repair, spinal fusion, "skin grafts to bilateral arms and above bilateral hips", pain clinic procedures Past Anesthesia/Blood Transfusion Reactions: No Reported Reaction Past Psychological History: Anxiety Smoking Status: Former smoker Past Alcohol Use History: Daily Past Drug Use History: Marijuana - Past Family History Mother Family Medical History: Diabetes Mellitus, Hypertension Father History Unknown: Yes Additional Family Medical History / Comment(s): Father left when pt was 2 yrs old. General Exam Limitations: no limitations General appearance: alert, anxious, in distress Head exam: Present: atraumatic, normocephalic, normal inspection Eye exam: Present: normal appearance, PERRL, EOMI. Absent: scleral icterus, conjunctival injection, periorbital swelling ENT exam: Present: normal exam, mucous membranes moist Neck exam: Present: normal inspection. Absent: tenderness, meningismus, lymphadenopathy Respiratory exam: Present: respiratory distress, wheezes, decreased breath sounds, prolonged expiratory. Absent: rales, rhonchi, stridor Cardiovascular Exam: Present: tachycardia, irregular rhythm, normal heart sounds. Absent: systolic murmur, diastolic murmur, rubs, gallop, clicks GI/Abdominal exam: Present: soft, normal bowel sounds. Absent: distended, tenderness, guarding, rebound, rigid Extremities exam: Present: normal inspection, full ROM, normal capillary refill. Absent: tenderness, pedal edema, joint swelling, calf tenderness Back exam: Present: normal inspection Neurological exam: Present: alert, oriented X3, CN II-XII intact Psychiatric exam: Present: normal affect, normal mood Skin exam: Present: warm, dry, intact, normal color. Absent: rash Course Vital Signs 11/19/24 11/19/24 11/19/24 10:48 11:23 11:40 Temperature 97.5 F L Pulse Rate 106 H 79 91 Respiratory 20 18 Rate Blood Pressure 94/64 99/45 O2 Sat by Pulse 98 99 Oximetry 11/19/24 11/19/24 11/19/24 12:31 15:44 15:55 Temperature Pulse Rate 82 102 H 98 Respiratory 20 Rate Blood Pressure 102/62 O2 Sat by Pulse 100 Oximetry 11/19/24 11/19/24 11/19/24 15:56 21:29 23:10 Temperature 97.9 F Pulse Rate 96 104 H 112 H Respiratory 16 18 16 Rate Blood Pressure 115/72 98/72 98/73 O2 Sat by Pulse 100 97 97 Oximetry - Reevaluation(s) Reevaluation #1: 11/19/24 14:07 Medical records reviewed Reevaluation #2: 11/19/24 14:07 Patient's symptoms relatively unchanged still short of breath with chest pain Reevaluation #3: 11/19/24 14:07 Patient informed of results and questions answered Patient does not feel comfortable discharge as he was discharged from her recent ER visit recently and still does not feel well Reevaluation #4: Was pt. sent in by a medical professional or institution (, PA, [employer], urgent care, hospital, or shelter...) When possible be specific @ -no Did you speak to anyone other than the patient for history (EMS, parent, family, police, friend...)? What history was obtained from this source @ -no Did you review nursing and triage notes (agree or disagree)? Why? @ -agree Are old charts reviewed (outside hosp., previous admission, EMS record, old EKG, old radiological studies, urgent care reports/EKG's, shelter records)? Report findings @ -yes Differential Diagnosis (chest pain, altered mental status, abdominal pain women, abdominal pain men, vaginal bleeding, weakness, fever, dyspnea, syncope, headache, dizziness, GI bleed, back pain, seizure, CVA, palpatations, mental health, musculoskeletal)? @ -prior EKG interpreted by me (3pts min.). @ -yes X-rays interpreted by me (1pt min.). @ -yes negative for acute disease CT interpreted by me (1pt min.). @ -no U/S interpreted by me (1pt. min.). @ -no What testing was considered but not performed or refused? (CT, X-rays, U/S, labs)? Why? @ -none What meds were considered but not given or refused? Why? @ -none Did you discuss the management of the patient with other professionals (professionals i.e. , PA, [employer], lab, RT, psych nurse, social director, molecular modeler, teacher, campus safety officer, registered nurse hh case manager)? Give summary @ -no Was smoking cessation discussed for >3mins.? @ -no Was critical care preformed (if so, how long)? @ -yes31 Were there social determinants of health that impacted care today? How? (Homelessness, low income, unemployed, alcoholism, drug addiction, transportation, low edu. Level, literacy, decrease access to med. care, senior care, rehab)? @ -none Was there de-escalation of care discussed even if they declined (Discuss DNR or withdrawal of care, Hospice)? DNR status @ -no What co-morbidities impacted this encounter? (DM, HTN, Smoking, COPD, CAD, Cancer, CVA, ARF, Chemo, Hep., AIDS, mental health diagnosis, sleep apnea, morbid obesity)? @ -none Was patient admitted / discharged? Hospital course, mention meds given and route, prescriptions, significant lab abnormalities, going to OR and other pertinent info. @ - 69 male to the ER for evaluation of chest pain and some shortness of breath COPD exacerbation improved with breathing treatments but still short of breath, patient has persistent chest pain A-fib with RVR, will admit for chest pain observation Admitted Undiagnosed new problem with uncertain prognosis? @ -no Drug Therapy requiring intensive monitoring for toxicity (Heparin, Nitro, Insulin, Cardizem)? @ -no Were any procedures done? @ -no Diagnosis/symptom? @ -COPD, atrial fibrillation with RVR Acute, or Chronic, or Acute on Chronic? @ -Acute Uncomplicated (without systemic symptoms) or Complicated (systemic symptoms)? @ -Complicated Side effects of treatment? @ -no Exacerbation, Progression, or Severe Exacerbation? @ -exacerbation Poses a threat to life or bodily function? How? (Chest pain, USA, MD, pneumonia, PE, COPD, DKA, ARF, appy, cholecystitis, CVA, Diverticulitis, Homicidal, Suicidal, threat to staff... and all critical care pts) @ -yes extremes of age dyspnea Reevaluation #5: Differential Chest Pain: Stable Angina, Unstable Angina, STEMI, NSTEMI Aortic Dissection, Pneumothorax, Musculoskeletal, Esophageal Spasm GERD, Cholecystitis, Pancreatitis, Zoster, this is not meant to be an all-inclusive list. Differential Dyspnea: Coronary syndrome, arrhythmia, tamponade, asthma, COPD, pulmonary embolism, pneumonia, pneumothorax, pulmonary effusion, anaphylaxis, diabetic ketoacidosis, flailed chest, pulmonary contusion, diaphragmatic rupture, anemia, neuromuscular, this is not meant to be an all-inclusive list. - Consultations Consultation #1: Spoke with david who agrees to admit this patient Medical Decision Making - Medical Decision Making 69 male to the ER for evaluation of chest pain and some shortness of breath COPD exacerbation improved with breathing treatments but still short of breath, patient has persistent chest pain A-fib with RVR, will admit for chest pain observation - Lab Data Result diagrams: 11/19/24 11:24 11/19/24 11:24 Lab Results 11/19/24 11/19/24 11/19/24 Range/Units 11:24 11:24 11:24 WBC 4.78 (4.50-10.00) 10*3/uL RBC 3.44 L (4.40-5.60) 10*6/uL Hgb 11.8 L (13.0-17.0) g/dL Hct 34.4 L (39.6-50.0) % MCV 100.0 H (80.0-97.0) fL MCH 34.3 H (27.0-32.0) pg MCHC 34.3 (32.0-37.0) g/dL Plt Count 194 (140-440) 10*3/uL MPV 11.7 (9.5-12.2) fL Immature Gran % (Auto) 0.4 % Neutrophils % 75.7 % Lymphocytes % 12.6 % Monocytes % 6.5 % Eosinophils % 3.8 % Basophils % 1.0 % Immature Gran # 0.02 (0.00-0.04) 10*3/uL Neutrophils # 3.62 (1.80-7.70) 10*3/uL Lymphocytes # 0.60 L (0.90-5.00) 10*3/uL Monocytes # 0.31 (0.20-1.00) 10*3/uL Eosinophils # 0.18 (0.04-0.35) 10*3/uL Basophils # 0.05 (0.00-0.10) 10*3/uL PT 11.0 (10.0-12.5) sec INR 1.0 (<1.2) APTT 25.9 (22.0-30.0) sec Sodium 134 L (137-145) mmol/L Potassium 3.7 (3.5-5.1) mmol/L Chloride 96 L (98-107) mmol/L Carbon Dioxide 24 (22-30) mmol/L Anion Gap 14 mmol/L BUN 12 (9-20) mg/dL Creatinine 0.77 (0.66-1.25) mg/dL Est GFR (CKD-EPI)AfAm >90 (>60 ml/min/1.73 sqM) Est GFR (CKD-EPI)NonAf >90 (>60 ml/min/1.73 sqM) Glucose 180 H (74-99) mg/dL Lactic Ac Sepsis Rflx Plasma Lactic Acid James (0.7-2.0) mmol/L Calcium 9.6 (8.4-10.2) mg/dL Magnesium 1.8 (1.6-2.3) mg/dL Total Bilirubin 0.9 (0.2-1.3) mg/dL AST 31 (17-59) U/L ALT 21 (4-49) U/L Alkaline Phosphatase 90 (38-126) U/L Troponin I (0.000-0.034) ng/mL NT-Pro-B Natriuret Pep 1860 pg/mL Total Protein 6.7 (6.3-8.2) g/dL Albumin 3.7 (3.5-5.0) g/dL 11/19/24 11/19/24 11/19/24 Range/Units 11:24 11:24 11:53 WBC (4.50-10.00) 10*3/uL RBC (4.40-5.60) 10*6/uL Hgb (13.0-17.0) g/dL Hct (39.6-50.0) % MCV (80.0-97.0) fL MCH (27.0-32.0) pg MCHC (32.0-37.0) g/dL Plt Count (140-440) 10*3/uL MPV (9.5-12.2) fL Immature Gran % (Auto) % Neutrophils % % Lymphocytes % % Monocytes % % Eosinophils % % Basophils % % Immature Gran # (0.00-0.04) 10*3/uL Neutrophils # (1.80-7.70) 10*3/uL Lymphocytes # (0.90-5.00) 10*3/uL Monocytes # (0.20-1.00) 10*3/uL Eosinophils # (0.04-0.35) 10*3/uL Basophils # (0.00-0.10) 10*3/uL PT (10.0-12.5) sec INR (<1.2) APTT (22.0-30.0) sec Sodium (137-145) mmol/L Potassium (3.5-5.1) mmol/L Chloride (98-107) mmol/L Carbon Dioxide (22-30) mmol/L Anion Gap mmol/L BUN (9-20) mg/dL Creatinine (0.66-1.25) mg/dL Est GFR (CKD-EPI)AfAm (>60 ml/min/1.73 sqM) Est GFR (CKD-EPI)NonAf (>60 ml/min/1.73 sqM) Glucose (74-99) mg/dL Lactic Ac Sepsis Rflx Y Plasma Lactic Acid James 4.0 H* (0.7-2.0) mmol/L Calcium (8.4-10.2) mg/dL Magnesium (1.6-2.3) mg/dL Total Bilirubin (0.2-1.3) mg/dL AST (17-59) U/L ALT (4-49) U/L Alkaline Phosphatase (38-126) U/L Troponin I <0.012 (0.000-0.034) ng/mL NT-Pro-B Natriuret Pep pg/mL Total Protein (6.3-8.2) g/dL Albumin (3.5-5.0) g/dL - EKG Data -: EKG Interpreted by Me (EKG is A-fib 94 QRS 105 QTc 409) - Radiology Data Radiology results: report reviewed (Chest x-ray is negative for acute disease), image reviewed Critical Care Time Critical Care Time: Yes Total Critical Care Time: 31 Disposition Clinical Impression: Acute exacerbation of chronic obstructive airways disease, Atrial fibrillation with RVR, Chest pain Disposition: ADMITTED IP TO THIS HOSP Condition: Stable Is patient prescribed a controlled substance at d/c from ED?: No Time of Disposition: 14:00
[2024-11-19] MEDS: methylPREDNISolone SOD SUCCI 125 MG/2 ML VIAL IV STA (11:19)
[2024-11-19] MEDS: SODIUM CHLORIDE 0.9% 1,000 ML IV ONE (11:19)
[2024-11-19] MEDS: IPRATROPIUM-ALBUTEROL 3 ML NEB INHALATION STA ×2 (11:23→15:43)
[2024-11-19 11:38] LABS: Basophils # (A) 0.05 10*3/uL (0.00-0.10); Eosinophils # (A) 0.18 10*3/uL (0.04-0.35); Eosinophils % (A) 3.8 %; HCT 34.4 % (39.6-50.0); HGB 11.8 g/dL (13.0-17.0); Lymphocytes % (A) 12.6 %; MCH 34.3 pg (27.0-32.0); MCHC 34.3 g/dL (32.0-37.0); Mean Platelet Volume 11.7 fL (9.5-12.2); Monocytes # (A) 0.31 10*3/uL (0.20-1.00); Monocytes % (A) 6.5 %; Neutrophils # (A) 3.62 10*3/uL (1.80-7.70); Neutrophils % (A) 75.7 %; Platelet Count 194 10*3/uL (140-440); RBC 3.44 10*6/uL (4.40-5.60); RDW 15.1 % (11.5-14.5); WBC 4.78 10*3/uL (4.50-10.00)
[2024-11-19 11:52] LABS: Partial Thromboplastin Time 25.9 sec (22.0-30.0)
[2024-11-19 12:16] LABS: AST 31 U/L (17-59); African American GFR (CKD) >90 (>60 ml/min/1.73 sqM); Albumin 3.7 g/dL (3.5-5.0); Alkaline Phosphatase 90 U/L (38-126); Anion Gap 14 mmol/L; Blood Urea Nitrogen 12 mg/dL (9-20); Calcium 9.6 mg/dL (8.4-10.2); Carbon Dioxide 24 mmol/L (22-30); Chloride 96 mmol/L (98-107); Glucose 180 mg/dL (74-99); Magnesium 1.8 mg/dL (1.6-2.3); Non-African American GFR(CKD) >90 (>60 ml/min/1.73 sqM); Potassium 3.7 mmol/L (3.5-5.1); Sodium 134 mmol/L (137-145); Total Bilirubin 0.9 mg/dL (0.2-1.3); Total Protein 6.7 g/dL (6.3-8.2)
[2024-11-19 12:23] LABS: ALT 21 U/L (4-49)
[2024-11-19 12:24] LABS: NT-Pro-B-Type Natriuretic Pept 1860 pg/mL
--- NOTE | 2024-11-19 12:52 | XR ---
EXAMINATION TYPE: XR chest 2V DATE OF EXAM: 11/19/2024 12:23 PM COMPARISON: 11/05/2024 CLINICAL INDICATION: Male, 69 years old with history of difficulty breathing, TECHNIQUE: XR chest 2V view(s) obtained. FINDINGS: The heart size is normal. The pulmonary vasculature is normal. Small right pleural effusion is present.. IMPRESSION: 1. Small right pleural effusion [facility], , 11/19/2024 12:50 PM
[2024-11-19] MEDS ORDERED: ONDANSETRON 4 MG/2 ML VIAL IVP PRN (14:02)
[2024-11-19] MEDS ORDERED: NALOXONE 0.4 MG/ML 1 ML VIAL IV PRN (14:02)
[2024-11-19] MEDS ORDERED: MORPHINE SULFATE 4 MG/ML SYRINGE IV PRN (14:02)
[2024-11-19] MEDS: SODIUM CHLORIDE 0.9% 1,000 ML IV SCH (15:22)
[2024-11-19] MEDS ORDERED: NITROGLYCERIN SL TABS 0.4 MG TAB SUBLINGUAL PRN (16:07)
[2024-11-19 17:04] LABS: Influenza A Not Detected (Not Detectd); Influenza B Not Detected (Not Detectd); RSV Not Detected (Not Detectd)
[2024-11-19] MEDS: RIVAROXABAN 20 MG TAB PO SCH (17:19)
--- NOTE | 2024-11-19 17:54 | P.HPIM ---
History of Present Illness H&P Date: 11/19/24 History of Presenting Illness: Patient is a very pleasant 69-year-old male with a past medical history of CAD status post stenting with most recent stent to mid LAD on 10/16/24 on Plavix and Xarelto, chronic atrial fibrillation on anticoagulation with Xarelto, chronic systolic heart failure with previously known EF of 45% on home Lasix 3 times daily, hypertension, hyperlipidemia, previous DVT and PE, and previous cardiac tamponade. Patient reports he follows with border inspector Dr. Reis. He presented to our facility today with a chief complaint of chest heaviness and shortness of breath. Patient reports the symptoms began approximately 2 weeks ago and of progressively worsened. He reports pain to chest feels like a heaviness to the center of his chest with inability to catch his breath. He states the symptoms have been accompanied by palpitations, nonproductive cough, dizziness, and fatigue. He reports chronically his right lower extremity is more swollen than his left and that is unchanged. He denies any worsening of swelling but reports symptoms similar to previous CHF exacerbations. Upon arrival to our facility, patient underwent evaluation in the emergency depar tment. Vital signs on arrival show blood pressure 94/64, heart rate 106, respiratory rate 20, temp 97.5 F, and SpO2 of 98% on room air. EKG completed showing atrial fibrillation with a controlled ventricular rate of 94 bpm and diffuse T wave abnormalities. Chest x-ray showing small right pleural effusion. Labs completed and reviewed. CBC showing macrocytic anemia with hemoglobin 11.8, MCV of 100.0, and MCH of 34.3. Coagulation profile normal findings. BMP showing sodium 134 and chloride 96. Blood glucose 180. Lactic acid 4.0. Calcium 9.6. Magnesium 1.8. Liver profile unremarkable. Troponin was negative at less than 0.012 with proBNP of 1860. Influenza A, influenza B, RSV, and COVID PCR were negative. Patient admitted under services with consultation to cardiology Review of systems: Pertinent positives and negatives as discussed in HPI, a complete review of s ystems was performed and all other systems are negative. Physical exam: Vital signs reviewed and stable. General: Nontoxic, no distress and appears stated age. Derm: Skin warm and dry, normal coloration for ethnicity. Head: Atraumatic, normocephalic and symmetric. Eyes: EOM's intact, no lid lag, and anicteric sclera Mouth: no lip lesions, mucus membranes moist Cardiovascular: Irregularly irregular, systolic murmur, positive posterior tibial pulses bilaterally, and cap refill < 2 seconds. Lungs: Respirations even, regular, and unlabored on room air. Lungs CTA bilaterally, no rhonchi, no rales, no wheezing, and no accessory muscle usage. Abdominal: soft, nontender to palpation, no guarding, no appreciable organomegaly Ext: ROM intact. No gross muscle atrophy, 1+ bilateral lower extremity pedal edema, no contractures Neuro: Speech clear, face symmetrical and CN II-XII grossly intact with no noted focal neuro deficits Psych: Alert and oriented to person, place, time, and situation. Appropriate and pleasant affect. Assessment and Plan of Care: Chest pain/pressure with shortness of breath, rule out acute coronary event Chronic systolic heart failure with mild exacerbation CAD status post stenting x 3 with most recent stent to mid LAD on 10/16/2024 Chronic atrial fibrillation with mild RVR Hypertension Hyperlipidemia History of cardiac tamponade -Cardiology consulted, appreciate recommendations -Telemetry monitoring -Trend troponins -Cardiac diet, NPO at midnight -Will administer one-time dose of IV Lasix 20 mg IVP and resume patient's oral Lasix 40 mg p.o. 3 times daily beginning tonight. -Patient to continue cardiac medication regimen with atorvastatin 40 mg nightly, Plavix 75 mg daily, diltiazem 30 mg 3 times daily, Lasix 40 mg 3 times daily, metoprolol 200 mg twice daily, spironolactone 12.5 mg daily, and Xarelto 20 mg daily. -Echocardiogram recently completed on 09/08/2024 revealed an EF of 45% with mild to moderate mitral regurgitation and mildly dilated aortic root measuring 4 cm. Will defer to cardiology if repeat echocardiogram is warranted at this time. Anxiety Continue Risperdal 1 mg daily and Lamictal 100 mg twice daily. Data and imaging reviewed: As stated above in HPI. The patient is admitted with an anticipated less than 2 midnight stay for evaluation of chest pain and shortness of breath CODE STATUS: Full code DVT prophylaxis: Xarelto Discussed with: Patient, RN, and ED physician Anticipated discharge date: Pending clinical course, likely 24 to [address]: Home Patient was seen independently by Nurse Practitioner. This document was prepared using [employer] dictation software. Please allow for errors in automotive instructor while rare they do occur. Rosales Zhang NP rendered care for this patient independently, reviewed the findings and plan as documented in the note above and agree with plan. I did no t physically speak with or examine the patient on this date. Past Medical History Past Medical History: Atrial Fibrillation, Asthma, Heart Failure, COPD, Deep Vein Thrombosis (DVT), GERD/Reflux, Hyperlipidemia, Hypertension, Pulmonary Embolus (PE), Sleep Apnea/CPAP/BIPAP Additional Past Medical History / Comment(s): Cardiac tamponade, cardiac arrest possible tia, no cpap used History of Any Multi-Drug Resistant Organisms: None Reported Past Surgical History: Back Surgery, Cardiac Ablation Additional Past Surgical History / Comment(s): Deviated septum repair, spinal fusion, "skin grafts to bilateral arms and above bilateral hips", pain clinic procedures Past Anesthesia/Blood Transfusion Reactions: No Reported Reaction Past Psychological History: Anxiety Smoking Status: Former smoker Past Alcohol Use History: Daily Past Drug Use History: Marijuana - Past Family History Mother Family Medical History: Diabetes Mellitus, Hypertension Father History Unknown: Yes Additional Family Medical History / Comment(s): Father left when pt was 2 yrs old. Medications and Allergies Home Medications Medication Instructions Recorded Confirmed Type Hydrocodone/Acetaminophen [[place] 1 tab PO QID PRN 01/02/18 11/19/24 History 7.5-325] risperiDONE [RisperDAL] 1 mg PO DAILY 01/02/18 11/19/24 History Rivaroxaban [Xarelto] 20 mg PO W/SUPPER 03/05/20 11/19/24 History allopurinoL [Zyloprim] 100 mg PO BID 04/21/20 11/19/24 History Omeprazole 20 mg PO DAILY 06/07/20 11/19/24 History lamoTRIgine [LaMICtal] 100 mg PO BID 07/19/20 11/19/24 History Cyclobenzaprine [Flexeril] 10 mg PO HS 03/14/22 11/19/24 History Atorvastatin [Lipitor] 40 mg PO HS 09/08/24 11/19/24 History Clopidogrel [Plavix] 75 mg PO DAILY #90 tab 10/17/24 11/19/24 Rx Nitroglycerin Sl Tabs [Nitrostat] 0.4 mg SUBLINGUAL Q5M PRN #30 tab 10/17/24 11/19/24 Rx Furosemide [Lasix] 40 mg PO TID 11/05/24 11/19/24 History Potassium Chloride ER [K-Dur 20] 20 meq PO DAILY 11/05/24 11/19/24 History Spironolactone [Aldactone] 12.5 mg PO DAILY 11/05/24 11/19/24 History dilTIAZem HCL 30 mg PO TID 11/05/24 11/19/24 History Metoprolol Succinate (ER) [Toprol 200 mg PO BID 11/19/24 11/19/24 History Xl] Allergies Allergy/AdvReac Type Severity Reaction Status Date / Time varenicline [From Chantix] AdvReac IRRITABLE/A Verified 11/19/24 13:32 NGER Physical Exam Vitals: Vital Signs Temp Pulse Resp BP Pulse Ox 11/19/24 15:56 96 16 115/72 100 11/19/24 15:55 98 11/19/24 15:44 102 H 11/19/24 12:31 82 20 102/62 100 11/19/24 11:40 91 11/19/24 11:23 79 18 99/45 99 11/19/24 10:48 97.5 F L 106 H 20 94/64 98 Intake and Output 11/19/24 11/19/24 11/19/24 06:59 14:59 22:59 Other: Weight 97.522 kg Results CBC & Chem 7: 11/19/24 11:24 11/19/24 11:24 Labs: Abnormal Lab Results - Last 24 Hours (Table) 11/19/24 11/19/24 11/19/24 Range/Units 11:24 11:24 11:24 RBC 3.44 L (4.40-5.60) 10*6/uL Hgb 11.8 L (13.0-17.0) g/dL Hct 34.4 L (39.6-50.0) % MCV 100.0 H (80.0-97.0) fL MCH 34.3 H (27.0-32.0) pg Lymphocytes # 0.60 L (0.90-5.00) 10*3/uL Sodium 134 L (137-145) mmol/L Chloride 96 L (98-107) mmol/L Glucose 180 H (74-99) mg/dL Plasma Lactic Acid James 4.0 H* (0.7-2.0) mmol/L
[2024-11-19] MEDS: FUROSEMIDE 10 MG/ML 2 ML VIAL IV ONE (18:10)
[2024-11-19] MEDS: lamoTRIgine 100 MG TAB PO SCH (20:41)
[2024-11-19] MEDS: ATORVASTATIN 40 MG TAB PO SCH (20:41)
[2024-11-19] MEDS: FUROSEMIDE 40 MG TAB PO SCH (20:41)
[2024-11-19] MEDS: METOPROLOL SUCCINATE (ER) 100 MG TAB.ER.24H PO SCH (20:41)
[2024-11-19] MEDS: CYCLOBENZAPRINE 10 MG TAB PO SCH (20:41)
[2024-11-19] MEDS: allopurinoL 100 MG TAB PO SCH (20:41)
[2024-11-19] MEDS: DILTIAZEM ORAL 30 MG TAB PO SCH (21:27)
[2024-11-19] MEDS: HYDROcodone/APAP 7.5-325MG 1 EACH TAB PO PRN (23:58)
[2024-11-20 08:17] VITALS: RESP 18
[2024-11-20] MEDS ORDERED: SPIRONOLACTONE 25 MG TAB PO SCH (09:00)
[2024-11-20] MEDS: DAPAGLIFLOZIN PROPANEDIOL 10 MG TABLET PO SCH (09:37)
[2024-11-20] MEDS: CLOPIDOGREL 75 MG TAB PO SCH (09:37)
[2024-11-20] MEDS: SPIRONOLACTONE 25 MG TAB PO SCH (09:37)
[2024-11-20] MEDS: PANTOPRAZOLE 40 MG TABLET PO SCH (09:39)
[2024-11-20] MEDS: risperiDONE 1 MG TAB PO SCH (10:11)
[2024-11-20 11:22] VITALS: BP 121/80; PULSE 98; TEMP 97.7
--- NOTE | 2024-11-20 11:47 | P.CRDCN ---
History of Present Illness History of present illness: HISTORY OF PRESENT ILLNESS: This is a 69-year-old male with a past medical history significant for coronary artery disease with previous stenting, hypertension, hyperlipidemia, congestive heart failure, and atrial fibrillation. Patient follows in the office with Dr. Reis. We have been asked to see the patient in consultation for atrial fibrillation. Patient examined at the bedside. Patient presented to the hospital with a chief complaint of shortness of breath and chest heaviness. He also reports having palpitations. Patient states that he recently ran out of his Farxiga. He saw Dr. Reis on 10/22/2024 and he was started on Cardizem for A- fib with uncontrolled ventricular rates. At the time of examination he remains in atrial fibrillation with controlled ventricular rates. He has been compliant with all of his other medications. DIAGNOSTICS: - EKG reveals atrial fibrillation with controlled ventricular rate. Nonspecific ST-T wave changes. - Chest xray small right pleural effusion. - Laboratory data: WBC 4.78. Hemoglobin 11.8. Platelet count 194. Sodium 134. Potassium 3.7. BUN 12. Creatinine 0.77. Lactic acid 4.0. Repeat 1.4. Troponin negative x 3. proBNP 1860. - Current home cardiac medications include Xarelto 20 mg with dinner, Lipitor 40 mg at night, Cardizem 30 mg 3 times daily, Aldactone 12.5 mg daily, Lasix 40 mg 3 times daily, Plavix 75 mg daily, metoprolol succinate 200 mg twice a day. - Most recent echocardiogram obtained in August 2024 revealed ejection fraction 45%, moderate concentric LVH, mild to moderate mitral regurgitation, mild t ricuspid regurgitation - Cardiac catheterization history: 10/16/2024 revealing 70 to 80% mid LAD stenosis and otherwise mild 20% proximal and mid LAD stenosis. Patient underwent PCI of the mid LAD. REVIEW OF SYSTEMS: At the time of my exam: CONSTITUTIONAL: Denies fever or chills. HEENT: Denies blurred vision, vision changes, or eye pain. Denies hemoptysis CARDIOVASCULAR: Denies chest pain. Denies orthopnea. Denies PND. Denies palpitations RESPIRATORY: Denies shortness of breath. GASTROINTESTINAL: Denies abdominal pain. Denies nausea or vomiting. HEMATOLOGIC: Denies bleeding disorders. GENITOURINARY: Denies any blood in urine. SKIN: Denies pruitis. Denies rash. PHYSICAL EXAM: VITAL SIGNS: Reviewed. GENERAL: Well-developed in no acute distress. HEENT: Head is normocephalic. Pupils are equal, round. Sclerae anicteric. Mucous membranes of the mouth are moist. Neck supple. No JVD or thyromegaly LUNGS: Respirations even and unlabored. Lungs essentially clear to auscultation bilaterally. HEART: Irregular rate and rhythm. S1 and S2 heard. ABDOMEN: Soft. Nondistended. Nontender. EXTREMITIES: Normal range of motion. No clubbing or cyanosis. Peripheral pulses intact. No lower extremity edema NEUROLOGIC: Awake and alert. Oriented x 3. ASSESSMENT: Shortness of breath Chest pain, troponin negative x 3 Acute on chronic heart failure with mildly reduced EF 45% Persistent atrial fibrillation with controlled ventricular rate Coronary artery disease with previous stenting, most recently of mid LAD on 10/16/2024 Elevated lactic acid, resolved Hypertension Hyperlipidemia Moderate concentric LVH Mild to moderate mitral regurgitation History of unsuccessful A-fib ablation complicated by perforation of the atria requiring surgery, 2021 Obesity: BMI 30.8 PLAN: An acute coronary event has been ruled out No need to repeat echocardiogram as this was performed in August 2024 Resume home cardiac medications Increase Aldactone to 25 mg daily Add Farxiga 10 mg daily Consider amiodarone on an outpatient basis Consider outpatient EP evaluation with possible cardioversion or ablation Patient may be discharged home today from a cardiac standpoint follow-up in the office with Dr. Reis Nurse practitioner note has been reviewed by physician. Signing provider agrees with the documented findings, assessment, and plan of care documented by ASSOCIATE MARKETING MANAGER as a scribe. Past Medical History Past Medical History: Atrial Fibrillation, Asthma, Heart Failure, COPD, Deep Vein Thrombosis (DVT), GERD/Reflux, Hyperlipidemia, Hypertension, Pulmonary Embolus (PE), Sleep Apnea/CPAP/BIPAP Additional Past Medical History / Comment(s): Cardiac tamponade, cardiac arrest (2021), possible tia, no cpap used History of Any Multi-Drug Resistant Organisms: None Reported Past Surgical History: Back Surgery, Cardiac Ablation Additional Past Surgical History / Comment(s): Deviated septum repair, spinal fusion, "skin grafts to bilateral arms and above bilateral hips", pain clinic procedures Past Anesthesia/Blood Transfusion Reactions: No Reported Reaction Past Psychological History: Anxiety Additional Psychological History / Comment(s): Pt resides with his spouse. He uses no assistive device. He drives. Smoking Status: Former smoker Past Alcohol Use History: Occasional Additional Past Alcohol Use History / Comment(s): Quit smoking 10-08-2018. Started smoking at age 35, 0.5ppd. Pt drinks a singular beer a couple times a week. Past Drug Use History: Marijuana Additional Drug Use History / Comment(s): Has [employer] card-uses edibles occasionally. - Past Family History Mother Family Medical History: Diabetes Mellitus, Hypertension Father History Unknown: Yes Additional Family Medical History / Comment(s): Father left when pt was 2 yrs ol d. Medications and Allergies Home Medications Medication Instructions Recorded Confirmed Type Hydrocodone/Acetaminophen [[facility] 1 tab PO QID PRN 01/02/18 11/19/24 History 7.5-325] risperiDONE [RisperDAL] 1 mg PO DAILY 01/02/18 11/19/24 History Rivaroxaban [Xarelto] 20 mg PO W/SUPPER 03/05/20 11/19/24 History allopurinoL [Zyloprim] 100 mg PO BID 04/21/20 11/19/24 History Omeprazole 20 mg PO DAILY 06/07/20 11/19/24 History lamoTRIgine [LaMICtal] 100 mg PO BID 07/19/20 11/19/24 History Cyclobenzaprine [Flexeril] 10 mg PO HS 03/14/22 11/19/24 History Atorvastatin [Lipitor] 40 mg PO HS 09/08/24 11/19/24 History Clopidogrel [Plavix] 75 mg PO DAILY #90 tab 10/17/24 11/19/24 Rx Nitroglycerin Sl Tabs [Nitrostat] 0.4 mg SUBLINGUAL Q5M PRN #30 tab 10/17/24 11/19/24 Rx Furosemide [Lasix] 40 mg PO TID 11/05/24 11/19/24 History Potassium Chloride ER [K-Dur 20] 20 meq PO DAILY 11/05/24 11/19/24 History Spironolactone [Aldactone] 12.5 mg PO DAILY 11/05/24 11/19/24 History dilTIAZem HCL 30 mg PO TID 11/05/24 11/19/24 History Metoprolol Succinate (ER) [Toprol 200 mg PO BID 11/19/24 11/19/24 History Xl] Allergies Allergy/AdvReac Type Severity Reaction Status Date / Time varenicline [From Chantix] AdvReac IRRITABLE/A Verified 11/19/24 13:32 NGER Physical Exam Vitals: Vital Signs Temp Pulse Pulse Resp BP BP Pulse Ox 11/20/24 03:23 97.9 F 86 16 98/61 96 11/19/24 23:30 97.6 F 105 H 17 105/74 97 11/19/24 23:10 97.9 F 112 H 16 98/73 97 11/19/24 21:29 104 H 18 98/72 97 11/19/24 15:56 96 16 115/72 100 11/19/24 15:55 98 11/19/24 15:44 102 H 11/19/24 12:31 82 20 102/62 100 11/19/24 11:40 91 11/19/24 11:23 79 18 99/45 99 11/19/24 10:48 97.5 F L 106 H 20 94/64 98 Intake and Output 11/19/24 11/20/24 11/20/24 22:59 06:59 14:59 Output Total 180 Balance -180 Output: Urine 180 Other: Voiding Method Toilet Urinal Weight 97.522 kg Results 11/19/24 11:24 11/19/24 11:24 Cardiac Enzymes 11/19/24 11/19/24 11/19/24 Range/Units 11:24 11:24 14:24 AST 31 (17-59) U/L Troponin I <0.012 <0.012 (0.000-0.034) ng/mL 11/19/24 Range/Units 17:12 AST (17-59) U/L Troponin I <0.012 (0.000-0.034) ng/mL Coagulation 11/19/24 Range/Units 11:24 PT 11.0 (10.0-12.5) sec APTT 25.9 (22.0-30.0) sec CBC 11/19/24 Range/Units 11:24 WBC 4.78 (4.50-10.00) 10*3/uL RBC 3.44 L (4.40-5.60) 10*6/uL Hgb 11.8 L (13.0-17.0) g/dL Hct 34.4 L (39.6-50.0) % Plt Count 194 (140-440) 10*3/uL Comprehensive Metabolic Panel 11/19/24 Range/Units 11:24 Sodium 134 L (137-145) mmol/L Potassium 3.7 (3.5-5.1) mmol/L Chloride 96 L (98-107) mmol/L Carbon Dioxide 24 (22-30) mmol/L BUN 12 (9-20) mg/dL Creatinine 0.77 (0.66-1.25) mg/dL Glucose 180 H (74-99) mg/dL Calcium 9.6 (8.4-10.2) mg/dL AST 31 (17-59) U/L ALT 21 (4-49) U/L Alkaline Phosphatase 90 (38-126) U/L Total Protein 6.7 (6.3-8.2) g/dL Albumin 3.7 (3.5-5.0) g/dL Current Medications Generic Name Dose Route Start Last Admin Trade Name Freq PRN Reason Stop Dose Admin Hydrocodone Bitart/Acetaminophen 1 each 11/19/24 16:07 11/19/24 23:58 Hydrocodone/Apap 7.5-325mg 1 Each Tab PO 1 each QID PRN Administration Pain 1-6 Allopurinol 100 mg 11/19/24 21:00 11/19/24 20:41 Allopurinol 100 Mg Tab PO 100 mg BID KIRILL Administration Atorvastatin Calcium 40 mg 11/19/24 21:00 11/19/24 20:41 Atorvastatin 40 Mg Tab PO 40 mg HS KIRILL Administration Clopidogrel Bisulfate 75 mg 11/20/24 09:00 Clopidogrel 75 Mg Tab PO DAILY KIRILL Cyclobenzaprine HCl 10 mg 11/19/24 21:00 11/19/24 20:41 Cyclobenzaprine 10 Mg Tab PO 10 mg HS KIRILL Administration Diltiazem HCl 30 mg 11/19/24 22:00 11/19/24 21:27 Diltiazem Oral 30 Mg Tab PO 30 mg TID KIRILL Administration Furosemide 40 mg 11/19/24 22:00 11/19/24 20:41 Furosemide 40 Mg Tab PO Not Given TID KIRILL Lamotrigine 100 mg 11/19/24 21:00 11/19/24 20:41 Lamotrigine 100 Mg Tab PO 100 mg BID KIRILL Administration Metoprolol Succinate 200 mg 11/19/24 21:00 11/19/24 20:41 Metoprolol Succinate (Er) 100 Mg Tab.Er.24h PO 200 mg BID KIRILL Administration Morphine Sulfate 4 mg 11/19/24 14:02 Morphine Sulfate 4 Mg/Ml Syringe IV Q4HR PRN Severe Pain (Scale 7 to 10) Naloxone HCl 0.2 mg 11/19/24 14:02 Naloxone 0.4 Mg/Ml 1 Ml Vial IV Q2M PRN Opioid Reversal Nitroglycerin 0.4 mg 11/19/24 16:07 Nitroglycerin Sl Tabs 0.4 Mg Tab SUBLINGUAL Q5M PRN Chest Pain Ondansetron HCl 4 mg 11/19/24 14:02 Ondansetron 4 Mg/2 Ml Vial IVP Q8HR PRN Nausea And Vomiting Pantoprazole Sodium 40 mg 11/20/24 09:00 Pantoprazole 40 Mg Tablet PO DAILY [facility] Risperidone 1 mg 11/20/24 09:00 Risperidone 1 Mg Tab PO DAILY [facility] Rivaroxaban 20 mg 11/19/24 17:30 11/19/24 17:19 Rivaroxaban 20 Mg Tab PO 20 mg W/SUPPER KIRILL Administration Protocol Spironolactone 12.5 mg 11/20/24 09:00 Spironolactone 25 Mg Tab PO DAILY [facility] Intake and Output 11/19/24 11/20/24 11/20/24 22:59 06:59 14:59 Output Total 180 Balance -180 Output: Urine 180 Other: Voiding Method Toilet Urinal Weight 97.522 kg 11/19/24 11:24 11/19/24 11:24
--- NOTE | 2024-11-20 13:24 | P.DS ---
Providers Date of admission: 11/19/24 14:04 Expected date of discharge: 11/20/24 Attending physician: Teri Kauffman MD Consults: 11/19/24 14:02 Consult Physician Routine Consulting Provider: Diya Mckeon Consult Reason/Comments: afib Do you want consulting provider notified?: Yes Primary care physician: Dallas Alvarez Hospital Course: Discharge Diagnosis: Chest pain/pressure with shortness of breath. Acute coronary event ruled out Chronic systolic heart failure with mild exacerbation CAD status post stenting x 3 with most recent stent to mid LAD on 10/16/2024. Chronic atrial fibrillation with mild RVR Hypertension Hyperlipidemia History of cardiac tamponade Anxiety Hospital Course: Patient is a very pleasant 69-year-old male with a past medical history of CAD status post stenting with most recent stent to mid LAD on 10/16/24 on Plavix and Xarelto, chronic atrial fibrillation on anticoagulation with Xarelto, chronic systolic heart failure with previously known EF of 45% on home Lasix 3 times daily, hypertension, hyperlipidemia, previous DVT and PE, and previous cardiac tamponade. Patient reports he follows with fence erector Dr. Reis. He p resented to our facility 11/19/24 with a chief complaint of chest heaviness and shortness of breath. Upon arrival to our facility, patient underwent evaluation in the emergency department. Vital signs on arrival show blood pressure 94/64, heart rate 106, respiratory rate 20, temp 97.5 F, and SpO2 of 98% on room air. EKG completed showing atrial fibrillation with a controlled ventricular rate of 94 bpm and diffuse T wave abnormalities. Chest x-ray showing small right pleural effusion. Labs completed and reviewed. CBC showing macrocytic anemia with hemoglobin 11.8, MCV of 100.0, and MCH of 34.3. Coagulation profile normal findings. BMP showing sodium 134 and chloride 96. Blood glucose 180. Lactic acid 4.0. Calcium 9.6. Magnesium 1.8. Liver profile unremarkable. Troponin was negative at less than 0.012 with proBNP of 1860. Influenza A, influenza B, RSV, and COVID PCR were negative. Patient admitted under services with consultation to cardiology. Lactic acid resolved with repeat lactate decreasing from 4.0 down to 1.4. Troponins were trended all negative at less than 0.012 x 3 draws. Patient reports resolution of shortness of breath and chest heaviness after IV dose of Lasix given yesterday. He was evaluated by cardiology stating no need for repeat echocardiogram, recommending outpatient EP evaluation with possible cardioversion or ablation, increasing Aldactone to 25 mg daily and adding Farxiga 10 mg daily and clearing patient from cardiac standpoint for discharge. Patient medically optimized at this time and free from any complaints questions, concerns, or needs at this time., Prescription sent and discharged instructions were provided. Patient to follow-up outpatient with PCP in 1 to 2 days and with fence erector in 1 week. Physical exam: Vital signs reviewed and stable. General: Nontoxic, no distress and appears stated age. Derm: Skin warm and dry, normal coloration for ethnicity. Head: Atraumatic, normocephalic and symmetric. Eyes: EOM's intact, no lid lag, and anicteric sclera Mouth: no lip lesions, mucus membranes moist Cardiovascular: Irregularly irregular, systolic murmur, positive posterior tibial pulses bilaterally, and cap refill < 2 seconds. Lungs: Respirations even, regular, and unlabored on room air. Lungs CTA bilaterally, no rhonchi, no rales, no wheezing, and no accessory muscle usage. Abdominal: soft, nontender to palpation, no guarding, no appreciable organomegaly Ext: ROM intact. No gross muscle atrophy, 1+ bilateral lower extremity pedal edema, no contractures Neuro: Speech clear, face symmetrical and CN II-XII grossly intact with no noted focal neuro deficits Psych: Alert and oriented to person, place, time, and situation. Appropriate and pleasant affect. A total of 34 minutes of time were spent preparing this complex discharge summary. Pt was discharged on 11/20/2024 at 1:18 PM. Patient was seen independently by Nurse Practitioner. This document was prepared using [employer] dictation software. Please allow for errors in classroom technology technician while rare they do occur. Rosales Zhang NP rendered care for this patient independently, reviewed the findings and plan as documented in the note above. I did not physically speak with or examine the patient on this date. Patient Condition at Discharge: Stable Plan - Discharge Summary Discharge Rx Participant: No New Discharge Prescriptions: New Spironolactone [Aldactone] 25 mg PO DAILY 30 Days #30 tab Dapagliflozin Propanediol [Farxiga] 10 mg PO DAILY 30 Days #30 tab Continue risperiDONE [RisperDAL] 1 mg PO DAILY Hydrocodone/Acetaminophen [[place] 7.5-325] 1 tab PO QID PRN PRN Reason: Pain Rivaroxaban [Xarelto] 20 mg PO W/SUPPER allopurinoL [Zyloprim] 100 mg PO BID Omeprazole 20 mg PO DAILY lamoTRIgine [LaMICtal] 100 mg PO BID Clopidogrel [Plavix] 75 mg PO DAILY #90 tab Furosemide [Lasix] 40 mg PO TID Potassium Chloride ER [K-Dur 20] 20 meq PO DAILY Metoprolol Succinate (ER) [Toprol XL] 200 mg PO BID Cyclobenzaprine [Flexeril] 10 mg PO HS Atorvastatin [Lipitor] 40 mg PO HS Nitroglycerin Sl Tabs [Nitrostat] 0.4 mg SUBLINGUAL Q5M PRN #30 tab PRN Reason: Chest Pain dilTIAZem HCL 30 mg PO TID Discontinued Spironolactone [Aldactone] 12.5 mg PO DAILY Discharge Medication List Hydrocodone/Acetaminophen [[place] 7.5-325] 1 tab PO QID PRN 01/02/18 [History] risperiDONE [RisperDAL] 1 mg PO DAILY 01/02/18 [History] Rivaroxaban [Xarelto] 20 mg PO W/SUPPER 03/05/20 [History] allopurinoL [Zyloprim] 100 mg PO BID 04/21/20 [History] Omeprazole 20 mg PO DAILY 06/07/20 [History] lamoTRIgine [LaMICtal] 100 mg PO BID 07/19/20 [History] Cyclobenzaprine [Flexeril] 10 mg PO HS 03/14/22 [History] Atorvastatin [Lipitor] 40 mg PO HS 09/08/24 [History] Clopidogrel [Plavix] 75 mg PO DAILY #90 tab 10/17/24 [Rx] Nitroglycerin Sl Tabs [Nitrostat] 0.4 mg SUBLINGUAL Q5M PRN #30 tab 10/17/24 [Rx] Furosemide [Lasix] 40 mg PO TID 11/05/24 [History] Potassium Chloride ER [K-Dur 20] 20 meq PO DAILY 11/05/24 [History] dilTIAZem HCL 30 mg PO TID 11/05/24 [History] Metoprolol Succinate (ER) [Toprol XL] 200 mg PO BID 11/19/24 [History] Dapagliflozin Propanediol [Farxiga] 10 mg PO DAILY 30 Days #30 tab 11/20/24 [Rx] Spironolactone [Aldactone] 25 mg PO DAILY 30 Days #30 tab 11/20/24 [Rx] Follow up Appointment(s)/Referral(s): Dallas Alvarez MD [Primary Care Provider] - 12/03/24 11:15 am Jalil Reis MD [STAFF PHYSICIAN] - 12/04/24 1:30 pm Patient Instructions/Handouts: Heart Failure (DC), Chest Pain (DC) Activity/Diet/Wound Care/Special Instructions: Activity: As tolerated. Take breaks as needed. Diet: Heart healthy and carb consistent diet. Avoid salts, or foods with hidden salts such as canned or boxed foods and frozen dinners. Extra salt makes your heart work harder and traps the fluid in your body for longer. Special Instructions: Take all of your medications as directed and remember to keep all of your doctor's appointments and follow-up as needed. Thank you for allowing us to participate in your care, it was truly a pleasure having you for our patient!!! Discharge Disposition: HOME SELF-CARE
[2024-11-20 14:45] VITALS: BMI 30.8
== END 2024-11-20 14:50 | disposition home or self-care (01) ==
LOC: EC 10:46 → 6NMEDSUR 14:04
PROVIDERS: ADMIT Internal Medicine; ATTEND Internal Medicine
DX: I11.0 Hypertensive heart disease with heart failure (principal); I50.23 Acute on chronic systolic (congestive) heart failure; I48.19 Other persistent atrial fibrillation; I25.10 Atherosclerotic heart disease of native coronary artery without angina pectoris; J44.1 Chronic obstructive pulmonary disease with (acute) exacerbation; K21.9 Gastro-esophageal reflux disease without esophagitis; E78.5 Hyperlipidemia, unspecified; G47.30 Sleep apnea, unspecified; F41.9 Anxiety disorder, unspecified; E87.20 Acidosis, unspecified; I34.0 Nonrheumatic mitral (valve) insufficiency; E66.9 Obesity, unspecified; Z68.30 Body mass index [BMI] 30.0-30.9, adult; Z86.711 Personal history of pulmonary embolism; Z86.718 Personal history of other venous thrombosis and embolism; Z86.74 Personal history of sudden cardiac arrest; Z86.79 Personal history of other diseases of the circulatory system; Z87.891 Personal history of nicotine dependence; Z95.5 Presence of coronary angioplasty implant and graft; Z79.01 Long term (current) use of anticoagulants; Z79.02 Long term (current) use of antithrombotics/antiplatelets; Z79.899 Other long term (current) drug therapy
CPT/HCPCS: 96360; 96361 ×2; 96374; 96375; 99285; 36415; 94640 ×2; 93005 ×2; 83880; 80053; 83605; 83735; 84484; 85025; 85610; 85730; 87636; 71046; G0378 ×2; J2919; J1938

== ENCOUNTER → 2024-12-02 | Day surgery (SDC) | payer MEDICARE ==
[~2024-12-02] MED LIST changes: -SODIUM CHLORIDE 0.9% 1,000 ML IV SCH
[2024-12-02 08:06] VITALS: BP 93/66; PULSE 101; RESP 14; TEMP 97.4
--- NOTE | 2024-12-02 09:15 | P.PN ---
Progress Note - Text Patient is on Plavix and Xarelto post coronary stenting. He is off Xarelto for 3 days but continue to take Plavix. Today's scheduled procedure is canceled. Before his next procedure he needs to get okay from cardiology in writing to stop Plavix for 7 days and Xarelto for 3 days.
== END ==
LOC: ORPAIN 07:35
PROVIDERS: ATTEND Pain Medicine Interventional Pain Medicine
DX: M54.16 Radiculopathy, lumbar region (principal); Z53.9 Procedure and treatment not carried out, unspecified reason